=== PATIENT | female | born 1950 | race Caucasian/White ===

== ENCOUNTER 2019-08-09 10:07 | Outpatient (REF) | payer MEDICARE, BC, SELFPAY ==
[2019-08-09 21:54] LABS: Calculated LDL 183 mg/dL; Cholesterol 255 mg/dL (50-200); HDL Cholesterol 56 mg/dL (40-60); Triglyceride 81 mg/dL (30-150)
== END 2019-08-09 10:27 ==
LOC: NCHCN 10:07
PROVIDERS: PCP Registered Nurse; Visit Provider Registered Nurse
DX: E78.89 Other lipoprotein metabolism disorders (principal); Z13.6 Encounter for screening for cardiovascular disorders
CPT/HCPCS: 80061

== ENCOUNTER 2020-03-15 14:33 | Outpatient (REF) | payer MEDICARE, BC, SELFPAY ==
[2020-03-17 07:30] LABS: COVID-19 RT-PCR Result NEGATIVE (Negative)
== END 2020-03-15 14:53 ==
LOC: NCHCN 14:33
PROVIDERS: PCP Registered Nurse; Visit Provider Nurse Practitioner Family
DX: Z03.818 Encounter for observation for suspected exposure to other biological agents ruled out (principal)
CPT/HCPCS: U0003

== ENCOUNTER 2021-09-06 19:08 | Outpatient (REF) | payer MEDICARE, BC, SELFPAY ==
[2021-09-06 21:06] LABS: HCT 36.8 % (36.0-46.0); HGB 11.5 g/dL (11.2-15.7); MCH 25.7 pg (27.0-33.0); MCHC 31.3 % (32.0-36.0); MCV 82.3 fL (80-95); MPV 10.1 fL (8.0-11.0); Platelet Count 245 10^3/uL (130-400); RBC 4.47 10^6/uL (3.93-5.22); RDW 12.6 % (11.7-14.6); RDW-SD 38.4 fL; WBC 7.47 10^3/uL (4.4-10.8)
[2021-09-06 21:23] LABS: Calculated LDL 191 mg/dL (<100); Cholesterol 287 mg/dL (<200); HDL Cholesterol 50 mg/dL (40-60); Triglyceride 233 mg/dL (<150)
[2021-09-06 21:35] LABS: Hemoglobin A1C 5.7 % (<5.7)
[2021-09-06 21:46] LABS: Vitamin D 25 Total 21.4 ng/mL (30-100)
== END 2021-09-06 19:09 | disposition home or self-care (01) ==
LOC: NCHCN 19:08
PROVIDERS: PCP Registered Nurse; Visit Provider Registered Nurse
DX: R53.83 Other fatigue (principal); R39.9 Unspecified symptoms and signs involving the genitourinary system; Z00.00 Encounter for general adult medical examination without abnormal findings; Z83.3 Family history of diabetes mellitus
CPT/HCPCS: 80061; 82306; 85027; 87077; 83036; 87086; 87186

== ENCOUNTER 2021-11-02 12:05 | Outpatient (REF) | payer MEDICARE, BC, SELFPAY ==
[2021-11-05 01:20] LABS: Vitamin D 25 Total 54.7 ng/mL (30-100)
== END 2021-11-02 12:06 | disposition home or self-care (01) ==
LOC: NCHCN 12:05
PROVIDERS: PCP Registered Nurse; Visit Provider Registered Nurse
DX: E55.9 Vitamin D deficiency, unspecified (principal)
CPT/HCPCS: 82306

== ENCOUNTER 2021-11-27 02:25 | Outpatient (CLI) | payer MEDICARE, BC, SELFPAY ==
--- NOTE | 2021-11-27 09:30 | NS.NUTBLAN_ITS ---
Aparna was referred for Medical Nutrition Therapy for pre diabetes and weight management. PMH: overweight, hyperlipidemia, prediabetes, hx of hypovitaminosis D. 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 Overall, Aparna follows a balanced meal and avoids processed foods and is active daily. Aparna reports wanting to lose another 5 lbs. No side effect from statin. Diet does not provide high sources of cholesterol, suspect elevated lipids due to liver output/genetic predisposition. Mildly elevated blood sugars may be due to recent gain of 10 lbs in last 2 years. Has lost 5 of 10 pounds in last month by limiting sweets. Session today focused on how to follow a lower carb diet with emphasis on complex carbs, lean protein and non starchy vegetables. Encouraged walking 7-10 miles weekly. Expect she will attain her weight goal and A1C with return to normal. No follow up scheduled at this time. Will follow up as needed.
== END 2021-11-27 02:26 | disposition home or self-care (01) ==
LOC: DS 02:25
PROVIDERS: PCP Registered Nurse; Visit Provider Dietitian, Registered
DX: R73.03 Prediabetes (principal); E66.3 Overweight; Z71.3 Dietary counseling and surveillance
CPT/HCPCS: 97802

== ENCOUNTER 2021-12-19 17:46 | Outpatient (REF) | payer MEDICARE, BC, SELFPAY ==
[2021-12-21 12:24] LABS: COVID-19 RT-PCR UVMMC Result Negative (Negative)
== END 2021-12-19 17:47 | disposition home or self-care (01) ==
LOC: NCHCN 17:46
PROVIDERS: PCP Registered Nurse; Visit Provider Registered Nurse
DX: Z20.822 Contact with and (suspected) exposure to COVID-19 (principal); J06.9 Acute upper respiratory infection, unspecified
CPT/HCPCS: U0003; U0005

== ENCOUNTER 2022-03-06 10:39 | Outpatient (REF) | payer MEDICARE, BC, SELFPAY ==
[2022-03-06 15:26] LABS: Calculated LDL 124 mg/dL (<100); Cholesterol 213 mg/dL (<200); HDL Cholesterol 68 mg/dL (40-60); TSH (W/Ref FT4) 1.01 uIU/mL (0.36-3.74); Triglyceride 109 mg/dL (<150)
[2022-03-07 09:43] LABS: Hepatitis C Ab w Rflx HCV PCR Negative (Negative)
== END 2022-03-06 10:40 | disposition home or self-care (01) ==
LOC: NCHCN 10:39
PROVIDERS: PCP Registered Nurse; Visit Provider Registered Nurse
DX: E78.5 Hyperlipidemia, unspecified (principal); E04.9 Nontoxic goiter, unspecified; R73.03 Prediabetes; Z11.59 Encounter for screening for other viral diseases
CPT/HCPCS: 80061; 86803; 83036; 84443

== ENCOUNTER 2023-01-10 21:10 | Outpatient (REF) | payer MEDICARE, BC, SELFPAY ==
[2023-01-10 21:34] LABS: HCT 38.7 % (36.0-46.0); HGB 12.4 g/dL (11.2-15.7); MCH 26.5 pg (27.0-33.0); MCV 83 fL (80-95); MPV 9.5 fL (8.0-11.0); Platelet Count 272 10^3/uL (130-400); RBC 4.68 10^6/uL (3.93-5.22); RDW 12.7 % (11.7-14.6); RDW-SD 38.5 fL; WBC 7.97 10^3/uL (4.4-10.8)
[2023-01-10 21:37] LABS: ESR 8 mm/hr (0-30)
[2023-01-10 21:45] LABS: Hemoglobin A1C 6.1 % (<5.7)
[2023-01-10 22:04] LABS: Vitamin D 25 Total 64.2 ng/mL (30-100)
[2023-01-10 22:35] LABS: ALT 27 U/L (14-59); AST 17 U/L (15-37); Albumin 4.1 g/dL (3.4-5.0); Alkaline Phosphatase 89 U/L (46-116); Anion Gap 8.4 mmol/L (3-11); BUN 24 mg/dL (7-18); Bilirubin, Total 0.4 mg/dL (0.2-1.0); C-Reactive Protein 0.09 mg/dL (0.0-0.3); CO2 29.6 mmol/L (21.0-32.0); CREATININE 0.8 mg/dL (0.55-1.02); Calcium 9.6 mg/dL (8.5-10.1); Chloride 105 mmol/L (98-107); Estimated GFR 79.22 (mL/min/1.73m2); Glucose 99 mg/dL (74-106); Potassium 4.4 mmol/L (3.5-5.1); Sodium 143 mmol/L (136-145); Total Protein 7.2 g/dL (6.4-8.2)
== END 2023-01-10 21:11 | disposition home or self-care (01) ==
LOC: NCHCN 21:10
PROVIDERS: PCP Registered Nurse; Visit Provider Registered Nurse
DX: R51.9 Headache, unspecified (principal); R53.83 Other fatigue; R73.03 Prediabetes; E55.9 Vitamin D deficiency, unspecified; E04.9 Nontoxic goiter, unspecified
CPT/HCPCS: 80053; 82306; 85027; 85652; 83036; 84443; 86140

== ENCOUNTER 2024-01-22 14:14 | Outpatient (REF) | payer MEDICARE, BC, SELFPAY ==
[2024-01-22 20:43] LABS: HCT 37.4 % (36.0-46.0); HGB 12.1 g/dL (11.2-15.7); MCH 26.8 pg (27.0-33.0); MCHC 32.4 % (32.0-36.0); MCV 83 fL (80-95); MPV 10.2 fL (8.0-11.0); Platelet Count 244 10^3/uL (130-400); RBC 4.52 10^6/uL (3.93-5.22); RDW 12.5 % (11.7-14.6); RDW-SD 37.8 fL; WBC 6.61 10^3/uL (4.4-10.8)
[2024-01-22 21:03] LABS: ALT 21 U/L (14-59); AST 19 U/L (15-37); Alkaline Phosphatase 89 U/L (46-116); BUN 15 mg/dL (7-18); Bilirubin, Total 0.7 mg/dL (0.2-1.0); CREATININE 0.8 mg/dL (0.55-1.02); Calcium 9.5 mg/dL (8.5-10.1); Chloride 107 mmol/L (98-107); Estimated GFR 78.72 (mL/min/1.73m2); Glucose 87 mg/dL (74-106); Potassium 4.4 mmol/L (3.5-5.1); Sodium 144 mmol/L (136-145); TSH 1.06 uIU/Ml (0.36-3.74); Total Protein 7.3 g/dL (6.4-8.2)
[2024-01-22 21:15] LABS: Hemoglobin A1C 6.1 % (<5.7)
== END 2024-01-22 14:15 | disposition home or self-care (01) ==
LOC: NCHCN 14:14
PROVIDERS: PCP Registered Nurse; Visit Provider Family Medicine
DX: D64.9 Anemia, unspecified (principal); R73.03 Prediabetes; E04.9 Nontoxic goiter, unspecified; E66.9 Obesity, unspecified
CPT/HCPCS: 80053; 85027; 83036; 84443

== ENCOUNTER 2024-08-18 07:38 | Outpatient (REF) | payer MEDICARE, BC, SELFPAY ==
[2024-08-17 15:05] LABS: HCT 34.9 % (36.0-46.0); HGB 10.9 g/dL (11.2-15.7); MCH 26.1 pg (27.0-33.0); MCHC 31.2 % (32.0-36.0); MCV 84 fL (80-95); MPV 10.1 fL (8.0-11.0); Platelet Count 210 10^3/uL (130-400); RBC 4.18 10^6/uL (3.93-5.22); RDW 12.9 % (11.7-14.6); WBC 5.47 10^3/uL (4.4-10.8)
[2024-08-17 15:41] LABS: ALT 21 U/L (14-59); AST 25 U/L (15-37); Albumin 3.4 g/dL (3.4-5.0); Alkaline Phosphatase 90 U/L (46-116); Anion Gap 6.2 mmol/L (3-11); BUN 22 mg/dL (7-18); Bilirubin, Total 0.48 mg/dL (0.2-1.0); CO2 27.8 mmol/L (21.0-32.0); CREATININE 0.9 mg/dL (0.55-1.02); Chloride 107 mmol/L (98-107); Estimated GFR 68.35 (mL/min/1.73m2); Glucose 104 mg/dL (74-106); Potassium 4.4 mmol/L (3.5-5.1); Sodium 141 mmol/L (136-145); TSH (W/Ref FT4) 0.76 uIU/mL (0.36-3.74); Total Protein 6.8 g/dL (6.4-8.2)
--- OUTSIDE RECORDS SUMMARY | 2024-08-18 07:54 | XMS_ITS ---
Author Organization Unknown Address [address] [place] [address] [phone] Phone Care Team Providers Care Urban Redevelopment Specialist Name Role Phone SHANELLE Silva Attending Unavailable Results MM SCR MAMMO BI INCL CAD - C ompleted: 09/19/2021 15:13 LOINC: Digital mammograms were inte rpreted according to the usual protocol including computer analysis with CADx system including tomosynthesis. Both CC and MLO views of both breasts were performed and compared to prior mammograms dating back to 2016, the most recent being August 2020. There has been no significant change in the appearance of the distribution of the fibroglandular tissue. There is an asymmetric density anteriorly in the right breast which has slightly increased in size from previous studies. Spot compression view and ultrasound recommended. There are no malignant appearing microcalcification groups in this region nor elsewhere in either breast.?? No new architectural distortion nor skin thickening/retraction. IMPRESSION: 1. No radiographic evidence of malignancy in the left breast. 2. Asymmetric density anteriorly in the right breast which is more prominent than on prior studies. Spot compression view and ultrasound recommended. BI-RADS Assessment: Category 0 - Incomplete: Need additional imaging evaluation BREAST DENSITY: c. The breasts are heterogeneously dense which may obscure small masses. Dictated by: KEI BONILLA MD Transcribed by: KATIE 09/19/21/14:35 D Sunday, September 19, 2021 8:17:42 AM [id number] Electronically Reviewed and Signed By: CARRIE BONILLA MD 09/19/21 17:42 TECHNOLOGIST: RT Walter (R) (CT) Copy for: [facility] INFORMATION MGMT Social History Type Status Start Date End Date Code Code Syst em Smoking History Never smoker (Never Smoked) 809139999 SNOMED CT Sex Female Hospital Discharge Instructions Should you have any questions prior to discharge, please contact a member of your healthcare team. If you have left the hospital and have any questions, please contact your primary care physician. Reason For Referral No Data Found Allergies and Adverse Reactions Allergy Substance Reaction Severity Start Date Concern Status Co de Code System No Known Drug Allergies Active 558700910 SNOMED-CT Plan of Treatment MM SCREEN BILAT 10/14/2023 CT HEAD W/O CONTRAST 01/30/2023 MM SCREEN BILAT 09/30/2022 MM DIAG RT UNILAT 03/27/2022 US BREAST UNI RT 03/27/2022 MM DIAG RT UNILAT 03/27/2022 US BREAST UNI RT 03/27/2022 US BREAST UNI RT 09/26/2021 MM DIAG RT UNILAT 09/26/2021 MM SCREEN BILAT 09/24/2021 Encounters Encounter Diagnosis Start Date Code Code Sys tem Screening mammography 09/19/2021 [id number] SNOMED -CT Personal Care Team Section Performer Name Performer Role Active Date Inactive Da te
--- OUTSIDE RECORDS SUMMARY | 2024-08-18 07:54 | XMS_ITS ---
Author Organization Unknown Address [address] [place] [address] [phone] Phone Care Team Providers Care Scale Clerk Name Role Phone TIMMONS SHIRLEY Silva Attending Unavailable Results US BREAST COMPLETE RT* - Com pleted: 09/26/2021 15:52 LOINC: Digital mammograms were inte rpreted according to the usual protocol including computer analysis with [employer] system including tomosynthesis. DIAGNOSTIC RIGHT BREAST MAMMOGRAM AND COMPLETE RIGHT BREAST ULTRASOUND: This patient has now returned for additional imaging of the right breast, pursuant to findings on the recent screening mammogram of 09/19/2021. DIAGNOSTIC RIGHT BREAST MAMMOGRAM: Additional spot compression view does not dissipate the somewhat oval nodule anteriorly in the right breast. The other density slightly more medial is less evident on this additional 3D spot compression view. COMPLETE RIGHT BREAST ULTRASOUND: All four quadrants were scanned, as well as the retro-areolar region and right axilla. There is a solitary finding at the 10 o'clock position, which corresponds to the finding on the mammogram. This has the appearance of a 7 x 3 mm septated microcyst. There are no solid lesions in all four quadrants. Right axilla is negative for significant adenopathy. IMPRESSION: There is a 7 x 3 mm septated microcyst at the 10 o'clock position corresponding to the finding on the mammogram. Appropriate follow up, as discussed by myself with the patient today, is repeat right breast mammogram in six months. BI-RADS Assessment:?Category 3. Probably Benign Findings - Short interval follow-up suggested. BREAST DENSITY: c. The breasts are heterogeneously dense which may obscure small masses. TECHNOLOGIST: Marta Kramer, RT (R) (M) Dictated by: KEI BONILLA MD Transcribed by: MICHAEL 09/26/21/16:31 [id number] Electronically Reviewed and Signed By: CARRIE BONILLA MD 09/26/21 16:50 Copy for: 185 HEALTH INFORMATION MGMT Social History Type Status Start Date End Date Code Code Syst em Smoking History Never smoker (Never Smoked) 223571464 SNOMED CT Sex Female Hospital Discharge Instructions [...] Code System No Known Drug Allergies Active [id number] SNOMED-CT Plan of Treatment MM SCREEN BILAT 10/14/2023 CT HEAD W/O CONTRAST 01/30/2023 MM SCREEN BILAT 09/30/2022 MM DIAG RT UNILAT 03/27/2022 US BREAST UNI RT 03/27/2022 MM DIAG RT UNILAT 03/27/2022 US BREAST UNI RT 03/27/2022 US BREAST UNI RT 09/26/2021 MM DIAG RT UNILAT 09/26/2021 MM SCREEN BILAT 09/24/2021 Encounters Encounter Diagnosis Start Date Code Code Sys tem Inconclusive mammography finding 09/26/2021 [id number] SNOMED-CT Personal Care Team Section Performer Name Performer Role Active Date Inactive Da shyanne
--- OUTSIDE RECORDS SUMMARY | 2024-08-18 07:55 | XMS_ITS ---
Author Organization Unknown Address [address] [place] [address] [phone] Phone Care Team Providers Care Learning Analyst Name Role Phone SHANELLE Silva Attending Unavailable Results MM DIAG UNILAT RT W CAD - Co mpleted: 03/27/2022 10:33 LOINC: Digital mammograms were inte rpreted according to the usual protocol including computer analysis with CADx system including tomosynthesis. RIGHT BREAST MAMMOGRAM AND RIGHT BREAST ULTRASOUND:Right breast mammogram and right breast ultrasound are interpreted in conjunction. These examinations are compared to prior studies of September 2021. Note is again made of a septated cyst of the 10 o'clock position of the right breast, unchanged from prior examination and measuring about 5 mm to 6 mm in greatest diameter. A small nodularity is also noted mammographically at this site. No new mass or clumped microcalcification seen. No change mammographically from prior examination. CONCLUSION:No specific evidence of malignancy at this time. I would suggest that routine screening examinations resume with a bilateral mammogram in 6 months. BI-RADS Assessment: Category 3 - Probably benign findings - Short interval follow-up suggested BREAST DENSITY: c. The breasts are heterogeneously dense which may obscure small masses. Dictated by: LISA LOWERY RADIOLOGIST Transcribed by: KATIE 03/28/22/11:23 D Sunday, March 27, 2022 10:23:45 AM [id number] Electronically Reviewed and Signed By: KIMBERLY LOWERY MD 04/02/22 08:14 TECHNOLOGIST: RT Denisa (R)(M)(CT) Copy for: SHANELLE Silva via fax Copy for: [facility] INFORMATION [facility] BREAST LIMITED RT* - Comp leted: 03/27/2022 10:20 LOINC: Digital mammograms were inte rpreted according to the usual protocol including computer analysis with CADx system including tomosynthesis. RIGHT BREAST MAMMOGRAM AND RIGHT BREAST ULTRASOUND:Right breast mammogram and right breast ultrasound are interpreted in conjunction. These examinations are compared to prior studies of September 2021. Note is again made of a septated cyst of the 10 o'clock position of the right breast, unchanged from prior examination and measuring about 5 mm to 6 mm in greatest diameter. A small nodularity is also noted mammographically at this site. No new mass or clumped microcalcification seen. No change mammographically from prior examination. CONCLUSION:No specific evidence of malignancy at this time. I would suggest that routine screening examinations resume with a bilateral mammogram in 6 months. BI-RADS Assessment: Category 3 - Probably benign findings - Short interval follow-up suggested BREAST DENSITY: c. The breasts are heterogeneously dense which may obscure small masses. Dictated by: KIMBERLY LOWEYR RADIOLOGIST Transcribed by: KATIE 03/28/22/11:23 D Sunday, March 27, 2022 10:23:45 AM [id number] Electronically Reviewed and Signed By: KIMBERLY LOWERY MD 04/02/22 08:15 TECHNOLOGIST: RT Denisa (Basilia)(Ricardo)(CT) Copy for: SHANELLE Silva via fax Copy for: [facility] HEALTH INFORMATION MGMT Social History Type Status Start Date End Date Code Code Syst em Smoking History Never smoker (Never Smoked) 419565725 SNOMED CT Sex Female Hospital Discharge Instructions [...] Code System No Known Drug Allergies Active 563542844 SNOMED-CT Plan of Treatment MM SCREEN BILAT 10/14/2023 CT HEAD W/O CONTRAST 01/30/2023 MM SCREEN BILAT 09/30/2022 MM DIAG RT UNILAT 03/27/2022 US BREAST UNI RT 03/27/2022 MM DIAG RT UNILAT 03/27/2022 US BREAST UNI RT 03/27/2022 US BREAST UNI RT 09/26/2021 MM DIAG RT UNILAT 09/26/2021 MM SCREEN BILAT 09/24/2021 Encounters Encounter Diagnosis Start Date Code Code Sys tem Inconclusive mammogram 03/27/2022 ELIZABETH D-CT Personal Care Team Section Performer Name Performer Role Active Date Inactive Da te
--- OUTSIDE RECORDS SUMMARY | 2024-08-18 07:55 | XMS_ITS ---
Author Organization Unknown Address [address] [place] [address] [phone] Phone Care Team Providers Care Putty Remover Name Role Phone DAWNA Santacruz Attending Unavailable SHANELLE Silva Primary Unavailable Social History Type Status Start Date End Date Code Code Syst em Smoking History Never smoker (Never Smoked) 046958876 SNOMED CT Sex Female Hospital Discharge Instructions [...] Code System No Known Drug Allergies Active 804314206 SNOMED-CT Plan of Treatment MM SCREEN BILAT 10/14/2023 CT HEAD W/O CONTRAST 01/30/2023 MM SCREEN BILAT 09/30/2022 MM DIAG RT UNILAT 03/27/2022 US BREAST UNI RT 03/27/2022 MM DIAG RT UNILAT 03/27/2022 US BREAST UNI RT 03/27/2022 US BREAST UNI RT 09/26/2021 MM DIAG RT UNILAT 09/26/2021 MM SCREEN BILAT 09/24/2021 Encounters Encounter Diagnosis Start Date Code Code Sys tem 01/30/2022 [id number] SNOMED-CT Personal Care Team Section Performer Name Performer Role Active Date Inactive Da shyanne
--- OUTSIDE RECORDS SUMMARY | 2024-08-18 07:55 | XMS_ITS ---
Author Organization Unknown Address [address] [place] [address] [phone] Phone Care Team Providers Care Media Marketing Director Name Role Phone SHANELLE Silva Attending Unavailable Results MM SCREENING BILAT MAMMO W T TAQUERIA W CAD - Completed: 09/30/2022 09:39 LOINC: [facility] [place], [place] [address] PACS LABOR REPRESENTATIVE REPORT Patient Name: ODILIA MAIER MRN: Sex: : Age: [id number] F [id number] Account: Accession: Admit: StayType: [id number] 09/30/2022 O/P Ordered: Order ID: Submitted: Ordering Provider: 09/30/2022 09:22 [id number] [facility] SHIRLEY TIMMONS Completed: Technologist: Resulted: 09/30/2022 09:39 DA 09/30/2022 10:13 Study Description: MM SCREENING BILAT MAMMO W MEGAN W CAD Study Reason: SCREENING Comparisons: Comparison is made with prior examinations. FINDINGS: Mammography/Tomosynthesis: Masses/Architectural Distortion: None seen. Microcalcifictions: No suspicious pleomorphic-type are seen. Skin Thickening/Nipple Retraction: None. IMPRESSION: 1. No evidence of malignancy is noted. 2. Unless there is more urgent need, follow-up screening mammography is recommended, as per [place] [employer] guidelines. BI-RADS Category 1: Negative BI_RADS Density Category C: Heterogeneously dense Breast density Category C or D implies that the patient has dense breast tissue. Dense breast tissue can make it harder to find cancer on a mammogram. Dense breast tissue is also associated with an increased risk of breast cancer. This information about the result of the mammogram report was provided to the patient to raise their awareness. Use this report when you speak with the patient about their risks for breast cancer, which includes their family history. At that time, you may recommend additional screening tests (Ultrasound or MRI) as these tests may add significant information. A negative radiographic report should not delay biopsy if a dominant or clinically suspicious mass is present. Up to ten percent of cancers are not identified on mammography. A negative report may reinforce clinical impression. Adenosis and dense breasts may obscure an underlying neoplasm. False positive reports average 6 to 10%. Patient will receive a letter notifying them of these results. Report Digitally Signed by Ken Brink on 09/30/2022 10:13 AM EST Social History Type Status Start Date End Date Code Code Syst em Smoking History Never smoker (Never Smoked) 837175666 SNOMED CT Sex Female Hospital Discharge Instructions [...] Code System No Known Drug Allergies Active 030242167 SNOMED-CT Plan of Treatment MM SCREEN BILAT 10/14/2023 CT HEAD W/O CONTRAST 01/30/2023 MM SCREEN BILAT 09/30/2022 MM DIAG RT UNILAT 03/27/2022 US BREAST UNI RT 03/27/2022 MM DIAG RT UNILAT 03/27/2022 US BREAST UNI RT 03/27/2022 US BREAST UNI RT 09/26/2021 MM DIAG RT UNILAT 09/26/2021 MM SCREEN BILAT 09/24/2021 Encounters Encounter Diagnosis Start Date Code Code Sys tem Encounter for screening mamm ogram for malignant neoplasm of breast 09/30/2022 SNOMED-CT Personal Care Team Section Performer Name Performer Role Active Date Inactive Da te
--- OUTSIDE RECORDS SUMMARY | 2024-08-18 07:55 | XMS_ITS ---
Author Organization Unknown Address [address] [place] [address] [phone] Phone Care Team Providers Care House Coordinator Name Role Phone DAWNA Santacruz Attending Unavailable SHANELLE Silva Primary Unavailable Social History Type Status Start Date End Date Code Code Syst em Smoking History Never smoker (Never Smoked) 555643318 SNOMED CT Sex Female Hospital Discharge Instructions [...] Code System No Known Drug Allergies Active 914591746 SNOMED-CT Plan of Treatment MM SCREEN BILAT 10/14/2023 CT HEAD W/O CONTRAST 01/30/2023 MM SCREEN BILAT 09/30/2022 MM DIAG RT UNILAT 03/27/2022 US BREAST UNI RT 03/27/2022 MM DIAG RT UNILAT 03/27/2022 US BREAST UNI RT 03/27/2022 US BREAST UNI RT 09/26/2021 MM DIAG RT UNILAT 09/26/2021 MM SCREEN BILAT 09/24/2021 Encounters Encounter Diagnosis Start Date Code Code Sys tem 11/22/2022 [id number] SNOMED-CT Personal Care Team Section Performer Name Performer Role Active Date Inactive Da shyanne
--- OUTSIDE RECORDS SUMMARY | 2024-08-18 07:56 | XMS_ITS | Referral Summary ---
Author Organization [facility] Address [address] [place] [address] Care Team Providers Care Video Manager Name Role Phone Kerrie Morgan APRN Primary Care Provider + Maxine Masterson MD Unavailable [phone] Encounters Date Type Department Care Team Description 08/17/[address] [phone] Amos Andujar MD Pre-op Exam 08/16/2024 13:45 EDT Office Visit [address] [phone] Amos Andujar MD Meningioma ([facility]) (Primary Dx) 08/03/2024 13:09 EDT - 08/03/2024 23:59 EDT Hospital Encounter Stephanie Ramires [facility] [address] [place], [place] [phone] Meningioma ([facility]) Discharge Disposition: Home or Self Care 08/03/2024 13:09 EDT - 08/03/2024 23:59 EDT Hospital Encounter Stephanie Ramires [place] [address] [place], [place] [id number] Meningioma ([facility]) Discharge Disposition: Home or Self Care from Last 3 Months Allergies No known active allergies Medications Medication Sig Dispensed Refills Start Date End Date Status atorvastatin (LIPITOR) 20 mg tablet Take 1 Tablet by mouth every evening. 01/17/2023 Active cholecalciferol, vitamin D3, (VITAMIN D3 ORAL) Take by mouth daily. Active MULTIVITAMIN ORAL Take by mouth daily. Active ascorbic acid (VITAMIN C ORAL) Take by mouth daily. Active Active Problems Problem Noted Date Diagnosed Date Meningioma ([facility]) 02/14/2023 Thyroid nodule 04/09/2012 Overview: Right-sided 1.4 x 1.9 x 3.0 solid nodule. Immunizations Name Administration Dates Next Due Hepatitis A Vaccine Adult (HAVRIX/VAQTA) IM 03/20 Typhoid ViCPs (TYPHIM Vi) Vaccine IM 04/02/2012 Yellow Fever Vaccine SQ 04/02/2012 Social History Tobacco Use Types Packs/Day Years Used Date Smoking Tobacco: Never Smokeless Tobacco: Never Tobacco Cessation:Counseling Given: Not Answered Alcohol Use Standard Drinks/Week Comments Not Asked 0 (1 standard drink = 0.6 oz pur e alcohol) Sex and Gender Information Value Date Recorded Sex Assigned at Not on file Gender Identity Female 01/17/2023 13:27 EDT Sexual Orientation Not on file Last Filed Vital Signs Vital Sign Reading Time Taken Comments Blood Pressure 120/64 08/16/2024 1338 EDT Pulse 72 08/16/2024 1338 EDT Temperature 36.1 ??C (97 ??F) 04/02/2012 1212 EDT Respiratory Rate 16 08/16/2024 1338 EDT Oxygen Saturation 98% 08/16/2024 1338 EDT Inhaled Oxygen Concentration - - Weight 74.8 kg (165 lb) 08/16/2024 1338 EDT Height 162.6 cm (5' 4) 08/16/2024 1338 EDT Body Mass Index 28.32 08/16/2024 1338 EDT Functional Status Functional Status Response Date of Assess ment Because of a physical, menta l, or emotional condition, does this person have difficulty doing errands alone such as visiting a doctor's office or shopping? No 01/25/2016 Cognitive Status Response Date of Assessm ent Because of a physical, menta l, or emotional condition, does this person have serious difficulty concentrating, remembering, or making decisions? No 01/25/2016 Plan of Treatment Scheduled Procedures Name Priority Associated Diagnoses Date/Ti me CRANIECTOMY, SUPRATENTORIAL, FOR EXCISION OF MENINGIOMA Meningioma (HCC-CMS) Procedures Procedure Name Priority Date/Time Associated Diagnosis Comments MR HEAD W WO CONTRAST Routine 08/03/2024 14:41 EDT Meningioma (HCC-CMS) CT HEAD WO CONTRAST Routine 08/03/2024 1 3:30 EDT Meningioma (HCC-CMS) HEPATITIS C AB W REFLEX TO HCV RNA BY PCR Routine 03/06/2022 10:25 EDT from Last 3 Months or Most Recently Relevant to Health Maintenance Results * MR HEAD W WO CONTRAST (08/03/2024 14:41 EDT) Anatomical Region Laterality Modality Head Magnetic Resonan ce 08/03/2024 15:5 4 EDT Impressions 08/03/2024 15:54 EDT No significant change to minimal increased size of presumed left anterior frontal parafalcine meningioma. I have personally reviewed the images and the above interpretation and agree with the findings. [id number] Narrative 08/03/2024 15:54 EDT EXAM: MRI HEAD WO/W CONTRAST HISTORY: meningioma TECHNIQUE: MRI head without and with intravenous gadolinium contrast. Structured report code: [id number].MR04 COMPARISON: Multiple MRIs most recent 02/16/2024; CT 08/03/2024. FINDINGS: PARENCHYMA: No evidence of infarction. No parenchymal hemorrhage. No mass or shift of structures across the midline. ??No abnormal enhancement. EXTRA-AXIAL SPACES: No extra-axial collection. No significant change to minimal increase in size of presumed left anterior frontal parafalcine partially calcified meningioma measuring approximately 2.1 x 1.7 x 2.0 cm (AP by TR by CC) when measured in similar fashion from prior, previously 2.1 x 1.7 x 1.9 cm on comparison MR 02/16/2024. No significant surrounding edema. Minimal adjacent mass effect. VENTRICLES: No hydrocephalus. VESSELS: The flow voids and intravascular enhancement are preserved. BONES: Unremarkable. ORBITS: No significant abnormality. PARANASAL SINUSES/MASTOID AIR CELLS: Minor mural thickening of the frontal sinuses and ethmoid air cells. The mastoids are clear. EXTRACRANIAL SOFT TISSUES: Unremarkable. Resulting Agency Comment [id number] Procedure Note Bautista Johnson MD - 08/03/2024 EXAM: MRI HEAD WO/W CONTRAST HISTORY: meningioma TECHNIQUE: MRI head without and with intravenous gadolinium contrast.Structured report code: [id number].MR04 COMPARISON: Multiple MRIs most recent 02/16/2024; CT 08/03/2024. FINDINGS: PARENCHYMA: No evidence of infarction. No parenchymal hemorrhage. No mass or shift ofstructures across the midline. No abnormal enhancement. EXTRA-AXIAL SPACES: No extra-axial collection. No significant change to minimal increase in size of presumed leftanterior frontal parafalcine partially calcified meningioma measuringapproximately 2.1 x 1.7 x 2.0 cm (AP by TR by CC) when measured in similarfashion from prior, previously 2.1 x 1.7 x 1.9 cm on comparison MR02/16/2024. No significant surrounding edema. Minimal adjacent masseffect. VENTRICLES: No hydrocephalus. VESSELS: The flow voids and intravascular enhancement are preserved. BONES: Unremarkable. ORBITS: No significant abnormality. PARANASAL SINUSES/MASTOID AIR CELLS: Minor mural thickening of the frontal sinuses and ethmoid air cells. Themastoids are clear. EXTRACRANIAL SOFT TISSUES: Unremarkable. IMPRESSION No significant change to minimal increased size of presumed left anteriorfrontal parafalcine meningioma. I have personally reviewed the images and the above interpretation andagree with the findings. [id number] Mohini Bedoya PA-C IMG MRI ORD ERABLES * CT HEAD WO CONTRAST (08/03/2024 13:30 EDT) Anatomical Region Laterality Modality Head Computed Tomogra phy 08/03/2024 14:4 7 EDT Impressions 08/03/2024 14:47 EDT No significant change in size of a 1.9 cm partially calcified presumed meningioma over the medial aspect of the left frontal lobe when compared to prior MRI 02/16/2024. Mild mass effect on the underlying bifrontal lobe. [id number] Narrative 08/03/2024 14:47 EDT EXAM: CT HEAD WO CONTRAST HISTORY: meningioma ?? TECHNIQUE: CT head without contrast. Structured report code: [email or web address].[id number] This CT used either dose modulation and/or iterative reconstruction techniques to lower radiation dose. COMPARISON: MRI head 02/16/2024, CT head 01/17/2023 FINDINGS: PARENCHYMA: No evidence of infarction. No parenchymal hemorrhage. No mass or shift of structures across the midline. EXTRA-AXIAL SPACES: No significant change in size of a partially calcified extra-axial lesion over the medial aspect of the left frontal lobe when compared to prior MRI of 02/16/2024. For example, measuring 1.9 x 1.8 x 1.9 cm (axial #56 and coronal #30). Mild mass effect on the underlying parenchyma. VENTRICULAR SYSTEM: Normal size and configuration. No obstructive hydrocephalus. VESSELS: Limited evaluation without IV contrast. Normal density in the dural venous sinuses. BONES: No concerning lesions. No evidence of fracture. ORBITS: No significant abnormality. PARANASAL SINUSES/MASTOID AIR CELLS: Predominantly clear. EXTRACRANIAL SOFT TISSUES: Unremarkable. Resulting Agency Comment [id number] Procedure Note Brian Bautista MD - 08/03/2024 EXAM: CT HEAD WO CONTRAST HISTORY: meningioma TECHNIQUE: CT head without contrast. Structured report code: NR.CT01 This CT used either dose modulation and/or iterative reconstructiontechniques to lower radiation dose. COMPARISON: MRI head 02/16/2024, CT head 01/17/2023 FINDINGS: PARENCHYMA: No evidence of infarction. No parenchymal hemorrhage. No mass or shift ofstructures across the midline. EXTRA-AXIAL SPACES: No significant change in size of a partially calcified extra-axial lesionover the medial aspect of the left frontal lobe when compared to prior MRIof 02/16/2024. For example, measuring 1.9 x 1.8 x 1.9 cm (axial #56 andcoronal #30). Mild mass effect on the underlying parenchyma. VENTRICULAR SYSTEM: Normal size and configuration. No obstructive hydrocephalus. VESSELS: Limited evaluation without IV contrast. Normal density in the dural venoussinuses. BONES: No concerning lesions. No evidence of fracture. ORBITS: No significant abnormality. PARANASAL SINUSES/MASTOID AIR CELLS: Predominantly clear. EXTRACRANIAL SOFT TISSUES: Unremarkable. IMPRESSION No significant change in size of a 1.9 cm partially calcified presumedmeningioma over the medial aspect of the left frontal lobe when comparedto prior MRI 02/16/2024. Mild mass effect on the underlying bifrontallobe. [id number] Mohini Bedoya PA-C IMG CT [facility] * HEPATITIS C AB W REFLEX TO HCV RNA BY PCR (03/06/2022 10:25 EDT) Hep C Antibody Negative Negative 03/07/2022 9:38 EDT [facility] Blood VENOUS BLOOD / Unknown 03/06/2022 10:25 EDT 03/06/2022 21:32 EDT Provider Outr Resulting Lab CHEMISTRY & BLOOD GAS ORDERABLES [facility] [address] [place] [address] from Last 3 Months or Most Recently Relevant to Health Maintenance Care Teams Video Manager Relationship Specialty Start Date End Date Kerrie Morgan APRN [address] [place] [address] PCP - General 01/17/23 Maxine Masterson MD [address] [place] [address] 01/17/23
--- OUTSIDE RECORDS SUMMARY | 2024-08-18 07:56 | XMS_ITS | Encounter Summary ---
Author Organization [facility] Address [address] [place] [address] Care Team Providers Care Buyer Assistant Name Role Phone Kerrie Morgan APRN Primary Care Provider + Maxine Masterson MD Unavailable [phone] Reason for Visit * Reason Comments Follow-up Discuss surgery Encounter Details Date Type Department Care Team (Late st Contact Info) Description 08/16/2024 13:45 EDT Office Visit [facility] [address] [place], [place] [phone] Amos Andujar MD [address] [facility], [address] [place] [address] Meningioma (HCC-CMS) (Primary Dx) Social History Tobacco Use Types Packs/Day Years Used Date Smoking Tobacco: Never Smokeless Tobacco: Never Tobacco Cessation:Counseling Given: Not Answered Alcohol Use Standard Drinks/Week Comments Not Asked 0 (1 standard drink = 0.6 oz pur e alcohol) Sex and Gender Information Value Date Recorded Sex Assigned at Not on file Gender Identity Female 01/17/2023 13:27 EDT Sexual Orientation Not on file documented as of this encounter Last Filed Vital Signs Vital Sign Reading Time Taken Comments Blood Pressure 120/64 08/16/2024 1338 EDT Pulse 72 08/16/2024 1338 EDT Temperature - - Respiratory Rate 16 08/16/2024 1338 EDT Oxygen Saturation 98% 08/16/2024 1338 EDT Inhaled Oxygen Concentration - - Weight 74.8 kg (165 lb) 08/16/2024 1338 EDT Height 162.6 cm (5' 4) 08/16/2024 1338 EDT Body Mass Index 28.32 08/16/2024 1338 EDT documented in this encounter Functional Status Functional Status Response Date of [...] concentrating, remembering, or making decisions? No 01/25/2016 documented as of this encounter Plan of Treatment Scheduled Procedures Name Priority Associated Diagnoses Date/Ti me CRANIECTOMY, SUPRATENTORIAL, FOR EXCISION OF MENINGIOMA Meningioma (HCC-CMS) documented as of this encounter Visit Diagnoses Diagnosis Meningioma (HCC-CMS)- Primary Benign neoplasm of cerebral meninges documented in this encounter Orders Case Request Count Last Ordered Date First Orde red Date CASE REQUEST OPERATING ROOM 1 08/16/2024 documented in this encounter Care Teams Buyer Assistant Relationship Specialty Start Date End Date Kerrie Morgan APRN [address] [place] [phone] PCP - General 01/17/23 Maxine Masterson MD [address] [place] [phone] 01/17/23 documented as of this encounter
--- OUTSIDE RECORDS SUMMARY | 2024-08-18 07:56 | XMS_ITS ---
Author Organization Unknown Address [address] [place] [phone] Phone Care Team Providers Care Cylinder Batcher Name Role Phone SON Silva Primary Unavailable Social History Type Status Start Date End Date Code Code Syst em Smoking History Never smoker (Never Smoked) 359188183 SNOMED CT Sex Female Vital Signs Vital Sign Value Unit [place] Value [place] Unit Date/Time Recent/Initial? Code Code System Systolic Blood Pressure 131 mm[Hg] 06/17/2024 09:07 Most Recent 8480-6 LOINC Diastolic Blood Pressure 74 mm[Hg] 06/17/2024 09:07 Most Recent 8462-4 LOINC Systolic Blood Pressure 125 mm[Hg] 06/17/2024 09:06 Initial 8480-6 LOINC Diastolic Blood Pressure 69 mm[Hg] 06/17/2024 09:06 Initial 8462-4 LOINC O2 Saturation 100 % 2023 09:07 Most Recent 96853- 5 LOINC O2 Saturation 100 % 2023 09:06 Initial 58496- 5 LOINC Pulse 58.0 /min 06/17/2024 09:07 Most Recent 8867-4 LOINC Pulse 58.0 /min 06/17/2024 09:06 Initial 8867-4 LOINC Respiration 16 /min 06/17/20 09:07 Most Recent 9279-1 LOINC Respiration 14 /min 06/17/20 09:06 Initial 9279-1 LOINC Temperature 36.7 Dara 98.1 F 06/17/20 09:06 Initial 8310-5 LOINC Hospital Discharge Instructions Should you have any questions prior to discharge, please contact a member of your healthcare team. If you have left the hospital and have any questions, please contact your primary care physician. Reason For Referral No Data Found Procedures Procedure Name Date Status Code Code Syste m Colonoscopy Flx Dx w/Collj Spec When Pfrmd 06/17/2024 comp leted 66026 CPT Allergies and Adverse Reactions Allergy Substance Reaction Severity Start Date Concern Status Co de Code System No Known Drug Allergies Active 697909010 SNOMED-CT Plan of Treatment MM SCREEN BILAT 10/14/2023 CT HEAD W/O CONTRAST 01/30/2023 MM SCREEN BILAT 09/30/2022 MM DIAG RT UNILAT 03/27/2022 US BREAST UNI RT 03/27/2022 MM DIAG RT UNILAT 03/27/2022 US BREAST UNI RT 03/27/2022 US BREAST UNI RT 09/26/2021 MM DIAG RT UNILAT 09/26/2021 MM SCREEN BILAT 09/24/2021 Encounters Encounter Diagnosis Start Date Code Code Sys tem Encounter for screening for malignant neoplasm of colo n 06/17/2024 SNOMED-CT Personal Care Team Section Performer Name Performer Role Active Date Inactive Da shyanne
--- OUTSIDE RECORDS SUMMARY | 2024-08-18 07:56 | XMS_ITS | Encounter Summary ---
Author Organization [facility] Address [address] [place] [address] Care Team Providers Care Investment Executive Name Role Phone Kerrie Morgan APRN Primary Care Provider + Maxine Masterson MD Unavailable [phone] Reason for Referral * Radiology Services (Routine/Next Available) - Specialty Report Received Specialty Diagnoses / Procedures Referred By Caleb luna Referred To Contact Radiology Diagnoses Meningioma ([facility]) Procedures MR HEAD W WO CONTRAST MR HEAD W WO CONTRAST CHG MRI BRAIN Amos Pride MD [address] [place] [phone] [facility] [address] [place] [address] Referral ID Status Reason Start Date Expiration Date V isits Requested Visits Authorized [id number] Specialty Report Received 02/14/2023 1 1 Reason for Visit * Radiology Services (Routine/Next Available) - Specialty Report Received Specialty Diagnoses / Procedures Referred By Caleb luna Referred To Contact Radiology Diagnoses Meningioma ([facility]) Procedures MR HEAD W WO CONTRAST MR HEAD W WO CONTRAST CHG MRI BRAIN Amos Pride MD [address] [place] [phone] [facility] [address] [place] [address] Referral ID Status Reason Start Date Expiration Date V isits Requested Visits Authorized [id number] Specialty Report Received 02/14/2023 1 1 Encounter Details Date Type Department Care Team (Latest Contact Info) Description 05/14/2023 12:41 EDT - 05/14/2023 23:59 EDT Hospital Encounter [facility] [address] [place] [address] Meningioma (HCC-CMS) Discharge Disposition: Home or Self Care Social History Tobacco Use Types Packs/Day Years Used Date Smoking Tobacco: Never Alcohol Use Standard Drinks/Week Comments Not Asked 0 (1 standard drink = 0.6 oz pur e alcohol) Sex and Gender Information Value Date Recorded Sex Assigned at Not on file Gender Identity Female 01/17/2023 13:27 EDT Sexual Orientation Not on file documented as of this encounter Functional Status Functional Status Response [...] No 01/25/2016 documented as of this encounter Medications at Time of Discharge Medication Sig Dispensed Refills Start Date End Date ascorbic acid (VITAMIN C ORAL) Take by mouth daily. atorvastatin (LIPITOR) 20 mg tablet Take 1 Tablet by mouth every evening. 01/17/2023 cholecalciferol, vitamin D3, (VITAMIN D3 ORAL) Take by mouth daily. MULTIVITAMIN ORAL Take by mouth daily. documented as of this encounter Discharge Disposition Disposition Code Departure Means Destination Home or Self Care documented in this encounter Plan of Treatment Scheduled Procedures Name Priority Associated Diagnoses Date/Ti me CRANIECTOMY, SUPRATENTORIAL, FOR EXCISION OF MENINGIOMA Meningioma ([facility]) documented as of this encounter Procedures Procedure Name Priority Date/Time Associated Diagnosis Comments MR HEAD W WO CONTRAST Routine 05/14/2023 14:03 EDT Meningioma ([facility]) CREATININE STAT 05/14/2023 13:02 EDT documented in this encounter Results * MR HEAD W WO CONTRAST (05/14/2023 14:03 EDT) Anatomical Region Laterality Modality Head Magnetic Resonan ce 05/14/2023 14:5 0 EDT Impressions 05/14/2023 14:50 EDT 1. Stable exam. The left parafalcine anterior frontal region meningioma is unchanged. [id number] Narrative 05/14/2023 14:50 EDT EXAM: MRI HEAD WO/W CONTRAST HISTORY: Meningioma; tumor;D32.9:Meningioma (HCC-CMS) TECHNIQUE: MRI head without and with intravenous gadolinium contrast. Structured report code: [id number] COMPARISON: MRI 01/21/[address] 01/17/2023. FINDINGS: PARENCHYMA: No evidence of infarction. No parenchymal hemorrhage. No abnormal enhancement. EXTRA-AXIAL SPACES: No extra-axial collection. The anterior left frontal area parafalcine homogeneously enhancing mass is again seen, unchanged in size measuring approximately 1.6 x 2.0 x 1.8 cm (series 1000 image 162). This mass slightly displaces the adjacent brain parenchyma. No abnormal signal within the adjacent brain parenchyma is seen. VENTRICLES: No hydrocephalus. VESSELS: The flow voids and intravascular enhancement are normal. BONES: Unremarkable. ORBITS: No significant abnormality. PARANASAL SINUSES/MASTOID AIR CELLS: There is a polyp in the posterior nasopharynx unchanged. EXTRACRANIAL SOFT TISSUES: Unremarkable. Procedure Note Ronnie Rodrigues MD - 05/14/2023 EXAM: MRI HEAD WO/W CONTRAST HISTORY: Meningioma; tumor;D32.9:Meningioma (HCC-CMS) TECHNIQUE: MRI head without and with intravenous gadolinium contrast.Structured report code: [id number] COMPARISON: MRI 01/21/[address] 01/17/2023. FINDINGS: PARENCHYMA: No evidence of infarction. No parenchymal hemorrhage. No abnormalenhancement. EXTRA-AXIAL SPACES: No extra-axial collection. The anterior left frontal area parafalcinehomogeneously enhancing mass is again seen, unchanged in size measuringapproximately 1.6 x 2.0 x 1.8 cm (series 1000 image 162). This massslightly displaces the adjacent brain parenchyma. No abnormal signalwithin the adjacent brain parenchyma is seen. VENTRICLES: No hydrocephalus. VESSELS: The flow voids and intravascular enhancement are normal. BONES: Unremarkable. ORBITS: No significant abnormality. PARANASAL SINUSES/MASTOID AIR CELLS: There is a polyp in the posterior nasopharynx unchanged. EXTRACRANIAL SOFT TISSUES: Unremarkable. IMPRESSION 1. Stable exam. The left parafalcine anterior frontal region meningioma isunchanged. [id number] Amos Andujar MD IMG MRI ORDERABLES * CREATININE (05/14/2023 13:02 EDT) Creatinine 0.82 0.52 - 1.04 mg/dL 05/14/2023 13:20 EDT [facility] eGFR 77 >60 mL/min/1.73 m2 05/14/2023 13:20 EDT [facility] Blood VENOUS BLOOD / Unknown Venipuncture / Unknown 05/14/2023 13:02 EDT 05/14/2023 13:05 EDT Amos Andujar MD CHEMISTRY & BLOOD G ORDERABLES [facility] [address] [place] [address] documented in this encounter Visit Diagnoses Diagnosis Meningioma (HCC-CMS) Benign neoplasm of cerebral meninges documented in this encounter Administered Medications Inactive Administered Medications - up to 3 most recent administrations Medication Order MAR Action Action Date Dose Rate Site gadoterate meglumine solution 1-30 mL 1-30 mL, intravenous, Once in imaging, 1 dose, Starting on Fri05/14/23 at 1403, Until Fri05/14/23 at 1403, Routine, Imaging Protocol Orders Given 05/14/2023 14:03 EDT 15 mL documented in this encounter Orders Medications Ordered That Hardeep ht Not Have Been Administered Count Last Ordered Date First Ordered Date gadoterate meglumine solution 1-30 mL 1 documented in this encounter Care Teams Investment Executive Relationship Specialty Start Date End Date Kerrie Mogran APRN [address] [place] [phone] PCP - General 01/17/23 Maxine Masterson MD [address] [place] [phone] 01/17/23 documented as of this encounter
--- OUTSIDE RECORDS SUMMARY | 2024-08-18 07:56 | XMS_ITS | Clinical Summary ---
Author Organization [facility] Address [address] [place] [address] Care Team Providers Care Administrative Hearing Officer Name Role Phone Kerrie Morgan APRN Primary Care Provider + Maxine Masterson MD Unavailable [phone] Allergies No known active allergies Medications Medication [...] Problems Problem Noted Date Diagnosed Date Meningioma ([facility]) 02/14/2023 Thyroid nodule 04/09/2012 Overview: Right-sided 1.4 x 1.9 x 3.0 solid nodule. Encounters Date Type Department Care Team Description 08/17/2024 Telephone [facility] Neurosurgery [address] [address] Amos Andujar MD Pre-op Exam 08/16/2024 13:45 EDT Office Visit [address] [address] Amos Andujar MD Meningioma ([facility]) (Primary Dx) 08/03/2024 13:09 EDT - 08/03/2024 23:59 EDT Hospital Encounter Stephanie Ramires [facility] [address] [place] [address] Meningioma ([facility]) Discharge Disposition: Home or Self Care 08/03/2024 13:09 EDT - 08/03/2024 23:59 EDT Hospital Encounter Stephanie BROWN [address] [place] [address] Meningioma ([facility]) Discharge Disposition: Home or Self Care from Last 3 Months Immunizations Name Administration Dates Next Due Hepatitis [...] 13:27 EDT Sexual Orientation Not on file Obstetrics History Last Filed Vital Signs Vital Sign Reading [...] Body Mass Index 28.32 08/16/2024 1338 EDT Plan of Treatment Scheduled Procedures Name Priority Associated Diagnoses Date/Ti me CRANIECTOMY, SUPRATENTORIAL, FOR EXCISION OF MENINGIOMA Meningioma ([facility]) Health Maintenance Due Date Last Done Comments RSV Immunization ( o r 60+ Years) (1 - 1-dose 60+ series) 2012 Fall Risk Screening 2017 COVID-19 Vaccine ( season) 2024 Hepatitis C Screen Completed 03/06/2022 Procedures Procedure Name Priority Date/Time Associated Diagnosis [...] above interpretation and agree with the findings. [id number] Narrative 08/03/2024 15:54 EDT EXAM: MRI HEAD [...] EXTRACRANIAL SOFT TISSUES: Unremarkable. Resulting Agency Comment [id number] Procedure Note Bautista Johnson MD - 08/03/2024 [...] the above interpretation andagree with the findings. [id number] Mohini Bedoya PA-C [facility] ORD ERABLES * CT HEAD WO CONTRAST (08/03/2024 13:30 EDT) Anatomical Region Laterality Modality Head Computed Tomogra phy 08/03/2024 14:4 7 EDT Impressions 08/03/2024 14:47 EDT No significant change in size of a 1.9 cm partially calcified presumed meningioma over the medial aspect of the left frontal lobe when compared to prior MRI 02/16/2024. Mild mass effect on the underlying bifrontal lobe. [id number] Narrative 08/03/2024 14:47 EDT EXAM: CT HEAD [...] EXTRACRANIAL SOFT TISSUES: Unremarkable. Resulting Agency Comment [id number] Procedure Note Brian Bautista MD - 08/03/2024 [...] Mild mass effect on the underlying bifrontallobe. [id number] Mohini Bedoya PA-C IMG CT [facility] * HEPATITIS C AB W REFLEX TO HCV RNA BY PCR (03/06/2022 10:25 EDT) Hep C Antibody Negative Negative 03/07/2022 9:38 EDT [facility] Blood VENOUS BLOOD / Unknown 03/06/2022 10:25 EDT 03/06/2022 21:32 EDT Provider Outr Resulting Lab CHEMISTRY & BLOOD GAS ORDERABLES [facility] [address] [place] [address] from Last 3 Months or Most Recently Relevant to Health Maintenance Care Teams Administrative Hearing Officer Relationship Specialty Start Date End Date Kerrie Morgan APRN [address] [place] [address] PCP - General 01/17/23 Maxine Masterson MD [address] [place] [address] 01/17/23
--- OUTSIDE RECORDS SUMMARY | 2024-08-18 07:56 | XMS_ITS | Encounter Summary ---
Author Organization [facility] Address [address] [place] [address] Care Team Providers Care Multi Township Assessor Name Role Phone Kerrie Morgan APRN Primary Care Provider + Maxine Masterson MD Unavailable [phone] Encounter Details Date Type Department Care Team (Late st Contact Info) Description 03/16/2024 Orders Only [facility] Radiology - Main Maria Stein [address] [place], [place] [address] Tru Zhang MD [address] [place] [phone] Social History Tobacco Use Types Packs/Day Years Used Date Smoking Tobacco: Never Smokeless Tobacco: Never Alcohol Use Standard Drinks/Week Comments [...] CRANIECTOMY, SUPRATENTORIAL, FOR EXCISION OF MENINGIOMA Meningioma ([facility]) documented as of this encounter Visit Diagnoses Not on filedocumented in this encounter Care Teams Multi Township Assessor Relationship Specialty Start Date End Date Kerrie Morgan APRN [address] [place] [address] PCP - General 01/17/23 Maxine Masterson MD [address] [place] [address] 01/17/23 documented as of this encounter
--- OUTSIDE RECORDS SUMMARY | 2024-08-18 07:56 | XMS_ITS | Encounter Summary ---
Author Organization [facility] Address [address] [place] [address] Care Team Providers Care Rabble Furnace Tender Name Role Phone Kerrie Morgan APRN Primary Care Provider + Maxine Masterson MD Unavailable [phone] Reason for Referral * Radiology Services (Routine/Next Available) - Authorization Not Required Specialty Diagnoses / Procedures Referred By Contac t Referred To Contact Diagnoses Meningioma (HCC-CMS) Procedures CT HEAD WO CONTRAST Mohini Bedoya PA-C [address] [place] [phone] [facility] Referral ID Status Reason Start Date Expiration Date Visits Requested Visits Authorized [id number] Authorization Not Required 03/16/2024 1 1 Reason for Visit * Radiology Services (Routine/Next Available) - Authorization Not Required Specialty Diagnoses / Procedures Referred By Contac t Referred To Contact Diagnoses Meningioma ([facility]) Procedures CT HEAD WO CONTRAST Mohini Bedoya PA-C [address] [place] [phone] [facility] Referral ID Status Reason Start Date Expiration Date Visits Requested Visits Authorized [id number] Authorization Not Required 03/16/2024 1 1 Encounter Details Date Type Department Care Team (Latest Contact Info) Description 08/03/2024 13:09 EDT - 08/03/2024 23:59 EDT Hospital Encounter Stephanie Ramires CT [address] [place] [address] Meningioma ([facility]) Discharge Disposition: Home or Self Care Social [...] Scheduled Procedures Name Priority Associated Diagnoses Date/Ti nc CRANIECTOMY, SUPRATENTORIAL, FOR EXCISION OF MENINGIOMA Meningioma ([facility]) documented as of this encounter Procedures Procedure Name Priority Date/Time Associated Diagnosis Comments CT HEAD WO CONTRAST Routine 08/03/2024 1 3:30 EDT Meningioma ([facility]) documented in this encounter Results * CT HEAD WO CONTRAST (08/03/2024 13:30 EDT) Anatomical Region Laterality Modality Head Computed Tomogra phy 08/03/2024 14:4 7 EDT Impressions 08/03/2024 14:47 EDT No significant change in size of a 1.9 cm partially calcified presumed meningioma over the medial aspect of the left frontal lobe when compared to prior MRI 02/16/2024. Mild mass effect on the underlying bifrontal lobe. [id number] Narrative 08/03/2024 14:47 EDT EXAM: CT HEAD [...] EXTRACRANIAL SOFT TISSUES: Unremarkable. Resulting Agency Comment [id number] Procedure Note Brian Bautista MD - 08/03/2024 [...] Mild mass effect on the underlying bifrontallobe. [id number] Mohini Bedoya PA-C IMG CT RYLANDE LEO documented in this encounter Visit Diagnoses Diagnosis Meningioma (HCC-CMS) Benign neoplasm of cerebral meninges documented in this encounter Care Teams Rabble Furnace Tender Relationship Specialty Start Date End Date Kerrie Morgan APRN [address] [place] [phone] PCP - General 01/17/23 Maxine Masterson MD [address] [place] [phone] 01/17/23 documented as of this encounter
--- OUTSIDE RECORDS SUMMARY | 2024-08-18 07:56 | XMS_ITS | Encounter Summary ---
Author Organization [facility] Address [address] [place] [address] Care Team Providers Care Digital Media Designer Name Role Phone Kerrie Morgan APRN Primary Care Provider + Maxine Masterson MD Unavailable [phone] Reason for Referral * Radiology Services (Routine/Next Available) - Specialty Report Received Specialty Diagnoses / Procedures Referred By Caleb luna Referred To Contact Radiology Diagnoses Meningioma ([facility]) Procedures MR HEAD W WO CONTRAST MR HEAD W WO CONTRAST CHG MRI BRAIN COMBO Amos Andujar MD [address] [facility], [address] [place] [address] [facility] [address] [place] [address] Referral ID Status Reason Start Date Expiration Date V isits Requested Visits Authorized [id number] Specialty Report Received 02/14/2023 1 1 Reason for Visit * Reason Comments New Patient Visit Meningioma * Referral (Urgent) - Receiving Office to Obtain Authorization Specialty Diagnoses / Procedures Referred By Caleb luna Referred To Contact Neurosurgery Diagnoses Brain tumor ([facility]) Headache Kerrie Morgan APRN [address] [place] [address] Amos Andujar MD [address] [place] [phone] Referral ID Status Reason Start Date Expiration Date Visits Requested Visits Authorized [id number] Receiving Office to Obtain Authorization 1 1 Encounter Details Date Type Department Care Team (Late st Contact Info) Description 02/14/2023 10:[address] [facility] Neurosurgery - [address] [phone] Amos Andujar MD [address] [place] [phone] Meningioma ([facility]) (Primary Dx) Social History Tobacco Use Types Packs/Day Years Used Date Smoking Tobacco: Never Tobacco Cessation:Counseling Given: Not Answered Alcohol Use Standard Drinks/Week Comments Not Asked 0 (1 standard drink = 0.6 oz pur e alcohol) Sex and Gender Information Value Date Recorded Sex Assigned at Not on file Gender Identity Female 01/17/2023 13:27 EDT Sexual Orientation Not on file COVID-19 Exposure Response Date Recorded In the last 10 days, have yo u been in contact with someone who was confirmed or suspected to have Coronavirus/COVID-19? No / Unsure 02/14/2023 9:46 EDT documented as of this encounter Last Filed Vital Signs Vital Sign Reading Time Taken Comments Blood Pressure 114/60 02/14/2023 0947 EDT Pulse 76 02/14/2023 0947 EDT Temperature - - Respiratory Rate 16 02/14/2023 0947 EDT Oxygen Saturation 97% 02/14/2023 0947 EDT Inhaled Oxygen Concentration - - Weight 72.6 kg (160 lb) 02/14/2023 0947 EDT Height 162.6 cm (5' 4) 02/14/2023 0947 EDT Body Mass Index 27.46 02/14/2023 0947 EDT documented in this encounter Functional Status [...] No 01/25/2016 documented as of this encounter Progress Notes * Amos Andujar MD - 02/14/2023 1000 EDT This office note has been dictated. I spent total of 30 minutes on the date of this encounter meeting with this patient and reviewing documentation/coordinating care as described in the dictated note. documented in this encounter Consult Notes * Amos Andujar MD - 02/14/2023 0934 EDT [facility] NEUROLOGICAL SURGERY CONSULTATION - 02/14/2023 Dear Kerrie: I had the pleasure of seeing your patient, Aparna Fairchild, in consultation in my [facility] on 02/14/2023. She was referred for assessment of a 2 cm left frontal lobe suspected meningioma. This woman is 72 years old. She lives in [place], [place]. She reports to me that recently she suffered unusual headaches. The headaches lasted weeks. Initially, it was thought that she may have temporal arteritis, but the testing was all normal. She finallydid undergo the MRI scan, which showed a 2 cm left frontal meningioma. She then went for a massage and this cured her headache. She has been fine since. She has no neurological symptoms to speak of currently. In the past, she has been very healthy. Medications include vitamins and Lipitor. She has no known allergies. On examination today, she is a very pleasant, healthy 72-year-old woman whose speech and mentation and gait are normal. Cranial nerve examination II-XII is entirely normal. She has normal strength and sensation in arms and legs and cerebellar testing is normal. The MRI scan does show a 2 cm meningioma at the frontal pole of the left frontal lobe. I suspect itis arising from the falx just behind the frontal sinus. There is minimal brain edema associated with the tumor. I reviewed the MRI scan with her. I have told her that I suspect it is a meningioma, but only time will tell as we will need to monitor its behavior. At the present time, I do not think that is causing any symptoms and it certainly is not irritating the brain. I told her that it is surgically resectable, but at the present time, it is causing any problems for her and so we decided to monitor it closely. I would suggest that she have a repeat MRI scan at [facility] and without contrast in 3 months Sonya will see her once that scan is done. Should it remain stable or minimally growing, then we will continue to monitor it annually. Should it show signs of more aggressive behavior, then I made her percy re that it is something that can be surgically resected. Thank you for asking me to help with her care. I will keep you informed. Yours sincerely, Amos Andujar MD / ANTHONY Dictation ID: [id number] cc: Kerrie Morgan APRN, [address] [place] [address] documented in this encounter Plan of Treatment Scheduled Procedures Name Priority Associated Diagnoses Date/Ti me CRANIECTOMY, SUPRATENTORIAL, FOR EXCISION OF MENINGIOMA Meningioma (HCC-CMS) documented as of this encounter Results * MR HEAD W WO CONTRAST (05/14/2023 14:03 EDT) Anatomical Region Laterality Modality Head Magnetic Resonan ce 05/14/2023 14:5 0 EDT Impressions 05/14/2023 14:50 EDT 1. Stable exam. The left parafalcine anterior frontal region meningioma is unchanged. [id number] Narrative 05/14/2023 14:50 EDT EXAM: MRI HEAD [...] left parafalcine anterior frontal region meningioma isunchanged. [id number] Amos Andujar MD IMG MRI ORDERABLES documented in this encounter Visit Diagnoses Diagnosis Meningioma (HCC-CMS)- Primary Benign neoplasm of cerebral meninges Meningioma (HCC-CMS) Benign neoplasm of cerebral meninges documented in this encounter Historical Medications * This list may reflect changes made after this encounter. Medication Sig Dispensed Refills Start Date End Date ascorbic acid (VITAMIN C ORAL) Take by mouth daily. MULTIVITAMIN ORAL Take by mouth daily. cholecalciferol, vitamin D3, (VITAMIN D3 ORAL) Take by mouth daily. atorvastatin (LIPITOR) 20 mg tablet Take 1 Tablet by mouth every evening. 01/17/2023 added in this encounter Care Teams Digital Media Designer Relationship Specialty Start Date End Date Kerrie Morgan APRN [address] [place] [address] PCP - General 01/17/23 Maxine Masterson MD [address] [place] [address] 01/17/23 documented as of this encounter
--- OUTSIDE RECORDS SUMMARY | 2024-08-18 07:56 | XMS_ITS | Encounter Summary ---
Author Organization [facility] Address [address] [place] [address] Care Team Providers Care Cot Assembler Name Role Phone Kerrie Morgan APRN Primary Care Provider + Maxine Masterson MD Unavailable [phone] Encounter Details Date Type Department Care Team (Late st Contact Info) Description 02/13/2024 Orders Only [facility] [address] [place] [address] Amos Andujar MD [address] [facility], [address] [place] [address] Benign neoplasm of meninges, unspecified (HCC-CMS) (Primary Dx) Social History Tobacco Use [...] documented as of this encounter Results * CREATININE (02/16/2024 10:37 EDT) Creatinine 0.75 0.52 - 1.04 mg/dL 02/16/2024 11:00 EDT [facility] eGFR 85 >60 mL/min/1.73 m2 02/16/2024 11:00 EDT [facility] Blood VENOUS BLOOD / Unknown Venipuncture / Unknown 02/16/2024 10:37 EDT 02/16/2024 10:38 EDT Amos Andujar MD CHEMISTRY & BLOOD G ORDERABLES [facility] [address] [place] [address] documented in this encounter Visit Diagnoses Diagnosis Benign neoplasm of meninges, unspecified (HCC-CMS)- Primary documented in this encounter Care Teams Cot Assembler Relationship Specialty Start Date End Date Kerrie Morgan APRN [address] [place] [address] PCP - General 01/17/23 Maxine Masterson MD [address] [place] [address] 01/17/23 documented as of this encounter
--- OUTSIDE RECORDS SUMMARY | 2024-08-18 07:56 | XMS_ITS ---
Author Organization Unknown Address [address] [place] [phone] Phone Care Team Providers Care Top Polisher Name Role Phone KEYUR MYA Attending Unavailable Results MM SCREENING BILAT MAMMO W T TAQUERIA W CAD - Completed: 10/14/2023 10:53 LOINC: [facility]IOLOGY [place], [place] [address] PACS MILL TENDER SECOND OPERATOR REPORT Patient Name: ODILIA MAIER MRN: Sex: : Age: [id number] F 1950 [id number] Account: Accession: Admit: StayType: [id number] 10/14/2023 O/P Ordered: Order ID: Submitted: Ordering Provider: 10/14/2023 10:41 [id number] SHIRLEY MONTANO Completed: Technologist: Resulted: 10/14/2023 10:53 KVK 10/14/2023 11:21 Study Description: MM SCREENING BILAT MAMMO W MEGAN W CAD Study Reason: Screening TECHNIQUE: Bilateral full field digital CC and MLO mammographic images were obtained with 3D tomosynthesis and utilizing computer aided detection (CAD). COMPARISON: Prior mammograms were reviewed. Prior ultrasound examinations also reviewed. FINDINGS: There has been no significant change in the appearance and distribution of the fibroglandular tissue. The previously described asymmetric density anteriorly in the right breast is actually less evident on the present study. This was shown to be a benign cyst on prior ultrasound examinations There are no spiculated masses nor malignant appearing microcalcification groups. There is no significant architectural distortion nor skin thickening-retraction. IMPRESSION: 1. No radiographic evidence of malignancy. BiRads Category: 1-negative BI_RADS Density Category C: Heterogeneously dense Breast [...] of these results. Report Digitally Signed by Tom Dillard on 10/14/2023 11:21 AM EST Social History Type Status Start Date End Date Code Code Syst em Smoking History Never smoker (Never Smoked) [id number] WhoWantsMe CT Sex Female Hospital Discharge Instructions Should [...] Code System No Known Drug Allergies Active [id number] SNOMED-CT Plan of Treatment MM SCREEN BILAT 10/14/2023 CT HEAD W/O CONTRAST 01/30/2023 MM SCREEN BILAT 09/30/2022 MM DIAG RT UNILAT 03/27/2022 US BREAST UNI RT 03/27/2022 MM DIAG RT UNILAT 03/27/2022 US BREAST UNI RT 03/27/2022 US BREAST UNI RT 09/26/2021 MM DIAG RT UNILAT 09/26/2021 MM SCREEN BILAT 09/24/2021 Encounters Encounter Diagnosis Start Date Code Code Sys tem Screening mammography 10/14/2023 [id number] SNOMED -CT Personal Care Team Section Performer Name Performer Role Active Date Inactive Da te
--- OUTSIDE RECORDS SUMMARY | 2024-08-18 07:56 | XMS_ITS | Encounter Summary ---
Author Organization [facility] Address [address] [place] [address] Care Team Providers Care Carpenter Mate Name Role Phone Kerrie Morgan APRN Primary Care Provider + Maxine Masterson MD Unavailable [phone] Encounter Details Date Type Department Care Team (Latest Contact Info) Description 02/14/2023 Travel Social History Tobacco Use Types Packs/Day Years [...] 9:46 EDT documented as of this encounter Functional Status [...] on filedocumented in this encounter Care Teams Carpenter Mate Relationship Specialty Start Date End Date Kerrie Morgan APRN [address] [place] [address] PCP - General 01/17/23 Maxine Masterson MD [address] [place] [address] 01/17/23 documented as of this encounter
--- OUTSIDE RECORDS SUMMARY | 2024-08-18 07:56 | XMS_ITS | Encounter Summary ---
Author Organization [facility] Address [address] [place] [address] Care Team Providers Care Process Development Manager Name Role Phone Kerrie Morgan APRN Primary Care Provider + Maxine Masterson MD Unavailable [phone] Reason for Referral * Radiology Services (Routine/Next Available) - Authorization Not Required Specialty Diagnoses / Procedures Referred By Caleb luna Referred To Contact Radiology Diagnoses Meningioma ([facility]) Procedures MR HEAD WO CONTRAST Amos Andujar MD [address] [place] [phone] [facility] Referral ID Status Reason Start Date Expiration Date Visits Requested Visits Authorized [id number] Authorization Not Required 02/17/2024 1 1 Reason for Visit * Reason Comments Follow-up Meningioma Encounter Details Date Type Department Care Team (Late st Contact Info) Description 02/17/2024 9:15 EDT Office Visit [facility] Neurosurgery - [address] [address] Amos Andujar MD [address] [place] [phone] Meningioma (HCC-CMS) (Primary Dx) Social History Tobacco [...] Sign Reading Time Taken Comments Blood Pressure 122/78 02/17/2024 0906 EDT Pulse 66 02/17/2024 0906 EDT Temperature - - Respiratory Rate 16 02/17/2024 0906 EDT Oxygen Saturation 99% 02/17/2024 09 EDT Inhaled Oxygen Concentration - - Weight 77.1 kg (170 lb) 02/17/2024 0906 EDT Height 162.6 cm (5' 4) 02/17/2024 0906 EDT Body Mass Index 29.18 02/17/2024 0906 EDT documented in this encounter Functional Status [...] Progress Notes * Amos Andujar MD - 02/17/2024 0915 EDT This office note has been dictated. I spent total of 28 minutes on the date of this encounter meeting with this patient and reviewing documentation/coordinating care as described in the dictated note. * Amos Andujar MD - 02/17/2024 0904 EDT [facility] NEUROLOGICAL SURGERY PROGRESS / FOLLOWUP NOTE - 02/17/2024 Dear Kerrie: I had the opportunity of seeing your patient, Aparna Fairchild, back in my neurosurgery office at [facility] on 02/17/2024. She is known to have a left frontal meningioma approximately 2 cm in size. This 73-year-old female underwent an MRI scan and a CTA last spring because of the complaint of headaches. These studies did reveal a 2 cm meningioma in the left frontal lobe. Currently, she states that she is asymptomatic. She does not complain significantly of headaches and she has no other symptoms that could be referable to this meningioma. We decided previously to continue to monitor this tumor and should it increase in size or shape, then consider possible surgery at that time. She is otherwise very healthy. Her only medication is that of Lipitor and vitamins. She did undergo a repeat MRI scan 02/16/2024. This shows that the tumor over the last year has increased slightly in size. The other factor that may be significant is that the tumor is bright on DWI which may mean that it is a grade 2 rather than a grade 1 meningioma. I have reviewed the MRI scan with Devorah. I have demonstrated that the tumor has increased slightly in size. This suggests that it will continue to grow slowly over the years. She is very healthy at the present time and we did talk about possible surgical resection. I did mention to her that I am a little concerned that this may be a grade 2 rather than a grade 1 meningioma which means thatthe risk of recurrence might be slightly higher. She is going to consider her options and may consider surgical resection next spring. I think that this is reasonable. We will repeat her MRI scan in November 2024 with a tentative plan of surgical resection in the spring. She is comfortable with this plan. Should she develop any new symptoms, she will give us a call. Yours sincerely, Amos Andujar MD / CD Dictation ID: [id number] cc: Kerrie Morgan APRN, [address] [place] [address] documented in this encounter Plan of Treatment Scheduled Orders Name Type Priority Associated Diagnoses Orde r Schedule MR HEAD WO CONTRAST Imaging Routine Meningioma (HCC-CMS) Expected: 02/16/2025 (Approximate), Expires: 08/18/2025 Scheduled Procedures Name Priority Associated Diagnoses Date/Ti me CRANIECTOMY, SUPRATENTORIAL, FOR EXCISION OF MENINGIOMA Meningioma (HCC-CMS) documented as of this encounter Visit Diagnoses Diagnosis Meningioma (HCC-CMS)- Primary Benign neoplasm of cerebral meninges documented in this encounter Care Teams Process Development Manager Relationship Specialty Start Date End Date Kerrie Morgan APRN [address] [place] [address] PCP - General 01/17/23 Maxine Masterson MD [address] [place] [address] 01/17/23 documented as of this encounter
--- OUTSIDE RECORDS SUMMARY | 2024-08-18 07:56 | XMS_ITS | Encounter Summary ---
Author Organization [facility] Address [address] [place] [address] Care Team Providers Care Retail Field Supervisor Name Role Phone Kerrie Morgan APRN Primary Care Provider + Maxine Masterson MD Unavailable [phone] Reason for Referral * Radiology Services (Routine/Next Available) - Specialty Report Received Specialty Diagnoses / Procedures Referred By Caleb luna Referred To Contact Radiology Diagnoses Meningioma ([facility]) Procedures MR HEAD W WO CONTRAST MR HEAD W WO CONTRAST CHG MRI BRAIN COMBO Amos Andujar MD [address] [place] [phone] [facility] Referral ID Status Reason Start Date Expiration Date V isits Requested Visits Authorized [id number] Specialty Report Received 05/16/2023 1 1 Reason for Visit * Reason Comments Follow-up Meningioma Encounter Details Date Type Department Care Team (Late st Contact Info) Description 05/16/2023 10:00 EDT Office Visit [facility] Neurosurgery - [address] [address] Amos Andujar MD [address] [place] [phone] Meningioma (HCC-CMS) (Primary Dx) Social History [...] Sign Reading Time Taken Comments Blood Pressure 132/80 05/16/2023 0948 EDT Pulse 62 05/16/2023 0948 EDT Temperature - - Respiratory Rate 14 05/16/2023 0948 EDT Oxygen Saturation 99% 05/16/2023947 EDT Inhaled Oxygen Concentration - - Weight 72.6 kg (160 lb) 05/16/2023 0948 EDT Height 162.6 cm (5' 4) 05/16/2023 09 EDT Body Mass Index 27.46 05/16/2023 0948 EDT documented in this encounter Functional Status [...] Progress Notes * Amos Andujar MD - 05/16/2023 1000 EDT This office note has been dictated. I spent total of 20 minutes on the date of this encounter meeting with this patient and reviewing documentation/coordinating care as described in the dictated note. * Loly Stephenson MD - 05/16/2023 1000 EDT Outpatient Neurosurgery Consultation Problems: Parafalcine menigioma Chronic medical problems: Benign thyroid nodule Hypertension Fatigue prediabetes Anticoagulation or Antiplatelet use/none HPI: Aparna Fairchild is a 72 y.o. 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 She initially had an MRI done for headache work-up which revealed the meningioma in January 2023 she had a follow-up MRI in April 2023 which appears stable in size versus slightly bigger. She reports no headaches, no weakness, no numbness or any new neurologic symptoms. ROS: A 10 point ROS was completed and pertinent positives were mentioned in the HPI and ALL OTHERS ARE NEGATIVE PMH: No past medical history on file. PSH: No past surgical history on file. FH: Giant cell temporal arteritis ALL: No Known Allergies EXAM: NEUROLOGIC EXAM: Awake and alert. Oriented to self, place, time, and situation. Follows all commands. Naming is intact. Language is fluent. Cranial Nerves: CN I: Deferred CN II: Tracks examiner CN III-IV & : EOMI. PERRLA. No LOLA. No ptosis. No nystagmus noted. CN V: - CN VII: Face is symmetric at rest and with activation CN VIII: Hearing is intact to voice CN IX-X: No hoarseness or dysarthria CN XI: Symmetric shoulder shrug. CN XII: - Motor: No abnormal movements noted Strength: Upper Extremities: (scored out of 5) Right Left Shoulder Abduction C5 5 5 Shoulder Adduction C6,7,8 5 5 Elbow Flexion C5,6 5 5 Elbow Extension C7 5 5 Wrist Extension C5,6 5 5 Digit Abduction C T1 5 5 Lower Extremities: (scored out of 5) Right Left Hip Flexion L1,2 5 5 Hip Extension L2,3 5 5 Sensory:light touch: intact in all extremities Gait: Walks without any instability LABS: Laboratory studies independently reviewed. IMAGING: Imaging studies independently reviewed. MRI head with and without contrast from April 2023 with left-sided parafalcine meningioma measuring about 20 mm across about stable from 19 mm on prior. No associated FLAIR changes adjacent to the meningioma. Assessment: Aparna Fairchild is a 72 y.o. 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 We discussed that the MRI showed a stable meningioma and she is nonfocal on exam and does not report any new neurologic symptoms. Will obtain interval follow-up MRI head in 9 months. We discussed that if she were to develop any new attributable symptoms surgery could be an option. Plan: Interval MRI head with and without contrast in 9 months ordered to be completed at [facility] Patient was seen and evaluated by attending Dr. Pratima STEPHENSON MD Neurosurgery resident 05/16/2023 10:42 Page 2480 with questions * Amos Andujar MD - 05/16/2023 0935 EDT [facility] NEUROLOGICAL SURGERY PROGRESS / FOLLOWUP NOTE - 05/16/2023 Dear Kerrie: We had the pleasure of seeing your patient, Aparna Fairchild, back in my neurosurgery office at [facility] on 05/16/2023. She returns for a followup visit for monitoring of a 2 cm left frontal lobe meningioma. Today, I had the opportunity of seeing this 72-year-old woman with my neurosurgery resident, Dr Powers. I agree with her assessment and treatment plan. In brief, this woman underwent CT angio of the head and an MRI scan of the head in December and January earlier this year and an incidental 2 cm left frontal meningioma was found. This meningioma we considered to be asymptomatic. Today, she denies any symptoms such as headache that could be related to the meningioma. Her repeat MRI scan which was done on 05/14/2023, shows that the meningioma remains stable. There is no surrounding edema. The size remains at 2 cm. We reviewed the MRI scan with her. The meningioma remains asymptomatic and stable in size. We have suggested to repeat her MRI scan for monitoring purposes in 9 months and I will see her once that has been completed. She is in agreement with this plan. Should she get any new symptoms, she will giveus a call. Yours sincerely, Amos Andujar MD / SA Dictation ID: [id number] cc: Kerrie Morgan APRN, [address] [place] [address] documented in this encounter Plan of Treatment Scheduled Procedures Name Priority Associated Diagnoses Date/Ti me CRANIECTOMY, SUPRATENTORIAL, FOR EXCISION OF MENINGIOMA Meningioma (HCC-CMS) documented as of this encounter Results * MR HEAD W WO CONTRAST (02/16/2024 13:51 EDT) Anatomical Region Laterality Modality Head Magnetic Resonan ce 02/16/2024 14:1 6 EDT Impressions 02/16/2024 14:16 EDT Slight increase in size of the left anterior parafalcine 2.1 x 1.7 x 1.9 cm meningioma compared to January 2023. [id number] Narrative 02/16/2024 14:16 EDT EXAM: MRI HEAD WO/W CONTRAST HISTORY: 9 month interval scan for meningioma; 9 month interval scan for meningioma;D32.9:Meningioma (HCC-CMS) TECHNIQUE: MRI head without and with intravenous gadolinium contrast. Structured report code: [id number] COMPARISON: 05/14/2023 and 01/21/2023. FINDINGS: PARENCHYMA: No evidence of infarction. No parenchymal hemorrhage. No mass or shift of structures across the midline. ??No abnormal enhancement. EXTRA-AXIAL SPACES: Lobular left anterior frontal parafalcine and adjacent enhancing extra-axial mass with dural tail measuring 2.1 x 1.7 x 1.9 cm (axial series 11 image 11 and coronal series 12 image 5). This represents a slight interval increase in size compared to January 2023 when it measured 2.1 x 1.5 x 1.8 cm (series 10 image 16 and series 11 image 4 of the study dated 01/31/2023). No significant perilesional edema. Slight adjacent mass effect. VENTRICLES: No hydrocephalus. VESSELS: The flow voids and intravascular enhancement are normal. BONES: Unremarkable. ORBITS: No significant abnormality. PARANASAL SINUSES/MASTOID AIR CELLS: Predominantly clear. Minimal mucosal thickening noted. EXTRACRANIAL SOFT TISSUES: Unremarkable. Resulting Agency Comment [id number] Procedure Note Avinash Dominguez MD - 02/16/2024 EXAM: MRI HEAD WO/W CONTRAST HISTORY: 9 month interval scan for meningioma; 9 month interval scan formeningioma;D32.9:Meningioma (HCC-CMS) TECHNIQUE: MRI head without and with intravenous gadolinium contrast.Structured report code: [id number] COMPARISON: 05/14/2023 and 01/21/2023. FINDINGS: PARENCHYMA: No evidence of infarction. No parenchymal hemorrhage. No mass or shift ofstructures across the midline. No abnormal enhancement. EXTRA-AXIAL SPACES: Lobular left anterior frontal parafalcine and adjacent enhancingextra-axial mass with dural tail measuring 2.1 x 1.7 x 1.9 cm (axialseries 11 image 11 and coronal series 12 image 5). This represents aslight interval increase in size compared to January 2023 when it measured2.1 x 1.5 x 1.8 cm (series 10 image 16 and series 11 image 4 of the studydated 01/31/2023). No significant perilesional edema. Slight adjacent masseffect. VENTRICLES: No hydrocephalus. VESSELS: The flow voids and intravascular enhancement are normal. BONES: Unremarkable. ORBITS: No significant abnormality. PARANASAL SINUSES/MASTOID AIR CELLS: Predominantly clear. Minimal mucosal thickening noted. EXTRACRANIAL SOFT TISSUES: Unremarkable. IMPRESSION Slight increase in size of the left anterior parafalcine 2.1 x 1.7 x 1.9cm meningioma compared to January 2023. [id number] Amos Andujar MD IMG MRI ORDERABLES documented in this encounter Visit Diagnoses Diagnosis Meningioma (HCC-CMS)- Primary Benign neoplasm of cerebral meninges Meningioma (HCC-CMS) Benign neoplasm of cerebral meninges documented in this encounter Care Teams Retail Field Supervisor Relationship Specialty Start Date End Date eKrrie Morgan, [employer]EV[employer] WORKER [address] [place] [address] PCP - General 01/17/23 Maxine Masterson MD [address] [place] [address] 01/17/23 documented as of this encounter
--- OUTSIDE RECORDS SUMMARY | 2024-08-18 07:56 | XMS_ITS | Encounter Summary ---
Author Organization [facility] Address [address] [place] [address] Care Team Providers Care Licensing Officer Name Role Phone Kerrie Morgan APRN Primary Care Provider + Maxine Masterson MD Unavailable [phone] Reason for Visit * Reason Onset Date Comments Pre-op Exam 08/17/2024 Encounter Details Date Type Department Care Team (Late st Contact Info) Description 08/17/2024 Telephone [facility] Neurosurgery - [facility] [address], [place] [id number] Amos Andujar MD [address] [facility], [address] [place] [address] Pre-op Exam Social History Tobacco Use Types Packs/Day Years [...] No 01/25/2016 documented as of this encounter Miscellaneous Notes * Telephone Encounter - Gina Barba - 08/17/2024 1232 EDT Called and spoke to Garima and advised her that there is no paperwork to complete, however, the patient needs labs(CBC w/differential, PT/INR and BMP) as well as an EKG. Garima will advise the provider. * Telephone Encounter - Megan Tabor - 08/17/2024 1115 EDT Patient currently at PCP for pre-op physical. Nurse calling ot se if there is pre-op paperwork to be completed Fax number [phone] documented in this encounter Plan of Treatment Scheduled Procedures Name Priority Associated Diagnoses Date/Ti me CRANIECTOMY, SUPRATENTORIAL, FOR EXCISION OF MENINGIOMA Meningioma ([facility]) documented as of this encounter Visit Diagnoses Not on filedocumented in this encounter Care Teams Licensing Officer Relationship Specialty Start Date End Date Kerrie Morgan APRN [address] [place] [address] PCP - General 01/17/23 Maxine Masterson MD [address] [place] [address] 01/17/23 documented as of this encounter
--- OUTSIDE RECORDS SUMMARY | 2024-08-18 07:56 | XMS_ITS | Encounter Summary ---
Author Organization [facility] Address [address] [place] [address] Care Team Providers Care Rn Shift Mgr Name Role Phone Kerrie Morgan APRN Primary Care Provider + Maxine Masterson MD Unavailable [phone] Reason for Visit * Reason Onset Date Comments Appointment Related 04/28/2023 Encounter Details Date Type Department Care Team (Late st Contact Info) Description 04/28/2023 Telephone [facility] Neurosurgery - [facility] [address] [place], [place] [id number] Amos Andujar MD [address] [facility], [address] [place] [address] Appointment Related Social History Tobacco Use Types Packs/Day Years [...] encounter Miscellaneous Notes * Telephone Encounter - Eve Esparza - 04/28/2023 1045 EDT Images from the original note were not included. Confirmed the following appointment details with Aparna. She verbalized understanding and denied having any questions. documented in this encounter Plan of Treatment Scheduled Procedures Name Priority Associated Diagnoses Date/Ti me CRANIECTOMY, SUPRATENTORIAL, FOR EXCISION OF MENINGIOMA Meningioma ([facility]) documented as of this encounter Visit Diagnoses Not on filedocumented in this encounter Care Teams Rn Shift Mgr Relationship Specialty Start Date End Date Kerrie Morgan [place] [address] [place] [phone] PCP - General 01/17/23 Maxine Masterson MD [address] [place] [phone] 01/17/23 documented as of this encounter
--- OUTSIDE RECORDS SUMMARY | 2024-08-18 07:56 | XMS_ITS | Encounter Summary ---
Author Organization [facility] Address [address] [place] [address] Care Team Providers Care Yarn Spooler Name Role Phone Kerrie Morgan APRN Primary Care Provider + Maxine Masterson MD Unavailable [phone] Encounter Details Date Type Department Care Team (Late st Contact Info) Description 02/16/2024 10:35 EDT Phlebotomy Only [facility] - Outpatient Phlebotomy Drawing [address] [place] [address] Lab, [facility] Op Phlebotomy Benign neoplasm of meninges, unspecified (HCC-CMS) Social History Tobacco Use Types Packs/Day Years [...] Meningioma (HCC-CMS) documented as of this encounter Procedures Procedure Name Priority Date/Time Associated Diagnosis Comments CREATININE STAT 02/16/2024 10:37 EDT Benign neoplasm of meninges, unspecified (HCC-CMS) documented in this encounter Results * CREATININE (02/16/2024 10:37 EDT) Creatinine 0.75 0.52 - 1.04 mg/dL 02/16/2024 11:00 EDT [facility] eGFR 85 >60 mL/min/1.73 m2 02/16/2024 11:00 EDT [facility] Blood VENOUS BLOOD / Unknown Venipuncture / Unknown 02/16/2024 10:37 EDT 02/16/2024 10:38 EDT Amos Andujar MD CHEMISTRY & BLOOD G ORDERABLES Performing Organization Address City/State/[facility] Co de Phone Number [facility] [address] [place] [phone] documented in this encounter Visit Diagnoses Diagnosis Benign neoplasm of meninges, unspecified (HCC-CMS) documented in this encounter Care Teams Yarn Spooler Relationship Specialty Start Date End Date Kerrie Morgan APRN [address] [place] [address] PCP - General 01/17/23 Maxine Masterson MD [address] [place] [address] 01/17/23 documented as of this encounter
--- OUTSIDE RECORDS SUMMARY | 2024-08-18 07:56 | XMS_ITS | Encounter Summary ---
Author Organization [facility] Address [address] [place] [address] Care Team Providers Care Custom Seamstress Name Role Phone Kerrie Morgan APRN Primary Care Provider + Maxine Masterson MD Unavailable [phone] Encounter Details Date Type Department Care Team (Late st Contact Info) Description 05/16/2023 Orders Only [facility] [address] [place] [address] Valeria Florez Social History Tobacco Use Types Packs/Day Years [...] on filedocumented in this encounter Care Teams Custom Seamstress Relationship Specialty Start Date End Date Kerrie Morgan APRN [address] [place] [phone] [facility] - General 01/17/23 Maxine Masterson MD [address] [place] [address] 01/17/23 documented as of this encounter
--- OUTSIDE RECORDS SUMMARY | 2024-08-18 07:56 | XMS_ITS | Encounter Summary ---
Author Organization [facility] Address [address] [place] [address] Care Team Providers Care Shuttle Veneering Supervisor Name Role Phone Kerrie Morgan APRN Primary Care Provider + Maxine Masterson MD Unavailable [phone] Encounter Details Date Type Department Care Team (Late st Contact Info) Description 02/14/2023 Orders Only [facility] [address] [place] [address] [employer] Social History Tobacco Use Types Packs/Day Years [...] CRANIECTOMY, SUPRATENTORIAL, FOR EXCISION OF MENINGIOMA Meningioma ([facility]) documented as of this encounter Visit Diagnoses Not on filedocumented in this encounter Care Teams Shuttle Veneering Supervisor Relationship Specialty Start Date End Date Kerrie Morgan APRN [address] [place] [address] PCP - General 01/17/23 Maxine Masterson MD [address] [place] [address] 01/17/23 documented as of this encounter
--- OUTSIDE RECORDS SUMMARY | 2024-08-18 07:56 | XMS_ITS | Encounter Summary ---
Author Organization [facility] Address [address] [place] [address] Care Team Providers Care Engine Repair Supervisor Name Role Phone Kerrie Morgan APRN Primary Care Provider + Maxine Masterson MD Unavailable [phone] Reason for Referral * Radiology Services (Routine/Next Available) - Specialty Report Received Specialty Diagnoses / Procedures Referred By Caleb luna Referred To Contact Radiology Diagnoses Meningioma ([facility]) Procedures MR HEAD W WO CONTRAST MR HEAD W WO CONTRAST CHG MRI BRAIN Amos Pride MD [address] [place] [phone] [facility] Referral ID Status Reason Start Date Expiration Date V isits Requested Visits Authorized [id number] Specialty Report Received 05/16/2023 1 1 Reason for Visit * Radiology Services (Routine/Next Available) - Specialty Report Received Specialty Diagnoses / Procedures Referred By Caleb luna Referred To Contact Radiology Diagnoses Meningioma ([facility]) Procedures MR HEAD W WO CONTRAST MR HEAD W WO CONTRAST CHG MRI BRAIN Amos Pride MD [address] [place] [phone] [facility] Referral ID Status Reason Start Date Expiration Date V isits Requested Visits Authorized [id number] Specialty Report Received 05/16/2023 1 1 Encounter Details Date Type Department Care Team (Latest Contact Info) Description 02/16/2024 10:32 EDT - 02/16/2024 23:[address] [facility] MRI [address] [place] [address] Meningioma (HCC-CMS) Discharge Disposition: Home or Self [...] Scheduled Procedures Name Priority Associated Diagnoses Date/Ti mt CRANIECTOMY, SUPRATENTORIAL, FOR EXCISION OF MENINGIOMA Meningioma ([facility]) documented as of this encounter Procedures Procedure Name Priority Date/Time Associated Diagnosis Comments MR HEAD W WO CONTRAST Routine 02/16/2024 13:51 EDT Meningioma (HCC-CMS) documented in this encounter Results * MR HEAD W WO CONTRAST (02/16/2024 13:51 EDT) Anatomical Region Laterality Modality Head Magnetic Resonan ce 02/16/2024 14:1 6 EDT Impressions 02/16/2024 14:16 EDT Slight increase in size of the left anterior parafalcine 2.1 x 1.7 x 1.9 cm meningioma compared to January 2023. [id number] Narrative 02/16/2024 14:16 EDT EXAM: MRI HEAD [...] EXTRACRANIAL SOFT TISSUES: Unremarkable. Resulting Agency Comment [id number] Procedure Note Avinash Dominguez MD - 02/16/2024 [...] x 1.9cm meningioma compared to January 2023. [id number] Amos Andujar MD IMG MRI ORDERABLES documented in this encounter Visit Diagnoses Diagnosis Meningioma (HCC-CMS) Benign neoplasm of cerebral meninges documented in this encounter Administered Medications Inactive Administered Medications - up to 3 most recent administrations Medication Order MAR Action Action Date Dose Rate Site gadoterate meglumine solution 1-30 mL 1-30 mL, intravenous, Once in imaging, 1 dose, Starting on 02/16/24 at 1217, Until Fri02/16/24 at 1352, Routine, Imaging Protocol Orders Given 02/16/2024 13:52 EDT 15 mL IV documented in this encounter Orders Medications Ordered That Hardeep ht Not Have Been Administered Count Last Ordered Date First Ordered Date gadoterate meglumine solution 1-30 mL 1 documented in this encounter Care Teams Engine Repair Supervisor Relationship Specialty Start Date End Date Kerrie Morgan APR[place] [address] [place] [phone] PCP - General 01/17/23 Maxine Masterson MD [address] [place] [phone] 01/17/23 documented as of this encounter
--- OUTSIDE RECORDS SUMMARY | 2024-08-18 07:56 | XMS_ITS | Encounter Summary ---
Author Organization [facility] Address [address] [place] [address] Care Team Providers Care Social Worker Aide Name Role Phone Kerrie Morgan APRN Primary Care Provider + Maxine Masterson MD Unavailable [phone] Reason for Referral * Radiology Services (Routine/Next Available) - Authorization Not Required Specialty Diagnoses / Procedures Referred By Contac t Referred To Contact Radiology Diagnoses Meningioma ([facility]) Procedures MR HEAD W WO Mohini Melendez PA-C [address] [place] [phone] [facility] Referral ID Status Reason Start Date Expiration Date Visits Requested Visits Authorized [id number] Authorization Not Required 03/16/2024 1 1 Reason for Visit * Radiology Services (Routine/Next Available) - Authorization Not Required Specialty Diagnoses / Procedures Referred By Contac t Referred To Contact Radiology Diagnoses Meningioma ([facility]) Procedures MR HEAD W ALEXANDRA Mohini Melendez PA-C [address] [phone] [facility] Referral ID Status Reason Start Date Expiration Date Visits Requested Visits Authorized [id number] Authorization Not Required 03/16/2024 1 1 Encounter Details Date Type Department Care Team (Latest Contact Info) Description 08/03/2024 13:09 EDT - 08/03/2024 23:59 EDT Hospital Encounter Stephanie Ramires [facility] [address] [place] [address] Meningioma (HCC-CMS) Discharge Disposition: Home or Self [...] Scheduled Procedures Name Priority Associated Diagnoses Date/Ti or CRANIECTOMY, SUPRATENTORIAL, FOR EXCISION OF MENINGIOMA Meningioma ([facility]) documented as of this encounter Procedures Procedure Name Priority Date/Time Associated Diagnosis Comments MR HEAD W WO CONTRAST Routine 08/03/2024 14:41 EDT Meningioma ([facility]) documented in this encounter Results * MR HEAD W WO CONTRAST (08/03/2024 14:41 EDT) Anatomical Region Laterality Modality Head Magnetic Resonan ce 08/03/2024 15:5 4 EDT Impressions 08/03/2024 15:54 EDT No significant change to minimal increased size of presumed left anterior frontal parafalcine meningioma. I have personally reviewed the images and the above interpretation and agree with the findings. [id number] Narrative 08/03/2024 15:54 EDT EXAM: MRI HEAD [...] EXTRACRANIAL SOFT TISSUES: Unremarkable. Resulting Agency Comment [id number] Procedure Note Bautista Johnson MD - 08/03/2024 [...] the above interpretation andagree with the findings. [id number] Mohini Bedoya PA-C IMG MRI ORD ERABLES documented in this encounter Visit Diagnoses Diagnosis Meningioma (HCC-CMS) Benign neoplasm of cerebral meninges documented in this encounter Administered Medications Inactive Administered Medications - up to 3 most recent administrations Medication Order MAR Action Action Date Dose Rate Site gadoterate meglumine solution 1-30 mL 1-30 mL, intravenous, Once in imaging, 1 dose, Starting on 08/03/24 at 1443, Until 08/03/24 at 1443, Routine, Imaging Protocol Orders Given 08/03/2024 14:43 EDT 14 mL documented in this encounter Orders Medications Ordered That Hardeep ht Not Have Been Administered Count Last Ordered Date First Ordered Date gadoterate meglumine solution 1-30 mL 1 documented in this encounter Care Teams Social Worker Aide Relationship Specialty Start Date End Date Kerrie Morgan, FINANCE ASSISTANT [address] [place] [phone] PCP - General 01/17/23 Maxine Masterson MD [address] [place] [phone] 01/17/23 documented as of this encounter
--- OUTSIDE RECORDS SUMMARY | 2024-08-18 07:57 | XMS_ITS | Encounter Summary ---
[place] [address] Care Team Providers Care Party Plan Sales Director Name Role Phone Kerrie Morgan APRN Primary Care Provider + Encounter Details Date Type Department Care Team (Latest Contact Info) Description 05/19/2023 Travel Social History Tobacco Use Types Packs/Day Years Used Date Smoking Tobacco: Never Smokeless Tobacco: Never Sex and Gender Information Value Date Recorded Sex Assigned at Not on file Gender Identity Female 03/13/2020 8:30 PM EDT Sexual Orientation Not on file documented as of this encounter Plan of Treatment Not on file documented as of this encounter Visit Diagnoses Not on filedocumented in this encounter Care Teams Party Plan Sales Director Relationship Specialty Start Date End Date Kerrie Morgan APRN [address] [place] [id number] PCP - General Family Medicine 03/31/18 documented as of this encounter
--- OUTSIDE RECORDS SUMMARY | 2024-08-18 07:57 | XMS_ITS | Encounter Summary ---
Author Organization [facility] Address [address] [place] [address] Care Team Providers Care Core Measures Abstractor Name Role Phone Maxine Masterson MD Primary Care Provider [phone] Kerrie Morgan APRN Primary Care Provider + Maxine Masterson MD Unavailable [phone] Encounter Details Date Type Department Care Team (Late st Contact Info) Description 03/06/2022 Lab Requisition [facility] Pathology & Laboratory Medicine - [facility] [address] [place] [address] Outr Resulting Lab, Provider Social History Tobacco Use Types Packs/Day Years Used Date Smoking Tobacco: Never Assessed Sex and Gender Information Value Date Recorded [...] Procedure Name Priority Date/Time Associated Diagnosis Comments HEPATITIS C AB W REFLEX TO HCV RNA BY PCR Routine 03/06/2022 10:25 EDT documented in this encounter Results * HEPATITIS C AB W REFLEX TO HCV RNA BY PCR (03/06/2022 10:25 EDT) Hep C Antibody Negative Negative 03/07/2022 9:38 EDT [facility] Blood VENOUS BLOOD / Unknown 03/06/2022 10:25 EDT 03/06/2022 21:32 EDT Provider Outr Resulting Lab CHEMISTRY & BLOOD GAS ORDERABLES [facility] [address] [place] [address] documented in this encounter Visit Diagnoses Not on filedocumented in this encounter Care Teams Core Measures Abstractor Relationship Specialty Start Date End Date Maxine Masterson MD [address] [place] [address] PCP - General 11/27/16 01/16/23 Kerrie Morgan APR[place] [address] [place] [phone] PCP - General 01/17/23 Maxine Masterson MD [address] [place] [phone] 01/17/23 documented as of this encounter
--- OUTSIDE RECORDS SUMMARY | 2024-08-18 07:57 | XMS_ITS | Encounter Summary ---
Author Organization 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) Headache, unspecified Procedures MR HEAD W WO CONTRAST Kerrie Morgan APRN [address] [place] [address] [facility] [place] Referral ID Status Reason Start Date Expiration Date Visits Requested Visits Authorized [id number] Authorization Not Required 01/21/2023 1 1 Reason for Visit * Radiology Services (STAT) - Authorization Not Required Specialty Diagnoses / Procedures Referred By Contac t Referred To Contact Radiology Diagnoses 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) Headache, unspecified Procedures MR HEAD W WO CONTRAST Kerrie Morgan APRN [address] [place] [address] [facility] [place] Referral ID Status Reason Start Date Expiration Date Visits Requested Visits Authorized [id number] Authorization Not Required 01/21/2023 1 1 Encounter Details Date Type Department Care Team (Latest Contact Info) Description 01/21/2023 14:22 EDT - 01/21/2023 23:59 EDT Hospital Encounter [facility] MRI [address] [place] [address] 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 ?? Left parafalcine meningioma. 2. ?? No acute infarct or acute hemorrhage. 3. ?? 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 THIS DOCUMENT HAS BEEN ELECTRONICALLY SIGNED BY DOMITILA GAVIRIA MD FOR ANY QUESTIONS OR CONCERNS REGARDING THIS REPORT PLEASE CALL [facility] AT [phone] Narrative 01/21/2023 16:01 EDT PROCEDURE INFORMATION: Exam: MR Head Without and With Contrast Exam date and time: 01/21/2023 2:59 PM Age: 72 years old Clinical indication: Neoplasm of unspecified behavior of brain; Headache, unspecified; Other: Possible meningioma seen on cta; Wet read TECHNIQUE: Imaging protocol: Magnetic resonance imaging of the head without and with contrast. Contrast material: DOTAREM; Contrast volume: 14 ml; Contrast route: INTRAVENOUS (IV); ?? COMPARISON: CT ANGIO HEAD 01/17/2023 1:41 PM FINDINGS: Brain: No significant white matter disease for age with single white matter FLAIR hyperintense focus in left frontal lobe. Diffusion images are normal. No evidence of acute infarction. No evidence of acute intracranial hemorrhage. No extra-axial fluid collections. There is no midline shift. There is left anterior parafalcine extra-axial mass consistent with meningioma measuring 1.6 cm x 2 cm x 1.8 cm. No edema in the adjacent brain. ??Focal mass effect on the adjacent medial frontal brain surface. ??No abnormal parenchymal contrast enhancement. Flow voids of the [place] of [place] and major cerebral vascular structures appear intact. Cerebral ventricles: Ventricles and cerebrospinal fluid spaces are normal in size and configuration for the patient's age. Bones/joints: Craniocervical junction appears unremarkable, with normal position of cerebellar tonsils and no evidence of Chiari I malformation. Paranasal sinuses: Normal as visualized. No acute sinusitis. Mastoid air cells: No significant mastoid effusion. Orbital cavities: Unremarkable. Oral cavity: There is 6 mm T2 hyperintense lesion consistent with cyst measuring 6 mm in the left processor helper space anterior to the mandible. Pharynx: There is a rounded T2 hyperintense lesion in the midline nasopharynx which is likely a Tornwaldt cyst and recommend direct visualization. Soft tissues: Unremarkable as visualized. Procedure Note Domitila Gaviria MD - 01/21/2023 PROCEDURE INFORMATION: Exam: MR Head Without and With Contrast Exam date and time: 01/21/2023 2:59 PM Age: 72 years old Clinical indication: Neoplasm of unspecified behavior of brain; Headache, unspecified; Other: Possible meningioma seen on cta; Wet read TECHNIQUE: Imaging protocol: Magnetic resonance imaging of the head without and with contrast. Contrast material: DOTAREM; Contrast volume: 14 ml; Contrast route: INTRAVENOUS (IV); COMPARISON: CT ANGIO HEAD 01/17/2023 1:41 PM FINDINGS: Brain: No significant white matter disease for age with single white matter FLAIR hyperintense focus in left frontal lobe. Diffusion images are normal. No evidence of acute infarction. No evidence of acute intracranial hemorrhage. No extra-axial fluid collections. There is no midline shift. There is left anterior parafalcine extra-axial mass consistent with meningioma measuring 1.6 cm x 2 cm x 1.8 cm. No edema in the adjacent brain. Focal mass effect on the adjacent medial frontal brain surface. No abnormal parenchymal contrast enhancement. Flow voids of the [place] of [place] and major cerebral vascular structures appear intact. Cerebral ventricles: Ventricles and cerebrospinal fluid spaces are normal in size and configuration for the patient's age. Bones/joints: Craniocervical junction appears unremarkable, with normal position of cerebellar tonsils and no evidence of Chiari I malformation. Paranasal sinuses: Normal as visualized. No acute sinusitis. Mastoid air cells: No significant mastoid effusion. Orbital cavities: Unremarkable. Oral cavity: There is 6 mm T2 hyperintense lesion consistent with cyst measuring 6 mm in the left processor helper space anterior to the mandible. Pharynx: There is a rounded T2 hyperintense lesion in the midline nasopharynx which is likely a Tornwaldt cyst and recommend direct visualization. Soft tissues: Unremarkable as visualized. IMPRESSION 1. Left parafalcine meningioma. 2. No acute infarct or acute hemorrhage. 3. 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) Headache, unspecified documented in this encounter Administered Medications Inactive Administered Medications - up to 3 most recent administrations Medication Order MAR Action Action Date Dose Rate Site gadoterate meglumine solution 1-30 mL 1-30 mL, intravenous, Once in imaging, 1 dose, Starting on Fri01/21/23 at 1512, Until Fri01/21/23 at 1518, Routine, Imaging Protocol Orders Given 01/21/2023 15:18 EDT 14 mL documented in this encounter Orders Medications Ordered That Hardeep ht Not Have Been Administered Count Last Ordered Date First Ordered Date gadoterate meglumine solution 1-30 mL 1 01/2023 documented in this encounter Care Teams Wad Lubricator Relationship Specialty Start Date End Date Kerrie Morgan, COLLECTIONS CURATOR [address] [place] [phone] PCP - General 01/17/23 Maxine Masterson MD [address] [place] [phone] 01/17/23 documented as of this encounter
--- OUTSIDE RECORDS SUMMARY | 2024-08-18 07:57 | XMS_ITS | Encounter Summary ---
[place] [address] Care Team Providers Care Senior It Recruiter Name Role Phone Kerrie Morgan APRN Primary Care Provider + Reason for Visit * Reason Comments Thyroid Nodule Encounter Details Date Type Department Care Team (Late st Contact Info) Description 03/31/2018 11:30 AM EDT [place] [address] Jen Perez MD [facility] [place] [address] Multiple thyroid nodules Social History Tobacco Use Types Packs/Day Years Used Date Smoking Tobacco: Never Smokeless Tobacco: Never Sex and Gender Information Value Date Recorded Sex Assigned at Not on file Gender Identity Female 03/13/2020 8:30 PM EDT Sexual Orientation Not on file documented as of this encounter Last Filed Vital Signs Vital Sign Reading Time Taken Comments Blood Pressure 129/56 03/31/2018 11:15 AM EDT Pulse 68 03/31/2018 11:15 AM EDT Temperature - - Respiratory Rate - - Oxygen Saturation - - Inhaled Oxygen Concentration - - Weight 73.4 kg (161 lb 12.8 oz) 018 11:15 AM EDT Height 166.4 cm (5' 5.5) 03/31/2018 11 :15 AM EDT Body Mass Index 26.52 03/31/2018 11:15 AM EDT documented in this encounter Progress Notes * Jen Perez MD - 03/31/2018 11:30 AM EDT Endocrinology Clinic Follow-up Visit Reason for Visit: thyroid nodule reassessment HISTORY OF PRESENT ILLNESS: Ms. Aparna Etienne is a 67 y.o. year old lady with history significant for R- sided thyroid nodule that has been followed from [id number] at [facility], discovered on routine physical exam. FNA was done therein 2011 and had benign cytology. The nodule was followed yearly thereafter. She transitioned her thyroid nodule care to [facility] 1 year ago. Because the nodule had enlarged in 2016 and 2017, I performed another FNA last year, which again had benign cytology. ?? 2011 - 1.8 x 1.9 x 3.0cm 2012 - 1.7 x 2.1 x 2.9cm 2016 - 1.9 x 2.5 x 3.7cm 2017 - 2.2 x 2.8 x 4.3cm Because her nodule had grown to >4cm in size, I still advised proceeding with a R hemithyroidectomy. She had met with the thyroid surgeon Dr. Land for a consultation but ultimately decided that Still continues to feel well, no dysphagia, no ant neck compressive symptoms. Tingling that she had last year is gone. She is still reluctant about the idea of surgery. PAST MEDICAL HISTORY: Patient Active Problem List Diagnosis Date Noted ??? Multiple thyroid nodules 04/16/2017 MEDICATIONS: Medications 03/31/18 1117 Medication Sig Taking? PROAIR HFA 90 mcg/actuation HFA Aerosol Inhaler Reported on 05/05/2017 ALLERGIES: No Known Allergies SOCIAL HISTORY: History Smoking Status ??? Never Smoker Smokeless Tobacco ??? Never Used FAMILY HISTORY: No family history on file. REVIEW OF SYSTEMS: All 12 systems reviewed and negative except as noted per HPI. PHYSICAL EXAM: Vitals Office Visit from 03/31/2018 in Endocrinology at [place] Weight 73.4 kg (161 lb 12.8 oz) Height 166.4 cm (5' 5.5) BSA (Calculated - sq m) 1.84 sq meters BMI (Calculated) 26.51 Heart Rate 68 BP 129/56 Gen: NAD, AAOx3, speaking full sentences, calm very pleasant demeanor, lean habitus Skin: warm and dry Eyes: PERRL, EOMI, anicteric sclerae without injection, no proptosis or lid lag ENT: moist oral mucosa Neck: R sided thyromegaly with visible and palpable R thyroid nodule, no lymphadenopathy, negative for Nicol sign Pulm: CTAB, no stridor Cardiac: reg s1s2, no m/r/g MSK: 5/5 strength in all muscle groups of the upper and lower extremities Neuro: 2+ biceps and patellar DTRs, no clonus, no delay of the relaxation phase, no tremor. ASSESSMENT: 67 yo F with an asymptomatic 4.3cm R spongiform thyroid nodule with benign cytology in 2011 and 2016, that has remained stable in size over the past 1 year, which is reassuring. She continues to be reluctant about pursuing thyroid surgery, so we will continue to monitor this nodule for growth on a yearly basis. PLAN: --follow-up in 1 year for thyroid nodule reassessment. JEN PEREZ MD [facility] Section of Endocrinology [facility] * Jen Perez MD - 03/31/2018 11:30 AM EDT THYROID ULTRASOUND Date: 03/31/18 Indication: thyroid nodule reassessment Comparison: 2011, 2012, 2015, March 2017 Real time images of the thyroid gland were obtained using a Weaved US machine. All measurements are given as AP x Transverse x Longitudinal. Right Lobe: Spongiform nodule almost completely replacing the R thyroid lobe measures 2.2 x 2.8 x 4.3cm not significantly changed from 1 year ago. Benign cytology in 2016 and 2011. 2017 - 2.2 x 2.8 x 4.3 cm 2015 - 1.9 x 2.5 x 3.7cm 2012 - 1.7 x 2.1 x 2.9cm 2011 - 1.8 x 1.9 x 3.0cm Two smaller spongiform nodules at the anterior aspect of the R lower pole - 0.5 x 0.5 x 0.6 cm & 0.7 x 0.8 x 1.0cm Left Lobe: The left lobe measures 1.8 x 1.9 x , with mildly heterogeneous echotexture. Posteromedial spongiform nodule 1.0 x 1.2 x 1.4cm (2016 - 0.86 x 1.2 x 1.6 cm) Anterolateral spongiform nodule 0.6 x 1.1 x 1.1cm (2017 - 0.62 x 1.1 x 1.2 cm) Lateral neck: No abnormal lymph nodes were seen. Impression: 4.3cm R spongiform nodule biopsied benign in 2011 and 2017 Two smaller spongiform nodules in the R lower pole - not previously commented on, not meeting FNA criteria at this time. Two smaller spongiform nodules in the L hemithyroid, not significantly changed in size from 1 year ago, neither meeting FNA criteria at this time. Jen Perez MD [facility] head Section of Endocrinology [facility] documented in this encounter Plan of Treatment Not on file documented as of this encounter Visit Diagnoses Diagnosis Multiple thyroid nodules Nontoxic multinodular goiter documented in this encounter Care Teams Senior It Recruiter Relationship Specialty Start Date End Date Kerrie Morgan, KENNEL ASSISTANT [address] [place] [address] PCP - General Family Medicine 03/31/18 documented as of this encounter
--- OUTSIDE RECORDS SUMMARY | 2024-08-18 07:57 | XMS_ITS | Encounter Summary ---
Author Organization [facility] Address [address] [place] [address] Care Team Providers Care Repairer General Name Role Phone Unavailable Primary Care Provider Unavailabl e Encounter Details Date Type Department Care Team (Late st Contact Info) Description 11/18/2011 Results Only [facility] Laboratory Services - [facility] ([facility]) [address], [place] [id number] Hanna Kaufman, FELISA Social History Tobacco Use Types Packs/Day Years [...] Procedure Name Priority Date/Time Associated Diagnosis Comments PAP TEST- RESULT ONLY Routine 11/18/2011 0:00 EST documented in this encounter Results * PAP TEST- RESULT ONLY (11/18/2011 0:00 EST) Pathology Report: CYTOPATHOLOGY REPORT Reports generated via electronic interface contain original data; however they are lacking the format of the original report. Caution should be taken when reading/interpreti ng unformatted reports. Name: ? FARZAD, APARNA ? Accession #: ? [id number] ? : ? 1950 (Age: 61) ??F ?Collect Date: ? 11/18/2011 ? Location: ? [facility] ? Receive Date: ? 11/20/2011 ? Provider: HANNA KAUFMAN ELECTION CLERK Copy to: TOSHIA JHA MD ? Final Report SPECIMEN ADEQUACY ? Satisfactory for Evaluation - transformation zone component present GENERAL CATEGORIZATION ? Negative for Intraepithelial Lesion or Malignancy INTERPRETATION ? Reactive cellular changes associated with inflammation present (includes repair). Last Menstural Period: Specimen/Source: ??Pap Test, Cervix/Endocervix, ThinPrep Imaging System with manual evaluation Document reviewed and electronically signed by: ? GALDINO SCHWAB MD ? Report ??Date: 11/25/2011 10:52 HPV with Pap Test ? Date Ordered: ? 11/25/2011 ? Status: ?? Signed Out ?Date Complete: ? 11/27/2011 ? By: ??System Interface ? Date Reported: ? 11/27/2011 ? Interpretation RESULT: Negative for HPV types 16, 18, 31, 33, 35, 39, 45, 51, 52, 56, 58, 59, and 68. Comments Document reviewed and electronically signed by: ? System Interface ? Report date: 11/27/2011 By the signature above, the attending physician certifies that he/she has personally conducted a gross and/or microscopic examination of the described specimens and rendered or confirmed the above diagnosis. End of Report [facility] 11/18/2011 11/20/2011 Hanna Kaufman NP PATHOLOGY ORDERABLES Performing Organization Address City/State/[facility] Co de Phone Number [facility] [address] [place] [address] documented in this encounter Visit Diagnoses Not on filedocumented in this encounter
--- OUTSIDE RECORDS SUMMARY | 2024-08-18 07:57 | XMS_ITS | Encounter Summary ---
[place] [address] Care Team Providers Care Network Systems Consultant Name Role Phone Kerrie Morgan APRN Primary Care Provider + Encounter Details Date Type Department Care Team (Latest Contact Info) Description 01/13/2023 Travel Social History Tobacco Use Types Packs/Day [...] on filedocumented in this encounter Care Teams Network Systems Consultant Relationship Specialty Start Date End Date Kerrie Morgan APRN [address] [place] [id number] PCP - General Family Medicine 03/31/18 documented as of this encounter
--- OUTSIDE RECORDS SUMMARY | 2024-08-18 07:57 | XMS_ITS | Encounter Summary ---
Author Organization [facility] Address [address] [place] [address] Care Team Providers Care Nut Roaster Helper Name Role Phone Kerrie Morgan APRN Primary Care Provider + Maxine Masterson MD Unavailable [phone] Reason for Referral * Radiology Services (STAT) - Authorization Not Required Specialty Diagnoses / Procedures Referred By Contac t Referred To Contact Diagnoses Headache, unspecified Procedures CT ANGIO HEAD Kerrie Morgan APRN [address] [place] [address] [facility] Referral ID Status Reason Start Date Expiration Date Visits Requested Visits Authorized [id number] Authorization Not Required 01/17/2023 1 1 Reason for Visit * Radiology Services (STAT) - Authorization Not Required Specialty Diagnoses / Procedures Referred By Contac t Referred To Contact Diagnoses Headache, unspecified Procedures CT ANGIO HEAD Kerrie Morgan APRN [address] [place] [address] [facility] Referral ID Status Reason Start Date Expiration Date Visits Requested Visits Authorized [id number] Authorization Not Required 01/17/2023 1 1 Encounter Details Date Type Department Care Team (Latest Contact Info) Description 01/17/2023 13:02 EDT - 01/17/2023 23:[address] [facility] CT Scan [address] [place] [address] Headache, unspecified Discharge Disposition: Home or Self [...] CRANIECTOMY, SUPRATENTORIAL, FOR EXCISION OF MENINGIOMA Meningioma ([facility]) documented as of this encounter Procedures Procedure Name Priority Date/Time Associated Diagnosis Comments CT ANGIO HEAD STAT 01/17/2023 13:54 EDT Headache, unspecified CREATININE STAT 01/17/2023 13:09 EDT documented in this encounter Results * CT ANGIO HEAD (01/17/2023 13:54 EDT) Anatomical Region Laterality Modality Computed Tomogra phy 01/17/2023 14:4 1 EDT Impressions 01/17/2023 14:41 EDT 1. ??No major arterial occlusion, dissection, or significant stenosis identified. 2. ??No CT evidence of vasculitis. Please note, CT is neither sensitive nor specific for temporal arteritis or other extracranial vasculitides. 3. ??Lobulated 2 cm left frontal extra-axial mass, with features favoring a meningioma. Mild local mass effect. To be cautious, follow-up CT or MR is recommended in 3 months to ensure stability. 4. ??Additional findings detailed above. Per [facility] policy, this study has been entered into EMR follow-up system to ensure follow-up of a noncritical finding. Narrative 01/17/2023 14:[address] ANGIO HEAD ?? Signs and Symptoms/Comments: ??New onset/change in headache pattern. Had (-) ??U/S of temporal arteries. However have suspicion for GCA; New onset/change in headache pattern. Technique: CT angiography of the head was performed with the administration of 100 cc Omnipaque 350 intravenous contrast. Multiplanar and 3-D reconstructions were performed. I have personally reviewed and adjusted the images for the 3D rendering on an independent workstation, as necessary, prior to interpretation. Comparison: None. FINDINGS: ?? Vascular Findings: Anterior circulation: Distal ICA, anterior and middle cerebral arteries widely patent. No intracranial aneurysm visible. No convincing CT evidence of vasculitis. Posterior circulation: Distal vertebral, basilar, visible cerebellar and posterior cerebral arteries widely patent. Persistent circulation is incidentally noted in the right. No intracranial aneurysm visible. No convincing CT evidence of vasculitis. Other Findings: Brain: Lobulated 2 cm extra-axial mass along the anterior aspect of the left frontal lobe, likely dural based (coronal series 203 image 11; axial series 201 image 21). Multiple small internal coarse calcifications noted. Mild local mass effect on the adjacent left frontal lobe. Mass demonstrates minimal if any enhancement. Overall, findings favor a meningioma. No intracranial hemorrhage or abnormal fluid collection identified. There is no mass effect or midline shift. The basal cisterns are patent. The ventricles are unremarkable. Dale-white differentiation is preserved. There is no CT evidence of acute ischemia, however MR would be more sensitive. Orbits: Unremarkable. Paranasal sinuses: Unremarkable. Middle ear cavities & Mastoid air cells: No effusion visible. Bones: Unremarkable. Extracranial soft tissues: Unremarkable. Kerrie Morgan MOLDED GOODS OPERATOR IMG CT ORDERABLE S * CREATININE (01/17/2023 13:09 EDT) Creatinine 0.83 0.52 - 1.04 mg/dL 01/17/2023 13:33 EDT [facility] eGFR 76 >60 mL/min/1.73 m2 01/17/2023 13:33 EDT [facility] Blood VENOUS BLOOD / Unknown Venipuncture / Unknown 01/17/2023 13:09 EDT 01/17/2023 13:13 EDT Kerrie Ricardo Eddie MOLDED GOODS OPERATOR CHEMISTRY & BLOO D GAS ORDERABLES [facility] [address] [place] [address] documented in this encounter Visit Diagnoses Diagnosis Headache, unspecified documented in this encounter Administered Medications Inactive Administered Medications - up to 3 most recent administrations Medication Order MAR Action Action Date Dose Rate Site iohexoL (OMNIPAQUE 350) solution 100 mL 100 mL, intravenous, Once in imaging, 1 dose, Starting on Fri01/17/23 at 1334, Until Fri01/17/23 at 1354, Routine Given 01/17/2023 13:54 EDT 100 mL documented in this encounter Orders Medications Ordered That Hardeep ht Not Have Been Administered Count Last Ordered Date First Ordered Date iohexoL (OMNIPAQUE 350) solution 100 mL 1 0 01/17/2023 documented in this encounter Care Teams Nut Roaster Helper Relationship Specialty Start Date End Date Kerrie Morgan APRN [address] [place] [address] PCP - General 01/17/23 Maxine Masterson MD [address] [place] [address] 01/17/23 documented as of this encounter
--- OUTSIDE RECORDS SUMMARY | 2024-08-18 07:57 | XMS_ITS | Encounter Summary ---
Author Organization [facility] Address [address] [place] [address] Care Team Providers Care Restaurant Line Cook Name Role Phone Maxine Masterson MD Primary Care Provider [phone] Kerrie Morgan APRN Primary Care Provider + Maxine Masterson MD Unavailable [phone] Encounter Details Date Type Department Care Team (Late st Contact Info) Description 03/15/2020 Lab Requisition [facility] Pathology & Laboratory Medicine - [facility] [address] [place] [address] Outr Resulting Lab, Provider Social History Tobacco [...] Procedure Name Priority Date/Time Associated Diagnosis Comments DO NOT ORDER STANDALONE - BROAD COVID TEST Today 03/15/2020 14:05 EDT COVID-19 TESTING Routine 03/15/2020 14:0 5 EDT documented in this encounter Results * DO NOT ORDER STANDALONE - BROAD COVID TEST (03/15/2020 14:05 EDT) COVID-19 rt-PCR Result NEGATIVE Negative 03/17/2020 1:00 EDT [facility] Comment: 2019-novel Coronavirus (2019-nCoV) not detected by the qRT-PCR assay. Consider testing for other respiratory viruses or re-collecting for 2019-nCoV testing. Note: Optimum timing for peak viral levels during infections caused by 2019-nCoV have not been determined. Collection of multiple specimens from the same patient may be necessary to detect the virus. Limitations Positive results are indicative of active infection with SARS-CoV-2 but do not rule out bacterial infection or co-infection with other viruses. The agent detected may not be the definite cause of disease. In addition, detection of viral RNA may not indicate the presence of infectious virus or that SARS-CoV-2 is the causative agent for clinical symptoms. Negative results do not preclude SARS-CoV-2 infection and should not be used as the sole basis for patient management decisions. Negative results must be combined with clinical observations, patient history, and epidemiological information. False negative results may also occur if amplification inhibitors are present in the specimen or if inadequate numbers of organisms are present in the specimen. Optimum specimen types and timing for peak viral levels during infections caused by SARS-CoV-2 have not been fully determined. Collection of multiple specimens (types and time points) from the same patient may be necessary to detect the virus. The test was validated for use with upper respiratory specimens obtained via nasopharyngeal or oropharyngeal swabs in VTM, UTM, M4, M5, M6, saline, and MTM media. The performance of this test has not been established for other specimens. Specimens collected using other FDA recommended Specimen Collection Materials listed in the FDA COVID-19 Diagnostic Technologies communication (January 13, 2020) are processed with the caveat that they were not all validated for use with this test and the result must be interpreted in this context. Furthermore, a false negative results may occur if a specimen is improperly collected, transported or handled. If the virus mutates in the RT-PCR target region, SARS-CoV-2 may not be detected or may be detected less predictably. Inhibitors or other types of interference may produce a false negative result. An interference study evaluating the effect of common cold medications was not performed. This test is not FDA-cleared but its performance characteristics were established by our CLIA-certified, CAP-accredited, high complexity laboratory in accordance with CLIA regulations, [employer] (CAP) guidelines (Jan 06, 2020), and FDA guidance (Dec 18, 2019). This test is only for use under the Food and Drug Administration's Emergency Use Authorization. Swab ENTIRE NASOPHARYNX / Unknown 03/15/2020 14:05 EDT 03/15/2020 21:15 EDT Provider Outr Resulting Lab MICROBIOLOGY - GENERAL ORDERABLES [facility] [place], [place] * COVID-19 TESTING (03/15/2020 14:05 EDT) COVID-19 rt-PCR Result NEGATIVE Negative 03/17/2020 7:24 EDT [facility] Comment: 2019-novel Coronavirus (2019-nCoV) not detected by the qRT-PCR assay. Consider testing for other respiratory viruses or re-collecting for 2019-nCoV testing. Note: Optimum timing for peak viral levels during infections caused by 2019-nCoV have not been determined. Collection of multiple specimens from the same patient may be necessary to detect the virus. Limitations Positive results are indicative of active infection with SARS-CoV-2 but do not rule out bacterial infection or co-infection with other viruses. The agent detected may not be the definite cause of disease. In addition, detection of viral RNA may not indicate the presence of infectious virus or that SARS-CoV-2 is the causative agent for clinical symptoms. Negative results do not preclude SARS-CoV-2 infection and should not be used as the sole basis for patient management decisions. Negative results must be combined with clinical observations, patient history, and epidemiological information. False negative results may also occur if amplification inhibitors are present in the specimen or if inadequate numbers of organisms are present in the specimen. Optimum specimen types and timing for peak viral levels during infections caused by SARS-CoV-2 have not been fully determined. Collection of multiple specimens (types and time points) from the same patient may be necessary to detect the virus. The test was validated for use with upper respiratory specimens obtained via nasopharyngeal or oropharyngeal swabs in VTM, UTM, M4, M5, M6, saline, and MTM media. The performance of this test has not been established for other specimens. Specimens collected using other FDA recommended Specimen Collection Materials listed in the FDA COVID-19 [employer] communication (January 13, 2020) are processed with the caveat that they were not all validated for use with this test and the result must be interpreted in this context. Furthermore, a false negative results may occur if a specimen is improperly collected, transported or handled. If the virus mutates in the RT-PCR target region, SARS-CoV-2 may not be detected or may be detected less predictably. Inhibitors or other types of interference may produce a false negative result. An interference study evaluating the effect of common cold medications was not performed. This test is not FDA-cleared but its performance characteristics were established by our CLIA-certified, CAP-accredited, high complexity laboratory in accordance with CLIA regulations, [employer] (CAP) guidelines (Jan 06, 2020), and FDA guidance (Dec 18, 2019). This test is only for use under the Food and Drug Administration's Emergency Use Authorization. Performing Lab [facility] 03/17/2020 7:[address] [facility] Swab ENTIRE NASOPHARYNX / Unknown 03/15/2020 14:05 EDT 03/15/2020 21:15 EDT Provider Outr Resulting Lab MICROBIOLOGY - GENERAL ORDERABLES [facility] [address] [place] [address] [facility] [place] documented in this encounter Visit Diagnoses Not on filedocumented in this encounter Care Teams Restaurant Line Cook Relationship Specialty Start Date End Date Maxine Masterson MD [address] [place] [phone] PCP - General 11/27/16 01/16/23 Kerrie Morgan APRN [address] [place] [address] [facility] - General 01/17/23 Maxine Masterson MD [address] [place] [address] 01/17/23 documented as of this encounter
--- OUTSIDE RECORDS SUMMARY | 2024-08-18 07:57 | XMS_ITS | Encounter Summary ---
[place] [address] Care Team Providers Care Shale Planer Operator Helper Name Role Phone Kerrie Morgan APRN Primary Care Provider + Encounter Details Date Type Department Care Team (Late st Contact Info) Description 02/19/2019 2:30 PM EDT Office [place] [address] Jen Perez MD [facility] [place] [address] Multiple thyroid nodules Social History Tobacco Use Types Packs/Day Years Used Date Smoking Tobacco: Never Smokeless Tobacco: Never Sex and Gender Information Value Date Recorded Sex Assigned at Not on file Gender Identity Female 03/13/2020 8:30 PM EDT Sexual Orientation Not on file documented as of this encounter Last Filed Vital Signs Vital Sign Reading Time Taken Comments Blood Pressure 132/73 02/19/2019 2:33 PM EDT Pulse 77 02/19/2019 2:33 PM EDT Temperature - - Respiratory Rate - - Oxygen Saturation - - Inhaled Oxygen Concentration - - Weight 75.4 kg (166 lb 3.2 oz) 02/19/2019 2:33 P M EDT Height 166.4 cm (5' 5.5) 02/19/2019 2:33 PM EDT Body Mass Index 27.24 02/19/2019 2:33 PM EDT documented in this encounter Progress Notes * Jen Perez MD - 02/19/2019 2:30 PM EDT Endocrinology Clinic Follow-up Visit Reason for Visit: thyroid nodule reassessment HISTORY OF PRESENT ILLNESS: Ms. Aparna MAIER is a 68 y.o. year old lady with history significant for R- sided thyroid nodule that has been followed from [id number] at [facility], discovered on routine physical exam. FNA was done in 2011 at [facility] and in 2017 by me at [facility] due to size enlargement, and had benign cytology both times. The nodule was followed yearly thereafter. She transitioned her thyroid nodule care to [facility] 1 year ago. Because the nodule had enlarged in 2016 and 2017, I performed another FNA last year, which again had benign cytology. ?? 2011 - 1.8 x 1.9 x 3.0cm -- FNA benign 2012 - 1.7 x 2.1 x 2.9cm 2016 - 1.9 x 2.5 x 3.7cm 2017 - 2.2 x 2.8 x 4.3cm - FNA benign 2018 - 2.2 x 2.8 x 4.3cm Because her nodule had grown to >4cm in size, I still advised proceeding with a R hemithyroidectomy. She had met with the thyroid surgeon Dr. Land for a consultation but ultimately decided that she didn't want to go forward with this. At last visit, she also had wo smaller spongiform nodules in the R & and L hemithyroids, but not yet meeting FNA criteria. Still continues to feel well, no dysphagia, no ant neck compressive symptoms. She reports she had agreat year. She is doing a kickboxing class at the [employer]. She is still reluctant about the idea of surgery. PAST MEDICAL HISTORY: Patient Active Problem List Diagnosis Date Noted ??? Multiple thyroid nodules 04/16/2017 MEDICATIONS: Medications 02/19/19 1443 Medication Sig Taking? PROAIR HFA 90 mcg/actuation HFA Aerosol Inhaler Reported on 05/05/2017 ALLERGIES: No Known Allergies SOCIAL HISTORY: Social History Tobacco Use Smoking Status Never Smoker Smokeless Tobacco Never Used FAMILY HISTORY: No family history on file. REVIEW OF SYSTEMS: All 12 systems reviewed and negative except as noted per HPI. PHYSICAL EXAM: Vitals Office Visit from 02/19/2019 in Endocrinology at [place] Weight 75.4 kg (166 lb 3.2 oz) Height 166.4 cm (5' 5.5) BSA (Calculated - sq m) 1.87 sq meters BMI (Calculated) 27.23 Heart Rate 77 BP 132/73 Gen: NAD, AAOx3, speaking full sentences, calm [...] of the relaxation phase, no tremor. ASSESSMENT: 68 yo F with an asymptomatic 4.3cm R spongiform thyroid nodule with benign cytology in 2011 and 2016, that has remained stable in size over the past 2 years, which is reassuring. She continues to be reluctant about pursuing thyroid surgery, so we will continue to monitor this nodule with the ultrasound. If nodules remain stable next year, we could consider spacing out visits to every 2 years. PLAN: --follow-up in 1 year for thyroid nodule reassessment. JNE PEREZ MD Driver Salesmanaircraft maintenance technician Section of Endocrinology [facility] * Jen Perez MD - 02/19/2019 2:30 PM EDT THYROID ULTRASOUND Date: 02/19/19 Indication: thyroid nodule reassessment Comparison: 2011, 2012, 2015, March 2017, March 2018 Real time images of the thyroid gland were obtained using a [employer] US machine. All measurements are given as AP x Transverse x Longitudinal. Right Lobe: Spongiform nodule almost completely replacing the R thyroid lobe measures 2.2 x 2.8 x 4.3 cm not significantly changed over the past 2 years. 2018 - 2.2 x 2.8 x 4.3cm 2016 - 2.2 x 2.8 x 4.3 cm - FNA benign 2015 - 1.9 x 2.5 x 3.7cm 2012 - 1.7 x 2.1 x 2.9cm 2012 - 1.8 x 1.9 x 3.0cm - FNA benign Only one other, small, spongiform nodules seen, at the anterior aspect of the R lower pole - 0.62 x0.78 cm Left Lobe: The left lobe measures 1.8 x 1.9 cm , with mildly heterogeneous echotexture. Posteromedial spongiform nodule 1.0 x 1.2 x 1.2 cm (2018 - 1.0 x 1.2 x 1.4cm, 2017 - 0.86 x 1.2 x 1.6 cm) Anterolateral spongiform nodule 0.6 x 1.0 x 1.2 cm (2018 - 0.6 x 1.1 x 1.1cm , 2017 - 0.62 x 1.1 x 1.2 cm) Lateral neck: No abnormal lymph nodes were seen. Impression: 4.3cm R spongiform nodule biopsied benign in 2011 and 2016, stable in size over the past 2 years. One smaller spongiform nodules in the R lower pole, not meeting FNA criteria at this time. Two smaller spongiform nodules in the L hemithyroid, not significantly changed in size over the past 2 years, neither meeting FNA criteria at this time. Jen Perez MD Driver Salesmanaircraft maintenance technician Section of Endocrinology [facility] documented in this encounter Plan of Treatment Not on file documented as of this encounter Visit Diagnoses Diagnosis Multiple thyroid nodules Nontoxic multinodular goiter documented in this encounter Care Teams Shale Planer Operator Helper Relationship Specialty Start Date End Date Kerrie Morgan, SOLDERER ASSEMBLER [address] [place] [address] PCP - General Family Medicine 03/31/18 documented as of this encounter
--- OUTSIDE RECORDS SUMMARY | 2024-08-18 07:57 | XMS_ITS | Encounter Summary ---
Author Organization [facility] Address [address] [place] [address] Care Team Providers Care Instructor Watch Assembly Name Role Phone Maxine Masterson MD Primary Care Provider [phone] Reason for Referral * Radiology Services (Routine) - Closed Specialty Diagnoses / Procedures Referred By Contsalvatore luna Referred To Contact Diagnoses Thyroid nodule Procedures ENDOCRINE CLINIC THYROID Dilip Alonzo DO [address] [facility] [address] [place] [address] Referral ID Status Reason Start Date Expiration Date Visits Re quested Visits Authorized [id number] Closed 09/01/2014 1 1 Reason for Visit * Reason Comments Thyroid Problem Encounter Details Date Type Department Care Team (Latest Contact Info) Description 09/01/2014 15:40 EST Office Visit [facility] Endocrinology - [facility] [address] [id number] Dilip Alonzo DO [address] [facility] [address] [place] [address] Thyroid nodule (Primary Dx) Social History Tobacco Use Types [...] Sign Reading Time Taken Comments Blood Pressure - - Pulse - - Temperature - - Respiratory Rate - - Oxygen Saturation - - Inhaled Oxygen Concentration - - Weight 74.8 kg (165 lb) 09/01/2014 1543 EST Height 165.1 cm (5' 5) 09/01/2014 1543 EST Body Mass Index 27.46 09/01/2014 1543 EST documented in this encounter Patient Instructions * Patient Instructions* Dilip Alonzo DO - 09/01/2014 15:52 EST 1. Follow-up in 2 year for ultrasound 2. Call with questions or concerns 3. Dr. Alonzo will inform you of your lab results by phone or mail within 2 weeks. If you do not receive your test results after two weeks please contact the office. documented in this encounter Progress Notes * Dilip Alonzo DO - 09/01/2014 1619 EST SUBJECTIVE: Ms Aparna Etienne is a pleasant 63-year-old female who returns to the endocrine clinic today for further evaluation and management of her right-sided thyroid nodule. She was last seen by this provider on May 27, 2013. Please see that note for full details. She underwent an ultrasound-guided fine-needle aspiration of her right-sided thyroid nodule on 04/09/2012. Review of the cytopathology report from that date shows a benign thyroid nodule. Upon interview today, she reports feelingmore tired and having less energy, which was a similar complaint she had back in May of 2013. She feels it might be getting somewhat worse, no trouble swallowing, no change in her neck appearance. She is reporting some occasional palpitations. These are unchanged in severity or character. Her weight has been stable. Denies constipation or hyperdefecation, no resting tremor or trouble sleeping. PAST MEDICAL HISTORY: Reviewed as documented in electronic medical record. MEDICATIONS: Reviewed as documented in electronic medical record. ALLERGIES: Reviewed as documented in electronic medical record. OBJECTIVE: Physical exam: Blood pressure was not done in the office today. Weight is 165 pounds, BMI is 27. In general, patient is a pleasant 63-year-old female in no acute distress. HEENT: Eyes: There is no lid lag or periorbital edema noted. Neck is supple. She has a 3 to 3.5 cm palpable right-sided thyroid nodule in the mid pole that moves well with swallowing. No adenopathy noted. Respiratory: Lungs clear to auscultation bilaterally. Cardiovascular: Regular without murmurs, rubs, or gallops. Psych: The patient is A+O x3. Speech and thoughts are appropriate. Denies depression, anxiety. STUDIES: An ultrasound conducted in the office today for surveillance of her right-sided thyroid nodule status post benign biopsy on April 09, 2012 showed a 1.4 x 1.9 x 3.26 cm left-sided thyroid. It was isoechoic, mostly solid, but with small areas of cystic degeneration. There was no increased blood flow or calcifications present. It is unchanged in size from previous ultrasound. The remainder of the gland is homogeneous with regards to echotexture. ASSESSMENT: Ms Aparna Etienne is a pleasant 63-year-old female with a right-sided approximately 3 cm thyroid nodule that has been previously biopsied and found to be benign in March of 2012. The nodule appears stable on ultrasound today and has no worrisome characteristics. We will repeat ultrasound in 2 years. The patient was encouraged to call with any questions or concerns, changes in symptoms, or difficulty swallowing. We did briefly discuss the possibility that she could bleed into this nodule and that she should contact this provider if this happens. She voiced understanding. PLAN: 1. Repeat ultrasound in 2 years. 2. Call with questions or concerns or changes in symptoms. documented in this encounter Plan of Treatment Scheduled Procedures Name Priority Associated Diagnoses Date/Ti hi CRANIECTOMY, SUPRATENTORIAL, FOR EXCISION OF MENINGIOMA Meningioma (HCC-CMS) documented as of this encounter Procedures Procedure Name Priority Date/Time Associated Diagnosis Comments ENDOCRINE CLINIC US THYROID Routine 09/01/2014 16:05 EST Thyroid nodule documented in this encounter Results * T4 FREE (09/06/2014 12:21 EST) Free T4 1.4 0.8 - 1.8 ng/dl 09/06/2014 16:28 EST [facility] Blood specimen (specimen) BLOOD SPECIMEN / Unknown 09/06/2014 12:21 EST 09/06/2014 15:24 EST Dilip Alonzo DO CHEMISTRY & BL OOD GAS ORDERABLES Performing Organization Address City/[facility] [address]/ZIP Co de Phone Number [facility] [address] [place] [address] * TSH (09/06/2014 12:21 EST) TSH 1.21 0.35 - 5.00 uIU/ml 09/06/2014 16:46 EST [facility] Blood specimen (specimen) BLOOD SPECIMEN / Unknown 09/06/2014 12:21 EST 09/06/2014 15:24 EST Dilip Alonzo DO CHEMISTRY & BL OOD GAS ORDERABLES Performing Organization Address City/[facility] [address]/[place] Co de Phone Number [facility] [address] [place] [address] * ENDOCRINE CLINIC US THYROID (09/01/2014 16:05 EST) Anatomical Region Laterality Modality Other 09/01/2014 16:0 5 EST Narrative 09/01/2014 16:05 EST Non Reportable Exam Procedure Note WHITE METAL CASTER, IMAGING - 02/13/2015 Non Reportable Exam Dilip Alonzo DO IMG US ORDERAB LES documented in this encounter Visit Diagnoses Diagnosis Thyroid nodule- Primary Nontoxic uninodular goiter documented in this encounter Care Teams Instructor Watch Assembly Relationship Specialty Start Date End Date Maxine Masterson MD [address] [place] [address] PCP - General 01/29/13 01/23/16 documented as of this encounter
--- OUTSIDE RECORDS SUMMARY | 2024-08-18 07:57 | XMS_ITS | Encounter Summary ---
Author Organization [facility] Address [address] [place] [address] Care Team Providers Care Rug Measurer Name Role Phone Lemuel Mcdaniel MD Primary Care Provider [phone] Reason for Visit * Reason Comments Travel Consult Encounter Details Date Type Department Care Team (Late st Contact Info) Description 04/02/2012 13:00 EDT Office Visit [facility] Infectious Disease - [facility] [address] [place] [address] Kami Daniel FNP [facility] [address] [place] [phone] Other specified counseling (Primary Dx) Social History Tobacco Use Types Packs/Day Years Used Date Smoking Tobacco: Never Assessed Sex and Gender Information Value Date Recorded Sex Assigned at Not on file Gender Identity Female 01/17/2023 13:27 EDT Sexual Orientation Not on file documented as of this encounter Last Filed Vital Signs Vital Sign Reading Time Taken Comments Blood Pressure 102/60 04/02/2012 1212 EDT Pulse - - Temperature 36.1 ??C (97 ??F) 04/02/2012 1212 EDT Respiratory Rate - - Oxygen Saturation - - Inhaled Oxygen Concentration - - Weight - - Height - - Body Mass Index - - documented in this encounter Ordered Prescriptions Prescription Sig Dispensed Refills Start Date End Da te ciprofloxacin (CIPRO) 500 mg tabletIndications:Other specified counseling Take 1 Tab by mouth every 12 hours as needed (for severe diarrhea) for 3 days. 6 Tab 0 04/02/2012 04/05/2012 documented in this encounter Progress Notes * Alec Garcia RN - 04/02/2012 1357 EDT Immunizations given as ordered without incident. I was supervised by Ester Daniel NP who was present and immediately available in the office suite. ALEC GARCIA RN 04/02/2012 13:57 * Kami Daniel - 04/02/2012 1233 EDT Travel Health Service Department of Medicine Progress Notes Travel: Where: [facility] How Lon days When:05/20/12 Purpose: daughter's wedding Previous: No Known Allergies Current outpatient prescriptions:ciprofloxacin (CIPRO) 500 mg tablet, Take 1 Tab by mouth every 12 hours as needed (for severe diarrhea) for 3 days., Disp: 6 Tab, Rfl: 0 No past medical history on file. No LMP recorded. Immunodeficiency: none There is no immunization history for the selected administration types on file for this patient. Risk/Benefit Review: Yellow Fever and malaria risk reviewed, Ms. Etienne Is going to a Yellow Fever area. She will receive Yellow Fever vaccine today. She will only be in [place] and so is not atrisk for Malaria. She will use DEET to prevent Dengue. We also discussed Hepatitis A and typhoid vaccines and she will receive these today. She will receive postexposure vaccine for rabies if necessary. Patient Education Topic: freshwater swimming, future shots, insect-borne illnesses, malaria, MVA safety, rabies, safe food/water, traveler's diarrhea, website/handouts for more information, what to do if ill upon return, what to do if ill while there, Yellow Fever and Dengue Method: Handout and Verbal Taught to: Patient Barriers: None Outcomes: independent Physical Exam: BP 102/60 Temp 36.1 ??C (97 ??F) Immunizations ordered:Hepatitis A vaccine, Typhim and Yellow Fever Total visit time: 20 minutes. Time spent on counseling by provider: 15 minutes. I spent 15 minutes with the patient and /or family members including unit time. Over 50% of the total time was spent counseling and /or in coordination of care activities as described above. Cc: documented in this encounter Plan of Treatment Scheduled Procedures Name Priority Associated Diagnoses Date/Ti me CRANIECTOMY, SUPRATENTORIAL, FOR EXCISION OF MENINGIOMA Meningioma (HCC-CMS) documented as of this encounter Visit Diagnoses Diagnosis Other specified counseling- Primary documented in this encounter Orders Immunization/Injection Count Last Ordered Date First Ordered Date HEPATITIS A VACCINE ADULT IM 1 04/02/2012 TYPHOID VICPS (TYPHIM ) VACCINE IM 1 03/20 YELLOW FEVER VACCINE SQ 1 04/02/2012 documented in this encounter Care Teams Rug Measurer Relationship Specialty Start Date End Date Lemuel Mcdaniel MD [address] [place] [address] PCP - General 04/02/12 01/28/13 documented as of this encounter
--- OUTSIDE RECORDS SUMMARY | 2024-08-18 07:57 | XMS_ITS | Encounter Summary ---
[place] [address] Care Team Providers Care Technical Maintenance Specialist Name Role Phone Kerrie Morgan APRN Primary Care Provider + Encounter Details Date Type Department Care Team (Late st Contact Info) Description 03/20/2020 1:00 PM EDT Office [place] [address] Jen Perez MD [facility] [place] [address] Multiple thyroid nodules Social History Tobacco Use Types Packs/Day Years Used Date Smoking Tobacco: Never Smokeless Tobacco: Never Sex and Gender Information Value Date Recorded Sex Assigned at Not on file Gender Identity Female 03/13/2020 8:30 PM EDT Sexual Orientation Not on file documented as of this encounter Last Filed Vital Signs Vital Sign Reading Time Taken Comments Blood Pressure 151/73 03/20/2020 1:02 PM EDT Pulse 68 03/20/2020 1:02 PM EDT Temperature - - Respiratory Rate - - Oxygen Saturation - - Inhaled Oxygen Concentration - - Weight 79.6 kg (175 lb 6.4 oz) 03/20/2020 1:02 P M EDT Height 166.4 cm (5' 5.5) 03/20/2020 1:02 PM EDT Body Mass Index 28.74 03/20/2020 1:02 PM EDT documented in this encounter Progress Notes * Jen Perez MD - 03/20/2020 1:00 PM EDT Endocrinology Clinic Follow-up Visit Reason for Visit: thyroid nodule reassessment HISTORY OF PRESENT ILLNESS: Ms. Aparna MAIER is a 69 y.o. year old lady with history significant for R- sided thyroid nodule that has been followed from [id number] at [facility], discovered on routine physical exam. FNA was done in 2011 at [facility] and in 2017 by me at [facility] due to size enlargement, and had benign cytology both times. The nodule was followed yearly thereafter. She transitioned her thyroid nodule care to [facility] 1 year ago. Because the nodule had enlarged in 2016 and 2017, I performed another FNA in 2017, which again hadbenign cytology. ?? 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 She is still reluctant about the idea of surgery. She had shortness of breath last week and heart palpitations, she got tested for covid, was negative. In early December 2019, she had actually lost her sense of taste in the context of some vague symptoms-- body aches, tickle in her throat. 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 PAST MEDICAL HISTORY: Patient Active Problem List [...] HPI. PHYSICAL EXAM: Vitals Office Visit from 03/20/2020 in Endocrinology at [facility] Weight 79.6 kg (175 lb 6.4 oz) Height 166.4 cm (5' 5.5) BSA (Calculated - sq m) 1.92 sq meters BMI (Calculated) 28.74 Heart Rate 68 BP 151/73 Gen: NAD, AAOx3, speaking full sentences, calm very pleasant demeanor, lean habitus Skin: warm and dry Eyes: PERRL, EOMI, anicteric sclerae without injection, no proptosis or lid lag ENT: moist oral mucosa Neck: R sided thyromegaly with visible and palpable R thyroid nodule, no lymphadenopathy, negative for Nicol sign MSK: 5/5 strength in all muscle groups of the upper and lower extremities Neuro: normal gait, no tremor. ASSESSMENT: 69 yo F with an asymptomatic 3.8cm R spongiform thyroid nodule with benign cytology in 2011 and 2016. Dimensions have varied slightly, but overall it's remained stable in size over the past 2 years, which is reassuring. Her L- sided posteromedial nodule is very slightly larger in 2 dimensions, but still well under FNA criteria, so I will keep observing it. PLAN: --follow-up in 1 year for thyroid nodule reassessment. --TSH check today -- last one was in 2017 JEN PEREZ MD [employer] Section of Endocrinology [facility] * Jen Perez MD - 03/20/2020 1:00 PM EDT THYROID ULTRASOUND Date: 03/20/2020 Indication: thyroid nodule reassessment Comparison: 2011, 2012, 2015, March 2017, March 2018, March 2019 Real time images of the thyroid gland were obtained using a BK US machine. All measurements are given as AP x Transverse x Longitudinal. Right Lobe: Spongiform nodule almost completely replacing the R thyroid lobe measures 2.2 x 3.1 x 3.8 cm not significantly changed 2019 - 2.2 x 2.8 x 4.3 cm 2018 - 2.2 x 2.8 x 4.3cm 2017 - 2.2 x 2.8 x 4.3 cm - FNA benign 2015 - 1.9 x 2.5 x 3.7cm 2012 - 1.7 x 2.1 x 2.9cm 2011 - 1.8 x 1.9 x 3.0cm - FNA benign Only one other, small, spongiform nodules seen, at the anterior aspect of the R lower pole - 0.62 x0.78 cm Left Lobe: The left lobe measures 1.8 x 1.9 cm , with mildly heterogeneous echotexture. Posteromedial spongiform nodule 1.2 x 1. 4 x 1.1 cm (2019 - 1.0 x 1.2 x 1.2 cm, 2018 - 1.0 x 1.2 x 1.4cm, 2017 - 0.86 x 1.2 x 1.6 cm) Anterolateral spongiform nodule 0.53 x 0.92 x 1.1 cm (2019 - 0.6 x 1.0 x 1.2 cm, 2018 - 0.6 x 1.1 x1.1cm , 2017 - 0.62 x 1.1 x 1.2 cm) Lateral neck: No abnormal lymph nodes were seen. Impression: R-sided spongiform nodule stable in size, previously biopsied benign in 2017. Posteromedial L-sided spongiform nodule slightly enlarged in 2 dimensions, but not yet meeting FNA criteria Anterolateral spongiform nodule slightly smaller in size. Jen Perez MD [employer] Section of Endocrinology [facility] documented in this encounter Plan of Treatment Not on file documented as of this encounter Procedures Procedure Name Priority Date/Time Associated Diagnosis Comments HC THYROID STIMULATING HORMONE, SERUM Routine 03/20/2020 2:15 PM EDT Multiple thyroid nodules documented in this encounter Results * TSH (03/20/2020 2:15 PM EDT) Thyroid Stimulating Hormone 1.82 0.27 - 4.20 mcIU/mL [facility] Blood specimen (specimen) 03/20/2020 2:15 PM EDT 03/20/2020 2:26 PM EDT Narrative Resulting Agency Comment Spec In Lab Jen Perez MD CHEMISTRY ORDERABLES Performing Organization Address City/State/[facility] Co de Phone Number [facility] [place] [address] documented in this encounter Visit Diagnoses Diagnosis Multiple thyroid nodules Nontoxic multinodular goiter documented in this encounter Care Teams Technical Maintenance Specialist Relationship Specialty Start Date End Date Kerrie Morgan, [employer] [address] [place] [address] PCP - General Family Medicine 03/31/18 documented as of this encounter
--- OUTSIDE RECORDS SUMMARY | 2024-08-18 07:57 | XMS_ITS | Encounter Summary ---
Author Organization [facility] Address [address] [place] [address] Care Team Providers Care Management Analyst Name Role Phone Unavailable Primary Care Provider Unavailabl e Encounter Details Date Type Department Care Team (Late st Contact Info) Description 08/12/2006 Results Only [facility] [address] [place] [address] Lianet Subramanian MD [address] [place] [address] [place] [address] Social History Tobacco Use Types Packs/Day Years Used Date Smoking Tobacco: Never Assessed Sex and Gender Information Value Date Recorded Sex Assigned at Not on file Gender Identity Female 01/17/2023 13:27 EDT Sexual Orientation Not on file documented as of this encounter Plan of Treatment Scheduled Procedures Name Priority Associated Diagnoses Date/Ti me CRANIECTOMY, SUPRATENTORIAL, FOR EXCISION OF MENINGIOMA Meningioma ([facility]) documented as of this encounter Procedures Procedure Name Priority Date/Time Associated Diagnosis Comments CYTOPATHOLOGY Routine 08/12/2006 0:00 EDT documented in this encounter Results * CYTOPATHOLOGY (08/12/2006 0:00 EDT) Pathology Report: CYTOPATHOLOGY REPORT Reports generated via electronic interface contain original data; however they are lacking the format of the original report. Caution should be taken when reading/interpreti ng unformatted reports. Name: ? APARNA PANDA ? Accession #: ? [id number] : ? 1950 (Age: 55) ??F ?Collect Date: ? 08/12/2006 Location: ? [facility] ? Receive Date: ? 08/13/2006 Provider: ?LIANET SUBRAMANIAN MD Copy to: ? Specimen/Source: ?ThinPrep Pap Test, Cervix/Endocervix, processed on Public Mobile ThinPrep Imaging System, with manual evaluation Last Menstrual Period: ? 07/25/06 Other: ? HPVA - HPV testing requested if ASC-US on the current ThinPrep Pap test. ? SPECIMEN ADEQUACY ? Satisfactory for Evaluation - transformation zone component present GENERAL CATEGORIZATION ? Negative for Intraepithelial Lesion or Malignancy ? Document reviewed and electronically signed by: ? KEVIN Whiting(ASCP) ? Report Date: ??08/18/2006 10:21 End of Report [facility] 08/12/2006 08/13/2006 Lianet Subramanian MD PATHOLOGY ORDERABLES [facility] [address] [place] [address] documented in this encounter Visit Diagnoses Not on filedocumented in this encounter
--- OUTSIDE RECORDS SUMMARY | 2024-08-18 07:57 | XMS_ITS | Encounter Summary ---
Author Organization [facility] Address [address] [place] [address] Care Team Providers Care Manager Student Services Name Role Phone Maxine Masterson MD Primary Care Provider [phone] Reason for Visit * Reason Comments Labs Only Encounter Details Date Type Department Care Team (Latest Contact Info) Description 09/06/2014 13:00 EST Procedure visit [facility] Endocrinology - [address] [address] Unknown, Provider, Phlebotomy, [facility] Endo Thyroid nodule Discharge Disposition: Auto Discharge Social History Tobacco Use Types Packs/Day Years Used Date Smoking Tobacco: Never Alcohol Use Standard Drinks/Week Comments Not Asked 0 (1 standard drink = 0.6 oz pur e alcohol) Sex and Gender Information Value Date Recorded Sex Assigned at Not on file Gender Identity Female 01/17/2023 13:27 EDT Sexual Orientation Not on file documented as of this encounter Discharge Diagnoses Diagnosis 241.0 NONTOX UNINODULAR GOITER[ICD-9-CM] documented in this encounter Discharge Disposition Disposition Code Departure Means Destination Auto Discharge documented in this encounter Progress Notes * Batsheva Unger - 09/06/2014 1552 EST Blood sample drawn from vein for testing at the order of Dr. Alonzo ???I was supervised by Dr. Alonzo who was in the suite and readily available.?? documented in this encounter Plan of Treatment Scheduled Procedures Name Priority Associated Diagnoses Date/Ti me CRANIECTOMY, SUPRATENTORIAL, FOR EXCISION OF MENINGIOMA Meningioma ([facility]) documented as of this encounter Procedures Procedure Name Priority Date/Time Associated Diagnosis Comments TSH Routine 09/06/2014 12:21 EST Thyroid nodule T4 FREE Routine 09/06/2014 12:21 EST Thyroid nodule documented in this encounter Results * T4 FREE (09/06/2014 12:21 EST) Free T4 1.4 0.8 - 1.8 ng/dl 09/06/2014 16:28 EST [facility] Blood specimen (specimen) BLOOD SPECIMEN / Unknown 09/06/2014 12:21 EST 09/06/2014 15:24 EST Dilip Alonzo DO CHEMISTRY & BL OOD GAS ORDERABLES Performing Organization Address City/[facility]/ZIP Co de Phone Number [facility] [address] [place] [address] * TSH (09/06/2014 12:21 EST) TSH 1.21 0.35 - 5.00 uIU/ml 09/06/2014 16:46 EST [facility] Blood specimen (specimen) BLOOD SPECIMEN / Unknown 09/06/2014 12:21 EST 09/06/2014 15:24 EST Dilip Alonzo DO CHEMISTRY & BL OOD GAS ORDERABLES Performing Organization Address City/[facility]/ZIP Co de Phone Number [facility] [address] [place] [address] documented in this encounter Visit Diagnoses Diagnosis Thyroid nodule Nontoxic uninodular goiter documented in this encounter Care Teams Manager Student Services Relationship Specialty Start Date End Date Maxine Masterson MD [address] [place] [phone] PCP - General 01/29/13 01/23/16 documented as of this encounter
--- OUTSIDE RECORDS SUMMARY | 2024-08-18 07:57 | XMS_ITS | Encounter Summary ---
Author Organization [facility] Address [address] [place] [address] Care Team Providers Care Hvac/R Instructor Name Role Phone Maxine Masterson MD Primary Care Provider [phone] Kerrie Morgan APRN Primary Care Provider + Maxine Masterson MD Unavailable [phone] Encounter Details Date Type Department Care Team (Late st Contact Info) Description 12/20/2021 Lab Requisition [facility] Pathology & Laboratory Medicine - [facility] [address] [place] [address] Outr Resulting Lab, Provider Social History Tobacco [...] Procedure Name Priority Date/Time Associated Diagnosis Comments SUYAPACOVID-19 TEST [facility] PCR Today 12/19/2021 16:09 EST COVID-19 TESTING Routine 12/19/2021 16:0 9 EST documented in this encounter Results * COVID-19 TEST [facility] PCR (12/19/2021 16:09 EST) Swab 12/19/2021 16:0 9 EST 12/20/2021 19:26 EST Provider Outr Resulting Lab MICROBIOLOGY - GENERAL ORDERABLES [facility] [address] [place] [address] * COVID-19 TESTING (12/19/2021 16:09 EST) COVID-19 rt-PCR Result Negative Negative 12/21/2021 12:19 EST [facility] Comment: This test has not been FDA cleared or approved. This test has been authorized by FDA under an EUA for use by authorized laboratories. This test has been authorized only for detection of nucleic acid from 2019-nCoV, not for any other viruses or pathogens. This test is only authorized for the duration of the declaration that circumstances exist justifying the authorization of emergency use of in vitro diagnostic tests for detection and/or diagnosis of 2019-nCoV under section 564(b)(1) of Act, 21 U.S.C ?? 360bbb-3(b) (1), unless the authorization is terminated or revoked sooner. Negative results do not preclude 2019-nCoV infection and should not be used as the sole basis for treatment or other patient management decisions. Negative results must be combined with clinical observations, patient history, and epidemiological information. Testing was performed using the naz SARS-CoV-2 assay ([employer] on the Naz 6800 System Performing Lab Naz 6800 [facility] 12/21/2021 12:19 EST [facility] Swab 12/19/2021 16:0 9 EST 12/20/2021 19:26 EST Provider Outr Resulting Lab MICROBIOLOGY - GENERAL ORDERABLES [facility] [address] [place] [address] documented in this encounter Visit Diagnoses Not on filedocumented in this encounter Care Teams Hvac/R Instructor Relationship Specialty Start Date End Date Maxine Masterson MD [address] [place] [address] PCP - General 11/27/16 01/16/23 Kerrie Morgan APRN [address] [place] [address] PCP - General 01/17/23 Maxine Masterson MD [address] [place] [address] 01/17/23 documented as of this encounter
--- OUTSIDE RECORDS SUMMARY | 2024-08-18 07:57 | XMS_ITS | Encounter Summary ---
Author Organization [facility] Address [address] [place] [address] Care Team Providers Care Drawing Hand Name Role Phone Maxine Jha MD Primary Care Provider Encounter Details Date Type Department Care Team (Late st Contact Info) Description 01/12/2015 Results Only [facility] Laboratory Services - [facility] ([facility]) [address] [place] [address], [place] [id number] Anu Ford, [facility] [address] [place] [address] [phone] Social History Tobacco Use Types Packs/Day Years [...] CRANIECTOMY, SUPRATENTORIAL, FOR EXCISION OF MENINGIOMA Meningioma ([facility]) documented as of this encounter Procedures Procedure Name Priority Date/Time Associated Diagnosis Comments PAP TEST- RESULT ONLY Routine 01/12/2015 0:00 EDT documented in this encounter Results * PAP TEST- RESULT ONLY (01/12/2015 0:00 EDT) Pathology Report: CYTOPATHOLOGY REPORT Reports generated via electronic interface contain original data; however they are lacking the format of the original report. Caution should be taken when reading/interpreti ng unformatted reports. Name: ? APARNA PANDA ? Accession #: ? [id number] ? : ? 1950 (Age: 64) ??F ?Collect Date: ? 01/12/2015 ? Location: ? [facility] ? Receive Date: ? 01/13/2015 ? Provider: ANU FORD [facility] Copy to: MAXINE JHA MD ? Final Report SPECIMEN ADEQUACY ? Satisfactory for Evaluation - transformation zone component present GENERAL CATEGORIZATION ? Negative for Intraepithelial Lesion or Malignancy INTERPRETATION ? Reactive cellular changes associated with inflammation present (includes repair). Last Menstrual Period: 2006 Specimen/Source: ??Pap Test, Cervix/Endocervix, ThinPrep Imaging System with manual evaluation Document reviewed and electronically signed by: ? DIANA GARCIA MD PHD ? Report ??Date: 01/24/2015 14:36 HPV with Pap Test ? Date Ordered: ? 01/24/2015 ? Status: ?? Signed Out ?Date Complete: ? 01/27/2015 ? By: ??System Interface ? Date Reported: ? 01/27/2015 ? Interpretation RESULT: Negative for HPV. No E6 or E7 mRNA is detected from HPV types 16,18,31,33,35, 39,45,51,52,56,58, 59,66, and 68 by traffic analyst mediated amplification. Comments Document reviewed and electronically signed by: ? System Interface ? Report date: 01/27/2015 By the signature above, the attending physician certifies that he/she has personally conducted a gross and/or microscopic examination of the described specimens and rendered or confirmed the above diagnosis. End of Report [facility] 01/12/2015 01/13/2015 Anu Ford [employer] FIELD SUPERVISOR PATHOLOGY ORDERABLES [facility] [address] [place] [address] documented in this encounter Visit Diagnoses Not on filedocumented in this encounter Care Teams Drawing Hand Relationship Specialty Start Date End Date Maxine Jha MD [address] [place] [address] [phone] PCP - General 01/29/13 01/23/16 documented as of this encounter
--- OUTSIDE RECORDS SUMMARY | 2024-08-18 07:57 | XMS_ITS | Encounter Summary ---
Author Organization [facility] Address [address] [place] [address] Care Team Providers Care Dukey Rider Name Role Phone Lemuel Mcdaniel MD Primary Care Provider [phone] Reason for Visit * Reason Comments Thyroid Problem Encounter Details Date Type Department Care Team (Late st Contact Info) Description 04/09/2012 15:00 EDT Nurse Only [facility] Endocrinology - [address] [address] Unknown, Provider, Clinic, Thyroid Biopsy Thyroid nodule (Primary Dx) Social History Tobacco Use Types Packs/Day Years Used Date Smoking Tobacco: Never Assessed Sex and Gender Information Value Date Recorded Sex Assigned at Not on file Gender Identity Female 01/17/2023 13:27 EDT Sexual Orientation Not on file documented as of this encounter Patient Instructions * Patient Instructions* Sujey Piedra - 04/09/2012 15:31 EDT Thyroid Biopsy Care Instructions It is normal to experience mild discomfort at the biopsy site for 1-2 days after the procedure. Dressing and Wound Care: Leave the band-aid in place for 24 hours. Then remove. REASONS TO CALL YOUR DOCTOR: If you are experiencing bleeding from the biopsy site. If you have increased soreness, redness, and/or bruising at the biopsy site. If your discomfort becomes severe, persists, or lasts longer than 24 hours. If you develop a fever greater than 100 degrees. If you are unable to take a deep breath without increased discomfort and/or shortness of breath. If you are coughing up blood that is larger than a pea or more than 2 tablespoons in 24 hours. documented in this encounter Progress Notes * Sujey Piedra - 04/09/2012 1531 EDT Thyroid Biopsy Procedure Note Date Performed: 04/09/2012 Performed by: SUJEY CAMERON MD Indications: Thyroid Nodule Anesthesia: ethyl chloride spray Procedure Details The procedure, risks and complications have been discussed in detail (including, but not limited tobleeding and infection) with the patient, and the patient has signed consent to the procedure. The skin was prepped with alcohol and betadine over the affected area in the usual fashion. Biopsy site: right Fine Needle Aspiration was performed. 6 passes were made after ultrasound localization and visualization of the needle point. Sterile dressing placed. May place ice pack over affected area during the first 24 hours. Condition: Left clinic in stable condition Complications: none SUJEY CAMERON MD 04/09/2012 15:31 Attending attestation: I was present during the entire procedure. I saw and examined the patient 04/09/2012. I agree with the findings and plan of care documented in the resident's/fellow's note. BLANKA BALLARD MD 04/09/2012 18:16 documented in this encounter Plan of Treatment Scheduled Procedures Name Priority Associated Diagnoses Date/Ti ne CRANIECTOMY, SUPRATENTORIAL, FOR EXCISION OF MENINGIOMA Meningioma ([facility]) documented as of this encounter Visit Diagnoses Diagnosis Thyroid nodule- Primary Nontoxic uninodular goiter documented in this encounter Care Teams Dukey Rider Relationship Specialty Start Date End Date Lemuel Mcdaniel MD [address] [place] [address] PCP - General 04/02/12 01/28/13 documented as of this encounter
--- OUTSIDE RECORDS SUMMARY | 2024-08-18 07:57 | XMS_ITS | Encounter Summary ---
Author Organization [facility] Address [address] [place] [address] Care Team Providers Care Oil Well Cable Tool Driller Name Role Phone Shawna Ferrell DNP [facility] Primary Care Prov ider Encounter Details Date Type Department Care Team (Late st Contact Info) Description 11/20/2016 Results Only [facility] [phone] Shawna Ferrell DNP [facility] [address] [place], [place] [phone] Social History Tobacco Use Types Packs/Day Years [...] Procedure Name Priority Date/Time Associated Diagnosis Comments SURGICAL PATHOLOGY Routine 11/20/2016 18 :49 EST documented in this encounter Results * SURGICAL PATHOLOGY (11/20/2016 18:49 EST) Pathology Report: SURGICAL PATHOLOGY REPORT Reports generated via electronic interface contain original data; however they are lacking the format of the original report. Caution should be taken when reading/interpret ing unformatted reports. Name: ? APARNA PANDA ? Accession #: ? [id number] ? : ? 1950 (Age: 66) ??F ? Collect Date: ? 11/20/2016 ? Location: ? [facility] ? Receive Date: ? 11/21/2016 ? Provider: SHAWNA FERRELL NP Copy to: ? Final Pathologic Diagnosis: SKIN OF BACK, LOWER MID, SHAVE BIOPSY: - Seborrheic keratosis. Microscopic Description: The stratum corneum is thickened by compact and basketweave orthokeratosis with formation of horn pseudocysts. ??The epidermis is acanthotic with formation of broad and anastomosing trabeculae. ??The trabeculae are composed of basaloid keratinocytes with round uniform nuclei. ??The keratinocytes have a variable amount of melanin pigment. ??(Dr. Tinoco)/[facility] Document reviewed and electronically signed by: DESEAN TINOCO MD Report ??Date: 11/25/2016 16:52 By the signature above, the attending physician certifies that he/she has personally conducted a gross and/or microscopic examination of the described specimens and rendered or confirmed the above diagnosis. Specimen(s) Received: Shave lower mid back Clinical History: Changing skin lesion Gross Description: ? Received in formalin labelled with proper patient identification (initials H, A) and lower mid back is a shave biopsy of a leon macule (0.4 x 0.4 x 0.1 cm). ??The margin is inked blue. ??The specimen is bisected and entirely submitted in 1. CASSIE Murrell (ASCP) 11/22/2016 8:49 AM End of Report [facility] 11/20/2016 18:4 9 EST 11/21/2016 18:49 EST Shawna GRIMM PATHOLOGY ORDERABLES [facility] [address] [place] [address] documented in this encounter Visit Diagnoses Not on filedocumented in this encounter Care Teams Oil Well Cable Tool Driller Relationship Specialty Start Date End Date Shawna Ferrell DNP CNM FNP PCP - General 01/24/16 11/26/16 documented as of this encounter
--- OUTSIDE RECORDS SUMMARY | 2024-08-18 07:57 | XMS_ITS | Encounter Summary ---
Author Organization [facility] Address [address] [place] [address] Care Team Providers Care Claim Professional Name Role Phone Maxine Masterson MD Primary Care Provider [phone] Kerrie Morgan APRN Primary Care Provider + Maxine Masterson MD Unavailable [phone] Encounter Details Date Type Department Care Team (Late st Contact Info) Description 10/06/2019 Lab Requisition [facility] Pathology & Laboratory Medicine - [facility] [address] [place] [address] Unknown, Provider, Social History Tobacco Use Types Packs/Day Years [...] Procedure Name Priority Date/Time Associated Diagnosis Comments ANAEROBE CULTURE, REFERENCE Routine 10/06/2019 10:15 EST documented in this encounter Results * ANAEROBE CULTURE, REFERENCE (10/06/2019 10:15 EST) Organism ID No Anaerobes Isolated 10/11/2019 10:59 EST [facility] Fluid [place] / Unknown 10/06/2019 10:15 EST 10/06/2019 22:36 EST Provider Unknown MICROBIOLOGY - GENER AL ORDERABLES [facility] [address] [place] [address] documented in this encounter Visit Diagnoses Not on filedocumented in this encounter Care Teams Claim Professional Relationship Specialty Start Date End Date Maxine Masterson MD [address] [facility] [place] [address] PCP - General 11/27/16 01/16/23 Kerrie Morgan APRN [address] [place] [address] PCP - General 01/17/23 Maxine Masterson MD [address] [facility] [address] 01/17/23 documented as of this encounter
--- OUTSIDE RECORDS SUMMARY | 2024-08-18 07:57 | XMS_ITS | Encounter Summary ---
Author Organization [facility] Address [address] [place] [address] Care Team Providers Care Film Recordist Name Role Phone Lemuel Mcdaniel MD Primary Care Provider [phone] Reason for Visit * Reason Comments Goiter Encounter Details Date Type Department Care Team (Latest Contact Info) Description 04/09/2012 11:00 EDT Office Visit [facility] Endocrinology - [address] [id number] Dilip Alonzo DO [address] [facility] [address] [place] [address] Thyroid nodule (Primary Dx) Social History Tobacco Use Types Packs/Day Years Used Date Smoking Tobacco: Never Assessed Sex and Gender Information Value Date Recorded Sex Assigned at Not on file Gender Identity Female 01/17/2023 13:27 EDT Sexual Orientation Not on file documented as of this encounter Last Filed Vital Signs Vital Sign Reading Time Taken Comments Blood Pressure 102/70 04/09/2012 1105 EDT Pulse 56 04/09/2012 1105 EDT Temperature - - Respiratory Rate - - Oxygen Saturation - - Inhaled Oxygen Concentration - - Weight 74.1 kg (163 lb 4.8 oz) 04/09/2012 1105 E DT Height 166.4 cm (5' 5.5) 04/09/2012 1105 EDT Body Mass Index 26.76 04/09/2012 1105 EDT documented in this encounter Patient Instructions * Patient Instructions* Dilip Alonzo DO - 04/09/2012 11:[address] Alonzo to call with biopsy results once available 2. Follow-up in 9 months for 40 minute appointment for ultrasound documented in this encounter Progress Notes * Dilip Alonzo DO - 04/09/2012 1149 EDT HISTORY OF PRESENT ILLNESS: I had the pleasure of seeing your patient, Mrs Aparna Etienne in consultation at your request in the [facility] endocrinology clinic today on 04/09/2012 for further evaluation and management of her right-sided thyroid nodule. As you know, Mrs Etienne is a pleasant 61-year-old female who was discovered to have a large right-sided thyroid nodule on Friday at a recent eye exam in her primary care physician's office. She reports no pain or enlargement in her neck. She notes some trouble swallowing her vitamins recently, but reports no other significant obstructive symptoms or changes in her voice. She denies neck or mantle radiation. No previous biopsy. She denies symptoms of thyrotoxicosis including heat intolerance, excessive sweating, hives, pruritus, palpitations, unintentional weight loss, increased appetite, hyperdefecation, in fact she complains more of constipation recently. No change in her mood. Denies cognitive impairment. She has a longstanding problem with sleeping. No resting tremor. REVIEW OF SYSTEMS: All other review of systems not found in the HPI are asked and found to be negative. PAST MEDICAL HISTORY: None. MEDICATIONS: None. FAMILY HISTORY: No family history of autoimmune thyroid disease, multinodular goiter or thyroid carcinoma. SOCIAL HISTORY: No alcohol, tobacco or illicit drugs. 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 She is . She has 3 children. She just completed her second master's degree. ALLERGIES: No known drug allergies. OBJECTIVE: Blood pressure is 102/70, pulse is 56, weight is 163 pounds, BMI is 27. In general, patient is a pleasant 61-year-old female in no acute distress. She is accompanied by her . HEENT:Eyes: No lid lag or periorbital edema noted. Neck is supple without adenopathy. Within the right lobe of her thyroid gland there is a palpable 2.5 to 3 cm solid thyroid nodule that is somewhat tenderto touch. It moves well with swallowing and is not fixed. Her isthmus is not thickened. The left lobe appears normal in size without tenderness or nodules to palpation. Respiratory: Lungs are clear to auscultation bilaterally. Cardiovascular: Heart regular, no murmurs, rubs or gallops. Respiratory:Lungs clear to auscultation bilaterally. Cardiovascular: Heart is regular without murmurs, rubs, orgallops. GI: Abdomen is soft, nontender, nondistended, good bowel sounds in all 4 quadrants. Extremities: No clubbing, cyanosis or edema. Strength is 5/5 and equal bilaterally without proximal muscleweakness. Neuro: DTRs +2/4 and equal bilaterally in all 4 extremities, without a resting tremor. Psych: Patient is A and O x3. Speech and thoughts are appropriate. Denies depression, anxiety. DIAGNOSTIC DATA: A brief bedside ultrasound today to [facility] biopsy this afternoon for 1.81 x 1.96 x 2.99 cm right-sided thyroid nodule; it has some small areas of cystic degeneration within the nodule but is mostly isoechoicand solid. There is no increased blood flow or calcifications. Within the left lobe there is a small area in the lower pole that could represent a nodule, though it is only really seen in the transverse view, and not really clearly defined in the longitudinal view. Her isthmus is not thickened. ASSESSMENT: Mrs Judy Etienne is a pleasant 61-year-old female with a right-sided 1.81 x 1.96 x 3 cmsolid thyroid nodule without worrisome characteristics. She meets criteria for biopsy. We have arranged to have her have an ultrasound- guided fine-needle aspiration of the right-sided 3 cm nodule today, 04/09/2012 here at [facility] endocrinology clinic, biopsy clinic. I will contact patient with those results once they are available. Discussed with patient that the biopsy results could range from benign, to atypical or suspicious for cancer or to describe clear thyroid carcinoma. If she were to have suspicious findings or confirmed thyroid carcinoma, she will be referred to a head and neck surgeon for total thyroidectomy. If her biopsy results are benign, she will follow up with me in 9 months for ultrasound surveillance herein the office. PLAN: 1. Agree with the ultrasound-guided fine-needle aspiration later today at 3:00 p.m. of her right-sided thyroid nodule. 2. Will contact patient with results. 3. Will order a TSH today, although patient appears clinically euthyroid. 4. If found to be benign, will see patient back in 9 months for a 40-minute appointment for surveillance ultrasound. documented in this encounter Plan of Treatment Scheduled Procedures Name Priority Associated Diagnoses Date/Ti me CRANIECTOMY, SUPRATENTORIAL, FOR EXCISION OF MENINGIOMA Meningioma ([facility]) documented as of this encounter Results * THYROID CASCADE (04/09/2012 11:59 EDT) TSH 1.37 0.35 - 5.00 uIU/ml [facility] Comment: TSH cascade is not recommended for patients in which pituitary or hypothalamic disorders are suspected. Blood specimen (specimen) 04/09/2012 11:59 EDT 04/09/2012 15:02 EDT Dilip Alonzo DO CHEMISTRY & BL OOD GAS ORDERABLES [facility] [address] [place] [address] documented in this encounter Visit Diagnoses Diagnosis Thyroid nodule- Primary Nontoxic uninodular goiter documented in this encounter Care Teams Film Recordist Relationship Specialty Start Date End Date Lemuel Mcdaniel MD [address] [place] [id number] PCP - General 04/02/12 01/28/13 documented as of this encounter
--- OUTSIDE RECORDS SUMMARY | 2024-08-18 07:57 | XMS_ITS | Encounter Summary ---
Author Organization [facility] Address [address] [place] [address] Care Team Providers Care Housetrailer Servicer Name Role Phone Lemuel Mcdaniel MD Primary Care Provider [phone] Encounter Details Date Type Department Care Team (Late st Contact Info) Description 04/09/2012 Results Only [facility] Endocrinology - [facility] [address], [place] [id number] Blanka Ballard MD PhD [address] [facility] [address] [place] [address] Social History Tobacco Use Types Packs/Day Years Used Date Smoking Tobacco: Never Assessed Sex and Gender Information Value Date Recorded Sex Assigned at Not on file Gender Identity Female 01/17/2023 13:27 EDT Sexual Orientation Not on file documented as of this encounter Plan of Treatment Scheduled Procedures Name Priority Associated Diagnoses Date/Ti me CRANIECTOMY, SUPRATENTORIAL, FOR EXCISION OF MENINGIOMA Meningioma ([facility]) documented as of this encounter Procedures Procedure Name Priority Date/Time Associated Diagnosis Comments CYTOPATHOLOGY Routine 04/09/2012 0:00 EDT documented in this encounter Results * CYTOPATHOLOGY (04/09/2012 0:00 EDT) Pathology Report: CYTOPATHOLOGY REPORT Reports generated via electronic interface contain original data; however they are lacking the format of the original report. Caution should be taken when reading/interpreti ng unformatted reports. Name: ? PANDA, APARNA ? Accession #: ? [id number] : ? 1950 (Age: 61) ??F ?Collect Date: ? 04/09/2012 Location: ? END ? Receive Date: ? 04/10/2012 Provider: ? BLANKA BALLARD MD Copy to: ?PHILLIP TRIPLETT DO SUJEY CAMERON MD ? CYTOLOGIC DIAGNOSIS: ? Thyroid, right lobe, 3.0 cm nodule, ultrasound guided fine needle aspiration: 1. ?Negative for malignant cells. 2. ? Benign thyroid nodule. ??See comment. ? COMMENT: ? The smears are moderately cellular. ??There are abundant follicular cells of the usual and Hurthle cell type, arranged in sheets. ??The follicular cells are of normal size and shape and show no atypia. ??There is abundant watery colloid in the background in all of the smears, with a few entrapped macrophages. ??These features are consistent with a benign thyroid nodule. ??(Dr. Villegas)/ljdarnell Document reviewed and electronically signed by: ? CONCHA KONG MD Report Date: ??04/10/2012 17:06 By the signature above, the attending physician certifies that he/she has personally conducted a gross and/or microscopic examination of the described specimens and rendered or confirmed the above diagnosis. Specimen Type: ? Thyroid, Fine Needle Aspiration Clinical History: ? 3.0 cm right thyroid nodule; clinical diagnosis code: 241.0 ? Rapid Interpretation: ? Thyroid, right, 3.0 cm, ultrasound guided fine needle aspiration: Evaluation episode #1: ? Pass 1: ??Blood only. ? Pass 2: ??Dry. Evaluation episode #2: ? Passes 3-5: ??Colloid, follicular cells, macrophages, adequate. (Dr. Jalen Pacheco; 04/09/2012; 15:35) I have reviewed the slides and diagnosis with the resident and agree with the diagnosis. (Dr. Zainab Fitzgerald; 04/09/2012; 15:35) Gross Description: ? 4 fixed prepared slides, 3 air dried prepared slides, and 1 tube of CytoLyt were received and processed by selective cellular enhancement technique. ? End of Report [facility] 04/09/2012 04/10/2012 8:3 3 EDT Blanka Ballard MD PhD PATHOLOGY ORDERAB LES Performing Organization Address City/State/[facility] Co de Phone Number [facility] [address] [place] [address] documented in this encounter Visit Diagnoses Not on filedocumented in this encounter Care Teams Housetrailer Servicer Relationship Specialty Start Date End Date Lemuel Mcdaniel MD [address] [place] [address] PCP - General 04/02/12 01/28/13 documented as of this encounter
--- OUTSIDE RECORDS SUMMARY | 2024-08-18 07:57 | XMS_ITS | Encounter Summary ---
[place] [address] Care Team Providers Care Volleyball Assistant Coach Name Role Phone Shirley Morgan APRN Primary Care Provider + Encounter Details Date Type Department Care Team (Late st Contact Info) Description 01/14/2023 11:30 AM EDT Tech Visit [place] [address] Zackery Brink, RVT Intractable headache, unspecified chronicity pattern, unspecified headache type Social History Tobacco Use Types Packs/Day Years [...] Procedure Name Priority Date/Time Associated Diagnosis Comments TEMPORAL ARTERY DUPLEX Routine 01/14/2023 11:12 AM EDT Intractable headache, unspecified chronicity pattern, unspecified headache type documented in this encounter Results * Temporal artery duplex (01/14/2023 11:12 AM EDT) VB Text Report Department: Vascular Surgery Lab Patient: [id number] (APARNA MAIER) CPT: 45483 Referring Physician: SHIRLEY MORGAN ?? Phone: Indications: headaches Findings: Right ?PSV (cm/s) ??EDV (cm/s) ?? Common Superficial Temporal Mid ?69 ?14 ?? Frontal Mid ?51 ? 7 ?? Parietal Mid ? 57 ?13 ?? Left ? PSV (cm/s) ??EDV (cm/s) ?? Common Superficial Temporal Mid ?79 ?13 ?? Frontal Mid ?66 ?11 ?? Parietal Mid ? 78 ?17 ?? Interpretation: Frontal, parietal and temporal arteries were assessed bilaterally by duplex. These vessels are patent and have normal Doppler flow characteristics . There is no evidence of halo sign or temporal artery stenosis bilaterally. Comparison: ??No previous study in our vascular lab database for comparison. Electronically Signed by: MAGALYS OLIVAREZ on 2023-01-21 05:03:48 PM [facility] VB Text Report End of Report [facility] 01/14/2023 11:1 2 AM EDT Shirley Morgan [address] JUDGE VASCULAR ORDERAB LES [facility] documented in this encounter Visit Diagnoses Diagnosis Intractable headache, unspecified chronicity pattern, unspecified headache type documented in this encounter Care Teams Volleyball Assistant Coach Relationship Specialty Start Date End Date Shirley Morgan, TRIAL COURT JUDGE [address] [place] [address] PCP - General Family Medicine 03/31/18 documented as of this encounter
--- OUTSIDE RECORDS SUMMARY | 2024-08-18 07:57 | XMS_ITS | Encounter Summary ---
[place] [address] Care Team Providers Care Evp Strategy Name Role Phone Shirley Morgan APRN Primary Care Provider + Reason for Referral * Diagnostic Test (Routine) - Closed Specialty Diagnoses / Procedures Referred By Caleb luna Referred To Contact Diagnoses Intractable headache, unspecified chronicity pattern, unspecified headache type Procedures Temporal artery duplex Shirley Morgan APRN [address] [place] [address] [facility] [address] [place] [address] Referral ID Status Reason Start Date Expiration Date V isits Requested Visits Authorized [id number] Closed Specialty Service Requested 01/13/2023 01/13/2024 1 1 Encounter Details Date Type Department Care Team (Latest Contact Info) Description 01/13/2023 Transcribe Orders eDH Incoming Referrals [phone] Shirley Morgan APRN [address] [place] [address] Intractable headache, unspecified chronicity pattern, unspecified headache [...] on file documented as of this encounter Results * Temporal artery duplex (01/14/2023 11:12 AM EDT) VB Text Report Department: Vascular Surgery Lab Patient: [id number] (APARNA MAIER) CPT: 50170 Referring Physician: SHIRLEY MORGAN ?? Phone: Indications: [...] 01/14/2023 11:1 2 AM EDT Shirley Morgan ORNAMENT MAKER HAND VASCULAR ORDERAB LES [facility] documented in this encounter Visit Diagnoses Diagnosis Intractable headache, unspecified chronicity pattern, unspecified headache type documented in this encounter Care Teams Evp Strategy Relationship Specialty Start Date End Date Shirley Morgan, ORNAMENT MAKER HAND [address] [place] [address] PCP - General Family Medicine 03/31/18 documented as of this encounter
--- OUTSIDE RECORDS SUMMARY | 2024-08-18 07:57 | XMS_ITS | Encounter Summary ---
[place] [address] Care Team Providers Care Vp Marketing Services And Skin Name Role Phone Kerrie Morgan APRN Primary Care Provider + Encounter Details Date Type Department Care Team (Late st Contact Info) Description 05/19/2023 11:30 AM EDT Office [place] [address] Catina Rao MD [facility] [place] [address] Multiple thyroid nodules Social History Tobacco Use Types Packs/Day Years Used Date Smoking Tobacco: Never Smokeless Tobacco: Never Tobacco Cessation:Counseling Given: Not Answered Sex and Gender Information Value Date Recorded Sex Assigned at Not on file Gender Identity Female 03/13/2020 8:30 PM EDT Sexual Orientation Not on file documented as of this encounter Last Filed Vital Signs Vital Sign Reading Time Taken Comments Blood Pressure 108/53 05/19/2023 11:04 AM EDT Pulse 57 05/19/2023 11:04 AM EDT Temperature 36.6 ??C (97.9 ??F) 05/19/2023 11:04 AM E DT Respiratory Rate 20 05/19/2023 11:04 AM EDT Oxygen Saturation 97% 05/19/2023 11:04 AM EDT Inhaled Oxygen Concentration - - Weight 77 kg (169 lb 13.8 oz) 05/19/2023 11:04 A M EDT Height 163.8 cm (5' 4.5) 05/19/2023 11:04 AM ED T Body Mass Index 28.71 05/19/2023 11:04 AM EDT documented in this encounter Progress Notes * Catina Rao MD - 05/19/2023 11:30 AM EDT Images from the original note were not included. Endocrinology Clinic Follow-up Visit Reason for Visit: thyroid nodule reassessment HISTORY OF PRESENT ILLNESS: Ms. Aparna FAIRCHILD is a 72 y.o. year old lady with history significant for R- sided thyroid nodule that has been followed from [id number] at [facility], discovered on routine physical exam. FNA was done in 2011 at [facility] and in [address] Perez at [facility] due to size enlargement, and had benign cytology both times. She presents today for follow up, last time seen 05/2021. 2020- 2.2 x 3.4 x 4.3 cm 2019- 2.2 x 3.1 x 3.8 cm 2018 - 2.2 x 2.8 x 4.3 cm 2017 - 2.2 x 2.8 x 4.3cm 2016 - 2.2 x 2.8 x 4.3 cm - FNA benign 2015 - 1.9 x 2.5 x 3.7cm 2012 - 1.7 x 2.1 x 2.9 cm 2011 - 1.8 x 1.9 x 3.0cm - FNA benign In the past, after her right sided nodule had grown to >4cm in size, she was advised to proceed with R hemithyroidectomy. She had met with the thyroid surgeon Dr. Land for a consultation but ultimately decided that she didn't want to go forward with this. Still continues to feel well, no dysphagia, no neck compressive symptoms. Overall feeling well and denies any symptoms. She is still reluctant about the idea of surgery. PAST MEDICAL HISTORY: Patient Active Problem List Diagnosis Date Noted Multiple thyroid nodules 04/16/2017 Thyroid nodule 04/09/2012 MEDICATIONS: Medications 05/25/21 1113 Medication Sig Taking? PROAIR HFA 90 mcg/actuation HFA Aerosol Inhaler Reported on 05/05/2017 ALLERGIES: No Known Allergies SOCIAL HISTORY: Social History Tobacco Use Smoking Status Never Smokeless Tobacco Never FAMILY HISTORY: No family history on file. REVIEW OF SYSTEMS: All 12 systems reviewed and negative except as noted per HPI. PHYSICAL EXAM: Vitals: 05/19/23 1104 BP: 108/53 BP Location (NBP): Left arm Patient Position: Sitting BP Cuff Sizes: Large Adult (32-43 cm) Pulse: 57 Resp: 20 Temp: 36.6 ??C (97.9 ??F) TempSrc: Temporal SpO2: 97% Weight: 77 kg (169 lb 13.8 oz) Height: 163.8 cm (5' 4.5) Gen: NAD, AAOx3, speaking full sentences, calm [...] lower extremities Neuro: normal gait, no tremor. LABS: Latest Reference Range & Units 05/19/23 12:04 TSH 0.27 - 4.20 mcIU/mL 0.92 IMAGING: THYROID ULTRASOUND Date: 05/19/23 Indication: thyroid nodule Comparison: 05/2022 Real time images of the thyroid gland were obtained using a Astley Clarke US machine. All measurements are given as AP x Transverse x Longitudinal. Indication: thyroid nodules Real time images of the thyroid gland were obtained using a BK US machine. All measurements are given as AP x Transverse x Longitudinal. Right Lobe: Almost the whole lobe is occupied by large spongiform nodule w/o concerning features measuring 2.5 x 3.6 x 4.6 cm 2020- 2.2 x 3.4 x 4.3 cm 2019- 2.2 x 3.1 x 3.8 cm 2018 - 2.2 x 2.8 x 4.3 cm 2017 - 2.2 x 2.8 x 4.3cm 2016 - 2.2 x 2.8 x 4.3 cm - FNA benign 2015 - 1.9 x 2.5 x 3.7cm 2012 - 1.7 x 2.1 x 2.9cm 2011 - 1.8 x 1.9 x 3.0cm - FNA benign Left Lobe: Left lobe is very heterogenous, measuring 1.8 x 1.9 x 3.5 cm with multiple spongiform nodules, 3 biggest nodules described below. #1 upper lateral isoechoic spongiform nodule measuring 0.8 x 1.4 x 1.9 cm (2020- 0.7 x 1.2 x 1.2 cm, 2019-0.53 x 0.92 x 1.1 cm, 2019 - 0.6 x 1.0 x 1.2 cm, 2018 - 0.6 x 1.1 x 1.1cm , 2017 - 0.62 x 1.1x 1.2 cm) #2 upper medial isoechoic spongiform nodule measuring 0. X 0.7 x 1.1 cm (2020- 0.4 x 0.8 x 0.8) #3 lower pole isoechoic spongiform nodule measuring 1.0 x 1.7 x 1.6 cm (2020-1 x 1.5 x 1.7, 2020- 1.2 x 1. 4 x 1.1 cm, 2019 - 1.0 x 1.2 x 1.2 cm, 2018 - 1.0 x 1.2 x 1.4cm, 2017 - 0.86 x 1.2 x 1.6 cm) Lateral neck: No abnormal lymph nodes were seen. Isthmus: The isthmus measures 0.3 cm in the AP dimension. There is new nodule on the border between right lobe and isthmus #Spongiform isoechoic nodule measuring 1 x 1 x 2 cm Impression: There is large spongiform nodule >4 cm on the right biopsied twice (benign), and there are multiple spongiform nodules on the left, with minimal change in size not meeting criteria for biopsy. There is a new isthmus nodule, also not meting criteria for biopsy. ASSESSMENT: Ms. Fairchild is a 72 y.o. F with an asymptomatic right sided goiter and multiple thyroid nodules who presents for follow up visit. Her R spongiform thyroid nodule was biopsied twice (in 2011 and 2016) and both times showed benign cytology. Over the past 2 years, all of the nodules increased in size 1-3 mm and there is new nodule on the boarder of right lobe and isthmus also spongiform and isoechoic. She has multiple spongiform nodules on the left side not meeting any criteria for biopsy given the spongiform appearance. She is not interested in surgery at this moment. We discussedthe fact most of the nodules increase in size over time and would like to see her back in 1 year. Ialso emphasized the fact should she develop any compressive symptoms to let me know immediately. PLAN: --follow-up in 1 years for thyroid nodule reassessment RTC in 1 year. Time statement: I spent 25 total minutes on this visit today. The time was spent face to face with the patient, on chart review and documentation, ordering labs/studies and coordination of care, and excludes time spent performing thyroid US (15 min). Catina Rao MD * Catina Rao MD - 05/19/2023 11:30 AM EDT THYROID ULTRASOUND Date: 05/19/23 Indication: thyroid nodule Comparison: 05/2022 Real time images of the thyroid gland were obtained using a BK US machine. All measurements are given as AP x Transverse x Longitudinal. Indication: thyroid nodules Real time images of the thyroid gland were obtained using a BK US machine. All measurements are given as AP x Transverse x Longitudinal. Right Lobe: Almost the whole lobe is occupied by large spongiform nodule w/o concerning features measuring 2.5 x 3.6 x 4.6 cm 2020- 2.2 x 3.4 x 4.3 cm 2019- 2.2 x 3.1 x 3.8 cm 2018 - 2.2 x 2.8 x 4.3 cm 2017 - 2.2 x 2.8 x 4.3cm 2016 - 2.2 x 2.8 x 4.3 cm - FNA benign 2015 - 1.9 x 2.5 x 3.7cm 2012 - 1.7 x 2.1 x 2.9cm 2011 - 1.8 x 1.9 x 3.0cm - FNA benign Left Lobe: Left lobe is very heterogenous, measuring 1.8 x 1.9 x 3.5 cm with multiple spongiform nodules, 3 biggest nodules described below. #1 upper lateral isoechoic spongiform nodule measuring 0.8 x 1.4 x 1.9 cm (2020- 0.7 x 1.2 x 1.2 cm, 2019-0.53 x 0.92 x 1.1 cm, 2018 - 0.6 x 1.0 x 1.2 cm, 2018 - 0.6 x 1.1 x 1.1cm , 2017 - 0.62 x 1.1x 1.2 cm) #2 upper medial isoechoic spongiform nodule measuring 0. X 0.7 x 1.1 cm (2020- 0.4 x 0.8 x 0.8) #3 lower pole isoechoic spongiform nodule measuring 1.0 x 1.7 x 1.6 cm (2020-1 x 1.5 x 1.7, 2019- 1.2 x 1. 4 x 1.1 cm, 2019 - 1.0 x 1.2 x 1.2 cm, 2018 - 1.0 x 1.2 x 1.4cm, 2017 - 0.86 x 1.2 x 1.6 cm) Lateral neck: No abnormal lymph nodes were seen. Isthmus: The isthmus measures 0.3 cm in the AP dimension. There is new nodule on the border between right lobe and isthmus #Spongiform isoechoic nodule measuring 1 x 1 x 2 cm Impression: There is large spongiform nodule >4 cm on the right biopsied twice (benign), and there are multiple spongiform nodules on the left, with minimal change in size not meeting criteria for biopsy. There is a new isthmus nodule, also not meting criteria for biopsy. Catina Rao MD documented in this encounter Plan of Treatment Not on file documented as of this encounter Procedures Procedure Name Priority Date/Time Associated Diagnosis Comments TSH CASCADE Routine 05/19/2023 12:04 PM EDT Multiple thyroid nodules documented in this encounter Results * TSH [place] (05/19/2023 12:04 PM EDT) Thyroid Stimulating Hormone 0.92 0.27 - 4.20 mcIU/mL [facility] Comment: Reference Interval (mcIU/mL): Females: ??First Trimester: 0.23-3.88 ??Second Trimester: 0.22-3.90 ??Third Trimester: 0.44-4.66 Blood 05/19/2023 12:0 4 PM EDT 05/19/2023 12:15 PM EDT Narrative Resulting Agency Comment Spec In Lab Catina Rao MD CHEMISTRY ORDERABL ES [facility] [place] [address] documented in this encounter Visit Diagnoses Diagnosis Multiple thyroid nodules Nontoxic multinodular goiter documented in this encounter Care Teams Vp Marketing Services And Skin Relationship Specialty Start Date End Date Kerrie Morgan, CASTING TECHNICIAN [address] [place] [address] PCP - General Family Medicine 03/31/18 documented as of this encounter
--- OUTSIDE RECORDS SUMMARY | 2024-08-18 07:57 | XMS_ITS | Encounter Summary ---
Author Organization [facility] Address [address] [place] [address] Care Team Providers Care Locomotive Engineer Diesel Name Role Phone Unavailable Primary Care Provider Unavailabl e Encounter Details Date Type Department Care Team (Late st Contact Info) Description 11/02/2008 Before PRISM Converted Visit (Maple) [facility] - Maple conversion [address] [place] [address] Hanna Kaufman, FELISA Social History Tobacco Use [...] Procedure Name Priority Date/Time Associated Diagnosis Comments HPV DETECTION, HIGH RISK TYPES Routine 11/02/2008 12:05 EST CYTOPATHOLOGY Routine 11/02/2008 0:00 EST documented in this encounter Results * HUMAN PAPILLOMA VIRUS DNA TEST (11/02/2008 12:05 EST) Specimen Description Cervix, ThinPrep vial [facility] Result Negative for HPV types 16, 18, 31, 33, 35, 39, 45, 51, 52, 56, 58, 59, and 68. [facility] Report Status Final 11/10/2008 [facility] 11/02/2008 12:0 5 EST 11/07/2008 10:14 EST Hanna Kaufman NP MICROBIOLOGY - GENER AL ORDERABLES [facility] [address] [place] [address] * CYTOPATHOLOGY (11/02/2008 0:00 EST) Pathology Report: CYTOPATHOLOGY REPORT ? Reports generated via electronic interface contain original data; ? however they are lacking the format of the original report. ? Caution should be taken when reading/interpreti ng unformatted reports. ? Name: ? APARNA PANDA ? Accession #: ? [id number] ? : ? 1950 (Age: 58) ??F ?Collect Date: ? 11/02/2008 ? Location: ? [facility] ? Receive Date: ? 11/03/2008 ? Provider: ?HANNA M INES SURGICAL [employer]PPLIES STERILIZER ? Copy to: ? Specimen/Source: ?Pap Test, Cervix/Endocervix, ThinPrep Imaging System ? with manual evaluation ? Last Menstrual Period: ? 4-5 years ago ? Other: ? Additional clinical information: Vagifem gen atrophic vaginitis ? HPVDX - HPV testing requested regardless of diagnosis on current ThinPrep Pap ?? test. ? SPECIMEN ADEQUACY ? Satisfactory for Evaluation ? - transformation zone component present ? GENERAL CATEGORIZATION ? Negative for Intraepithelial Lesion or Malignancy ? Document reviewed and electronically signed by: ? Lynan Martin, CT(ASCP) ? Report Date: ??11/04/2008 14:42 ? End of Report ? [facility] 11/02/2008 11/03/2008 Hanna Kaufman SURGICAL SUPPLIES STERILIZER PATHOLOGY ORDERABLES [facility] [address] [place] [address] documented in this encounter Visit Diagnoses Not on filedocumented in this encounter
--- OUTSIDE RECORDS SUMMARY | 2024-08-18 07:57 | XMS_ITS | Encounter Summary ---
Author Organization [facility] Address [address] [place] [address] Care Team Providers Care Bi Data Architect Name Role Phone Maxine Masterson MD Primary Care Provider [phone] Joanie Ferrell DNP CN MANAGER TECHNICAL SUPPORT Primary Care Prov ider Reason for Visit * Reason Onset Date Comments Appointment Related 01/23/2016 Cyst 01/23/2016 thyroid Encounter Details Date Type Department Care Team (Late st Contact Info) Description 01/23/2016 Telephone [facility] Endocrinology - [facility] [address] [place] [address] Dilip Alonzo, [address] [facility] [address] [place] [address] Appointment Related; Cyst (thyroid) Social History Tobacco Use Types Packs/Day Years Used Date Smoking Tobacco: Never Alcohol Use Standard Drinks/Week Comments Not Asked 0 (1 standard drink = 0.6 oz pur e alcohol) Sex and Gender Information Value Date Recorded Sex Assigned at Not on file Gender Identity Female 01/17/2023 13:27 EDT Sexual Orientation Not on file documented as of this encounter Miscellaneous Notes * Telephone Encounter - Reina Lofton - 01/24/2016 1410 EDT Sp w/pt and was able to offer appt for 01/25/2016 @ 1:00, as apparently there had been cancellation. Pt was very excited and accepted this appt. * Telephone Encounter - Rosalba Stinson - 01/23/2016 1141 EDT Reason for Call: Appointment Related and Cyst Summary/Symptoms: Per pt, having symptoms and would like to see Dr. Alonzo for thyroid cyst. Next avail to me is not until August. Pt feels she needs to be seen sooner. Pt made aware to expect a call back within 48 hrs. Rosalba Stinson 01/23/2016 11:41 documented in this encounter Plan of Treatment Scheduled Procedures Name Priority Associated Diagnoses Date/Ti me CRANIECTOMY, SUPRATENTORIAL, FOR EXCISION OF MENINGIOMA Meningioma ([facility]) documented as of this encounter Visit Diagnoses Not on filedocumented in this encounter Care Teams Bi Data Architect Relationship Specialty Start Date End Date Maxine Masterson MD [address] [place] [address] PCP - General 01/29/13 01/23/16 Joanie Ferrell DNP CN MANAGER TECHNICAL SUPPORT [address] [place] [id number] PCP - General 01/24/16 11/26/16 documented as of this encounter
--- OUTSIDE RECORDS SUMMARY | 2024-08-18 07:57 | XMS_ITS | Encounter Summary ---
Author Organization [facility] Address [address] [place] [address] Care Team Providers Care Bit And Shank Department Supervisor Name Role Phone Joanie Ferrell DNP [facility] Primary Care Prov ider Reason for Referral * Radiology Services (STAT) - Closed Specialty Diagnoses / Procedures Referred By Caleb luna Referred To Contact Diagnoses Thyroid nodule Procedures ENDOCRINE CLINIC THYROID Dilip Alonoz DO [address] [facility] [address] [place] [address] Referral ID Status Reason Start Date Expiration Date Visits Re quested Visits Authorized [id number] Closed 01/25/2016 1 1 Reason for Visit * Reason Comments Thyroid Problem Encounter Details Date Type Department Care Team (Latest Contact Info) Description 01/25/2016 13:00 EDT Office Visit [facility] Endocrinology - [facility] [address] [place] [address] Dilip Alonzo DO [address] [place] [address] Thyroid nodule (Primary Dx) Discharge Disposition: Auto Discharge Social History Tobacco [...] Sign Reading Time Taken Comments Blood Pressure 110/54 01/25/2016 1259 EDT Pulse 77 01/25/2016 1259 EDT Temperature - - Respiratory Rate - - Oxygen Saturation - - Inhaled Oxygen Concentration - - Weight 70.2 kg (154 lb 11.2 oz) 01/25/2016 1259 EDT Height 166.4 cm (5' 5.5) 01/25/2016 1259 EDT Body Mass Index 25.35 01/25/2016 1259 EDT documented in this encounter Functional Status [...] No 01/25/2016 documented as of this encounter Discharge Diagnoses Diagnosis E04.1 Nontoxic single thyroid nodule-E04.1[ICD-10-CM] documented in this encounter Patient Instructions * Patient Instructions* Dilip Alonzo DO - 01/25/2016 12:57 EDT 1. Follow-up in 2 years for ultrasound (40 minute appointment) 2. Call with questions or concerns documented in this encounter Discharge Disposition Disposition Code Departure Means Destination Auto Discharge documented in this encounter Progress Notes * Dilip Alonzo DO - 01/25/2016 1346 EDT SUBJECTIVE:?? Ms Aparna Etienne is a pleasant 65-year-old female who returns to the endocrine clinic today for further evaluation and management of her right- sided thyroid nodule. She underwent an ultrasound-guided fine-needle aspiration of her right-sided thyroid nodule on 04/09/2012.?? Review of thecytopathology report from that date shows a benign thyroid nodule.?? Upon interview today, she reports increasing difficulty slowing. She states she feels the nodule has gotten larger.?? She is reporting some occasional palpitations.?? These are unchanged in severity or character.?? she has lost 20pounds intentionally as she prepares for to upcoming weddings.?? Denies constipation or hyperdefecation, no resting tremor or trouble sleeping. PAST MEDICAL HISTORY:?? Reviewed as documented in electronic medical record. MEDICATIONS:?? Reviewed as documented in electronic medical record. ALLERGIES:?? Reviewed as documented in electronic medical record. OBJECTIVE:?? Physical exam:?? BP 110/54 mmHg Pulse 77 Ht 166.4 cm (65.5) Wt 70.171 kg (154 lb 11.2 oz) BMI 25.34 kg/m2.?? In general, patient is a pleasant 65-year-old female in no acute distress.?? HEENT:?? Eyes:?? There is no lid lag or periorbital edema noted.?? Neck is supple.?? She has a 3.5 to 4.0 cm palpable right-sided thyroid nodule in the mid pole that moves well with swallowing.?? No adenopathy noted.?? Respiratory:?? Lungs clear to auscultation bilaterally.?? Cardiovascular:?? Regular without murmurs, rubs, or gallops.?? Psych:?? The patient is A+O x3.?? Speech and thoughts are appropriate.?? Denies depression, anxiety. STUDIES:?? An ultrasound conducted in the office today for surveillance of her right-sided thyroid nodule status post benign biopsy on April 09, 2012 showed a 1.9 x 2.5 x 3.7 cm left-sided thyroid.?? It was isoechoic, mostly solid, but with small areas of cystic degeneration.?? There was no increased blood flow or calcifications present.?? It has increased in size in all dimensions from previous ultrasound.?? The remainder of the gland is homogeneous with regards to echotexture. ASSESSMENT:?? Ms Aparna Etienne is a pleasant 65-year-old female with a right- sided approximately 3.7cm thyroid nodule that has been previously biopsied and found to be benign in March of 2012. The??nodule has increased significantly in size since her last ultrasound in 2013. This finding coupled with the increase in obstructive symptoms, it seems reasonable to refer her to ENT for possible right lobe lobectomy. She would like to hold off on her surgical referral until the fall. She has to weddings upcoming this fall. PLAN:?? 1. Refer patient to surgery for possible right lobe lobectomy.?? 2.??Call with questions or concerns or changes in symptoms. documented in this encounter Plan of Treatment Scheduled Procedures Name Priority Associated Diagnoses Date/Ti me CRANIECTOMY, SUPRATENTORIAL, FOR EXCISION OF MENINGIOMA Meningioma ([facility]) documented as of this encounter Procedures Procedure Name Priority Date/Time Associated Diagnosis Comments ENDOCRINE CLINIC US THYROID Routine 01/25/2016 16:37 EDT Thyroid nodule documented in this encounter Results * ENDOCRINE CLINIC US THYROID (01/25/2016 16:37 EDT) Anatomical Region Laterality Modality Other 01/25/2016 16:3 7 EDT Narrative 01/25/2016 16:37 EDT Non Reportable Exam Procedure Note PSYCHOLOGIST EDUCATIONAL, IMAGING - 01/25/2016 Non Reportable Exam Dilip Alonzo DO IMG US ORDERAB LES documented in this encounter Visit Diagnoses Diagnosis Thyroid nodule- Primary Nontoxic uninodular goiter documented in this encounter Care Teams Bit And Shank Department Supervisor Relationship Specialty Start Date End Date Joanie Ferrell DNP CNM FNP PCP - General 01/24/16 11/26/16 documented as of this encounter
--- OUTSIDE RECORDS SUMMARY | 2024-08-18 07:57 | XMS_ITS | Encounter Summary ---
Author Organization [facility] Address [address] [place] [address] Care Team Providers Care Learning And Development Administrator Name Role Phone Lemuel Mcdaniel MD Primary Care Provider [phone] Reason for Visit * Reason Onset Date Comments Results 04/11/2012 Encounter Details Date Type Department Care Team (Late st Contact Info) Description 04/11/2012 Telephone [facility] Endocrinology - [facility] [address] [place], [place] [id number] Dilip Alonzo DO [address] [facility] [facility] [address] [place] [address] Results Social History Tobacco Use Types Packs/Day Years Used Date Smoking Tobacco: Never Assessed Sex and Gender Information Value Date Recorded Sex Assigned at Not on file Gender Identity Female 01/17/2023 13:27 EDT Sexual Orientation Not on file documented as of this encounter Miscellaneous Notes * Telephone Encounter - Dilip Alonzo DO - 04/11/2012 1029 EDT Left message with patient on cell phone with benign biopsy results. Encouraged patietn to call withquestions documented in this encounter Plan of Treatment Scheduled Procedures Name Priority Associated Diagnoses Date/Ti me CRANIECTOMY, SUPRATENTORIAL, FOR EXCISION OF MENINGIOMA Meningioma ([facility]) documented as of this encounter Visit Diagnoses Not on filedocumented in this encounter Care Teams Learning And Development Administrator Relationship Specialty Start Date End Date Lemuel Mcdaniel MD [address] [place] [address] PCP - General 04/02/12 01/28/13 documented as of this encounter
--- OUTSIDE RECORDS SUMMARY | 2024-08-18 07:57 | XMS_ITS | Clinical Summary ---
[place] [address] Care Team Providers Care Location Man Name Role Phone Kerrie Morgan MALI Primary Care Provider + Allergies No known active allergies Medications Medication Sig Dispensed Refills Start Date End Date Status PROAIR HFA 90 mcg/actuation HFA Aerosol Inhaler every 4 hours as needed. 0 11/06/2016 Active atorvastatin (Lipitor) 20 mg tablet Take 1 tablet by mouth every evening. 01/17/2023 Active Active Problems Problem Noted Date Diagnosed Date Multiple thyroid nodules 04/16/2017 Thyroid nodule 04/09/2012 Overview (05/25/2021): Right-sided 1.4 x 1.9 x 3.0 solid nodule. Social History Tobacco Use Types Packs/Day Years Used Date Smoking Tobacco: Never Smokeless Tobacco: Never Tobacco Cessation:Counseling Given: Not Answered Sex and Gender Information Value Date Recorded Sex Assigned at Not on file Gender Identity Female 03/13/2020 8:30 PM EDT Sexual Orientation Not on file Last [...] Mass Index 28.71 05/19/2023 11:04 AM EDT Plan of Treatment Health Maintenance Due Date Last Done Comments CT Colonography 1950 Colonoscopy 1950 Colorectal Cancer Screening 1950 FIT DNA 1950 FIT 1950 Sigmoidoscopy (10 year) with FIT yearly 1950 Sigmoidoscopy 1950 Hepatitis C Screening 1970 Tetanus/Diphtheria/Pertussis Vaccines (1 - Tdap) 10/30 Breast Cancer Share Decision Needed 1992 Breast Cancer screening 1992 Zoster vaccine (1 of 2) 2002 Advance Directive 2007 Bone Density Scan 2017 Pneumoccocal Vaccine: 65+ (1 of 1 - PCV) 2017 Covid-19 Vaccine (1 - 2022- season) 2024 Influenza (Flu) vaccine (1 o f 1 - Influenza standard series) 06/20/2024 Care Teams Location Man Relationship Specialty Start Date End Date Kerrie Morgan APRN [address] [place] [id number] PCP - General Family Medicine 03/31/18
--- OUTSIDE RECORDS SUMMARY | 2024-08-18 07:57 | XMS_ITS | Encounter Summary ---
Author Organization [facility] Address [address] [place] [address] Care Team Providers Care Physician Credentialing Specialist Name Role Phone Unavailable Primary Care Provider Unavailabl e Encounter Details Date Type Department Care Team (Late st Contact Info) Description 10/07/2007 Results Only [facility] [address] [place] [address] Lianet Subramanian MD [address] [place] [address] [place] [address] Social History Tobacco Use Types Packs/Day Years [...] Priority Date/Time Associated Diagnosis Comments CYTOPATHOLOGY Routine 10/07/2007 0:00 EST documented in this encounter Results * CYTOPATHOLOGY (10/07/2007 0:00 EST) Pathology Report: CYTOPATHOLOGY REPORT Reports generated via electronic interface contain original data; however they are lacking the format of the original report. Caution should be taken when reading/interpreti ng unformatted reports. Name: ? APARNA PANDA ? Accession #: ? [id number] : ? 1950 (Age: 56) ??F ?Collect Date: ? 10/07/2007 Location: ? [facility] ? Receive Date: ? 10/08/2007 Provider: ?LIANET SUBRAMANIAN MD Copy to: ? Specimen/Source: ?ThinPrep Pap Test, Cervix/Endocervix, processed on [employer] ThinPrep Imaging System, with manual evaluation Last Menstrual Period: ? 04/19/07 Other: ? Additional clinical information: No hormones HPVA - HPV testing requested if ASC-US on the current ThinPrep Pap test. ? SPECIMEN ADEQUACY ? Satisfactory for Evaluation - transformation zone component present GENERAL CATEGORIZATION ? Negative for Intraepithelial Lesion or Malignancy ? Document reviewed and electronically signed by: ? EKVIN Chatman(ASCP) ? Report Date: ??10/09/2007 16:05 End of Report [facility] 10/07/2007 10/08/2007 Lianet Subramanian MD PATHOLOGY ORDERABLES [facility] [address] [place] [address] documented in this encounter Visit Diagnoses Not on filedocumented in this encounter
--- OUTSIDE RECORDS SUMMARY | 2024-08-18 07:57 | XMS_ITS | Encounter Summary ---
Author Organization [facility] Address [address] [place] [address] Care Team Providers Care Arabic Linguist Name Role Phone Kerrie Morgan APRN Primary Care Provider + Maxine Masterson MD Unavailable [phone] Reason for Visit * Reason Onset Date Comments Appointment Related 01/22/2023 Encounter Details Date Type Department Care Team (Late st Contact Info) Description 01/22/2023 Telephone [facility] Neurosurgery - [facility] [address] [place], [place] [id number] Amos Andujar MD [address] [place] [address] Appointment Related Social History Tobacco [...] * Telephone Encounter - Eve Esparza - 01/22/2023 1019 EDT Images from the original note were not included. Confirmed the following appointment details with Aparna. She verbalized understanding and denied having any questions. documented in this encounter Plan of Treatment Scheduled Procedures Name Priority Associated Diagnoses Date/Ti me CRANIECTOMY, SUPRATENTORIAL, FOR EXCISION OF MENINGIOMA Meningioma ([facility]) documented as of this encounter Visit Diagnoses Not on filedocumented in this encounter Care Teams Arabic Linguist Relationship Specialty Start Date End Date Kerrie Morgan APRN [address] [place] [phone] PCP - General 01/17/23 Maxine Masterson MD [address] [place] [address] 01/17/23 documented as of this encounter
--- OUTSIDE RECORDS SUMMARY | 2024-08-18 07:57 | XMS_ITS | Encounter Summary ---
Author Organization [facility] Address [address] [place] [address] Care Team Providers Care Rn Orthopaedics Name Role Phone Maxine Masterson MD Primary Care Provider [phone] Reason for Visit * Reason Onset Date Comments Results 08/23/2013 Encounter Details Date Type Department Care Team (Late st Contact Info) Description 08/23/2013 Telephone [facility] Endocrinology - [facility] [address] [place] [address] Dilip Alonzo, [address] [facility] [address] [place] [address] Results Social History Tobacco Use [...] encounter Miscellaneous Notes * Telephone Encounter - Heather Martinez RN - 08/24/2013 0951 EST Phone call to Aparna Patient informed that her [place] labs were WNL, Dr. Alonzo did send a letter, but she never received it. She will keep her follow up appt. Verbalizes understanding with no barriers. * Telephone Encounter - Joanie Mills - 08/23/2013 0923 EST Patient is calling to get her lab results she just had done here documented in this encounter Plan of Treatment Scheduled Procedures Name Priority Associated Diagnoses Date/Ti ca CRANIECTOMY, SUPRATENTORIAL, FOR EXCISION OF MENINGIOMA Meningioma ([facility]) documented as of this encounter Visit Diagnoses Not on filedocumented in this encounter Care Teams Rn Orthopaedics Relationship Specialty Start Date End Date Maxine Masterson MD [address] [place] [phone] PCP - General 01/29/13 01/23/16 documented as of this encounter
--- OUTSIDE RECORDS SUMMARY | 2024-08-18 07:57 | XMS_ITS | Encounter Summary ---
[place] [address] Care Team Providers Care Regulatory Auditor Name Role Phone Kerrie Morgan APRN Primary Care Provider + Encounter Details Date Type Department Care Team (Late st Contact Info) Description 05/25/2021 11:00 AM EDT Office [place] [address] Catina Rao MD [facility] [place] [address] Multiple thyroid nodules Social History Tobacco Use Types Packs/Day Years Used Date Smoking Tobacco: Never Smokeless Tobacco: Never Sex and Gender Information Value Date Recorded Sex Assigned at Not on file Gender Identity Female 03/13/2020 8:30 PM EDT Sexual Orientation Not on file documented as of this encounter Last Filed Vital Signs Vital Sign Reading Time Taken Comments Blood Pressure 137/69 05/25/2021 11:13 AM EDT Pulse 63 05/25/2021 11:13 AM EDT Temperature 36.8 ??C (98.3 ??F) 05/25/2021 11:13 AM E DT Respiratory Rate - - Oxygen Saturation 100% 05/25/2021 11:13 AM EDT Inhaled Oxygen Concentration - - Weight 77.2 kg (170 lb 3.2 oz) 05/25/2021 11:13 AM EDT Height 166.4 cm (5' 5.5) 05/25/2021 11:13 AM ED T Body Mass Index 27.89 05/25/2021 11:13 AM EDT documented in this encounter Progress Notes * Catina Rao - 05/25/2021 11:00 AM EDT Images from the original note were not included. Endocrinology Clinic Follow-up Visit Reason for Visit: thyroid nodule reassessment HISTORY OF PRESENT ILLNESS: Ms. Aparna FAIRCHILD is a 70 y.o. year old lady with history significant for R- sided thyroid nodule that has been followed from [id number] at [facility], discovered on routine physical exam. FNA was done in 2011 at [facility] and in [address] Perez at [facility] due to size enlargement, and had benign cytology both times. The nodule was followed yearly thereafter by Dr. Perez who last saw her in 03/2020. She presents today for follow up. ?? 2020- 2.2 x 3.4 x 4.3 cm [...] ??? Multiple thyroid nodules 04/16/2017 MEDICATIONS: Medications 03/20/20 1306 Medication Sig Taking? PROAIR HFA 90 mcg/actuation HFA Aerosol Inhaler Reported on 05/05/2017 ALLERGIES: No Known Allergies SOCIAL HISTORY: Social History Tobacco Use Smoking Status Never Smoker Smokeless Tobacco Never Used FAMILY HISTORY: No family history on file. REVIEW OF SYSTEMS: All 12 systems reviewed and negative except as noted per HPI. PHYSICAL EXAM: Vitals: 05/25/21 1113 BP: 137/69 Pulse: 63 Temp: 36.8 ??C (98.3 ??F) SpO2: 100% Weight: 77.2 kg (170 lb 3.2 oz) Height: 166.4 cm (5' 5.5) Gen: NAD, AAOx3, speaking full sentences, calm very pleasant demeanor, lean habitus Skin: warm and dry Eyes: PERRL, EOMI, anicteric sclerae without injection, no proptosis or lid lag ENT: moist oral mucosa Neck: R sided thyromegaly with visible and palpable R thyroid nodule, no lymphadenopathy, negative for Paris sign MSK: 5/5 strength in all muscle groups of the upper and lower extremities Neuro: normal gait, no tremor. LABS: IMAGING: THYROID ULTRASOUND Date: 05/25/21 Indication: thyroid nodules Real time images of the thyroid gland were obtained using a BK US machine. All measurements are given as AP x Transverse x Longitudinal. Right Lobe: Almost the whole lobe is occupied by large spongiform nodule w/o concerning features measuring 2.2 x 3.4 x 4.3 cm 2019- [...] #1 upper lateral isoechoic spongiform nodule measuring 0.7 x 1.2 x 1.2 cm (2019- 0.53 x 0.92 x 1.1 cm, 2018 - 0.6 x 1.0 x 1.2 cm, 2017 - 0.6 x 1.1 x 1.1cm , 2017 - 0.62 x 1.1 x 1.2 cm) #2 upper medial isoechoic spongiform nodule measuring 0.4 x 0.8 x 0.8 #3 lower pole isoechoic spongiform nodule measuring 1 x 1.5 x 1.7 (2019- 1.2 x 1. 4 x 1.1 cm, 2018 - 1.0 x 1.2 x 1.2 cm, 2018 - 1.0 x 1.2 x 1.4cm, 2017 - 0.86 x 1.2 x 1.6 cm) Lateral neck: No abnormal lymph nodes were seen. Isthmus: The isthmus measures 0.3 cm in the AP dimension. Impression: There is large spongiform nodule >4 cm on the right biopsied twice (benign), and there are multiple spongiform nodules on the left, not meeting criteria for biopsy. ASSESSMENT: Ms. Fairchild is a 70 y.o. F with an asymptomatic right sided goiter and multiple thyroid nodules who presents for follow up visit. Her R spongiform thyroid nodule was biopsied twice (in 2011 and 2016) and both times showed benign cytology. Dimensions have varied slightly, but overall it's remained stable in size over the past 2 years, which is reassuring. She has multiple spongiform nodules on the left side not meeting any criteria for biopsy given the spongiform appearance. We discussed the fact most of the nodules increase in size over time and but due to overall stability overyears we decided to increase follow up period to 2 years. I also emphasized the fact should she develop any compressive symptoms to let me know immediately. PLAN: --follow-up in 2 years for thyroid nodule reassessment. RTC in [address] discussed with Dr[address] Lacey. Catina Rao MD PGY 5, Endocrinology Fellow Pager: [phone] * Catina Rao - 05/25/2021 11:00 AM EDT THYROID ULTRASOUND Date: 05/25/21 Indication: thyroid nodules Real time images of the thyroid gland were obtained using a [employer] US machine. All measurements are given as AP x Transverse x Longitudinal. Right Lobe: Almost the whole lobe is occupied by large spongiform nodule w/o concerning features measuring 2.2 x 3.4 x 4.3 cm 2019- 2.2 x 3.1 x 3.8 cm 2019 - 2.2 x 2.8 x 4.3 [...] #1 upper lateral isoechoic spongiform nodule measuring 0.7 x 1.2 x 1.2 cm (2019- 0.53 x 0.92 x 1.1 cm, 2019 - 0.6 x 1.0 x 1.2 cm, 2017 - 0.6 x 1.1 x 1.1cm , 2017 - 0.62 x 1.1 x 1.2 cm) #2 upper medial isoechoic spongiform nodule measuring 0.4 x 0.8 x 0.8 #3 lower pole isoechoic spongiform nodule measuring 1 x 1.5 x 1.7 (2019- 1.2 x 1. 4 x 1.1 cm, 2019 - 1.0 x 1.2 x 1.2 cm, 2018 - 1.0 x 1.2 x 1.4cm, 2017 - 0.86 x 1.2 x 1.6 cm) Lateral neck: No abnormal lymph nodes were seen. Isthmus: The isthmus measures 0.3 cm in the AP dimension. Impression: There is large spongiform nodule >4 cm on the right biopsied twice (benign), and there are multiple spongiform nodules on the left, not meeting criteria for biopsy. Catina Rao MD PGY 5, Endocrinology Fellow Pager: [phone] * Brandon Lacey MD - 05/25/2021 11:00 AM EDT I saw this patient with Dr Rao . I reviewed the ojeda portions of the history and physical exam, and reviewed pertinent lab data. I was present for the ultrasound and agree with this interpretation. I answered all patient questions. I was involved in all medical decision making and agree withthis plan. documented in this encounter Plan of Treatment Not on file documented as of this encounter Procedures Procedure Name Priority Date/Time Associated Diagnosis Comments HC THYROID STIMULATING HORMONE, SERUM Routine 05/25/2021 12:45 PM EDT Multiple thyroid nodules documented in this encounter Results * TSH (05/25/2021 12:45 PM EDT) Thyroid Stimulating Hormone 1.30 0.27 - 4.20 mcIU/mL [facility] Comment: Reference Interval (mcIU/mL): Females: ??First Trimester: 0.23-3.88 ??Second Trimester: 0.22-3.90 ??Third Trimester: 0.44-4.66 Blood 05/25/2021 12:4 5 PM EDT 05/25/2021 12:57 PM EDT Narrative Resulting Agency Comment Spec In Lab Galina Arias MD CHEMISTRY ORDERABLES [facility] [place] [id number] documented in this encounter Visit Diagnoses Diagnosis Multiple thyroid nodules Nontoxic multinodular goiter documented in this encounter Care Teams Regulatory Auditor Relationship Specialty Start Date End Date Kerrie Morgan APRN [address] [place] [address] PCP - General Family Medicine 03/31/18 documented as of this encounter
--- OUTSIDE RECORDS SUMMARY | 2024-08-18 07:57 | XMS_ITS | Encounter Summary ---
Author Organization [facility] Address [address] [place] [address] Care Team Providers Care Electrician Technician Name Role Phone Maxine Masterson MD Primary Care Provider [phone] Reason for Visit * Reason Comments Labs Only Encounter Details Date Type Department Care Team (Latest Contact Info) Description 05/27/2013 13:15 EDT Procedure visit [facility] Endocrinology - [address] [address] Unknown, Provider, Phlebotomy, [facility] Endo Thyroid nodule (Primary Dx) Social History Tobacco Use Types Packs/Day Years Used Date Smoking Tobacco: Never Alcohol Use Standard Drinks/Week Comments Not Asked 0 (1 standard drink = 0.6 oz pur e alcohol) Sex and Gender Information Value Date Recorded Sex Assigned at Not on file Gender Identity Female 01/17/2023 13:27 EDT Sexual Orientation Not on file documented as of this encounter Progress Notes * Batsheva Unger - 05/27/2013 1417 EDT Blood sample drawn from vein for testing at the order of Dr. Alonzo ???I was supervised by Dr. Alonzo who was in the suite and readily available.?? documented in this encounter Plan of Treatment Scheduled Procedures Name Priority Associated Diagnoses Date/Ti me CRANIECTOMY, SUPRATENTORIAL, FOR EXCISION OF MENINGIOMA Meningioma (HCC-CMS) documented as of this encounter Procedures Procedure Name Priority Date/Time Associated Diagnosis Comments THYROID CASCADE Routine 05/27/2013 14:10 EDT Thyroid nodule documented in this encounter Results * THYROID CASCADE (05/27/2013 14:10 EDT) TSH 1.29 0.35 - 5.00 uIU/ml [facility] Comment: TSH cascade is not recommended for patients in which pituitary or hypothalamic disorders are suspected. Blood specimen (specimen) 05/27/2013 14:10 EDT 05/27/2013 19:09 EDT Dilip Alonzo DO CHEMISTRY & BL OOD GAS ORDERABLES Performing Organization Address City/State/[facility] Co de Phone Number [facility] [address] [place] [address] documented in this encounter Visit Diagnoses Diagnosis Thyroid nodule- Primary Nontoxic uninodular goiter documented in this encounter Care Teams Electrician Technician Relationship Specialty Start Date End Date Maxine Masterson MD [address] [place] [phone] PCP - General 01/29/13 01/23/16 documented as of this encounter
--- OUTSIDE RECORDS SUMMARY | 2024-08-18 07:57 | XMS_ITS | Encounter Summary ---
Author Organization [facility] Address [address] [place] [address] Care Team Providers Care Fiscal Analyst Name Role Phone Joanie Ferrell DNP [facility] Primary Care Prov ider Encounter Details Date Type Department Care Team (Latest Contact Info) Description 11/20/2016 7:45 EST - 11/20/2016 23:59 [facility] Hospital Encounter [address] [address] Unknown, Provider, Discharge Disposition: Home or Self Care Social [...] 01/25/2016 documented as of this encounter Discharge Disposition Disposition Code Departure Means Destination Home or Self Jail documented in this encounter Plan of Treatment Scheduled Procedures Name Priority Associated Diagnoses Date/Ti me CRANIECTOMY, SUPRATENTORIAL, FOR EXCISION OF MENINGIOMA Meningioma ([facility]) documented as of this encounter Visit Diagnoses Not on filedocumented in this encounter Care Teams Fiscal Analyst Relationship Specialty Start Date End Date Joanie Ferrell DNP CNM FNP PCP - General 01/24/16 11/26/16 documented as of this encounter
--- OUTSIDE RECORDS SUMMARY | 2024-08-18 07:57 | XMS_ITS | Encounter Summary ---
[place] [address] Care Team Providers Care Tenon Machine Operator Name Role Phone Kerrie Morgan APRN Primary Care Provider + Encounter Details Date Type Department Care Team (Latest Contact Info) Description 01/14/2023 Travel Social History Tobacco Use Types Packs/Day [...] on filedocumented in this encounter Care Teams Tenon Machine Operator Relationship Specialty Start Date End Date Kerrie Morgan APRN [address] [place] [id number] PCP - General Family Medicine 03/31/18 documented as of this encounter
--- OUTSIDE RECORDS SUMMARY | 2024-08-18 07:57 | XMS_ITS | Encounter Summary ---
Author Organization [facility] Address [address] [place] [address] Care Team Providers Care Imaging Scheduler Name Role Phone Kerrie Morgan APRN Primary Care Provider + Maxine Masterson MD Unavailable [phone] Encounter Details Date Type Department Care Team (Late st Contact Info) Description 01/21/2023 Orders Only [facility] - [facility] MRI [address] [place] [address] Marianela Martin Social History Tobacco Use Types Packs/Day Years [...] on filedocumented in this encounter Care Teams Imaging Scheduler Relationship Specialty Start Date End Date Kerrie Morgan APRN [address] [place] [phone] [facility] - General 01/17/23 Maxine Masterson MD [address] [place] [address] 01/17/23 documented as of this encounter
--- OUTSIDE RECORDS SUMMARY | 2024-08-18 07:57 | XMS_ITS | Encounter Summary ---
Author Organization [facility] Address [address] [place] [address] Care Team Providers Care Provider Relations Advocate Name Role Phone Unavailable Primary Care Provider Unavailabl e Encounter Details Date Type Department Care Team (Late st Contact Info) Description 08/16/2005 Results Only [facility] - [facility] [address] [place] [address] Lianet Subramanian MD [address] [place] [address] [place] [address] Social History Tobacco Use Types Packs/Day Years Used Date Smoking Tobacco: Never Assessed Sex and Gender Information Value Date Recorded Sex Assigned at Not on file Gender Identity Female 01/17/2023 13:27 EDT Sexual Orientation Not on file documented as of this encounter Plan of Treatment Scheduled Procedures Name Priority Associated Diagnoses Date/Ti me CRANIECTOMY, SUPRATENTORIAL, FOR EXCISION OF MENINGIOMA Meningioma ([facility]) documented as of this encounter Procedures Procedure Name Priority Date/Time Associated Diagnosis Comments CYTOPATHOLOGY Routine 08/16/2005 0:00 EDT documented in this encounter Results * CYTOPATHOLOGY (08/16/2005 0:00 EDT) Pathology Report: CYTOPATHOLOGY REPORT Reports generated via electronic interface contain original data; however they are lacking the format of the original report. Caution should be taken when reading/interpreti ng unformatted reports. Name: ? APARNA PANDA ? Accession #: ? [id number] : ? 1950 (Age: 54) ??F ?Collect Date: ? 08/16/2005 Location: ? [facility] ? Receive Date: ? 08/20/2005 Provider: ?LIANET SUBRAMANIAN MD Copy to: ? Specimen/Source: ?ThinPrep Pap Test, Cervix/Endocervix, processed on [employer] ThinPrep Imaging System, with manual evaluation Last Menstrual Period: ? /?/ Other: ? HPVA - HPV testing requested if ASC-US on the current ThinPrep Pap test. ? SPECIMEN ADEQUACY ? Satisfactory for Evaluation - transformation zone component present GENERAL CATEGORIZATION ? Negative for Intraepithelial Lesion or Malignancy INTERPRETATION ? Shift in cindy present suggestive of bacterial vaginosis. ? Document reviewed and electronically signed by: ? KEVIN Sandoval(ASCP) ? Report Date: ??08/26/2005 14:19 End of Report [facility] 08/16/2005 08/20/2005 Lianet Subramanian MD PATHOLOGY ORDERABLES [facility] [address] [place] [address] documented in this encounter Visit Diagnoses Not on filedocumented in this encounter
--- OUTSIDE RECORDS SUMMARY | 2024-08-18 07:57 | XMS_ITS | Encounter Summary ---
Author Organization [facility] Address [address] [place] [address] Care Team Providers Care Custodial Aide Name Role Phone Maxine Masterson MD Primary Care Provider [phone] Joanie Ferrell DNP [facility] Primary Care Prov ider Reason for Visit * Reason Onset Date Comments Results 09/08/2014 Encounter Details Date Type Department Care Team (Late st Contact Info) Description 09/08/2014 Telephone [facility] Endocrinology - [address] [address] Dilip Alonzo DO [address] [facility] [address] [place] [address] Results Social History Tobacco Use [...] encounter Miscellaneous Notes * Telephone Encounter - Chelsey Levi - 09/09/2014 0953 EST I left a detailed message on the patient's identified voicemail re: results and plan. Patient will call back if any questions or problems. * Telephone Encounter - Dilip Alonzo DO - 09/08/2014 1055 EST Please contact patient via phone. [facility] Advise patient that TSH and Free T4 were normal. documented in this encounter Plan of Treatment Scheduled Procedures Name Priority Associated Diagnoses Date/Ti ne CRANIECTOMY, SUPRATENTORIAL, FOR EXCISION OF MENINGIOMA Meningioma ([facility]) documented as of this encounter Visit Diagnoses Not on filedocumented in this encounter Care Teams Custodial Aide Relationship Specialty Start Date End Date Maxine Masterson MD [address] [place] [phone] PCP - General 01/29/13 01/23/16 Joanie Ferrell DNP [facility] [address] [place] [phone] PCP - General 01/24/16 11/26/16 documented as of this encounter
--- OUTSIDE RECORDS SUMMARY | 2024-08-18 07:57 | XMS_ITS | Encounter Summary ---
Author Organization [facility] Address [address] [place] [address] Care Team Providers Care Remnants Cutter Name Role Phone Maxine Masterson MD Primary Care Provider [phone] Reason for Referral * Radiology Services (Routine/Next Available) - Closed Specialty Diagnoses / Procedures Referred By Caleb luna Referred To Contact Diagnoses Thyroid nodule Procedures ENDOCRINE CLINIC THYROID Dilip Alonzo DO [address] [facility] [address] [place] [address] Referral ID Status Reason Start Date Expiration Date Visits Re quested Visits Authorized [id number] Closed 05/27/2013 1 1 Reason for Visit * Reason Comments Thyroid Problem Encounter Details Date Type Department Care Team (Latest Contact Info) Description 05/27/2013 13:20 EDT Office Visit [facility] [address] [place] [address] Dilip Alonzo DO [address] [facility] [address] [place] [address] Thyroid nodule (Primary Dx) Social [...] Sign Reading Time Taken Comments Blood Pressure 118/54 05/27/2013 1312 EDT Pulse 64 05/27/2013 1312 EDT Temperature - - Respiratory Rate - - Oxygen Saturation - - Inhaled Oxygen Concentration - - Weight 75.8 kg (167 lb) 05/27/2013 1312 EDT Height 165.1 cm (5' 5) 05/27/2013 1312 EDT Body Mass Index 27.79 05/27/2013 1312 EDT documented in this encounter Patient Instructions * Patient Instructions* Dilip Alonzo DO - 05/27/2013 13:36 EDT 1. Follow-up in one year for 40 minute appointment for ultrasound 2. Call with questions or concerns or change in symptoms documented in this encounter Progress Notes * Dilip Alonzo DO - 05/27/2013 1353 EDT SUBJECTIVE: Mrs Aparna Etienne is a pleasant 62-year-old female who returned to the endocrine clinic today for further evaluation and management of her right- sided thyroid nodule. She was last seen on 04/09/2012. She underwent an ultrasound-guided fine-needle aspiration on the same day on 04/09/2012.Review of the cytopathology report from that date shows a benign thyroid nodule. Upon interview today, she reports she has been feeling somewhat tired recently, has no specific complaints but feels that she has a little bit less energy than she used to. No trouble swallowing, no change in her neck appearance. She also has been reporting some more frequent palpitations, unchanged in severity or character, but definitely a little bit more frequently according to the patient. She has had some mild weight gain, feels that she has had some increased tendency towards constipation, no hyperdefecation. No resting tremor. No insomnia. PAST MEDICAL HISTORY: Reviewed as documented in electronic medical record. MEDICATIONS: Reviewed as documented in electronic medical record. ALLERGIES: Reviewed as documented in electronic medical record. OBJECTIVE: Blood pressure is 118/54, pulse is 64, weight is 167 pounds, BMI is 28. In general, the patient is a pleasant 62-year-old female in no acute distress. HEENT: Eyes: There is no lid lag or periorbital edema noted. Mouth: Mucous membranes moist and pink in color. No oral lesions seen. Neck is supple. There is a nodule that is apparent to visual inspection as well as palpation of the rightside that measures about 3 cm to 3.5 cm in size. It moves well with swallowing. It is nontender. The left lobe is without obvious nodules. The isthmus is not thickened. Respiratory: Lungs clear to auscultation bilaterally. Cardiovascular: Heart is regular without murmurs, rubs, or gallops. GI: Abdomen is soft, nontender, nondistended, with good bowel sounds in all 4 quadrants. Extremities: No clubbing, cyanosis or edema. Strength is 5/5 and equal bilaterally without proximal muscle weakness. Neuro: DTRs are +2/4 and equal bilaterally in all 4 extremities without a resting tremor. Psych: Patient is A+O x3. Speech and thoughts are appropriate. Denies depression or anxiety. STUDIES: An ultrasound conducted in the office today for surveillance of a right-sided thyroid nodule, status post previous benign biopsy on 04/09/2012 showed a 1.7 cm x 2.13 cm x 2.98 cm nodule in the left lobe, isoechoic, mostly solid but with some small areas of cystic degeneration. No increasedblood flow or calcifications present. It is unchanged in size. The remainder of the gland is without distinct nodule or abnormality. The rest of her gland is homogeneous with regards to echotexture. ASSESSMENT: Ms Aparna Etienne is a pleasant 62-year-old female with a right-sided thyroid nodule approximately 3 cm in maximal dimension that has been previously biopsied and found to be benign on 04/09/2012. The nodule appears stable upon ultrasound today and has no worrisome characteristics. We will repeat ultrasound in 1 year. If stable at that point, could consider stretching out our surveillance. Encouraged the patient to call with any questions or concerns or changes in her neck appearance or difficulty swallowing. She voiced understanding. PLAN: 1. Follow up in 1 year for a 40-minute appointment for ultrasound. 2. Call sooner with questions or concerns. 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 APPRENTICE, SCAN 2 - 06/02/2013 2904 EDT documented in this encounter Plan of Treatment Scheduled Orders Name Type Priority Associated Diagnoses Orde r Schedule ENDOCRINE CLINIC US THYROID Imaging Routine Thyroid nodule Ordered: 05/27/2013 Scheduled Procedures Name Priority Associated Diagnoses Date/Ti me CRANIECTOMY, SUPRATENTORIAL, FOR EXCISION OF MENINGIOMA Meningioma ([facility]) documented as of this encounter Results * THYROID CASCADE (05/27/2013 14:10 EDT) TSH 1.29 0.35 - 5.00 uIU/ml [facility] Comment: TSH cascade is not recommended for patients in which pituitary or hypothalamic disorders are suspected. Blood specimen (specimen) 05/27/2013 14:10 EDT 05/27/2013 19:09 EDT Dilip Alonzo DO CHEMISTRY & BL OOD GAS ORDERABLES [facility] [address] [place] [address] documented in this encounter Visit Diagnoses Diagnosis Thyroid nodule- Primary Nontoxic uninodular goiter documented in this encounter Care Teams Remnants Cutter Relationship Specialty Start Date End Date Maxine Masterson MD [address] [place] [address] PCP - General 01/29/13 01/23/16 documented as of this encounter
--- OUTSIDE RECORDS SUMMARY | 2024-08-18 07:58 | XMS_ITS | Encounter Summary ---
Author [place] [address] Care Team Providers Care Senior Clinical Data Manager Name Role Phone Joanie Ferrell APRN Primary Care Provider [phone] Reason for Referral * Consultation (Routine) - Closed Specialty Diagnoses / Procedures Referred By Caleb luna Referred To Contact General Surgery Diagnoses Thyroid nodule Jen Perez MD [facility] [place] [address] Teresa Land MD [facility] [place] [address] Referral ID Status Reason Start Date Expiration Date V isits Requested Visits Authorized [id number] Closed Consult, Test & Treat 04/16/2017 04/16/2018 1 1 Encounter Details Date Type Department Care Team (Late st Contact Info) Description 04/16/2017 1:00 PM EDT Office Visit [place] [address] Jen Perez MD [facility] [address] Thyroid nodule Social History Tobacco Use Types Packs/Day Years Used Date Smoking Tobacco: Never Sex and Gender Information Value Date Recorded Sex Assigned at Not on file Gender Identity Female 03/13/2020 8:30 PM EDT Sexual Orientation Not on file documented as of this encounter Last Filed Vital Signs Vital Sign Reading Time Taken Comments Blood Pressure 144/48 04/16/2017 12:48 PM EDT Pulse 72 04/16/2017 12:48 PM EDT Temperature - - Respiratory Rate - - Oxygen Saturation - - Inhaled Oxygen Concentration - - Weight 75.3 kg (166 lb) 04/16/2017 12:48 PM EDT Height - - Body Mass Index - - documented in this encounter Progress Notes * Jen Perez MD - 04/16/2017 1:00 PM EDT Endocrinology New Patient Consultation RFC: Referred to Endocrinology by Joanie Ferrell to establish care at [facility] for her thyroid nodules HISTORY OF PRESENT ILLNESS: Ms. Aparna Etienne is a 66 y.o. year old lady with history significant for a R- sided thyroid nodulethat has been followed since 2011 at [facility], discovered on routine physical exam. FNA was done there in 2011 and had benign cytology. The nodule was followed yearly and was noted to have enlarged 1 yearago. 2011 - 1.8 x 1.9 x 3.0cm 2012 - 1.7 x 2.1 x 2.9cm 2015 - 1.9 x 2.5 x 3.7cm She reports that the believes TFTs were checked 1 year ago and were WNL. Surgery was recommended at that time, but she was very reluctant about that and decided to wait. She is transitioning her thyroid nodule care to [facility] this year, and is here today for this purpose. She had gained about 4-5 lbs since this winter, despite working out daily. She has also noticed some increase difficulty swallowing since this past winter as well. Good energy level, good mood. Has felt some tingling and electric sensations along her R clavicleand lower neck/shoulder. She has not noticed an enlargement of her lower anterior neck however. FH - Mother needed thyroid hormone supplementation in order to conceive. No known hx of thyroidectomy or thyroid cancer. PAST MEDICAL HISTORY: MEDICATIONS: Medications 04/16/17 1317 Medication Sig Taking? PROAIR HFA 90 mcg/actuation HFA Aerosol Inhaler inhale 2 puffs by mouth every 4 to 6 hours if needed Yes ALLERGIES: No Known Allergies SOCIAL HISTORY: History Smoking Status ??? Never Smoker Smokeless Tobacco ??? Not on file FAMILY HISTORY: Mother needed thyroid hormone supplementation in order to conceive. No known hx of thyroidectomy or thyroid cancer. REVIEW OF SYSTEMS: All 12 systems reviewed and negative except as noted per HPI. PHYSICAL EXAM: Vitals Office Visit from 04/16/2017 in Endocrinology Weight - Scale 75.3 kg (166 lb) Heart Rate 72 BP 144/48 Gen: NAD, AAOx3, speaking full sentences, calm very pleasant demeanor, lean habitus Skin: warm and dry Eyes: PERRL, EOMI, anicteric sclerae without injection, no proptosis or lid lag ENT: moist oral mucosa Neck: R sided thyromegaly with visible and palpable R thyroid nodule, no lymphadenopathy Pulm: CTAB, no stridor Cardiac: reg s1s2, no m/r/g MSK: 5/5 strength in all muscle groups of the upper and lower extremities, no LE edema Neuro: 2+ biceps and patellar DTRs, no clonus, no delay of the relaxation phase, no tremor. ASSESSMENT: 66 yo F with R spongiform thyroid nodule that has been enlarging in size over the past 2 years and is now >4 cm at which size it is recommended to have it removed due to the possbilityof FNA sampling error if cytology on FNA specimens is benign. I will go ahead and perform a repeat FNA today on the nodule; if positive then this result would be helpful in guiding the surgical planning. If benign, an option may be to have a R hemithyroidectomy, although if there is PTC on the surgical pathology, she would need to have a second surgery to get the other half removed. Also to be considered is the fact that she does have two other nodules in the L hemithyroid; these are spongiformand quite small however, and do not need FNA at this time. PLAN: --repeat FNA today of the enlarging, now 4.3cm R thyroid nodule --referral for R fraa- or total thyroidectomy due to nodule size >4.0cm JEN PEREZ MD Hospice Social Workerclerical specialist Section of Endocrinology [facility] * Jen Perez MD - 04/16/2017 1:00 PM EDT THYROID ULTRASOUND Date: 04/16/17 Indication: thyroid nodule Comparison: 2011, 2012, 2015 Real time images of the thyroid gland were obtained using a BK US machine. All measurements are given as AP x Transverse x Longitudinal. Right Lobe: 2.2 x 2.8 x 4.3 cm spongiform nodule almost completely replacing the R thyroid lobe 2011 - 1.8 x 1.9 x 3.0cm 2012 - 1.7 x 2.1 x 2.9cm 2015 - 1.9 x 2.5 x 3.7cm Left Lobe: The left lobe measures 1.8 x 1.9 x , with mildly heterogeneous echotexture. 0.86 x 1.2 x 1.6 cm Spongiform nodule 0.62 x 1.1 x 1.2 cm spongiform nodule Lateral neck: No abnormal lymph nodes were seen. Impression: 4.3cm R spongiform nodule previously biopsied benign in 2011, continuing to enlarge over the past 2years. Two smaller spongiform nodules in the L hemithyroid, neither meeting FNA criteria at this time. Jen Perez MD Hospice Social Workerclerical specialist Section of Endocrinology [facility] * Jen Perez MD - 04/16/2017 1:00 PM EDT THYROID ULTRASOUND GUIDED BIOPSY PROCEDURE NOTE Indication: R thyroid nodule enlarging over the past 2 years, previously bx benign Date: 04/16/2017 Informed consent was obtained after a discussion of the nature of the procedure, its risks, benefits and possible alternatives. Immediately prior to the start of the procedure a time out was taken: - The patient's identity was confirmed using two identifiers - The intended procedure, patient positioning and availability of all required equipment was also confirmed. - The proper site(s)/side(s) of the nodule(s) was/were confirmed by visualization with ultrasound. The biopsy site(s) on the patient's neck was/were prepared using isopropyl alchohol. 4 passes of a 25g needle were performed. The needle placement was ultrasound guided. The needle was visualized in the nodule(s) in each pass. -Biopsy was performed of: -4.3cm R spongiform nodule The procedure was well tolerated by the patient without any complications. The patient was given a thyroid FNA post-procedure handout upon completion Representatives from pathology were present during the procedure. Jen Perez MD Hospice Social Workerclerical specialist Section of Endocrinology documented in this encounter Plan of Treatment Scheduled Referrals Name Type Priority Associated Diagnoses Orde r Schedule Referral to General Surgery Outpatient Referral Routine Thyroid nodule Ordered: 04/16/2017 documented as of this encounter Procedures Procedure Name Priority Date/Time Associated Diagnosis Comments NON-QUANTITATIVE ASSOCIATE FINAL REPORT Routine 04/16/2017 2:36 PM EDT T3 TOTAL Routine 04/16/2017 2:34 PM EDT Thyroid nodule TSH Routine 04/16/2017 2:34 PM EDT Thyroid nodule T4, FREE Routine 04/16/2017 2:34 PM EDT Thyroid nodule CYTOPATHOLOGY NON-GYNECOLOGICAL Routine 04/16/2017 1:37 PM EDT Thyroid nodule documented in this encounter Results * Non-Tax Revenue Officer Final Report (04/16/2017 2:36 PM EDT) Diagnosis Discussion [id number] ?Location: 5C The signing pathologist has (i) examined the relevant preparation(s) for the specimen(s) and (ii) rendered or confirmed the diagnosis(es). . ? Non-Tax Revenue Officer Final DIAGNOSIS Benign Electronically signed by: ??Ronan SLAUGHTER, Matty Hernández Verified: ??04/21/2017 ?Pathologist DISCUSSION Thyroid, right (US-guided FNA): Benign (see note). Consistent with a benign follicular nodule. Cytologic preservation: ?? Adequate. Cellularity (follicular cells): ?? Low. Colloid: ?? Small quantity. Macrophages: ?? Present. Architectural pattern: ?? Mixed microfollicular and macrofollicular pattern (see note). Note: ?? The vast majority of mixed microfollicular and macrofollicular pattern aspirates are considered to represent benign follicular lesions (adenomas and goiters). There is a low risk of malignancy. ?? Recommend clinicopathologic correlation and follow up as clinically indicated. Reference: Dior HAMILTON, Sayda ES. The [employer] System for Reporting Thyroid Cytopathology. [place]: [place]; 2010. CLINICAL INFORMATION Specimen Source : Thyroid, right (US-guided FNA, assisted) Pertinent Clinical Data and Significant Therapy: 66 yo F with an enlarging R thyroid spongiform nodule, now 4.3 cm. Previously bx benign in 2011 Clinical Impression: Enlarging thyroid nodule Pertinent Radiologic Findings: (not provided) Gross Description: Received in CytoLyt approximately 10 mL total volume of clear, pink fluid, with light flecks. . CLINICAL INFORMATION Total Preparation: Liquid Based Prep 1; Diff-Quik 4; Pap Stain 4. Fine Needle Aspiration Intraoperative Consultation: Evaluation Episode #1 (1 slide): Inadequate for final diagnosis. Few follicular cells entrapped in blood clot. Evaluation Episode #2 (1 slide): Adequate for final diagnosis. Follicular cells present. Intraoperative Consultation by: ?? Matty Ferraro MD. ??I have personally examined the cytologic slides. My interpretation is as stated. Note: Intraoperative Consultation results are preliminary assessments of adequacy and diagnosis. See final diagnostic comments for completed interpretation. 04/21/2017 8:25 AM EDT [facility] THYROID STRUCTURE / Unknown 04/16/2017 2:36 PM EDT 04/16/2017 2:36 PM EDT Jen Perez MD PATHOLOGY/CYTOLOGY O RDERABLES [facility] [place] [address] * T3 Total (04/16/2017 2:34 PM EDT) T3 Total 109 75 - 170 ng/dL [facility] Blood specimen (specimen) 04/16/2017 2:34 PM EDT 04/16/2017 2:45 PM EDT Narrative Resulting Agency Comment Spec In Lab Jen Perez MD CHEMISTRY ORDERABLES Performing Organization Address [facility] [place] [address] * T4, free (04/16/2017 2:34 PM EDT) Free T4 1.20 0.93 - 1.70 ng/dL [facility] Blood specimen (specimen) 04/16/2017 2:34 PM EDT 04/16/2017 2:45 PM EDT Narrative Resulting Agency Comment Spec In Lab Jen Perez MD CHEMISTRY ORDERABLES Performing Organization Address [facility] Co de Phone Number [facility] [place] [address] * TSH (04/16/2017 2:34 PM EDT) Thyroid Stimulating Hormone 1.10 0.27 - 4.20 mlU/ML [facility] Blood specimen (specimen) 04/16/2017 2:34 PM EDT 04/16/2017 2:45 PM EDT Narrative Resulting Agency Comment Spec In Lab Jen Perez MD CHEMISTRY ORDERABLES Performing Organization Address City/[facility] Co de Phone Number [facility] [place] [address] * Cytopathology Non-Gynecological (04/16/2017 1:37 PM EDT) AP Specimen 04/16/2017 1:37 PM EDT 04/16/2017 1:37 PM EDT Narrative [facility] - 04/16/2017 1:37 PM EDT Specimen requisition ordered. ??Separate Pathology report to follow Jen Perez MD PATHOLOGY/CYTOLOGY O RDERABLES [facility] [place] [address] documented in this encounter Visit Diagnoses Diagnosis Thyroid nodule Nontoxic uninodular goiter documented in this encounter Care Teams Senior Clinical Data Manager Relationship Specialty Start Date End Date Joanie Ferrell APRN PCP - General Family Medicine 02/03/17 03/30/18 documented as of this encounter
--- OUTSIDE RECORDS SUMMARY | 2024-08-18 07:58 | XMS_ITS ---
Author Organization Unknown Address [address] [place] [phone] Phone Care Team Providers Care Cable Tender Name Role Phone DARWIN PEREZ MD Attending Unavailable SHANELLE WATSON Primary Unavailable Social History Type Status Start Date End Date Code Code Syst em Smoking History Never smoker (Never Smoked) 644795606 SNOMED CT Sex Female Hospital Discharge Instructions Should you have any questions prior to discharge, please contact a member of your healthcare team. If you have left the hospital and have any questions, please contact your primary care physician. Reason For Referral No Data Found Procedures Procedure Name Date Status Code Code Syste m Injection(s); Single Tendon Sheath, Ligament, Aponeurosis 06/28/2021 completed CPT Allergies and Adverse Reactions Allergy Substance Reaction Severity Start Date Concern Status Co de Code System No Known Drug Allergies Active 748466661 SNOMED-CT Plan of Treatment MM SCREEN BILAT 10/14/2023 CT HEAD W/O CONTRAST 01/30/2023 MM SCREEN BILAT 09/30/2022 MM DIAG RT UNILAT 03/27/2022 US BREAST UNI RT 03/27/2022 MM DIAG RT UNILAT 03/27/2022 US BREAST UNI RT 03/27/2022 US BREAST UNI RT 09/26/2021 MM DIAG RT UNILAT 09/26/2021 MM SCREEN BILAT 09/24/2021 Encounters Encounter Diagnosis Start Date Code Code Sys tem Trigger finger, right ring finger 06/28/2021 SNOMED-CT Personal Care Team Section Performer Name Performer Role Active Date Inactive Da te
--- OUTSIDE RECORDS SUMMARY | 2024-08-18 07:58 | XMS_ITS | Encounter Summary ---
[place] [address] Care Team Providers Care Floral Specialist Name Role Phone Joanie Ferrell APRN Primary Care Provider [phone] Reason for Visit * Consultation (Routine) - Closed Specialty Diagnoses / Procedures Referred By Caelb luna Referred To Contact General Surgery Diagnoses Thyroid nodule Jen Perez MD [facility] [place] [address] Teresa Land MD [facility] [place] [place] [address] Referral ID Status Reason Start Date Expiration Date V isits Requested Visits Authorized [id number] Closed Consult, Test & Treat 04/16/2017 04/16/2018 1 1 Encounter Details Date Type Department Care Team (Late st Contact Info) Description 05/05/2017 9:15 AM EDT Office [place] [address] Teresa Land MD [facility] [address] Multinodular goiter Social History Tobacco Use Types Packs/Day Years Used Date Smoking Tobacco: Never Sex and Gender Information Value Date Recorded Sex Assigned at Not on file Gender Identity Female 03/13/2020 8:30 PM EDT Sexual Orientation Not on file documented as of this encounter Last Filed Vital Signs Vital Sign Reading Time Taken Comments Blood Pressure 141/52 05/05/2017 9:13 AM EDT Pulse 60 05/05/2017 9:13 AM EDT Temperature 36.7 ??C (98.1 ??F) 05/05/2017 9:13 AM ED T Respiratory Rate 16 05/05/2017 9:13 AM EDT Oxygen Saturation 99% 05/05/2017 9:13 AM EDT Inhaled Oxygen Concentration - - Weight 74.5 kg (164 lb 3.2 oz) 05/05/2017 9:13 A M EDT Height 165 cm (5' 4.96) 05/05/2017 9:13 AM EDT Body Mass Index 27.36 05/05/2017 9:13 AM EDT documented in this encounter Progress Notes * Teresa Land MD - 05/05/2017 9:15 AM EDT Endocrine Surgery Initial Consultation HPI: Ms. Aparna Panda is a 66 y.o. year old female referred by Dr. Perez who presents for evaluation of a multinodular thyroid. This was initially noted several years ago and she was followed at [facility]. A biopsy done there in 2011 was benign. She does not really complain of compressive symptoms, denying dyspnea, globus sensation, and significant dysphagia. She does sometimes have some sensation of pills sticking when she swallows them. She denies anterior neck pain, but does describe getting some shooting, zinging, sensations to her right arm that seem to originate in the anterior central neck. There have not been symptoms of hyperthyroidism or hypothyroidism, and recent thyroid function tests have been normal. There is not a personal history of radiation exposure, and the patienthas not had prior anterior neck surgery. There is not family history of endocrine tumors or malignancy. Imaging studies to date include thyroid ultrasound [facility] [place] a 2.2 x 2.8 x 4.3cm spongiform nodule replacing the right thyroid lobe and two small spongiform-type nodules on the left. Prior measurements of the right-sided nodule were 3.7cm (2015) and 2.9cm (2012). There is not a substernal component. Fine needle aspiration biopsy has been performed in endocrine department and demonstrates benign cytology (Emmons 2). She is now referred to me for consideration of surgical management of her thyroid disease. Past Medical History: Diagnosis Date ??? Multiple thyroid nodules Past Surgical History: Procedure Laterality Date ??? TONSILLECTOMY 1958 Current Outpatient Prescriptions on File Prior to Visit Medication Sig Dispense Refill ??? PROAIR HFA 90 mcg/actuation HFA Aerosol Inhaler Reported on 05/05/2017 0 No current facility-administered medications on file prior to visit. No Known Allergies Family History: mother of heart problems. Father had leukemia. No thyroid cancer. No pituitary, pancreas or adrenal tumors. No parathyroid disease. Social History: four children. Lives alone. 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 She does not do any professional public speaking or singing. Review of Systems - 10 of 14 systems were reviewed with the patient and were negative except as perHPI Vitals: 05/05/17 0913 BP: 141/52 Pulse: 60 Resp: 16 Temp: 36.7 ??C (98.1 ??F) Body mass index is 27.36 kg/(m^2). Physical Exam: General: well-appearing, NAD Neuro: Alert and oriented x 3. Cranial nerves II-XII grossly intact. Eyes: no lid lag or proptosis ENT: Moist mucus membranes. Trachea midline Thyroid: nodular bilaterally (R>L) with a single approximately 3-4cm nodule on the right. Mobilewith swallowing. Lymph: No palpable cervical lymphadenopathy CV: RRR Respiratory: Normal respiratory effort. Lungs clear bilaterally. Extremities well-perfused without edema Skin: warm and dry. No rashes Psych: appropriate affect Labs: Results for APARNA PANDA ( ) as of 05/05/2017 13:02 Ref. Range 04/16/2017 14:34 T3, Total Latest Ref Range: 75 - 170 ng/dL 109 Free T4 Latest Ref Range: 0.93 - 1.70 ng/dL 1.20 TSH Latest Ref Range: 0.27 - 4.20 mlU/ML 1.10 Imaging: Thyroid, Parathyroid and Cervical Ultrasound I performed a thyroid, parathyroid and cervical ultrasound at the time of the clinic visit today using the 12 mHz linear ultrasound transducer. The thyroid, parathyroid and central and bilateral lateral neck lymph node basins were evaluated. The findings include: Thyroid Isthmus: Thickness: 0.19 cm Nodules: None Right lobe: Lobe: 4.51 x 2.13 x 3.09 cm Nodules: most of the lobe is occupied by a well-circumscribed, spongiform nodule measuring 4.08 x 2.02 x 2.71cm. Immediately adjacent to this, there is a second spongiform nodule measuring 1.03 x 0.80 x 0.94cm Left lobe: Lobe: 4.42 x 1.27 x 1.98 cm Nodules: There are two small spongiform nodules measuring 2.0 x 1.01 x 1.18cm and 1.14 x 0.69 x 1.09cm Cervical lymph nodes Central neck: Normal ultrasonographic appearing lymph nodes Right lateral neck: Normal ultrasonographic appearing lymph nodes Left lateral neck: Normal ultrasonographic appearing lymph nodes A/P: Ms. Aparna Panda is a 66 y.o. year old female with multiple thyroid nodules and FNA demonstrating benign cytology. The nodule on the right has been enlarging over time and now measures >4.0cm (recorded at 3.0cm in greatest dimension in 2011 at the time of her first FNA). We discussed the fact that the size >4.0cm meets criteria for surgery. She is mildly symptomatic as well, and since the nodules have documented enlargement over time, surgery makes sense before they grow too much. Given the presence of bilateral nodules, I recommended total thyroidectomy. We did discuss the possibility of right thyroid lobectomy as well. If she chooses lobectomy, then she would require completion thyroidectomy in the unlikely event that this 4cm nodule contains cancer. In addition, the two smaller nodules on the left may enlarge over time, necessitating completion thyroidectomy for symptomatic purposes. After this discussion, she prefers total thyroidectomy, which I think is a very reasonable decision. She understands this will commit her to lifelong thyroid hormone replacement. I discussed the risks of thyroidectomy including, but not limited to, laryngeal nerve injury resulting in voice changes or hoarseness, low calcium due to damage or removal of one or more parathyroid glands, bleeding which may require return to the operating room, post-operative infection and other complications related to anesthesia. The patient's questions were answered, and consent was obtained today. We will schedule surgery for the next mutually convenient date. The patient is not on anticoagulation/antiplatelet medication. She will not have a preoperative laryngoscopy. [facility] Data Body mass index is 27.36 kg/(m^2). Race: Patient Ethnicity & Race Ethnic Group Patient Race Not nor White Prior neck irradiation: no Prior anterior neck surgery: no Pre-operative laryngoscopy: no Anti-coagulation meds (aspirin, warfarin, clopidogrel, heparin, oral thrombin or factor Xa inhibitors): no Substernal component: no Symptoms of compression: no FNA: yes FNA Classification: Emmons 2 documented in this encounter Plan of Treatment Not on file documented as of this encounter Visit Diagnoses Diagnosis Multinodular goiter Nontoxic multinodular goiter documented in this encounter Care Teams Floral Specialist Relationship Specialty Start Date End Date Joanie Ferrell APRN PCP - General Family Medicine 02/03/17 03/30/18 documented as of this encounter
== END 2024-08-18 07:39 | disposition home or self-care (01) ==
LOC: NCHCN 07:38
PROVIDERS: PCP Registered Nurse; Visit Provider Family Medicine
DX: D64.9 Anemia, unspecified (principal); R82.998 Other abnormal findings in urine
CPT/HCPCS: 80053; 85027; 87077; 84443; 87086; 87186

== ENCOUNTER 2024-09-02 21:59 | Outpatient (REF) | payer MEDICARE, BC, SELFPAY ==
[2024-09-02 21:39] LABS: Abs Immature Grans 0.02 10^3/uL (0.0-0.06); Absolute Basophil Count 0.04 10^3/uL (0.0-0.2); Absolute Eosinophil Count 0.16 10^3/uL (0.0-0.7); Absolute Lymphocyte Count 2.01 10^3/uL (1.2-3.4); Absolute Monocyte Count 0.45 10^3/uL (0.1-0.8); Absolute Neutrophil Count 4.08 10^3/uL (1.2-6.7); Basophils % 0.6 %; Eosinophils % 2.4 %; HCT 36.7 % (36.0-46.0); HGB 11.5 g/dL (11.2-15.7); Immature Grans % 0.3 %; Lymphocytes % 29.7 %; MCH 26.7 pg (27.0-33.0); MCHC 31.3 % (32.0-36.0); MCV 85 fL (80-95); MPV 9.9 fL (8.0-11.0); Monocytes % 6.7 %; Neutrophils % 60.3 %; Platelet Count 260 10^3/uL (130-400); RBC 4.31 10^6/uL (3.93-5.22); RDW 12.5 % (11.7-14.6); RDW-SD 38.9 fL; WBC 6.76 10^3/uL (4.4-10.8)
[2024-09-02 21:53] LABS: Prothrombin Time 9.8 sec (9.1-11.1)
--- OUTSIDE RECORDS SUMMARY | 2024-09-02 22:05 | XMS_ITS ---
Author Organization Unknown Address [address] [place] [phone] Phone Care Team Providers Care Carpenter Rough Name Role Phone DANWA Santacruz Attending Unavailable SHANELLE Silva Primary Unavailable Social History Type Status Start Date End Date Code Code Syst em Smoking History Never smoker (Never Smoked) 263229616 SNOMED CT Sex Female Hospital Discharge Instructions [...] Code System No Known Drug Allergies Active [id number] SNOMED-CT Plan of Treatment MM SCREEN BILAT 10/14/2023 CT HEAD W/O CONTRAST 01/30/2023 MM SCREEN BILAT 09/30/2022 MM DIAG RT UNILAT 03/27/2022 US BREAST UNI RT 03/27/2022 MM DIAG RT UNILAT 03/27/2022 US BREAST UNI RT 03/27/2022 US BREAST UNI RT 09/26/2021 MM DIAG RT UNILAT 09/26/2021 MM SCREEN BILAT 09/24/2021 Encounters Encounter Diagnosis Start Date Code Code Sys tem 01/30/2022 [id number] SNOMED-CT Personal Care Team Section Performer Name Performer Role Active Date Inactive Da shyanne
--- OUTSIDE RECORDS SUMMARY | 2024-09-02 22:05 | XMS_ITS ---
Author Organization Unknown Address [address] [place] [address] [phone] Phone Care Team Providers Care Oracle Manufacturing Consultant Name Role Phone SHANELLE Silva Attending Unavailable Results MM SCREENING BILAT MAMMO W T TAQUERIA W CAD - Completed: 09/30/2022 09:39 LOINC: [facility] [place], [place] [address] PACS PULLMAN CAR REPAIRER REPORT Patient Name: ODILIA MAIER MRN: Sex: : Age: [id number] F 1950 71 Account: Accession: Admit: StayType: [id number] 09/30/2022 O/P Ordered: Order ID: Submitted: Ordering Provider: 09/30/2022 09:22 [id number] [facility] TIMMONS Completed: Technologist: Resulted: 09/30/2022 09:39 [...] follow-up screening mammography is recommended, as per [employer] guidelines. BI-RADS Category 1: Negative [...] em Smoking History Never smoker (Never Smoked) 951355339 SNOMED CT Sex Female Hospital Discharge Instructions [...] Code System No Known Drug Allergies Active 057641708 SNOMED-CT Plan of Treatment MM SCREEN BILAT [...]
--- OUTSIDE RECORDS SUMMARY | 2024-09-02 22:05 | XMS_ITS ---
Author Organization Unknown Address [address] [place] [address] [phone] Phone Care Team Providers Care Pellet Mill Operator Name Role Phone SHANELLE Silva Attending Unavailable [...] D Sunday, September 19, 2021 8:17:42 AM [id number] Electronically Reviewed and Signed By: CARRIE BONILLA MD 09/19/21 17:42 TECHNOLOGIST: RT Walter (R) (CT) Copy for: 185 HEALTH INFORMATION MGMT Social History Type Status Start Date End Date Code Code Syst em Smoking History Never smoker (Never Smoked) 894144650 SNOMED CT Sex Female Hospital Discharge Instructions [...] Code System No Known Drug Allergies Active 380102059 SNOMED-CT Plan of Treatment MM SCREEN BILAT 10/14/2023 CT HEAD W/O CONTRAST 01/30/2023 MM SCREEN BILAT 09/30/2022 MM DIAG RT UNILAT 03/27/2022 US BREAST UNI RT 03/27/2022 MM DIAG RT UNILAT 03/27/2022 US BREAST UNI RT 03/27/2022 US BREAST UNI RT 09/26/2021 MM DIAG RT UNILAT 09/26/2021 MM SCREEN BILAT 09/24/2021 Encounters Encounter Diagnosis Start Date Code Code Sys tem Screening mammography 09/19/2021 25346426 SNOMED -CT Personal Care Team Section Performer Name Performer Role Active Date Inactive Da te
--- OUTSIDE RECORDS SUMMARY | 2024-09-02 22:05 | XMS_ITS ---
Author Organization Unknown Address [address] [place] [address] [phone] Phone Care Team Providers Care Primer Charging Tool Setter Name Role Phone TIMMONS SHIRLEY Silva Attending Unavailable Results US BREAST COMPLETE RT* - Com pleted: 09/26/2021 15:52 LOINC: Digital mammograms were inte rpreted according to the usual protocol including computer analysis with [employer] system including tomosynthesis. DIAGNOSTIC RIGHT BREAST MAMMOGRAM [...] KEI BONILLA MD Transcribed by: MICHAEL 09/26/21/16:31 [id number] Electronically Reviewed and Signed By: CARRIE BONILLA MD 09/26/21 16:50 Copy for: 185 HEALTH INFORMATION MGMT Social History Type Status Start Date End Date Code Code Syst em Smoking History Never smoker (Never Smoked) 090746738 SNOMED CT Sex Female Hospital Discharge Instructions [...] Code System No Known Drug Allergies Active 461443776 SNOMED-CT Plan of Treatment MM SCREEN BILAT [...] Code Sys tem Inconclusive mammography finding 09/26/2021 [id number] SNOMED-CT Personal Care Team Section Performer Name Performer Role Active Date Inactive Da shyanne
--- OUTSIDE RECORDS SUMMARY | 2024-09-02 22:05 | XMS_ITS ---
Author Organization Unknown Address [address] [place] [address] [phone] Phone Care Team Providers Care Route Contractor Name Role Phone SHANELLE Silva Attending Unavailable [...] D Sunday, March 27, 2022 10:23:45 AM [id number] Electronically Reviewed and Signed By: KIMBERLY LOWERY MD 04/02/22 08:14 TECHNOLOGIST: RT Denisa (R)(M)(CT) Copy for: SHANELLE Silva via fax Copy for: [employer] INFORMATION [facility] BREAST LIMITED RT* - Comp leted: [...] may obscure small masses. Dictated by: KIMBERLY LOWERY RADIOLOGIST Transcribed by: KATIE 03/28/22/11:23 D Sunday, March 27, 2022 10:23:45 AM [id number] Electronically Reviewed and Signed By: KIMBERLY LOWERY MD 04/02/22 08:15 TECHNOLOGIST: RT Denisa (Basilia)(Ricardo)(CT) Copy for: SHANELLE Silva via fax Copy for: [facility] HEALTH INFORMATION MGMT Social History Type Status Start Date End Date Code Code Syst em Smoking History Never smoker (Never Smoked) 922688699 SNOMED CT Sex Female Hospital Discharge Instructions [...] Code System No Known Drug Allergies Active 198227531 SNOMED-CT Plan of Treatment MM SCREEN BILAT [...]
--- OUTSIDE RECORDS SUMMARY | 2024-09-02 22:06 | XMS_ITS ---
Author Organization Unknown Address [address] [place] [address] [phone] Phone Care Team Providers Care Farm Technician Name Role Phone KEYUR MYA Attending Unavailable Results MM SCREENING BILAT MAMMO W T TAQUERIA W CAD - Completed: 10/14/2023 10:53 LOINC: [facility] [place], [place] [address] PACS EXECUTIVE SALES ASSISTANT REPORT Patient Name: ODILIA MAIER MRN: Sex: : Age: [id number] F 1950 72 Account: Accession: Admit: StayType: [id number] 10/14/2023 O/P Ordered: Order ID: Submitted: Ordering Provider: 10/14/2023 10:41 [id number] SHIRLEY OMNTANO Completed: Technologist: Resulted: 10/14/2023 10:53 KVK 10/14/2023 [...] em Smoking History Never smoker (Never Smoked) 672429093 [place] CT Sex Female Hospital Discharge Instructions Should [...] Code System No Known Drug Allergies Active 022785015 SNOMED-CT Plan of Treatment MM SCREEN BILAT 10/14/2023 CT HEAD W/O CONTRAST 01/30/2023 MM SCREEN BILAT 09/30/2022 MM DIAG RT UNILAT 03/27/2022 US BREAST UNI RT 03/27/2022 MM DIAG RT UNILAT 03/27/2022 US BREAST UNI RT 03/27/2022 US BREAST UNI RT 09/26/2021 MM DIAG RT UNILAT 09/26/2021 MM SCREEN BILAT 09/24/2021 Encounters Encounter Diagnosis Start Date Code Code Sys tem Screening mammography 10/14/2023 60274554 SNOMED -CT Personal Care Team Section Performer Name Performer Role Active Date Inactive Da te
--- OUTSIDE RECORDS SUMMARY | 2024-09-02 22:06 | XMS_ITS ---
Author Organization Unknown Address [address] [place] [address] [phone] Phone Care Team Providers Care Pharmacy Ancillary Name Role Phone DAWNA Santacruz Attending Unavailable SHANELLE Silva Primary Unavailable Social History Type Status Start Date End Date Code Code Syst em Smoking History Never smoker (Never Smoked) 604373727 SNOMED CT Sex Female Hospital Discharge Instructions [...] Code System No Known Drug Allergies Active 734570385 SNOMED-CT Plan of Treatment MM SCREEN BILAT 10/14/2023 CT HEAD W/O CONTRAST 01/30/2023 MM SCREEN BILAT 09/30/2022 MM DIAG RT UNILAT 03/27/2022 US BREAST UNI RT 03/27/2022 MM DIAG RT UNILAT 03/27/2022 US BREAST UNI RT 03/27/2022 US BREAST UNI RT 09/26/2021 MM DIAG RT UNILAT 09/26/2021 MM SCREEN BILAT 09/24/2021 Encounters Encounter Diagnosis Start Date Code Code Sys tem 11/22/2022 [id number] SNOMED-CT Personal Care Team Section Performer Name Performer Role Active Date Inactive Da shyanne
--- OUTSIDE RECORDS SUMMARY | 2024-09-02 22:07 | XMS_ITS | Encounter Summary ---
Author Organization [facility] Address [address] [place] [address] Care Team Providers Care Dot Compliance Manager Name Role Phone Joanie Ferrell DNP [facility] Primary Care Prov ider Encounter Details Date Type Department Care Team (Latest Contact Info) Description 11/20/2016 7:45 EST - 11/20/2016 23:59 EST Hospital Encounter [place] [address] [place] [address] Unknown, Provider, Discharge Disposition: Home or Self Care Social History Tobacco Use Types Packs/Day Years Used Date Smoking Tobacco: Never Alcohol Use Standard Drinks/Week Comments Not Asked 0 (1 standard drink = 0.6 oz pur e alcohol) Comments No Sex and Gender Information Value Date Recorded Sex Assigned at Female 09/02/2024 9:28 EST Legal Sex Female 18:36 EST Gender Identity Female 01/17/2023 13:27 EDT Sexual Orientation Not on file documented as of this encounter Functional Status * Because of a physical, mental, or emotional condition, does this person have difficulty doing errands alone such as visiting a doctor's office or shopping? Answer Date of Assessment Author No 01/25/2016 13:00 EDT documented as of this encounter Mental Status * Because of a physical, mental, or emotional condition, does this person have serious difficulty concentrating, remembering, or making decisions? Answer Entry Date Author No 01/25/2016 13:00 EDT documented in this encounter Discharge Disposition Disposition Code Departure Means Destination Home or Self Fpc documented in this encounter Plan of Treatment Upcoming Encounters Date Type Department Care Team (Late st Contact Info) Description 09/08/2024 7:25 EST Hospital Encounter [facility] OR [address] [place] [address] [phone] Amos Andujar MD [address] [place] [address] [phone] 09/08/2024 7:25 EST - 09/08/2024 12:55 EST Surgery [facility] OR [address] [place] [address] [phone] Amos Andujar MD [address] [place] [address] [phone] Bifrontal craniotomy for resction of meningioma [78548 (CPT??)] 10/05/2024 11:00 EST Post-op Visit [facility] Neurosurgery - [address] [phone] Mohini Bedoya PA-C [address] [place] [address] [phone] Scheduled Procedures Name Priority Associated Diagnoses Date/Ti me CRANIECTOMY, SUPRATENTORIAL, FOR EXCISION OF MENINGIOMA Meningioma ([facility]) 09/08/2024 7:25 EST documented as of this encounter Visit Diagnoses Not on filedocumented in this encounter Care Teams Dot Compliance Manager Relationship Specialty Start Date End Date Joanie Ferrell DNP CNM EXPERIMENTAL PREFLIGHT MECHANIC PCP - General 01/24/16 11/26/16 documented as of this encounter
--- OUTSIDE RECORDS SUMMARY | 2024-09-02 22:07 | XMS_ITS | Encounter Summary ---
Author Organization [facility] Address [address] [place] [address] Care Team Providers Care Body Press Operator Name Role Phone Kerrie Morgan APRN Primary Care Provider + Maxine Masterson MD Unavailable [phone] Encounter Details Date Type Department Care Team (Late st Contact Info) Description 02/16/2024 10:35 EDT Phlebotomy Only [facility] - Outpatient Phlebotomy Drawing [address] [place] [address] [address], [facility] Op Phlebotomy Benign neoplasm of meninges, unspecified [...] 01/25/2016 13:00 EDT documented in this encounter Plan of Treatment Upcoming Encounters Date Type Department Care Team (Late st Contact Info) Description 09/08/2024 7:25 EST Hospital Encounter [facility] [place] [address] [place] [address] [phone] Amos Andujar MD [address] [place] [address] [phone] 09/08/2024 7:25 EST - 09/08/2024 12:55 EST Surgery [facility] [place] [address] [place] [address] [phone] Amos Andujar MD [address] [place] [address] [phone] Bifrontal craniotomy for resction of meningioma [84614 (CPT??)] 10/05/2024 11:00 EST Post-op Visit [facility] Neurosurgery - [address] [phone] Mohini Bedoya PA-C [address] [place] [address] [phone] Scheduled Procedures Name Priority Associated Diagnoses Date/Ti me CRANIECTOMY, SUPRATENTORIAL, FOR EXCISION OF MENINGIOMA Meningioma (HCC-CMS) 09/08/2024 7:25 EST documented as of this encounter Procedures Procedure Name Priority Date/Time Associated Diagnosis Comments CREATININE STAT 02/16/2024 10:37 EDT Benign neoplasm of meninges, unspecified (HCC-CMS) documented in this encounter Results * CREATININE (02/16/2024 10:37 EDT) Creatinine 0.75 0.52 - 1.04 mg/dL 02/16/2024 11:00 EDT [facility] eGFR 85 >60 mL/min/1.73 m2 02/16/2024 11:00 EDT [facility] Blood VENOUS BLOOD / Unknown Venipuncture / Unknown 02/16/2024 10:37 EDT 02/16/2024 10:38 EDT Amos Andujar MD CHEMISTRY & BLOOD GAS ORDER FER Final Result [facility] [address] [place], [place] [phone] documented in this encounter Visit Diagnoses Diagnosis Benign neoplasm of meninges, unspecified (HCC-CMS) Meningioma (HCC-CMS) Benign neoplasm of cerebral meninges documented in this encounter Care Teams Body Press Operator Relationship Specialty Start Date End Date Kerrie Morgan APRN [address] [place] [phone] PCP - General 01/17/23 08/17/24 Maxine Masterson MD [address] [place] [address] 01/17/23 documented as of this encounter
--- OUTSIDE RECORDS SUMMARY | 2024-09-02 22:07 | XMS_ITS | Encounter Summary ---
Author Organization [facility] Address [address] [place] [address] Care Team Providers Care Director Of Nuclear Medicine Name Role Phone Maxine Masterson MD Primary Care Provider [phone] Joanie Ferrell DNP CN DARKLIGHT INSPECTOR Primary Care Prov ider Reason for Visit * Reason Onset Date Comments Appointment Related 01/23/2016 Cyst 01/23/2016 thyroid Encounter Details Date Type Department Care Team (Late st Contact Info) Description 01/23/2016 Telephone [facility] Endocrinology - [facility] [address] [place] [address] Dilip Alonzo, [address] [facility] [address] [place] [address] Appointment Related; Cyst (thyroid) Social [...] Description 09/08/2024 7:25 EST Hospital Encounter [facility] [place] [address] [place] [address] [phone] Amos Andujar MD [address] [place] [phone] 09/08/2024 7:25 EST - 09/08/2024 12:55 EST Surgery [facility] OR [address] [place] [address] [phone] Amos Andujar MD [address] [place] [address] [phone] Bifrontal craniotomy for resction of meningioma [68683 (CPT??)] 10/05/2024 11:00 EST Post-op Visit [facility] Neurosurgery - [address] [phone] Mohini Bedoya PA-C [address] [place] [address] [phone] Scheduled Procedures Name Priority Associated Diagnoses Date/Ti me CRANIECTOMY, SUPRATENTORIAL, FOR EXCISION OF MENINGIOMA Meningioma ([facility]) 09/08/2024 7:25 EST documented as of this encounter Visit Diagnoses Not on filedocumented in this encounter Care Teams Director Of Nuclear Medicine Relationship Specialty Start Date End Date Maxine Masterson MD [address] [place] [phone] PCP - General 01/29/13 01/23/16 Joanie Ferrell, GISSELLE CNM DARKLIGHT INSPECTOR [address] [place] [address] PCP - General 01/24/16 11/26/16 documented as of this encounter
--- OUTSIDE RECORDS SUMMARY | 2024-09-02 22:07 | XMS_ITS | Encounter Summary ---
Author Organization [facility] Address [address] [place] [address] Care Team Providers Care Propulsion Motor And Generator Repairer Name Role Phone Kerrie Morgan APRN Primary Care Provider + Maxine Masterson MD Unavailable [phone] Reason for Visit * Reason Onset Date Comments Appointment Related 01/22/2023 Encounter Details Date Type Department Care Team (Late st Contact Info) Description 01/22/2023 Telephone [facility] [address] [place], [place] [phone] Amos Andujar MD [address] [facility], [address] [place] [phone] Appointment Related Social History Tobacco [...] 01/25/2016 13:00 EDT documented in this encounter Miscellaneous Notes * Telephone Encounter - EsparzaEve - 01/22/2023 1019 EDT Images from the original note were not included. Confirmed the following appointment details with Aparna. She verbalized understanding and denied having any questions. documented in this encounter Plan of Treatment Upcoming Encounters Date Type Department Care Team (Late st Contact Info) Description 09/08/2024 7:25 EST Hospital Encounter [facility] OR [address] [place] [address] [phone] Amos Andujar MD [address] [place] [phone] 09/08/2024 7:25 EST - 09/08/2024 12:55 EST Surgery [facility] OR [address] [place] [address] [phone] Amos Andujar MD [address] [place] [address] [phone] Bifrontal craniotomy for resction of meningioma [78879 (CPT??)] 10/05/2024 11:00 EST Post-op Visit [facility] Neurosurgery - [address] [address] Mohini Bedoya PA-C [address] [place] [phone] Scheduled Procedures Name Priority Associated Diagnoses Date/Ti me CRANIECTOMY, SUPRATENTORIAL, FOR EXCISION OF MENINGIOMA Meningioma ([facility]) 09/08/2024 7:25 EST documented as of this encounter Visit Diagnoses Not on filedocumented in this encounter Care Teams Propulsion Motor And Generator Repairer Relationship Specialty Start Date End Date Kerrie Morgan APRN [address] [place] [address] PCP - General 01/17/23 08/17/24 Maxine Masterson MD [address] [place] [address] 01/17/23 documented as of this encounter
--- OUTSIDE RECORDS SUMMARY | 2024-09-02 22:07 | XMS_ITS | Encounter Summary ---
Author Organization [facility] Address [address] [place] [address] Care Team Providers Care Assistant Auto Center Manager Name Role Phone Kerrie Morgan APRN Primary Care Provider + Maxine Masterson MD Unavailable [phone] Reason for Referral * Radiology Services (STAT) - Authorization Not Required Specialty Diagnoses / Procedures Referred By Contac t Referred To Contact Diagnoses Headache, unspecified Procedures CT ANGIO HEAD Kerrie Morgan APRN [address] [place] [address] Phone: tel: fax: [facility] Referral ID Status Reason Start Date Expiration Date Visits Requested Visits Authorized [id number] Authorization Not Required 01/17/2023 1 1 Reason for Visit * Radiology Services (STAT) - Authorization Not Required Specialty Diagnoses / Procedures Referred By Contac t Referred To Contact Diagnoses Headache, unspecified Procedures CT ANGIO HEAD Kerrie Morgan APRN [address] [place] [address] Phone: tel: fax: [facility] Referral ID Status Reason Start Date Expiration Date Visits Requested Visits Authorized [id number] Authorization Not Required 01/17/2023 1 1 Encounter Details Date Type Department Care Team (Latest Contact Info) Description 01/17/2023 13:02 EDT - 01/17/2023 23:59 EDT Hospital Encounter [facility] CT Scan [address] [place] [address] Headache, unspecified Discharge Disposition: Home or Self Care Social History Tobacco Use Types Packs/Day Years Used Date Smoking Tobacco: Never Assessed Comments No Sex and Gender Information Value [...] 01/25/2016 13:00 EDT documented in this encounter Medications at Time of Discharge atorvastatin (LIPITOR) 20 mg tablet Take 1 Tablet by mouth every evening. 01/17/2023 documented as of this encounter Discharge Disposition Disposition Code Departure Means Destination Home or Self Care documented in this encounter Plan of Treatment Upcoming Encounters Date Type Department Care Team (Late st Contact Info) Description 09/08/2024 7:25 EST Hospital Encounter [facility] OR [address] [place] [address] [phone] Amos Andujar MD [address] [place] [address] [phone] 09/08/2024 7:25 EST - 09/08/2024 12:55 EST Surgery [facility] OR [address] [place] [address] [phone] Amos Andujar MD [address] [place] [address] [phone] Bifrontal craniotomy for resction of meningioma [23521 (CPT??)] 10/05/2024 11:00 EST Post-op Visit [facility] Neurosurgery - [facility] [address] [place], [place] [phone] Mohini Bedoya PA-C [address] [facility], [address] [place] [phone] Scheduled Procedures Name Priority Associated Diagnoses Date/Ti me CRANIECTOMY, SUPRATENTORIAL, FOR EXCISION OF MENINGIOMA Meningioma ([facility]) 09/08/2024 7:25 EST documented as of this [...] stability. 4. ??Additional findings detailed above. Per [facility] policy, this study has been entered into [...] visible. Bones: Unremarkable. Extracranial soft tissues: Unremarkable. us Kerrie Morgan REACTOR KETTLE OPERATOR IMG CT ORDERABLES Edited * CREATININE (01/17/2023 13:09 EDT) Creatinine 0.83 0.52 - 1.04 mg/dL 01/17/2023 13:33 EDT [facility] eGFR 76 >60 mL/min/1.73 m2 01/17/2023 13:33 EDT [facility] Blood VENOUS BLOOD / Unknown Venipuncture / Unknown 01/17/2023 13:09 EDT 01/17/2023 13:13 EDT us Kerrie Morgan REACTOR KETTLE OPERATOR CHEMISTRY & BLOOD GAS OR DERABLES Final Result [facility] [address] [place] [address] documented in this encounter Visit Diagnoses Diagnosis Headache, unspecified Meningioma (HCC-CMS) Benign neoplasm of cerebral meninges [...] 01/17/2023 documented in this encounter Care Teams Assistant Auto Center Manager Relationship Specialty Start Date End Date Kerrie Morgan, REACTOR KETTLE OPERATOR [address] [place] [phone] PCP - General 01/17/23 08/17/24 Maxine Masterson MD [address] [place] [address] 01/17/23 documented as of this encounter
--- OUTSIDE RECORDS SUMMARY | 2024-09-02 22:07 | XMS_ITS | Encounter Summary ---
Author Organization [facility] Address [address] [place] [address] Care Team Providers Care Program Attendant Name Role Phone Maxine Masterson MD Primary Care Provider [phone] Joanie Ferrell DNP [facility] MOTEL OPERATOR Primary Care Prov ider Reason for Visit * Reason Onset Date Comments Results 09/08/2014 Encounter Details Date Type Department Care Team (Late st Contact Info) Description 09/08/2014 Telephone [facility] Endocrinology - [facility] [address] [place] [address] Dilip Alonzo DO [address] [facility] [address] [place] [address] Results Social History Tobacco Use [...] encounter Miscellaneous Notes * Telephone Encounter - Chesley Levi - 09/09/2014 0953 EST I left a detailed message on the patient's identified voicemail re: results and plan. Patient will call back if any questions or problems. * Telephone Encounter - Dilip Alonzo DO - 09/08/2014 1059 EST Please contact patient via phone. [facility] Advise patient that TSH and Free T4 were normal. documented in this encounter Plan of Treatment Upcoming Encounters Date Type Department Care Team (Late st Contact Info) Description 09/08/2024 7:25 EST Hospital Encounter [facility] OR [address] [place] [phone] Amos Andujar MD [address] [place] [address] [phone] 09/08/2024 7:25 EST - 09/08/2024 12:55 EST Surgery [facility] OR [address] [place] [address] [phone] Amos Andujar MD [address] [place] [phone] Bifrontal craniotomy for resction of meningioma [84067 (CPT??)] 10/05/2024 11:00 EST Post-op Visit [facility] Neurosurgery - [address] [phone] Mohini Bedoya PA-C [address] [place] [phone] Scheduled Procedures Name Priority Associated Diagnoses Date/Ti me CRANIECTOMY, SUPRATENTORIAL, FOR EXCISION OF MENINGIOMA Meningioma ([facility]) 09/08/2024 7:25 EST documented as of this encounter Visit Diagnoses Not on filedocumented in this encounter Care Teams Program Attendant Relationship Specialty Start Date End Date Maxine Masterson MD [address] [place] [address] PCP - General 01/29/13 01/23/16 Joanie Ferrell DNP CN MOTEL OPERATOR [address] [place] [address] PCP - General 01/24/16 11/26/16 documented as of this encounter
--- OUTSIDE RECORDS SUMMARY | 2024-09-02 22:07 | XMS_ITS | Encounter Summary ---
Author Organization [facility] Address [address] [place] [address] Care Team Providers Care Cardiovascular Operating Room Nurse Name Role Phone Kerrie Morgan APRN Primary Care Provider + Maxine Masterson MD Unavailable [phone] Encounter Details Date Type Department Care Team (Late st Contact Info) Description 03/16/2024 Orders Only [facility] Radiology - Main [place] [address] [place], [place] [phone] Tru Zhang MD [address] [place] [address] Social History Tobacco Use Types Packs/Day Years [...] Info) Description 09/08/2024 7:25 EST Hospital Encounter [facility] OR [address] [place] [address] [phone] Amos Andujar MD [address] [place] [address] [phone] 09/08/2024 7:25 EST - 09/08/2024 12:55 EST Surgery [facility] OR [address] [place] [address] [phone] Amos Andujar MD [address] [place] [address] [phone] Bifrontal craniotomy for resction of meningioma [33203 (CPT??)] 10/05/2024 11:00 EST Post-op Visit [facility] Neurosurgery - [address] [phone] Mohini Bedoya PA-C [address] [place] [address] [phone] Scheduled Procedures Name Priority Associated Diagnoses Date/Ti me CRANIECTOMY, SUPRATENTORIAL, FOR EXCISION OF MENINGIOMA Meningioma ([facility]) 09/08/2024 7:25 EST documented as of this encounter Visit Diagnoses Not on filedocumented in this encounter Care Teams Cardiovascular Operating Room Nurse Relationship Specialty Start Date End Date Kerrie Morgan APRN [address] [place] [phone] PCP - General 01/17/23 08/17/24 Maxine Masterson MD [address] [place] [address] 01/17/23 documented as of this encounter
--- OUTSIDE RECORDS SUMMARY | 2024-09-02 22:07 | XMS_ITS | Encounter Summary ---
Author Organization [facility] Address [address] [place] [address] Care Team Providers Care Candy Spreader Name Role Phone Kerrie Morgan APRN Primary Care Provider + Maxine Masterson MD Unavailable [phone] Reason for Referral * Radiology Services (Routine/Next Available) - Authorization Not Required Specialty Diagnoses / Procedures Referred By Contac t Referred To Contact Radiology Diagnoses Meningioma ([facility]) Procedures MR HEAD W WO CONTRAST Mohini Bedoya PA-C [address] [place] [phone] Phone: tel: fax: [facility] Referral ID Status Reason Start Date Expiration Date Visits Requested Visits Authorized [id number] Authorization Not Required 03/16/2024 1 1 Reason for Visit * Radiology Services (Routine/Next Available) - Authorization Not Required Specialty Diagnoses / Procedures Referred By Contac t Referred To Contact Radiology Diagnoses Meningioma ([facility]) Procedures MR HEAD W WO CONTRAST Mohini Bedoya PA-C [address] [place] [phone] Phone: tel: fax: [facility] Referral ID Status Reason Start Date Expiration Date Visits Requested Visits Authorized [id number] Authorization Not Required 03/16/2024 1 1 Encounter Details Date Type Department Care Team (Latest Contact Info) Description 08/03/2024 13:09 EDT - 08/03/2024 23:59 EDT Hospital Encounter [facility] [address] [place] [address] Meningioma ([facility]) Discharge Disposition: Home or Self Care Social [...] daily. MULTIVITAMIN ORAL Take by mouth daily. ascorbic acid (VITAMIN C ORAL) Take by mouth daily. 08/26/2024 documented as of this encounter Discharge Disposition Disposition Code Departure Means Destination Home or Self Care documented in this encounter Plan of Treatment Upcoming Encounters Date Type Department Care Team (Late st Contact Info) Description 09/08/2024 7:25 EST Hospital Encounter [facility] OR [address] [place] [address] Amos Andujar MD [address] [facility], [address] [place] [address] 09/08/2024 7:25 EST - 09/08/2024 12:55 EST Surgery [facility] OR [address] [place] [address] [phone] Amos Andujar MD [address] [place] [address] 5 [place] [phone] Bifrontal craniotomy for resction of meningioma [16102 (CPT??)] 10/05/2024 11:00 EST Post-op Visit [facility] Neurosurgery - [address] [phone] Mohini Bedoya PA-C [address] [place] [phone] Scheduled Procedures Name Priority Associated Diagnoses Date/Ti me CRANIECTOMY, SUPRATENTORIAL, FOR EXCISION OF MENINGIOMA Meningioma (HCC-CMS) 09/08/2024 7:25 EST documented as of this encounter Procedures Procedure Name Priority Date/Time Associated Diagnosis Comments MR HEAD W WO CONTRAST Routine 08/03/2024 14:41 EDT Meningioma ([facility]) documented in this encounter Results * MR HEAD W WO CONTRAST (08/03/2024 14:41 EDT) Anatomical Region Laterality Modality Head Magnetic Resonan ce 08/03/2024 15:5 4 EDT Impressions 08/03/2024 15:54 EDT No significant change to minimal increased size of presumed left anterior frontal parafalcine meningioma. I have personally reviewed the images and the above interpretation and agree with the findings. [id number] Narrative 08/03/2024 15:54 EDT EXAM: MRI HEAD [...] EXTRACRANIAL SOFT TISSUES: Unremarkable. Resulting Agency Comment [id number] Procedure Note Bautista Johnson MD - 08/03/2024 [...] the above interpretation andagree with the findings. [id number] us Mohini Bedoya PA-C IMG MRI ORDERABLES Final Result documented in this encounter Visit Diagnoses Diagnosis Meningioma (HCC-CMS) Benign neoplasm of cerebral meninges Meningioma (HCC-CMS) Benign neoplasm of cerebral meninges documented in this encounter Administered Medications Inactive Administered Medications - up to 3 most recent administrations Medication Order MAR Action Action Date Dose Rate Site gadoterate meglumine solution 1-30 mL 1-30 mL, intravenous, Once in imaging, 1 dose, Starting on Fri08/03/24 at 1443, Until Fri08/03/24 at 1443, Routine, Imaging Protocol Orders Given 08/03/2024 14:43 EDT 14 mL documented in this encounter Orders Medications Ordered That Hardeep ht Not Have Been Administered Count Last Ordered Date First Ordered Date gadoterate meglumine solution 1-30 mL 1 documented in this encounter Care Teams Candy Spreader Relationship Specialty Start Date End Date Kerrie Morgan APRN [address] [place] [address] PCP - General 01/17/23 08/17/24 Maxine Masterson MD [address] [place] [phone] 01/17/23 documented as of this encounter
--- OUTSIDE RECORDS SUMMARY | 2024-09-02 22:07 | XMS_ITS | Encounter Summary ---
Author Organization [facility] Address [address] [place] [address] Care Team Providers Care Records Assistant Name Role Phone Kerrie Morgan APRN Primary Care Provider + Maxine Masterson MD Unavailable [phone] Encounter Details Date Type Department Care Team (Late st Contact Info) Description 02/14/[address] [facility] - [facility] [address] [place] [address] Kavya Garay Social History Tobacco Use Types Packs/Day Years [...] Info) Description 09/08/2024 7:25 EST Hospital Encounter [facility] OR [address] [place] [address] [phone] Amos Andujar MD [address] [place] [phone] 09/08/2024 7:25 EST - 09/08/2024 12:55 EST Surgery [facility] OR [address] [place] [address] [phone] Amos Andujar MD [address] [place] [address] [phone] Bifrontal craniotomy for resction of meningioma [80110 (CPT??)] 10/05/2024 11:00 EST Post-op Visit [facility] Neurosurgery - [address] [phone] Mohini Bedoya PA-C [address] [place] [address] [phone] Scheduled Procedures Name Priority Associated Diagnoses Date/Ti me CRANIECTOMY, SUPRATENTORIAL, FOR EXCISION OF MENINGIOMA Meningioma ([facility]) 09/08/2024 7:25 EST documented as of this encounter Visit Diagnoses Not on filedocumented in this encounter Care Teams Records Assistant Relationship Specialty Start Date End Date Kerrie Morgan APRN [address] [place] [address] PCP - General 01/17/23 08/17/24 Maxine Masterson MD [address] [place] [address] 01/17/23 documented as of this encounter
--- OUTSIDE RECORDS SUMMARY | 2024-09-02 22:07 | XMS_ITS ---
Author Organization Unknown Address [address] [place] [phone] Phone Care Team Providers Care Licensed Psychiatric Technician Name Role Phone SON Silva Primary Unavailable Social History Type Status Start Date End Date Code Code Syst em Smoking History Never smoker (Never Smoked) 849490659 SNOMED CT Sex Female Vital Signs Vital Sign Value Unit [place] [facility] [place] Unit Date/Time Recent/Initial? Code Code System Systolic Blood Pressure 131 mm[Hg] 06/17/2024 09:07 Most Recent 8480-6 LOINC Diastolic Blood Pressure 74 mm[Hg] 06/17/2024 09:07 Most Recent 8462-4 LOINC Systolic Blood Pressure 125 mm[Hg] 06/17/2024 09:06 Initial 8480-6 LOINC Diastolic Blood Pressure 69 mm[Hg] 06/17/2024 09:06 Initial 8462-4 LOINC O2 Saturation 100 % 2023 09:07 Most Recent 54327- 5 LOINC O2 Saturation 100 % 2023 09:06 Initial 45897- 5 LOINC Pulse 58.0 /min 06/17/2024 09:07 [...] w/Collj Spec When Pfrmd 06/17/2024 comp leted 34311 CPT Allergies and Adverse Reactions Allergy Substance Reaction Severity Start Date Concern Status Co de Code System No Known Drug Allergies Active 509584454 SNOMED-CT Plan of Treatment MM SCREEN BILAT [...]
--- OUTSIDE RECORDS SUMMARY | 2024-09-02 22:07 | XMS_ITS | Encounter Summary ---
Author Organization [facility] Address [address] [place] [address] Care Team Providers Care Noise Tester Name Role Phone Kerrie Morgan APRN Primary Care Provider + Maxine Masterson MD Unavailable [phone] Reason for Referral * Radiology Services (Routine/Next Available) - Specialty Report Received Specialty Diagnoses / Procedures Referred By Caleb luna Referred To Contact Radiology Diagnoses Meningioma ([facility]) Procedures MR HEAD W WO CONTRAST MR HEAD W WO CONTRAST CHG MRI BRAIN COMBO Amos Andujar MD Phone: tel: fax: [facility] MRI [address] [place] [address] Phone: tel: fax: Referral ID Status Reason Start Date Expiration Date V isits Requested Visits Authorized [id number] Specialty Report Received 02/14/2023 1 1 Reason for Visit * Reason Comments New Patient Visit Meningioma * Referral (Urgent) - Receiving Office to Obtain Authorization Specialty Diagnoses / Procedures Referred By Caleb luna Referred To Contact Neurosurgery Diagnoses Brain tumor ([facility]) Headache Kerrie Morgan APRN [address] [place] [phone] Phone: tel: fax: Amos Andujar MD Phone: tel: fax: Referral ID Status Reason Start Date Expiration Date Visits Requested Visits Authorized [id number] Receiving Office to Obtain Authorization 1 1 Encounter Details Date Type Department Care Team (Late st Contact Info) Description 02/14/2023 10:[address] [facility] Neurosurgery - [address] [phone] Amos Andujar MD [address] [facility], Level [address] [place] [address] Meningioma ([facility]) (Primary Dx) Social History Tobacco Use Types [...] EDT documented in this encounter Functional Status * Because of [...] 01/25/2016 13:00 EDT documented in this encounter Progress Notes * Amos Andujar MD - 02/14/2023 1000 EDT This office note has been dictated. I spent total of 30 minutes on the date of this encounter meeting with this patient and reviewing documentation/coordinating care as described in the dictated note. documented in this encounter Consult Notes * Amos Andujar MD - 02/14/2023 0934 EDT [facility] NEUROLOGICAL SURGERY CONSULTATION - 02/14/2023 Dear Kerrie: I had the pleasure of seeing your patient, Aparna Fairchild, in consultation in my neurosurgery officeat [facility] on 02/14/2023. She was referred for assessment of a 2 cm left frontal lobe suspected meningioma. This woman is 72 years old. She lives in [place], [place]. She reports to me that recently [...] she have a repeat MRI scan [facility] and without contrast in 3 months Sonya [...] informed. Yours sincerely, Amos Andujar MD / Dictation ID: [id number] cc: Kerrie Morgan APRN, [address] [place] [phone] documented in this encounter Plan of Treatment Upcoming Encounters Date Type Department Care Team (Late st Contact Info) Description 09/08/2024 7:25 EST Hospital Encounter [facility] OR [address] [place] [address] [phone] Amos Andujar MD [address] [place] [phone] 09/08/2024 7:25 EST - 09/08/2024 12:55 EST Surgery [facility] OR [address] [place] [address] [phone] Amos Andujar MD [address] [place] [phone] Bifrontal craniotomy for resction of meningioma [42399 (CPT??)] 10/05/2024 11:00 EST Post-op Visit [facility] Neurosurgery - [facility] [address] [place], [place] [phone] Mohini Bedoya PA-C [address] [facility], [address] [place] [address] Scheduled Procedures Name Priority Associated Diagnoses Date/Ti hi CRANIECTOMY, SUPRATENTORIAL, FOR EXCISION OF MENINGIOMA Meningioma (HCC-CMS) 09/08/2024 7:25 EST documented as of this encounter Results * MR HEAD W WO CONTRAST (05/14/2023 14:03 EDT) Anatomical Region Laterality Modality Head Magnetic Resonan ce 05/14/2023 14:5 0 EDT Impressions 05/14/2023 14:50 EDT 1. Stable exam. The left parafalcine anterior frontal region meningioma is unchanged. [id number] Narrative 05/14/2023 14:50 EDT EXAM: MRI HEAD WO/W CONTRAST HISTORY: Meningioma; tumor;D32.9:Meningioma ([facility]) TECHNIQUE: MRI head without and with intravenous [...] left parafalcine anterior frontal region meningioma isunchanged. [id number] us Amos Andujar MD IMG MRI ORDERABLES Final Re sult documented in this encounter Visit Diagnoses Diagnosis Meningioma (HCC-CMS)- Primary Benign neoplasm of cerebral meninges Meningioma (HCC-CMS) Benign neoplasm of cerebral meninges Meningioma (HCC-CMS) Benign neoplasm of cerebral meninges documented in this encounter Historical Medications * This list may reflect changes made after this encounter. MULTIVITAMIN ORAL Take by mouth daily. cholecalciferol, vitamin D3, (VITAMIN D3 ORAL) Take by mouth daily. atorvastatin (LIPITOR) 20 mg tablet Take 1 Tablet by mouth every evening. 01/17/2023 ascorbic acid (VITAMIN C ORAL) Take by mouth daily. 08/26/2024 added in this encounter Care Teams Noise Tester Relationship Specialty Start Date End Date Kerrie Morgan, STRAIGHT SLICING MACHINE OPERATOR [address] [place] [phone] PCP - General 01/17/23 08/17/24 Maxine Masterson MD [address] [place] [phone] 01/17/23 documented as of this encounter
--- OUTSIDE RECORDS SUMMARY | 2024-09-02 22:07 | XMS_ITS | Encounter Summary ---
Author Organization [facility] Address [address] [place] [address] Care Team Providers Care Video Photographer Name Role Phone Kerrie Morgan APRN Primary Care Provider + Maxine Masterson MD Unavailable [phone] Encounter Details Date Type Department Care Team [...] Upcoming Encounters Date Type Department Care Team (Konrad Contact Info) Description 09/08/2024 7:25 EST Hospital Encounter [facility] OR [address] [place] [address] [phone] Amos Andujar MD [address] [place] [phone] 09/08/2024 7:25 EST - 09/08/2024 12:55 EST Surgery [facility] OR [address] [place] [address] [phone] Amos Andujar MD [address] [place] [phone] Bifrontal craniotomy for resction of meningioma [85615 (CPT??)] 10/05/2024 11:00 EST Post-op Visit [facility] Neurosurgery - [address] [phone] Mohini Bedoya PA-C [address] [place] [phone] Scheduled Procedures Name Priority Associated Diagnoses Date/Ti az CRANIECTOMY, SUPRATENTORIAL, FOR EXCISION OF MENINGIOMA Meningioma ([facility]) 09/08/2024 7:25 EST documented as of this encounter Visit Diagnoses Not on filedocumented in this encounter Care Teams Video Photographer Relationship Specialty Start Date End Date Kerrie Morgan APRN [address] [place] [phone] PCP - General 01/17/23 08/17/24 Maxine Masterson MD [address] [place] [phone] 01/17/23 documented as of this encounter
--- OUTSIDE RECORDS SUMMARY | 2024-09-02 22:07 | XMS_ITS | Referral Summary ---
Author Organization [facility] Address [address] [place] [address] Care Team Providers Care Java Golden Gate Developer Name Role Phone Maxine Masterson MD Unavailable [phone] Cecy Cota MD Primary Care Provider Encounters Date Type Department Care Team Description 08/26/2024 11:10 EST - 08/26/2024 23:59 EST Hospital Encounter [facility] Pre-Surgical Testing [address] [place], [place] [address] Discharge Disposition: Home or Self Care 08/17/2024 Telephone [facility] [address] [place], [place] [phone] Amos Andujar MD Pre-op Exam 08/16/2024 13:45 EDT Office Visit [facility] [address] [place], [place] [phone] Amos Andujar MD Meningioma (HCC-CMS) (Primary Dx) 08/03/2024 13:09 EDT - 08/03/2024 23:59 EDT Hospital Encounter [facility] [address] [place] [address] Meningioma (HCC-CMS) Discharge Disposition: Home or Self Care 08/03/2024 13:09 EDT - 08/03/2024 23:59 EDT Hospital Encounter [facility] [place] [address] [place] [address] Meningioma (HCC-CMS) Discharge Disposition: Home or Self Care from Last 3 Months Allergies No known active allergies Medications atorvastatin (LIPITOR) 20 mg tablet Take 1 Tablet by mouth every evening. 3 Active cholecalciferol , vitamin D3, (VITAMIN D3 ORAL) Take by mouth daily. Active MULTIVITAMIN ORAL Take by mouth daily. Active ascorbic acid (VITAMIN C ORAL) Take by mouth daily. 08/26/20 24 Discontinu ed(Therapy completed) Active Problems Problem Noted Date Diagnosed Date Meningioma ([facility]) 02/14/2023 Thyroid nodule 04/09/2012 Overview (04/09/2012): Right-sided 1.4 x 1.9 x 3.0 solid nodule. Immunizations Name Administration Dates Next Due Hepatitis A Vaccine Adult (HAVRIX/VAQTA) IM 03/20 Typhoid ViCPs (TYPHIM Vi) Vaccine IM 04/02/2012 Yellow Fever Vaccine SQ 04/02/2012 Social History Tobacco Use Types Packs/Day Years Used Date Smoking Tobacco: Never Smokeless Tobacco: Never Tobacco Cessation:Counseling Given: Not Answered Alcohol Use Standard Drinks/Week Comments Not Currently 0 (1 standard drink = 0.6 oz [...] - - Weight 74.8 kg (165 lb) 08/26/2024 1113 EST Height 162.6 cm (5' 4) 08/26/2024 1113 EST Body Mass Index 28.32 08/26/2024 1113 EST Functional Status * Because of a physical, mental, or emotional condition, does this person have difficulty doing errands alone such as visiting a doctor's office or shopping? Answer Date of Assessment Author No 01/25/2016 13:00 EDT Mental Status * Because of a physical, mental, or emotional condition, does this person have serious difficulty concentrating, remembering, or making decisions? Answer Entry Date Author No 01/25/2016 13:00 EDT Plan of Treatment Upcoming Encounters Date Type Department Care Team (Late st Contact Info) Description 09/08/2024 7:25 EST Hospital Encounter [facility] OR [address] [place] [address] [phone] Amos Andujar MD [address] [place] [phone] 09/08/2024 7:25 EST - 09/08/2024 12:55 EST Surgery [facility] OR [address] [place] [address] [phone] Amos Andujar MD [address] [place] [address] [phone] Bifrontal craniotomy for resction of meningioma [80469 (CPT??)] 10/05/2024 11:00 EST Post-op Visit [facility] Neurosurgery - [address] [phone] Mohini Bedoya PA-C [address] [place] [address] [phone] Scheduled Procedures Name Priority Associated Diagnoses Date/Ti me CRANIECTOMY, SUPRATENTORIAL, FOR EXCISION OF MENINGIOMA Meningioma (HCC-CMS) 09/08/2024 7:25 EST Procedures Procedure Name Priority Date/Time Associated Diagnosis [...] above interpretation and agree with the findings. [id number] Narrative 08/03/2024 15:54 EDT EXAM: MRI HEAD [...] EXTRACRANIAL SOFT TISSUES: Unremarkable. Resulting Agency Comment [id number] Procedure Note Bautista Johnson MD - 08/03/2024 [...] the above interpretation andagree with the findings. [id number] Mohini Bedoya PA-C [facility] MRI ORDERABLES Final Result * CT HEAD WO CONTRAST (08/03/2024 13:30 EDT) Anatomical Region Laterality Modality Head Computed Tomogra phy 08/03/2024 14:4 7 EDT Impressions 08/03/2024 14:47 EDT No significant change in size of a 1.9 cm partially calcified presumed meningioma over the medial aspect of the left frontal lobe when compared to prior MRI 02/16/2024. Mild mass effect on the underlying bifrontal lobe. [id number] Narrative 08/03/2024 14:47 EDT EXAM: CT HEAD [...] EXTRACRANIAL SOFT TISSUES: Unremarkable. Resulting Agency Comment [id number] Procedure Note Brian Bautista MD - 08/03/2024 [...] Mild mass effect on the underlying bifrontallobe. [id number] us Mohini Bedoya PA-C IMG CT ORDERABLES F inal Result * HEPATITIS C AB W REFLEX TO HCV RNA BY PCR (03/06/2022 10:25 EDT) Hep C Antibody Negative Negative 03/07/2022 9:38 EDT [facility] Blood VENOUS BLOOD / Unknown 03/06/2022 10:25 EDT 03/06/2022 21:32 EDT us Provider Outr Resulting Lab CHEMISTRY & BLOOD GA S ORDERABLES Final Result [facility] [address] [place] [address] from Last 3 Months or Most Recently Relevant to Health Maintenance Insurance [facility] [place] [facility] Care Teams Java Golden Gate Developer Relationship Specialty Start Date End Date Cecy Cota MD [address] [place] [address] [phone] PCP - General Family Medicine - Primary Care 08/18/24 Maxine Masterson MD [address] [place] [phone] 01/17/23
--- OUTSIDE RECORDS SUMMARY | 2024-09-02 22:07 | XMS_ITS | Encounter Summary ---
Author Organization [facility] Address [address] [place] [address] Care Team Providers Care Injection Molding Machine Operator Name Role Phone Kerrie Morgan APRN Primary Care Provider + Maxine Masterson MD Unavailable [phone] Encounter Details Date Type Department Care Team (Late st Contact Info) Description 01/21/2023 Orders Only [facility] - [facility] [address] [place] [address] Marianela Martin Social History Tobacco Use Types [...] Description 09/08/2024 7:25 EST Hospital Encounter [facility] OR [address] [place] [address] [phone] Amos Andujar MD [address] [place] [phone] 09/08/2024 7:25 EST - 09/08/2024 12:55 EST Surgery [facility] OR [address] [place] [address] [phone] Amos Andujar MD [address] [place] [phone] Bifrontal craniotomy for resction of meningioma [79323 (CPT??)] 10/05/2024 11:00 EST Post-op Visit [facility] Neurosurgery - [address] [phone] Mohini Bedoya PA-C [address] [place] [place] [phone] Scheduled Procedures Name Priority Associated Diagnoses Date/Ti me CRANIECTOMY, SUPRATENTORIAL, FOR EXCISION OF MENINGIOMA Meningioma ([facility]) 09/08/2024 7:25 EST documented as of this encounter Visit Diagnoses Not on filedocumented in this encounter Care Teams Injection Molding Machine Operator Relationship Specialty Start Date End Date Kerrie Morgan, [employer] [address] [place] [address] PCP - General 01/17/23 08/17/24 Maxine Masterson MD [address] [place] [address] 01/17/23 documented as of this encounter
--- OUTSIDE RECORDS SUMMARY | 2024-09-02 22:07 | XMS_ITS | Encounter Summary ---
Author Organization [facility] Address [address] [place] [address] Care Team Providers Care Line Maintenance Supervisor Name Role Phone Kerrie Morgan APRN Primary Care Provider + Maxine Masterson MD Unavailable [phone] Encounter Details Date Type Department Care Team (Late st Contact Info) Description 02/13/2024 Orders Only [facility] MRI [address] [place] [address] Amos Andujar MD [address] [facility], Level [address] [place] [address] Benign neoplasm of meninges, unspecified [...] Info) Description 09/08/2024 7:25 EST Hospital Encounter [facility] [place] [address] [place] [address] [phone] Amos Andujar MD [address] [place] [phone] 09/08/2024 7:25 EST - 09/08/2024 12:55 EST Surgery [facility] OR [address] [place] [address] [phone] Amos Andujar MD [address] [place] [phone] Bifrontal craniotomy for resction of meningioma [92599 (CPT??)] 10/05/2024 11:00 EST Post-op Visit [facility] Neurosurgery - [address] [phone] Mohini Bedoya PA-C [address] [place] [phone] Scheduled Procedures Name Priority Associated Diagnoses [...] Final Result [facility] [address] [place], [place] [phone] documented in this encounter Visit Diagnoses Diagnosis Benign neoplasm of meninges, unspecified (HCC-CMS)- Primary Meningioma (HCC-CMS) Benign neoplasm of cerebral meninges documented in this encounter Care Teams Line Maintenance Supervisor Relationship Specialty Start Date End Date Kerrie Morgan APRN [address] [place] [address] PCP - General 01/17/23 08/17/24 Maxine Masterson MD [address] [place] [address] 01/17/23 documented as of this encounter
--- OUTSIDE RECORDS SUMMARY | 2024-09-02 22:07 | XMS_ITS | Clinical Summary ---
Author Organization [facility] Address [address] [place] [address] Care Team Providers Care Emr Specialist Name Role Phone Maxine Masterson MD Unavailable [phone] Cecy Cota MD Primary Care Provider [phone] Allergies No known active allergies Medications atorvastatin (LIPITOR) 20 mg tablet Take 1 Tablet by mouth every evening. 3 Active cholecalciferol , vitamin D3, (VITAMIN D3 ORAL) Take by mouth daily. Active MULTIVITAMIN ORAL Take by mouth daily. Active ascorbic acid (VITAMIN C ORAL) Take by mouth daily. 08/26/20 24 Discontinu ed(Therapy completed) Active Problems Problem Noted Date Diagnosed Date Meningioma (HCC-CMS) 02/14/2023 Thyroid nodule 04/09/2012 Overview (04/09/2012): Right-sided 1.4 x 1.9 x 3.0 solid nodule. Encounters Date Type Department Care Team Description 08/26/2024 11:10 EST - 08/26/2024 23:59 EST Hospital Encounter [facility] Pre-Surgical Testing [address] [place], [place] [address] Discharge Disposition: Home or Self Care 08/17/2024 Telephone [facility] Neurosurgery - [facility] [address] [place] [address] Amos Andujar MD Pre-op Exam 08/16/2024 13:45 EDT Office Visit [facility] Neurosurgery - [facility] [place] [address] [place], [place] [address] Amos Andujar MD Meningioma (HCC-CMS) (Primary Dx) 08/03/2024 13:09 EDT - 08/03/2024 23:59 EDT Hospital Encounter [facility] [address] [place] [address] Meningioma (HCC-CMS) Discharge Disposition: Home or Self Care 08/03/2024 13:09 EDT - 08/03/2024 23:59 EDT Hospital Encounter [facility] [address] [place] [address] Meningioma (HCC-CMS) Discharge Disposition: Home or Self Care from Last 3 Months Immunizations Name Administration Dates Next Due Hepatitis A Vaccine Adult (HAVRIX/VAQTA) IM 03/20 Typhoid ViCPs (TYPHIM Vi) Vaccine IM 04/02/2012 Yellow Fever Vaccine SQ 04/02/2012 Medical History Medical History Date Comments Hyperlipidemia 08/26/24 on stati n Exercise involving walking can go up 2 flight of stairs w/o sob Meningioma (HCC-CMS) 08/26/24 Family History Relation Status Comments Father Mother Social History Tobacco Use Types Packs/Day Years [...] Body Mass Index 28.32 08/26/2024 1113 EST Plan of Treatment Upcoming Encounters Date Type Department Care Team (Late st Contact Info) Description 09/08/2024 7:25 EST Hospital Encounter [facility] OR [address] [place] [address] [phone] Amos Andujar MD [address] [place] [phone] 09/08/2024 7:25 EST - 09/08/2024 12:55 EST Surgery [facility] OR [address] [place] [address] [phone] Amos Andujar MD [address] [place] [phone] Bifrontal craniotomy for resction of meningioma [32954 (CPT??)] 10/05/2024 11:00 EST Post-op Visit [facility] Neurosurgery - [address] [address] Mohini Bedoya PA-C [address] [place] [phone] Scheduled Procedures Name Priority Associated Diagnoses Date/Ti me CRANIECTOMY, SUPRATENTORIAL, FOR EXCISION OF MENINGIOMA Meningioma (HCC-CMS) 09/08/2024 7:25 EST Health Maintenance Due Date Last Done Comments Fall Risk Screening 2017 COVID-19 Vaccine (2023- season) 2024 RSV Immunization ( o r 60+ Years) (1 - 1-dose 75+ series) 2027 Hepatitis C Screen Completed 03/06/2022 Procedures Procedure [...] above interpretation and agree with the findings. [id number] Narrative 08/03/2024 15:54 EDT EXAM: MRI HEAD [...] EXTRACRANIAL SOFT TISSUES: Unremarkable. Resulting Agency Comment [id number] Procedure Note Bautista Johnson MD - 08/03/2024 [...] the above interpretation andagree with the findings. [id number] Mohini Bedoya PA-C [facility] ORDERABLES Final Result * CT HEAD [...] mass effect on the underlying bifrontal lobe. [id number] Narrative 08/03/2024 14:47 EDT EXAM: CT HEAD [...] EXTRACRANIAL SOFT TISSUES: Unremarkable. Resulting Agency Comment [id number] Procedure Note Brian Bautista MD - 08/03/2024 [...] Mild mass effect on the underlying bifrontallobe. [id number] Mohini Bedoya PA-C IMG CT ORDERABLES F inal Result * HEPATITIS C AB W REFLEX TO HCV RNA BY PCR (03/06/2022 10:25 EDT) Hep C Antibody Negative Negative 03/07/2022 9:38 EDT [facility] Blood VENOUS BLOOD / Unknown 03/06/2022 10:25 EDT 03/06/2022 21:32 EDT Provider Outr Resulting Lab CHEMISTRY & BLOOD GA S ORDERABLES Final Result [facility] [address] [place] [address] from Last 3 Months or Most Recently Relevant to Health Maintenance Insurance [facility] [place] [id number] P MEDIC[place] Care Teams Emr Specialist Relationship Specialty Start Date End Date Cecy Cota MD [address] [place] [address] PCP - General Family Medicine - Primary Care 08/18/24 Maxine Masterson MD [address] [place] [phone] 01/17/23
--- OUTSIDE RECORDS SUMMARY | 2024-09-02 22:07 | XMS_ITS | Encounter Summary ---
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) Headache, unspecified Procedures MR HEAD W WO CONTRAST Kerrie Morgan APRN [address] [place] [address] Phone: tel: fax: [facility] Referral ID Status Reason Start Date Expiration Date Visits Requested Visits Authorized [id number] Authorization Not Required 01/21/2023 1 1 Reason for Visit * Radiology Services (STAT) - Authorization Not Required Specialty Diagnoses / Procedures Referred By Contsalvatore luna Referred To Contact Radiology Diagnoses 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) Headache, unspecified Procedures MR HEAD W WO CONTRAST Kerrie Morgan APRN [address] [place] [address] Phone: tel: fax: [facility] Referral ID Status Reason Start Date Expiration Date Visits Requested Visits Authorized [id number] Authorization Not Required 01/21/2023 1 1 Encounter Details Date Type Department Care Team (Latest Contact Info) Description 01/21/2023 14:22 EDT - 01/21/2023 23:59 EDT Hospital Encounter [facility] [address] [place] [address] 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); [...] Info) Description 09/08/2024 7:25 EST Hospital Encounter [facility] OR [address] [place], [place] [address] Amos Andujar MD [address] [place] [address], [address] [place] [phone] 09/08/2024 7:25 EST - 09/08/2024 12:55 EST Surgery [facility] OR [address] [place] [address] [phone] Amos Andujar MD [address] [place] [phone] Bifrontal craniotomy for resction of meningioma [33501 (CPT??)] 10/05/2024 11:00 EST Post-op Visit [facility] Neurosurgery - [address] [phone] Mohini Bedoya PA-C [address] [place] [phone] Scheduled Procedures Name Priority Associated Diagnoses [...] REGARDING THIS REPORT PLEASE CALL [facility] AT [phone] Narrative 01/21/2023 16:01 EDT PROCEDURE INFORMATION: Exam: [...] parenchymal contrast enhancement. Flow voids of the sh[place] of [place] and major cerebral vascular structures [...] cyst measuring 6 mm in the left tobacco curer space anterior to the mandible. Pharynx: There [...] parenchymal contrast enhancement. Flow voids of the [place] of [place] and major cerebral vascular structures [...] cyst measuring 6 mm in the left tobacco curer space anterior to the mandible. 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
--- OUTSIDE RECORDS SUMMARY | 2024-09-02 22:07 | XMS_ITS | Encounter Summary ---
Author Organization [facility] Address [address] [place] [address] Care Team Providers Care Long Lines Operator Name Role Phone Kerrie Morgan APRN Primary Care Provider + Maxine Masterson MD Unavailable [phone] Reason for Referral * Radiology Services (Routine/Next Available) - Authorization Not Required Specialty Diagnoses / Procedures Referred By Caleb luna Referred To Contact Radiology Diagnoses Meningioma (HCC-CMS) Procedures MR HEAD WO CONTRAST Amos Andujar MD [address] [place] [phone] Phone: tel: fax: [facility] Referral ID Status Reason Start Date Expiration Date Visits Requested Visits Authorized [id number] Authorization Not Required 02/17/2024 1 1 Reason for Visit * Reason Comments Follow-up Meningioma Encounter Details Date Type Department Care Team (Late st Contact Info) Description 02/17/2024 9:15 EDT Office Visit [facility] Neurosurgery - [address] [address] Amos Andujar MD [address] [place] [phone] Meningioma (HCC-CMS) (Primary Dx) Social History [...] Andujar MD - 02/17/2024 0904 EDT THE NEUROLOGICAL SURGERY PROGRESS / FOLLOWUP NOTE - 02/17/2024 Dear Kerrie: I had the opportunity of seeing your patient, Aparna Fairchild, back in my neurosurgery office at [facility] on 02/17/2024. She is known to have [...] I have reviewed the MRI scan with Ms Fairchild. I have demonstrated that the tumor has [...] Amos Andujar MD / CD Dictation ID: [id number] cc: Kerrie Morgan APRN, [address] [place] [address] documented in this encounter Plan of Treatment Upcoming Encounters Date Type Department Care Team (Late st Contact Info) Description 09/08/2024 7:25 EST Hospital Encounter [facility] OR [address] [place] [phone] Amos Andujra MD [address] [place] [phone] 09/08/2024 7:25 EST - 09/08/2024 12:55 EST Surgery [facility] OR [address] [place] [address] [phone] Amos Andujar MD [address] [place] [phone] Bifrontal craniotomy for resction of meningioma [35251 (CPT??)] 10/05/2024 11:00 EST Post-op Visit [facility] Neurosurgery - [address] [phone] Mohini Bedoya PA-C [address] [place] [phone] Scheduled Orders Name Type Priority Associated Diagnoses [...] meninges documented in this encounter Care Teams Long Lines Operator Relationship Specialty Start Date End Date Kerrie Morgan, EXHIBIT BUILDER [address] [place] [address] PCP - General 01/17/23 08/17/24 Maxine Masterson MD [address] [place] [phone] 01/17/23 documented as of this encounter
--- OUTSIDE RECORDS SUMMARY | 2024-09-02 22:07 | XMS_ITS | Encounter Summary ---
Author Organization [facility] Address [address] [place] [address] Care Team Providers Care Cheese Cutter Name Role Phone Maxine Masterson MD Primary Care Provider Kerrie Morgan APRN Primary Care Provider + Maxine Masterson MD Unavailable [phone] Cecy Cota MD Primary Care Provider [phone] Encounter Details Date Type Department Care Team (Late st Contact Info) Description 10/06/2019 Lab Requisition [facility] Pathology & Laboratory Medicine - [address] [address] Unknown, Provider, Social History Tobacco Use Types [...] Info) Description 09/08/2024 7:25 EST Hospital Encounter [facility] OR [address] [place] [address] [phone] Amos Andujar MD [address] [place] [phone] 09/08/2024 7:25 EST - 09/08/2024 12:55 EST Surgery [facility] OR [address] [place] [address] [phone] Amos Andujar MD [address] [place] [phone] Bifrontal craniotomy for resction of meningioma [19807 (CPT??)] 10/05/2024 11:00 EST Post-op Visit [facility] Neurosurgery - [address] [phone] Mohini Bedoya PA-C [address] [place] [phone] Scheduled Procedures Name Priority Associated Diagnoses Date/Ti me CRANIECTOMY, SUPRATENTORIAL, FOR EXCISION OF MENINGIOMA Meningioma ([facility]) 09/08/2024 7:25 EST documented as of this encounter Procedures Procedure Name Priority Date/Time Associated Diagnosis Comments ANAEROBE CULTURE, REFERENCE Routine 10/06/2019 10:15 EST documented in this encounter Results * ANAEROBE CULTURE, REFERENCE (10/06/2019 10:15 EST) Organism ID No Anaerobes Isolated 10/11/2019 10:59 EST [facility] Fluid [place] / Unknown 10/06/2019 10:15 EST 10/06/2019 22:36 EST us Provider Unknown MICROBIOLOGY - GENERAL ORDER FER Final Result [facility] [address] [place] [address] documented in this encounter Visit Diagnoses Not on filedocumented in this encounter Care Teams Cheese Cutter Relationship Specialty Start Date End Date Maxine Masterson MD [address] [place] [address] PCP - General 11/27/16 01/16/23 Kerrie Morgan APRN [address] [place] [address] PCP - General 01/17/23 08/17/24 Cecy Cota MD [address] [place] [address] PCP - General Family Medicine - Primary Care 08/18/24 Maxine Masterson MD [address] [place] [phone] 01/17/23 documented as of this encounter
--- OUTSIDE RECORDS SUMMARY | 2024-09-02 22:07 | XMS_ITS | Encounter Summary ---
Author Organization [facility] Address [address] [place] [address] Care Team Providers Care Machinery Erector Name Role Phone Maxine Masterson MD Unavailable [phone] Cecy Cota MD Primary Care Provider [phone] Encounter Details Date Type Department Care Team (Latest Contact Info) Description 08/26/2024 11:10 EST - 08/26/2024 23:59 EST Hospital Encounter [facility] Pre-Surgical Testing [address] [place], [place] [address] Discharge Disposition: Home or Self Care Social History Tobacco Use Types Packs/Day Years Used Date Smoking Tobacco: Never Smokeless Tobacco: Never Alcohol Use Standard Drinks/Week Comments Not Currently [...] Body Mass Index 28.32 08/26/2024 1113 EST documented in this encounter Functional Status * [...] or Self Care documented in this encounter OR Notes * Preprocedure Instructions - Nanette Greene RN - 08/26/2024 1110 EST Aparna Fairchild has been instructed as follows regarding medication administration for the day of thescheduled procedure. Date of Surgery: 09/08/24 Instructions for Taking Medications Day of Surgery Medication Dose and frequency Last Dose Hold Day of Surgery Take Day of Surgery atorvastatin (LIPITOR) 20 mg tablet Take 1 Tablet by mouth every evening. yes cholecalciferol, vitamin D3, (VITAMIN D3 ORAL) Take by mouth daily. 09/01/24 x MULTIVITAMIN ORAL Take by mouth daily. 09/01/24 x Please call the PAT department at [phone] if you start any new medications or if you are taking any medications that were not reported at the time of your call Instructions: Call your surgeon prior to surgery date IF: You become ill. You have any new skin problems near the area where your surgery will be, such as a rash, blister, or infection. Your surgeon may have given you specific instructions to prepare for surgery. Please follow surgeonspecific instructions & call surgeon's office with any questions. Fasting: Follow the eating and drinking instructions below unless otherwise instructed by your surgeon. No solid food or liquids containing fats, including milk*, after midnight. On the day of your procedure, you should only have clear liquids (see ???Acceptable Liquids?? listed below). Stop drinking 2 hours before your arrival time to the hospital. Acceptable Liquids: DO NOT ADD THICKENERS TO ANY LIQUIDS Water Clear apple juice Clear white grape juice Clear sports drinks / Pedialyte (no protein or coconut water based sports drinks) *Children under 3 years of age: Water- up to 4 hours before surgical time Clear apple juice- up to 4 hours before surgical time Clear white grape juice- up to 4 hours before surgical time Clear sports drinks / Pedialyte- up to 4 hours before surgical time Breast milk - up to 4 hours before surgical time - *do not add cereals Non-human milk or formula - up to 6 hours before surgical time *do not add cereal or use formula with cereal already added Shower: with an ANTIBACTERIAL SOAP (or scrub sponge if provided by your surgeon's office) the nightbefore surgery and the morning of surgery. Do not shave your surgical site for 3 days prior to surgery. After your morning shower avoid using creams, lotion, powders, deodorant, makeup, hairspray, perfumes or colognes. Remove all fingernail argentine, makeup, jewelery and body piercings before surgery. Ride Home: We require you have a responsible adult to drive you home after surgery or to accompany you if getting home via Taxi or Bus. If your ride cannot wait for you at the hospital, they still need to come in to pick you up, to assist with medication scrap picker from pharmacy, review of discharge instructions and surgical consult. We ask that your ride stay within 15 minutes of the hospital for scrap picker. Medications: Take as directed above with a sip of water on day of surgery. (If a medication must betaken with something other than clear liquids or sips of water, please call the PreAdmission Testing Clinic at for guidance.) Bring a list of your medications to the hospital. Please list when you last took each of medication. Leave actual medications at home unless told otherwise. CPAP/BiPAP: Bring your cleaned CPAP/BiPAP machine into preop on the day of your surgery. Be sure toempty the water chamber prior to transport Smoking: Stop smoking tobacco and marijuana prior to surgery as much as possible, avoiding it for aminimum of 24 hours prior to surgery. Legal Guardianship: BRING Proof of Guardianship on Day of Surgery. Legal Guardian must be availableon the Day of Surgery by Telephone if not physically present on the Day of Surgery. Clothing: Wear loose fitting and comfortable clothing. For arm and hand surgery wear a zip up or button up shirt with short sleeves. For eye surgery, do not wear a shirt that pulls over the head unless it has a wide neck opening. Valuables: Do not bring any on day of surgery, except money you may need for you hospital co-pay orto purchase any prescriptions. Visitation: Typically, two visitors are allowed in the Preop and Recovery areas. Each area of the hospital may have different visitation guidelines. Contact Information: Prior to Day of Surgery, call Pre-Admission Testing Clinic: [phone]. PAT toll Free Number . For Day of Surgery: [facility]: [phone] [facility]; [phone]. Visit our website for more information: [facility], [email or web address] Advance Directives: You can get the forms in a doctor's office, a hospital, a law office, a state or local office for the aging, a senior center, a shelter, or online. For more information, including forms for your state, see the [employer] website (www.[employer].org/planning/advance-directives/). If not already done, please bring a signed copy of your Advance Directive with you to the hospital so that it may scanned into your electronic health record. NANETTE GREENE RN documented in this encounter Plan of Treatment Upcoming Encounters Date Type Department Care Team (Late st Contact Info) Description 09/08/2024 7:25 EST Hospital Encounter [facility] OR [address] [place] [address] [id number] Amos Andujar MD [address] [place] [address], [address] [place] [phone] 09/08/2024 7:25 EST - 09/08/2024 12:55 EST Surgery [facility] OR [address] [place], [place] [address] Amos Andujar MD [address] [phone] Bifrontal craniotomy for resction of meningioma [33474 (CPT??)] 10/05/2024 11:00 EST Post-op Visit [facility] [address] [place], [place] [phone] Mohini Bedoya PA-C [address] [phone] Scheduled Procedures Name Priority Associated Diagnoses Date/Ti nm CRANIECTOMY, SUPRATENTORIAL, FOR EXCISION OF MENINGIOMA Meningioma ([facility]) 09/08/2024 7:25 EST documented as of this encounter Visit Diagnoses Not on filedocumented in this encounter Discontinued Medications Medication Sig Discontinue Reason Start Date End Da te ascorbic acid (VITAMIN C ORAL) Take by mouth daily. Therapy completed 08/26/2024 documented as of this encounter Care Teams Machinery Erector Relationship Specialty Start Date End Date Cecy Cota MD [address] [place] [address] PCP - General Family Medicine - Primary Care 08/18/24 Maxine Masterson MD [address] [place] [phone] 01/17/23 documented as of this encounter
--- OUTSIDE RECORDS SUMMARY | 2024-09-02 22:07 | XMS_ITS | Encounter Summary ---
Author Organization [facility] Address [address] [place] [address] Care Team Providers Care Blanking Press Operator Name Role Phone Kerrie Morgan APRN Primary Care Provider + Maxine Masterson MD Unavailable [phone] Encounter Details Date Type Department Care Team (Late st Contact Info) Description 05/16/2023 Orders Only [facility] - [facility] [address] [place] [address] Valeria Florez Social History Tobacco Use Types [...] Info) Description 09/08/2024 7:25 EST Hospital Encounter [facility] OR [address] [place] [address] [phone] Amos Andujar MD [address] [place] [phone] 09/08/2024 7:25 EST - 09/08/2024 12:55 EST Surgery [facility] OR [address] [place] [address] [phone] Amos Andujar MD [address] [place] [phone] Bifrontal craniotomy for resction of meningioma [29947 (CPT??)] 10/05/2024 11:00 EST Post-op Visit [facility] Neurosurgery - [address] [phone] Mohini Bedoya PA-C [address] [place] [phone] Scheduled Procedures Name Priority Associated Diagnoses Date/Ti me CRANIECTOMY, SUPRATENTORIAL, FOR EXCISION OF MENINGIOMA Meningioma ([facility]) 09/08/2024 7:25 EST documented as of this encounter Visit Diagnoses Not on filedocumented in this encounter Care Teams Blanking Press Operator Relationship Specialty Start Date End Date Kerrie Morgan, LEAD HOUSEKEEPER [address] [place] [address] PCP - General 01/17/23 08/17/24 Maxine Masterson MD [address] [place] [address] 01/17/23 documented as of this encounter
--- OUTSIDE RECORDS SUMMARY | 2024-09-02 22:07 | XMS_ITS | Encounter Summary ---
Author Organization [facility] Address [address] [place] [address] Care Team Providers Care Tobacco Flavorer Name Role Phone Maxine Masterson MD Primary Care Provider [phone] Kerrie Morgan APRN Primary Care Provider + Maxine Masterson MD Unavailable [phone] Cecy Cota MD Primary Care Provider [phone] Encounter Details Date Type Department Care Team (Late st Contact Info) Description 12/20/2021 Lab Requisition [facility] Pathology & Laboratory Medicine - [address] [address] Outr Resulting Lab, Provider Social History Tobacco [...] Info) Description 09/08/2024 7:25 EST Hospital Encounter [facility] OR [address] [place] [address] [phone] Amos Andujar MD [address] [place] [phone] 09/08/2024 7:25 EST - 09/08/2024 12:55 EST Surgery [facility] OR [address] [place] [address] Amos Andujar MD [address] [place] [phone] Bifrontal craniotomy for resction of meningioma [93653 (CPT??)] 10/05/2024 11:00 EST Post-op Visit [facility] Neurosurgery - [address] [address] Mohini Bedoya PA-C [address] [place] [phone] Scheduled Procedures Name Priority Associated Diagnoses Date/Ti me CRANIECTOMY, SUPRATENTORIAL, FOR EXCISION OF MENINGIOMA Meningioma ([facility]) 09/08/2024 7:25 EST documented as of this encounter Procedures Procedure Name Priority Date/Time Associated Diagnosis Comments ZZCOVID-19 TEST [facility] PCR Today 12/19/2021 16:09 EST COVID-19 TESTING Routine 12/19/2021 16:0 9 EST documented in this encounter Results * COVID-19 TEST [facility] PCR (12/19/2021 16:09 EST) Swab 12/19/2021 16:0 9 EST 12/20/2021 19:26 EST us Provider Outr Resulting Lab MICROBIOLOGY - GENER AL ORDERABLES Final Result [facility] [address] [place] [address] * COVID-19 TESTING (12/19/2021 16:09 EST) COVID-19 rt-PCR Result Negative Negative 12/21/2021 12:19 EST [facility] Comment: This test has not [...] performed using the naz SARS-CoV-2 assay ([employer] on the Naz 6800 System Performing Lab [facility] [address] [facility] Lab 12/21/2021 12:19 EST [facility] Swab 12/19/2021 16:0 9 EST 12/20/2021 19:26 EST us Provider Outr Resulting Lab MICROBIOLOGY - GENER AL ORDERABLES Final Result [facility] [address] [place] [address] documented in this encounter Visit Diagnoses Not on filedocumented in this encounter Care Teams Tobacco Flavorer Relationship Specialty Start Date End Date Maxine Masterson MD [address] [place] [phone] PCP - General 11/27/16 01/16/23 Kerrie Morgan APRN [address] [place] [address] PCP - General 01/17/23 08/17/24 Cecy Cota MD [address] [place], [place] [phone] PCP - General Family Medicine - Primary Care 08/18/24 Maxine Masterson MD [address] [place] [phone] 01/17/23 documented as of this encounter
--- OUTSIDE RECORDS SUMMARY | 2024-09-02 22:07 | XMS_ITS | Encounter Summary ---
Author Organization [facility] Address [address] [place] [address] Care Team Providers Care Stock Order Lister Name Role Phone Kerrie Morgan APRN Primary Care Provider + Maxine Masterson MD Unavailable [phone] Reason for Referral * Radiology Services (Routine/Next Available) - Specialty Report Received Specialty Diagnoses / Procedures Referred By Caleb luna Referred To Contact Radiology Diagnoses Meningioma ([facility] Procedures MR HEAD W WO CONTRAST MR HEAD W WO CONTRAST CHG MRI BRAIN COMBO Amos Andujar MD Phone: tel: fax: [facility] Referral ID Status Reason Start Date Expiration Date V isits Requested Visits Authorized [id number] Specialty Report Received 05/16/2023 1 1 Reason for Visit * Radiology Services (Routine/Next Available) - Specialty Report Received Specialty Diagnoses / Procedures Referred By Caleb luna Referred To Contact Radiology Diagnoses Meningioma ([facility]) Procedures MR HEAD W WO CONTRAST MR HEAD W WO CONTRAST CHG MRI BRAIN COMBO Amos Andujar MD Phone: tel: fax: [facility] Referral ID Status Reason Start Date Expiration Date V isits Requested Visits Authorized [id number] Specialty Report Received 05/16/2023 1 1 Encounter Details Date Type Department Care Team (Latest Contact Info) Description 02/16/2024 10:32 EDT - 02/16/2024 23:59 EDT Hospital Encounter [facility] MRI [address] [place] [address] Meningioma ([facility]) Discharge Disposition: Home or Self Care Social [...] Info) Description 09/08/2024 7:25 EST Hospital Encounter [facility] OR [address] [place] [address] [phone] Amos Andujar MD [address] [place] [address], Level 5 [place] [phone] 09/08/2024 7:25 EST - 09/08/2024 12:55 EST Surgery [facility] OR [address] [place], [place] [address] Amos Adnujar MD [address] [place] [phone] Bifrontal craniotomy for resction of meningioma [80401 (CPT??)] 10/05/2024 11:00 EST Post-op Visit [facility] Neurosurgery - [address] [phone] Mohini Bedoya PA-C [address] [place] [phone] Scheduled Procedures Name Priority Associated Diagnoses [...] 1.9 cm meningioma compared to January 2023. [id number] Narrative 02/16/2024 14:16 EDT EXAM: MRI HEAD [...] EXTRACRANIAL SOFT TISSUES: Unremarkable. Resulting Agency Comment [id number] Procedure Note Avinash Dominguez MD - 02/16/2024 EXAM: MRI HEAD WO/W CONTRAST HISTORY: 9 month interval scan for meningioma; 9 month interval scan formeningioma;D32.9:Meningioma ([facility]) TECHNIQUE: MRI head without and with [...] x 1.9cm meningioma compared to January 2023. [id number] Amos Andujar MD IMG MRI ORDERABLES Final [...] Once in imaging, 1 dose, Starting on Fri02/16/24 at 1217, Until Fri02/16/24 at 1352, Routine, Imaging Protocol Orders Given 02/16/2024 13:52 EDT 15 mL IV documented in this encounter Orders Medications Ordered That Hardeep ht Not Have Been Administered Count Last Ordered Date First Ordered Date gadoterate meglumine solution 1-30 mL 1 documented in this encounter Care Teams Stock Order Lister Relationship Specialty Start Date End Date Kerrie Morgan APRN [address] [place] [phone] PCP - General 01/17/23 08/17/24 Maxine Masterson MD [address] [place] [phone] 01/17/23 documented as of this encounter
--- OUTSIDE RECORDS SUMMARY | 2024-09-02 22:07 | XMS_ITS | Encounter Summary ---
Author Organization [facility] Address [address] [place] [address] Care Team Providers Care Energy Sales Broker Name Role Phone Shawna Ferrell DNP [facility] Primary Care Prov ider Encounter Details Date Type Department Care Team (Late st Contact Info) Description 11/20/2016 Results Only [facility] [phone] Shawna Ferrell DNP [facility] [address] [place], [place] [address] Social History Tobacco Use Types Packs/Day Years [...] Info) Description 09/08/2024 7:25 EST Hospital Encounter [facility] OR [address] [place] [address] [phone] Amos Andujar MD [address] [place] [phone] 09/08/2024 7:25 EST - 09/08/2024 12:55 EST Surgery [facility] OR [address] [place] [address] [phone] Amos Andujar MD [address] [place] [phone] Bifrontal craniotomy for resction of meningioma [19850 (CPT??)] 10/05/2024 11:00 EST Post-op Visit [facility] Neurosurgery - [address] [phone] Mohini Bedoya PA-C [address] [place] [phone] Scheduled Procedures Name Priority Associated Diagnoses [...] when reading/interpret ing unformatted reports. Name: ? PANDA, APARNA R ? Accession #: ? [id number] ? : ? 1950 (Age: 66) ??F ? Collect Date: ? 11/20/2016 ? Location: ? [facility] ? Receive Date: ? 11/21/2016 ? Provider: SHAWNA FERRELL BAG MACHINE OPERATOR HELPER Copy to: ? Final Pathologic Diagnosis: SKIN [...] a variable amount of melanin pigment. ??(Dr. Tinoco)/[facility] Document reviewed and electronically signed by: [...] (ASCP) 11/22/2016 8:49 AM End of Report [facility] 11/20/2016 18:4 9 EST 11/21/2016 18:49 EST us Shawna GRIMM PATHOLOGY ORDERABL ES Final Result [facility] [address] [place] [address] documented in this encounter Visit Diagnoses Not on filedocumented in this encounter Care Teams Energy Sales Broker Relationship Specialty Start Date End Date Shawna Ferrell DNP CNM FNP PCP - General 01/24/16 2 documented as of this encounter
--- OUTSIDE RECORDS SUMMARY | 2024-09-02 22:07 | XMS_ITS | Encounter Summary ---
Author Organization [facility] Address [address] [place] [address] Care Team Providers Care Office Machinery Or Equipment Installer Name Role Phone Maxine Masterson MD Primary Care Provider [phone] Kerrie Morgan APRN Primary Care Provider + Maxine Masterson MD Unavailable [phone] Cecy Cota MD Primary Care Provider [phone] Encounter Details Date Type Department Care Team (Late st Contact Info) Description 03/06/[address] [facility] Pathology & Laboratory Medicine - [address] [address] Outr Resulting Lab, Provider Social History Tobacco [...] Info) Description 09/08/2024 7:25 EST Hospital Encounter [facility] OR [address] [place] [address] [phone] Amos Andujar MD [address] [place] [phone] 09/08/2024 7:25 EST - 09/08/2024 12:55 EST Surgery [facility] OR [address] [place] [address] Amos Andujar MD [address] [place] [phone] Bifrontal craniotomy for resction of meningioma [16298 (CPT??)] 10/05/2024 11:00 EST Post-op Visit [facility] Neurosurgery - [address] [phone] Mohini Bedoya PA-C [address] [place] [phone] Scheduled Procedures Name Priority Associated Diagnoses Date/Ti [...] C Antibody Negative Negative 03/07/2022 9:38 EDT [facility] Blood VENOUS BLOOD / Unknown 03/06/2022 10:25 EDT 03/06/2022 21:32 EDT us Provider Outr Resulting Lab CHEMISTRY & BLOOD GA S ORDERABLES Final Result [facility] [address] [place] [address] documented in this encounter Visit Diagnoses Not on filedocumented in this encounter Care Teams Office Machinery Or Equipment Installer Relationship Specialty Start Date End Date Maxine Masterson MD [address] [place] [phone] PCP - General 11/27/16 01/16/23 Kerrie Morgan APRN [address] [place] [phone] PCP - General 01/17/23 08/17/24 Cecy Cota MD [address] [place] [address] PCP - General Family Medicine - Primary Care 08/18/24 Maxine Masterson MD [address] [place] [phone] 01/17/23 documented as of this encounter
--- OUTSIDE RECORDS SUMMARY | 2024-09-02 22:07 | XMS_ITS | Encounter Summary ---
Author Organization [facility] Address [address] [place] [address] Care Team Providers Care Support Analyst Name Role Phone Kerrie Morgan APRN Primary Care Provider + Maxine Masterson MD Unavailable [phone] Reason for Referral * Radiology Services (Routine/Next Available) - Specialty Report Received Specialty Diagnoses / Procedures Referred By Caleb luna Referred To Contact Radiology Diagnoses Meningioma (HCC-CMS) Procedures MR HEAD W WO CONTRAST MR HEAD W WO CONTRAST CHG MRI BRAIN COMBO Amos Andujar MD Phone: tel: fax: [facility] Referral ID Status Reason Start Date Expiration Date V isits Requested Visits Authorized [id number] Specialty Report Received 05/16/2023 1 1 Reason for Visit * Reason Comments Follow-up Meningioma Encounter Details Date Type Department Care Team (Late st Contact Info) Description 05/16/2023 10:00 EDT Office Visit [facility] Neurosurgery - [facility] [address] [place] [address] Amos Andujar MD 111 [facility], Level 5 [place] [phone] Meningioma (HCC-CMS) (Primary Dx) Social History Tobacco [...] 14 05/16/2023 0948 EDT Oxygen Saturation 99% 05/16/2023 09 EDT Inhaled Oxygen Concentration - - Weight 72.6 kg (160 lb) 05/16/2023 0948 EDT Height 162.6 cm (5' 4) 05/16/2023 0948 EDT Body Mass Index 27.46 05/16/2023 0948 [...] 9 months ordered to be completed at [facility] Patient was seen and evaluated by attending Dr. Pratima STEPHENSON MD Neurosurgery resident 05/16/2023 10:42 Page 5546 with questions * Amos Andujar MD - 05/16/2023 0935 EDT [facility] NEUROLOGICAL SURGERY PROGRESS / FOLLOWUP NOTE - 05/16/2023 Dear Kerrie: We had the pleasure of seeing your patient, Aparna Fairchild, back in my neurosurgery office at [facility] on 05/16/2023. She returns for a [...] Amos Andujar MD / SA Dictation ID: [id number] cc: Kerrie Morgan APRN, [address] [place] [address] documented in this encounter Plan of Treatment Upcoming Encounters Date Type Department Care Team (Late st Contact Info) Description 09/08/2024 7:25 EST Hospital Encounter [facility] OR [address] [place] [phone] Amos Andujar MD [address] [place] [phone] 09/08/2024 7:25 EST - 09/08/2024 12:55 EST Surgery [facility] OR [address] [place] [address] Amos Andujar MD [address] [place] [phone] Bifrontal craniotomy for resction of meningioma [26737 (CPT??)] 10/05/2024 11:00 EST Post-op Visit [facility] Neurosurgery - [address] [phone] Mohini Bedoya PA-C [address] [place] [phone] Scheduled Procedures Name Priority Associated Diagnoses [...] 1.9 cm meningioma compared to January 2023. [id number] Narrative 02/16/2024 14:16 EDT EXAM: MRI HEAD [...] EXTRACRANIAL SOFT TISSUES: Unremarkable. Resulting Agency Comment [id number] Procedure Note Avinash Dominguez MD - 02/16/2024 [...] x 1.9cm meningioma compared to January 2023. [id number] Amos Andujar MD IMG MRI ORDERABLES Final Re sult documented in this encounter Visit Diagnoses Diagnosis Meningioma (HCC-CMS)- Primary Benign neoplasm of cerebral meninges Meningioma (HCC-CMS) Benign neoplasm of cerebral meninges Meningioma (HCC-CMS) Benign neoplasm of cerebral meninges documented in this encounter Care Teams Support Analyst Relationship Specialty Start Date End Date Kerrie Morgan, MALI [address] [place] [phone] PCP - General 01/17/23 08/17/24 Maxine Masterson MD [address] [place] [phone] 01/17/23 documented as of this encounter
--- OUTSIDE RECORDS SUMMARY | 2024-09-02 22:07 | XMS_ITS | Encounter Summary ---
Author Organization [facility] Address [address] [place] [address] Care Team Providers Care Clay Products Machine Operator Name Role Phone Kerrie Morgan APRN Primary Care Provider + Maxine Masterson MD Unavailable [phone] Cecy Cota MD Primary Care Provider [phone] Reason for Visit * Reason Onset Date Comments Pre-op Exam 08/17/2024 Encounter Details Date Type Department Care Team (Late st Contact Info) Description 08/17/2024 Telephone [facility] Neurosurgery - [facility] [address], [place] [phone] Amos Andujar MD [address] [facility], [address] [place] [phone] Pre-op Exam Social History Tobacco [...] Telephone Encounter - Megan Tabor - 08/17/2024 1117 EDT Patient currently at PCP for pre-op physical. Nurse calling ot se if there is pre-op paperwork to be completed Fax number [phone] documented in this encounter Plan of Treatment Upcoming Encounters Date Type Department Care Team (Late st Contact Info) Description 09/08/2024 7:25 EST Hospital Encounter [facility] OR [address] [place] [phone] Amos Andujar MD [address] [place] [phone] 09/08/2024 7:25 EST - 09/08/2024 12:55 EST Surgery [facility] OR [address] [place] [address] Amos Andujar MD [address] [place] [phone] Bifrontal craniotomy for resction of meningioma [79107 (CPT??)] 10/05/2024 11:00 EST Post-op Visit [facility] Neurosurgery - [facility] [address] [place], [place] [phone] Mohini Bedoya PA-C [address] [facility], [address] [place] [phone] Scheduled Procedures Name Priority Associated Diagnoses Date/Ti me CRANIECTOMY, SUPRATENTORIAL, FOR EXCISION OF MENINGIOMA Meningioma ([facility]) 09/08/2024 7:25 EST documented as of this encounter Visit Diagnoses Not on filedocumented in this encounter Care Teams Clay Products Machine Operator Relationship Specialty Start Date End Date Kerrie Morgan, CLINICAL BIOCHEMIST [address] [place] [phone] PCP - General 01/17/23 08/17/24 Cecy Cota MD [address] [place], [place] [phone] PCP - General Family Medicine - Primary Care 08/18/24 Maxine Masterson MD [address] [place] [phone] 01/17/23 documented as of this encounter
--- OUTSIDE RECORDS SUMMARY | 2024-09-02 22:07 | XMS_ITS | Encounter Summary ---
Author Organization [facility] Address [address] [place] [address] Care Team Providers Care Supervisor Scenic Arts Name Role Phone Maxine Masterson MD Primary Care Provider [phone] Kerrie Morgan APRN Primary Care Provider + Maxine Masterson MD Unavailable [phone] Cecy Cota MD Primary Care Provider [phone] Encounter Details Date Type Department Care Team (Late st Contact Info) Description 03/15/2020 Lab Requisition [facility] Pathology & Laboratory Medicine - [address] [address] Outr Resulting Lab, Provider Social History Tobacco [...] Description 09/08/2024 7:25 EST Hospital Encounter [facility] OR [address] [place] [phone] Amos Andujar MD [address] [place] [phone] 09/08/2024 7:25 EST - 09/08/2024 12:55 EST Surgery [facility] OR [address] [place] [address] Amos Andujar MD [address] [place] [phone] Bifrontal craniotomy for resction of meningioma [42544 (CPT??)] 10/05/2024 11:00 EST Post-op Visit [facility] Neurosurgery - [address] [phone] Mohini Bedoya PA-C [address] [place] [phone] Scheduled Procedures Name Priority Associated Diagnoses Date/Ti me CRANIECTOMY, SUPRATENTORIAL, FOR EXCISION OF MENINGIOMA Meningioma ([facility]) 09/08/2024 7:25 EST documented as of this encounter Procedures Procedure Name Priority Date/Time Associated Diagnosis Comments DO NOT ORDER STANDALONE - BROAD COVID TEST Today 03/15/2020 14:05 EDT COVID-19 TESTING Routine 03/15/2020 14:0 5 EDT documented in this encounter Results * DO NOT ORDER STANDALONE - BROAD COVID TEST (03/15/2020 14:05 EDT) COVID-19 rt-PCR Result NEGATIVE Negative 03/17/2020 1:00 EDT [facility] Comment: 2019-novel Coronavirus (2019-nCoV) not [...] in accordance with CLIA regulations, [employer] (CAP) guidelines (Jan 06, 2020), and FDA guidance (Dec 18, 2019). This test is only for use under the Food and Drug Administration's Emergency Use Authorization. Swab ENTIRE NASOPHARYNX / Unknown 03/15/2020 14:05 EDT 03/15/2020 21:15 EDT us Provider Outr Resulting Lab MICROBIOLOGY - GENER AL ORDERABLES Final Result [facility] [place], [place] * COVID-19 TESTING (03/15/2020 14:05 EDT) COVID-19 rt-PCR Result NEGATIVE Negative 03/17/2020 7:24 EDT [facility] Comment: 2019-novel Coronavirus (2019-nCoV) not [...] in accordance with CLIA regulations, [employer] [place] (CAP) guidelines (Jan 06, 2020), and FDA guidance (Dec 18, 2019). This test is only for use under the Food and Drug Administration's Emergency Use Authorization. Performing Lab [facility] 03/17/2020 7:24 EDT [facility] Swab ENTIRE NASOPHARYNX / Unknown 03/15/2020 14:05 EDT 03/15/2020 21:15 EDT us Provider Outr Resulting Lab MICROBIOLOGY - GENER AL ORDERABLES Final Result [facility] [address] [place] [address] [facility] [place], [place] documented in this encounter Visit Diagnoses Not on filedocumented in this encounter Care Teams Supervisor Scenic Arts Relationship Specialty Start Date End Date Maxine Masterson MD [address] [place] [phone] PCP - General 11/27/16 01/16/23 Kerrie Morgan APRN [address] [place] [phone] PCP - General 01/17/23 08/17/24 Cecy Cota MD [address] [place] [address] PCP - General Family Medicine - Primary Care 08/18/24 Maxine Masterson MD [address] [place] [address] 01/17/23 documented as of this encounter
--- OUTSIDE RECORDS SUMMARY | 2024-09-02 22:07 | XMS_ITS | Encounter Summary ---
Author Organization [facility] Address [address] [place] [address] Care Team Providers Care Wharf Attendant Name Role Phone Kerrie Morgan APRN Primary Care Provider + Maxine Masterson MD Unavailable [phone] Reason for Referral * Radiology Services (Routine/Next Available) - Authorization Not Required Specialty Diagnoses / Procedures Referred By Contac t Referred To Contact Diagnoses Meningioma (HCC-CMS) Procedures CT HEAD WO CONTRAST Mohini Bedoya PA-C [address] [place] [phone] Phone: tel: fax: [facility] Referral ID Status Reason Start Date Expiration Date Visits Requested Visits Authorized [id number] Authorization Not Required 03/16/2024 1 1 Reason for Visit * Radiology Services (Routine/Next Available) - Authorization Not Required Specialty Diagnoses / Procedures Referred By Contac t Referred To Contact Diagnoses Meningioma ([facility]) Procedures CT HEAD WO CONTRAST Mohini Bedoya PA-C [address] [place] [phone] Phone: tel: fax: [facility] Referral ID Status Reason Start Date Expiration Date Visits Requested Visits Authorized [id number] Authorization Not Required 03/16/2024 1 1 Encounter Details Date Type Department Care Team (Latest Contact Info) Description 08/03/2024 13:09 EDT - 08/03/2024 23:59 EDT Hospital Encounter Stephanie [address] [place] [address] [facility] ([facility]) Discharge Disposition: Home or Self Care [...] Info) Description 09/08/2024 7:25 EST Hospital Encounter [facility] OR [address] [place] [address] Amos Andujar MD 111 [facility], [address] [place] [phone] 09/08/2024 7:25 EST - 09/08/2024 12:55 EST Surgery [facility] OR [address] [place], [place] [phone] Amos Andujar MD [address] [place] [address] [address] [place] [phone] Bifrontal craniotomy for resction of meningioma [01461 (CPT??)] 10/05/2024 11:00 EST Post-op Visit [facility] Neurosurgery - [address] [phone] Mohini Bedoya PA-C [address] [place] [phone] Scheduled Procedures Name Priority Associated Diagnoses Date/Ti me CRANIECTOMY, SUPRATENTORIAL, FOR EXCISION OF MENINGIOMA Meningioma (HCC-CMS) 09/08/2024 7:25 EST documented as of this encounter Procedures Procedure Name Priority Date/Time Associated Diagnosis Comments CT HEAD WO CONTRAST Routine 08/03/2024 1 3:30 EDT Meningioma ([facility]) documented in this encounter Results * CT [...] mass effect on the underlying bifrontal lobe. [id number] Narrative 08/03/2024 14:47 EDT EXAM: CT HEAD [...] EXTRACRANIAL SOFT TISSUES: Unremarkable. Resulting Agency Comment [id number] Procedure Note Brian Bautista MD - 08/03/2024 [...] Mild mass effect on the underlying bifrontallobe. [id number] Mohini Bedoya PA-C IMG CT ORDERABLES F inal Result documented in this encounter Visit Diagnoses Diagnosis Meningioma (HCC-CMS) Benign neoplasm of cerebral meninges Meningioma (HCC-CMS) Benign neoplasm of cerebral meninges documented in this encounter Care Teams Wharf Attendant Relationship Specialty Start Date End Date Kerrie Morgan APRN [address] [place] [phone] PCP - General 01/17/23 08/17/24 Maxine Masterson MD [address] [place] [phone] 01/17/23 documented as of this encounter
--- OUTSIDE RECORDS SUMMARY | 2024-09-02 22:07 | XMS_ITS | Encounter Summary ---
Author Organization [facility] Address [address] [place] [address] Care Team Providers Care Interpretive Program Coordinator Name Role Phone Kerrie Morgan APRN Primary Care Provider + Maxine Masterson MD Unavailable [phone] Reason for Visit * Reason Onset Date Comments Appointment Related 04/28/2023 Encounter Details Date Type Department Care Team (Late st Contact Info) Description 04/28/2023 Telephone [facility] [address] [place], [place] [phone] Amos Andujar MD 111 [facility], [address] [place] [address] Appointment Related Social History Tobacco [...] encounter Miscellaneous Notes * Telephone Encounter - EsparzaVasu akbaren - 04/28/2023 1045 EDT Images from the original note were not included. Confirmed the following appointment details with Aparna. She verbalized understanding and denied having any questions. documented in this encounter Plan of Treatment Upcoming Encounters Date Type Department Care Team (Late st Contact Info) Description 09/08/2024 7:25 EST Hospital Encounter [facility] OR [address] [place] [phone] Amos Andujar MD [address] [place] [phone] 09/08/2024 7:25 EST - 09/08/2024 12:55 EST Surgery [facility] OR [address] [place] [phone] Amos Andujar MD [address] [place] [phone] Bifrontal craniotomy for resction of meningioma [87549 (CPT??)] 10/05/2024 11:00 EST Post-op Visit [facility] Neurosurgery - [address] [address] Mohini Bedoya PA-C [address] [place] [phone] Scheduled Procedures Name Priority Associated Diagnoses Date/Ti me CRANIECTOMY, SUPRATENTORIAL, FOR EXCISION OF MENINGIOMA Meningioma ([facility]) 09/08/2024 7:25 EST documented as of this encounter Visit Diagnoses Not on filedocumented in this encounter Care Teams Interpretive Program Coordinator Relationship Specialty Start Date End Date Kerrie Morgan APRN [address] [place] [address] PCP - General 01/17/23 08/17/24 Maxine Masterson MD [address] [place] [phone] 01/17/23 documented as of this encounter
--- OUTSIDE RECORDS SUMMARY | 2024-09-02 22:07 | XMS_ITS | Encounter Summary ---
Author Organization [facility] Address [address] [place] [address] Care Team Providers Care Winch Operator Name Role Phone Kerrie Morgan APRN Primary Care Provider + Maxine Masterson MD Unavailable [phone] Cecy Cota MD Primary Care Provider [phone] Reason for Visit * Reason Comments Follow-up Discuss surgery Encounter Details Date Type Department Care Team (Late st Contact Info) Description 08/16/2024 13:45 EDT Office Visit [facility] Neurosurgery - [facility] [address] [place], [place] [phone] Amos Andujar MD 111 [facility], [address] [place] [address] Meningioma ([facility]) (Primary Dx) Social History Tobacco [...] Progress Notes * Amos Andujar MD - 08/16/2024 1345 EDT This office note has been dictated. I spent total of 30 minutes on the date of this encounter meeting with this patient and reviewing documentation/coordinating care as described in the dictated note. * Maxine Duggan RN - 08/16/2024 1345 EDT Patient Education Topic: craniotomy for resection of meningioma Method: Verbal, Written Taught to: Patient Barriers: None Outcomes: independent PREPARING FOR SURGERY, A patient's guide was reviewed with the patient. Smoking cessation guidelines per patient guide unless otherwise documented by Physician. The patient was encouraged to reviewall instructions at home. Medications reviewed and reconciled Advised patient to DC all NSAIDS, vitamins and herbal supplements 7 days prior to procedure. Aspirin/Antiplatelet therapy- denied. Patient instructed to stop all OTC aspirin 7 days prior to surgery. Immunosuppressive therapy- none Insulin/oral hypoglycemic agents- none JUANA inhibitor/ARB therapy- none Post-Op instructions reviewed. Collar/braces: no Advanced directive information provided. Pain Consult: no MRSA/MSSA protocol: N/A AGREEMENT FOR POST-OPERATIVE NON-INVASIVE VENTILATION- N/A Opioid Consent: reviewed and signed Signature: Belia SANDOVAL Patient given pre-op packet- contents reviewed. Discussed with patient pre and post-op instructions. Patient verbalized understanding and denied any questions. Patient encouraged to contact the office with any questions/concerns. * Amos Andujar MD - 08/16/2024 1330 EDT [facility] NEUROLOGICAL SURGERY PROGRESS / FOLLOWUP NOTE - 08/16/2024 Dear Kerrie: I had the pleasure of seeing your patient Aparna Fairchild back in my neurosurgery office at [facility] on 08/16/2024. She returns for preoperative visit in anticipation of surgery in August. She is scheduled for a craniotomy for resection of a meningioma. Mrs Fairchild is now 73 years old. She previously underwent a CAT scan and MRI for investigation ofan unusual headache in the spring. An incidental meningioma was found. Her headaches resolved, and she now is asymptomatic of the meningioma. She has no symptoms that could be referable to the presence of the meningioma. She is very healthy. She only takes Lipitor and vitamins. She underwent a repeat MRI scan of the head on 08/03/2024. This shows that the meningioma now is just a little over 2 cm in size. The original MRI scan done in January 2023 measured approximately 1.8 cm in size. Thus, the tumor is slowly growing. Pros and cons of surgical resection have been discussed in the past. She would like to go ahead with the surgery. Pre and postoperative care was fully discussed with her today, and the risks of the surgery were clearly explained to her as well. Details of the surgical resection were also discussed.I believe she is fully informed. Our nurse is reviewing the consent form with her, and the consent lists the possible complications as well. We will proceed in mid August with craniotomy for resection of the meningioma. I will keep you informed. Thanks for asking us to help with her care. Yours sincerely, Amos Andujar MD / Dictation ID: [id number] cc: Kerrie Morgan APRN, [address] [place] [address] documented in this encounter Plan of Treatment Upcoming Encounters Date Type Department Care Team (Late st Contact Info) Description 09/08/2024 7:25 EST Hospital Encounter [facility] OR [address] [place] [phone] Amos Andujar MD [address] [place] [phone] 09/08/2024 7:25 EST - 09/08/2024 12:55 EST Surgery [facility] OR [address] [place] [phone] Amos Andujar MD [address] [place] [phone] Bifrontal craniotomy for resction of meningioma [40150 (CPT??)] 10/05/2024 11:00 EST Post-op Visit [facility] Neurosurgery - [address] [phone] Mohini Bedoya PA-C [address] [place] [phone] Scheduled Procedures Name Priority Associated Diagnoses Date/Ti me CRANIECTOMY, SUPRATENTORIAL, FOR EXCISION OF MENINGIOMA Meningioma (HCC-CMS) 09/08/2024 7:25 EST documented as of this encounter Visit Diagnoses Diagnosis Meningioma (HCC-CMS)- Primary Benign neoplasm of cerebral meninges Meningioma (HCC-CMS)- Primary Benign neoplasm of cerebral meninges Meningioma (HCC-CMS) Benign neoplasm of cerebral meninges documented in this encounter Orders Case Request Count Last Ordered Date First Orde red Date CASE REQUEST OPERATING ROOM 1 08/16/2024 documented in this encounter Care Teams Winch Operator Relationship Specialty Start Date End Date Kerrie Morgan APRN [address] [place] [phone] PCP - General 01/17/23 08/17/24 Cecy Cota MD [address] [place], [place] [phone] PCP - General Family Medicine - Primary Care 08/18/24 Maxine Masterson MD [address] [place] [phone] 01/17/23 documented as of this encounter
--- OUTSIDE RECORDS SUMMARY | 2024-09-02 22:07 | XMS_ITS | Encounter Summary ---
Author Organization [facility] Address [address] [place] [address] Care Team Providers Care Food Server Name Role Phone Maxine Masterson MD Primary Care Provider [phone] Reason for Visit * Reason Comments Labs Only Encounter Details Date Type Department Care Team (Latest Contact Info) Description 09/06/2014 13:00 EST Procedure visit [facility] Endocrinology - [address] [address] Unknown, Provider, Phlebotomy, [facility] Endo Thyroid nodule Discharge Disposition: Auto Discharge [...] Progress Notes * Batsheva Unger - 09/06/2014 3552 EST Blood sample drawn from vein for testing at the order of Dr. Alonzo ???I was supervised by Dr. Alonzo who was in the suite and readily available.?? documented in this encounter Plan of Treatment Upcoming Encounters Date Type Department Care Team (Late st Contact Info) Description 09/08/2024 7:25 EST Hospital Encounter [facility] OR [address] [place] [address] [phone] Amos Andujar MD [address] [place] [address] [phone] 09/08/2024 7:25 EST - 09/08/2024 12:55 EST Surgery [facility] OR [address] [place] [address] [phone] Amos Andujar MD [address] [place] [address] [phone] Bifrontal craniotomy for resction of meningioma [86769 (CPT??)] 10/05/2024 11:00 EST Post-op Visit [facility] Neurosurgery - [address] [phone] Mohini Bedoya PA-C [address] [place] [address] [phone] Scheduled Procedures Name Priority Associated Diagnoses Date/Ti me CRANIECTOMY, SUPRATENTORIAL, FOR EXCISION OF MENINGIOMA Meningioma ([facility]) 09/08/2024 7:25 EST documented as of this encounter Procedures Procedure Name Priority Date/Time Associated Diagnosis Comments TSH Routine 09/06/2014 12:21 EST Thyroid nodule T4 FREE Routine 09/06/2014 12:21 EST Thyroid nodule documented in this encounter Results * T4 FREE (09/06/2014 12:21 EST) Free T4 1.4 0.8 - 1.8 ng/dl 09/06/2014 16:28 EST [facility] Blood specimen (specimen) BLOOD SPECIMEN / Unknown 09/06/2014 12:21 EST 09/06/2014 15:24 EST us Dilip Zev Alonzo DO CHEMISTRY & BLOOD GAS ORDERABLES Final Result Performing Organization Address City/[facility]/ZIP Co de Phone Number [facility] [address] [place] [address] * TSH (09/06/2014 12:21 EST) TSH 1.21 0.35 - 5.00 uIU/ml 09/06/2014 16:46 EST [facility] Blood specimen (specimen) BLOOD SPECIMEN / Unknown 09/06/2014 12:21 EST 09/06/2014 15:24 EST us Dilip Alonzo DO CHEMISTRY & BLOOD GAS ORDERABLES Final Result Performing Organization Address [facility] de Phone Number [facility] [address] [place] [address] documented in this encounter Visit Diagnoses Diagnosis Thyroid nodule Nontoxic uninodular goiter Meningioma (HCC-CMS) Benign neoplasm of cerebral meninges documented in this encounter Care Teams Food Server Relationship Specialty Start Date End Date Maxine Masterson MD [address] [place] [phone] PCP - General 01/29/13 01/23/16 documented as of this encounter
--- OUTSIDE RECORDS SUMMARY | 2024-09-02 22:07 | XMS_ITS | Encounter Summary ---
Author Organization [facility] Address [address] [place] [address] Care Team Providers Care Senior Mortgage Loan Processor Name Role Phone Maxine Jha MD Primary Care Provider [phone] Encounter Details Date Type Department Care Team (Late st Contact Info) Description 01/12/2015 Results Only [facility] Laboratory Services - [facility] ([facility]) [address], [place] 238576 Anu Ford, [facility] [address] [place] [address] [place] [address] Social History Tobacco Use Types Packs/Day Years [...] as of this encounter Plan of Treatment Upcoming Encounters Date Type Department Care Team (Late st Contact Info) Description 09/08/2024 7:25 EST Hospital Encounter [facility] OR [address] [place], [place] [phone] Amos Andujar MD [address] [facility], [address] [place] [phone] 09/08/2024 7:25 EST - 09/08/2024 12:55 EST Surgery [facility] OR [address] [place], [place] [phone] Amos Andujar MD 111 [facility] [address] [place] [phone] Bifrontal craniotomy for resction of meningioma [02495 (CPT??)] 10/05/2024 11:00 EST Post-op Visit [facility] Neurosurgery - [facility] [address] [place], [place] [phone] Mohini Bedoya PA-C [address] [place] [address] [phone] Scheduled Procedures Name Priority Associated Diagnoses Date/Ti me CRANIECTOMY, SUPRATENTORIAL, FOR EXCISION OF MENINGIOMA Meningioma ([facility]) 09/08/2024 7:25 EST documented as [...] ng unformatted reports. Name: ? PANDA, APARNA R ? Accession #: ? [id number] ? : ? 1950 (Age: 64) ??F ?Collect Date: ? 01/12/2015 ? Location: ? [facility] ? Receive Date: ? 01/13/2015 ? Provider: ANU FORD SWEEPER CLEANER INDUSTRIAL Copy to: MAXINE JHA MD ? Final [...] types 16,18,31,33,35, 39,45,51,52,56,58, 59,66, and 68 by expressive therapist mediated amplification. Comments Document reviewed and electronically signed by: ? System Interface ? Report date: 01/27/2015 By the signature above, the attending physician certifies that he/she has personally conducted a gross and/or microscopic examination of the described specimens and rendered or confirmed the above diagnosis. End of Report [facility] 01/12/2015 01/13/2015 us Anu Ford SWEEPER CLEANER INDUSTRIAL PATHOLOGY ORDERABLES Final R esult [facility] [address] [place] [address] documented in this encounter Visit Diagnoses Not on filedocumented in this encounter Care Teams Senior Mortgage Loan Processor Relationship Specialty Start Date End Date Maxine Jha MD [address] [place] [phone] PCP - General 01/29/13 01/23/16 documented as of this encounter
--- OUTSIDE RECORDS SUMMARY | 2024-09-02 22:08 | XMS_ITS | Encounter Summary ---
[place] [address] Care Team Providers Care Private Chef Name Role Phone Kerrie Morgan APRN Primary Care Provider + Encounter Details Date Type Department Care Team (Late st Contact Info) Description 05/25/2021 11:00 AM EDT Office Visit [place] [address] Catina Rao MD [facility] [place] [address] Multiple thyroid nodules Social History Tobacco Use [...] thyroid nodule that has been followed from [id number] at [facility], discovered on routine physical exam. FNA was done in 2011 at [facility] and in [address] Perez at [facility] due to size enlargement, and had benign [...] Rao MD PGY 5, Endocrinology Fellow Pager: [phone] * Catina Rao - 05/25/2021 11:00 AM EDT THYROID ULTRASOUND Date: 05/25/21 Indication: thyroid nodules Real time images of the thyroid gland were obtained using a Zocere US machine. All measurements are given as [...] Rao MD PGY 5, Endocrinology Fellow Pager: [phone] * Brandon Lacey MD - 05/25/2021 11:00 [...] Stimulating Hormone 1.30 0.27 - 4.20 mcIU/mL [facility] Comment: Reference Interval (mcIU/mL): Females: ??First Trimester: 0.23-3.88 ??Second Trimester: 0.22-3.90 ??Third Trimester: 0.44-4.66 Blood 05/25/2021 12:4 5 PM EDT 05/25/2021 12:57 PM EDT Narrative Resulting Agency Comment Spec In Lab Galina Arias MD CHEMISTRY ORDERABLES [facility] [place] [phone] documented in this encounter Visit Diagnoses Diagnosis Multiple thyroid nodules Nontoxic multinodular goiter documented in this encounter Care Teams Private Chef Relationship Specialty Start Date End Date Kerrie Morgan APRN [address] [place] [address] PCP - General Family Medicine 03/31/18 documented as of this encounter
--- OUTSIDE RECORDS SUMMARY | 2024-09-02 22:08 | XMS_ITS | Encounter Summary ---
Author Organization [facility] Address [address] [place] [address] Care Team Providers Care Food Checkers And Cashiers Supervisor Name Role Phone Lemuel Mcdaniel MD Primary Care Provider [phone] Reason for Visit * Reason Comments Travel Consult Encounter Details Date Type Department Care Team (Late st Contact Info) Description 04/02/2012 13:00 EDT Office Visit [facility] Infectious Disease - [facility] [address] [place] [address] Kami Daniel FNP [facility] [address] [place] [address] [phone] Other specified counseling (Primary Dx) Social History Tobacco Use Types Packs/Day Years Used Date Smoking Tobacco: Never Assessed Comments Unknown Sex and Gender Information Value Date Recorded [...] in this encounter Ordered Prescriptions Prescription Sig Dispense Quantity Refills Last Filled Start Date End Date ciprofloxacin (CIPRO) 500 mg tabletIndications: Other specified counseling Take 1 Tab by mouth [...] Department of Medicine Progress Notes Travel: Where: [facility] How Lon days When:05/20/12 Purpose: daughter's wedding [...] vaccine today. She will only be in [place] and so is not atrisk for Malaria. [...] Info) Description 09/08/2024 7:25 EST Hospital Encounter [facility] OR [address] [place] [address] [phone] Amos Andujar MD [address] [place] [address] [phone] 09/08/2024 7:25 EST - 09/08/2024 12:55 EST Surgery [facility] OR [address] [place] [address] [phone] Amos Andujar MD [address] [place] [address] [phone] Bifrontal craniotomy for resction of meningioma [91933 (CPT??)] 10/05/2024 11:00 EST Post-op Visit [facility] Neurosurgery - [address] [phone] Mohini Bedoya PA-C [address] [place] [phone] Scheduled Procedures Name Priority Associated Diagnoses Date/Ti me CRANIECTOMY, SUPRATENTORIAL, FOR EXCISION OF MENINGIOMA Meningioma (HCC-CMS) 09/08/2024 7:25 EST documented as of this encounter Visit Diagnoses Diagnosis Other specified counseling- Primary Meningioma (HCC-CMS) Benign neoplasm of cerebral meninges documented in this encounter Orders Immunization/Injection Count Last Ordered Date First Ordered Date HEPATITIS A VACCINE ADULT IM 1 04/02/2012 TYPHOID VICPS (TYPHIM ) VACCINE IM 03/20 YELLOW FEVER VACCINE SQ 04/02/2012 documented in this encounter Care Teams Food Checkers And Cashiers Supervisor Relationship Specialty Start Date End Date Lemuel Mcdaniel MD [address] [place] [address] PCP - General 04/02/12 01/28/13 documented as of this encounter
--- OUTSIDE RECORDS SUMMARY | 2024-09-02 22:08 | XMS_ITS | Encounter Summary ---
[place] [address] Care Team Providers Care Software Product Specialist Name Role Phone Kerrie Morgan APRN Primary Care Provider + Encounter Details Date Type Department Care Team (Late st Contact Info) Description 02/19/2019 2:30 PM EDT Office Visit [place] [address] Jen Perez MD [facility] [place] [address] Multiple thyroid nodules Social History Tobacco Use [...] thyroid nodule that has been followed from [id number] at [facility], discovered on routine physical exam. FNA was done in 2011 at [facility] and in 2017 by me at [facility] due to size enlargement, and had benign cytology both times. The nodule was followed yearly thereafter. She transitioned her thyroid nodule care to [facility] 1 year ago. 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 She is still reluctant about the idea [...] Office Visit from 02/19/2019 in Endocrinology at [place] Weight 75.4 kg (166 lb 3.2 oz) [...] for thyroid nodule reassessment. JEN PEREZ MD Skilled Nursing Professionalmanager graphic Section of Endocrinology [facility] * Jen Perez MD - 02/19/2019 2:30 PM EDT THYROID ULTRASOUND Date: 02/19/19 Indication: thyroid nodule reassessment Comparison: 2011, 2012, 2015, March 2017, March 2018 Real time images of the thyroid gland were obtained using a Aspectiva US machine. All measurements are given as [...] criteria at this time. Jen Perez MD Skilled Nursing Professionalmanager graphic Section of Endocrinology [facility] documented in this encounter Plan of Treatment Not on file documented as of this encounter Visit Diagnoses Diagnosis Multiple thyroid nodules Nontoxic multinodular goiter documented in this encounter Care Teams Software Product Specialist Relationship Specialty Start Date End Date Kerrie Morgan, SECURITIES CLERK [address] [place] [address] PCP - General Family Medicine 03/31/18 documented as of this encounter
--- OUTSIDE RECORDS SUMMARY | 2024-09-02 22:08 | XMS_ITS | Encounter Summary ---
Author Organization [facility] Address [address] [place] [address] Care Team Providers Care Personal Financial Planner Name Role Phone Lemuel Mcdaniel MD Primary Care Provider [phone] Reason for Visit * Reason Comments Goiter Encounter Details Date Type Department Care Team (Latest Contact Info) Description 04/09/2012 11:00 EDT Office Visit [facility] Endocrinology - [facility] [address] [place], [place] [phone] Dilip Alonzo, [address] [facility] [address] [place] [address] Thyroid nodule (Primary Dx) Social [...] encounter Patient Instructions * Patient Instructions* Dilip Alonzo, - 04/09/2012 11:[address] Alonzo to call with biopsy results once available 2. Follow-up in 9 months for 40 minute appointment for ultrasound documented in this encounter Progress Notes * Dilip Alonzo, - 04/09/2012 1149 EDT HISTORY OF PRESENT ILLNESS: I had the pleasure of seeing your patient, Mrs Aparna Etienne in consultation at your request in the [facility] endocrinology clinic today on 04/09/2012 for further [...] drugs. 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 She is [...] to confirm the [facility] prior to an FNA biopsy this afternoon [...] 3 cm nodule today, 04/09/2012 here at [facility] endocrinology clinic, biopsy clinic. I will contact [...] Info) Description 09/08/2024 7:25 EST Hospital Encounter [facility] OR [address] [place] [address] [phone] Amos Andujar MD [address] [place] [phone] 09/08/2024 7:25 EST - 09/08/2024 12:55 EST Surgery [facility] OR [address] [place] [address] [phone] Amos Andujar MD [address] [place] [address] [phone] Bifrontal craniotomy for resction of meningioma [45202 (CPT??)] 10/05/2024 11:00 EST Post-op Visit [facility] Neurosurgery - [address] [phone] Mohini Bedoya PA-C [address] [place] [address] [phone] Scheduled Procedures Name Priority Associated Diagnoses Date/Ti [...] (specimen) 04/09/2012 11:59 EDT 04/09/2012 15:02 EDT us Dilip Alonzo DO CHEMISTRY & BLOOD GAS ORDERABLES Final Result [facility] [address] [place] [address] documented in this encounter Visit Diagnoses Diagnosis Thyroid nodule- Primary Nontoxic uninodular goiter Meningioma (HCC-CMS) Benign neoplasm of cerebral meninges documented in this encounter Care Teams Personal Financial Planner Relationship Specialty Start Date End Date Lemuel Mcdaniel MD [address] [place] [address] PCP - General 04/02/12 01/28/13 documented as of this encounter
--- OUTSIDE RECORDS SUMMARY | 2024-09-02 22:08 | XMS_ITS | Encounter Summary ---
[place] [address] Care Team Providers Care Unit Educator Name Role Phone Shirley Morgan APRN Primary Care Provider + Encounter Details Date Type Department Care Team (Late st Contact Info) Description 01/14/2023 11:30 AM EDT Tech [place] [address] Zackery Brink, RVT Intractable headache, unspecified chronicity [...] Text Report Department: Vascular Surgery Lab Patient: [id number] (APARNA MAIER) CPT: 24637 Referring Physician: SHIRLEY MORGAN ?? Phone: Indications: [...] 01/14/2023 11:1 2 AM EDT Shirley Morgan CIVIL RIGHTS INVESTIGATOR VASCULAR ORDERAB LES VASCUBASE documented in this encounter Visit Diagnoses Diagnosis Intractable headache, unspecified chronicity pattern, unspecified headache type documented in this encounter Care Teams Unit Educator Relationship Specialty Start Date End Date Shirley Morgan, CIVIL RIGHTS INVESTIGATOR [address] [place] [address] PCP - General Family Medicine 03/31/18 documented as of this encounter
--- OUTSIDE RECORDS SUMMARY | 2024-09-02 22:08 | XMS_ITS | Encounter Summary ---
Author Organization [facility] Address [address] [place] [address] Care Team Providers Care Big Machine Consultant Name Role Phone Unavailable Primary Care Provider Unavailabl e Encounter Details Date Type Department Care Team (Late st Contact Info) Description 08/16/2005 Results Only [facility] [address] [place] [address] Lianet Subramanian MD [address] [place] [address] [place] [address] Social History Tobacco Use Types Packs/Day Years [...] Description 09/08/2024 7:25 EST Hospital Encounter [facility] OR [address] [place] [address] [phone] Amos Andujar MD [address] [place] [address], [address] [place] [phone] 09/08/2024 7:25 EST - 09/08/2024 12:55 EST Surgery [facility] OR [address] [place] [address] [phone] Amos Andujar MD 111 [facility] 5 [place] [phone] Bifrontal craniotomy for resction of meningioma [12852 (CPT??)] 10/05/2024 11:00 EST Post-op Visit [facility] Neurosurgery - [facility] [address] [place], [place] [phone] Mohini Bedoya PA-C 111 [facility] 5 [place] [phone] Scheduled Procedures Name Priority Associated Diagnoses Date/Ti me CRANIECTOMY, SUPRATENTORIAL, FOR EXCISION OF MENINGIOMA Meningioma ([facility]) 09/08/2024 7:25 EST documented as of [...] ? FARZAD, APARNA ? Accession #: ? [id number] : ? 1950 (Age: 54) ??F ?Collect Date: ? 08/16/2005 Location: ? [facility] ? Receive Date: ? 08/20/2005 Provider: ?LIANET SUBRAMANIAN MD Copy to: ? Specimen/Source: ?ThinPrep Pap Test, Cervix/Endocervix, processed on [employer] ThinPrep Imaging System, with manual evaluation Last Menstrual Period: ? 12/? Other: ? HPVA - HPV testing requested [...] End of Report [facility] 08/16/2005 08/20/2005 us Lianet Subramanian MD PATHOLOGY ORDERABLES Final Resu lt [facility] [address] [place] [address] documented in this encounter Visit Diagnoses Not on filedocumented in this encounter
--- OUTSIDE RECORDS SUMMARY | 2024-09-02 22:08 | XMS_ITS | Encounter Summary ---
Author Organization [facility] Address [address] [place] [address] Care Team Providers Care Pearl Diver Name Role Phone Maxine Masterson MD Primary Care Provider [phone] Reason for Referral * Radiology Services (Routine) - Closed Specialty Diagnoses / Procedures Referred By Contsalvatore luna Referred To Contact Diagnoses Thyroid nodule Procedures ENDOCRINE CLINIC THYROID Dilip Alonzo DO Phone: tel: fax: Referral ID Status Reason Start Date Expiration Date Visits Re quested Visits Authorized [id number] Closed 09/01/2014 1 1 Reason for Visit * Reason Comments Thyroid Problem Encounter Details Date Type Department Care Team (Latest Contact Info) Description 09/01/2014 15:40 EST Office Visit [facility] Endocrinology - [facility] [address] [place] [address] Dilip Alonzo DO [address] [place] [address] [address] [place] [address] Thyroid nodule (Primary Dx) Social [...] Encounter [facility] OR [address] [place], [place] [address] Amos Andujar MD 111 [facility], [address] [place] [phone] 09/08/2024 7:25 EST - 09/08/2024 12:55 EST Surgery [facility] OR [address] [place], [place] [phone] Amos Andujar MD [address] [place] [phone] Bifrontal craniotomy for resction of meningioma [38588 (CPT??)] 10/05/2024 11:00 EST Post-op Visit [facility] Neurosurgery - [address] [phone] Mohini Bedoya PA-C [address] [place] [phone] Scheduled Procedures Name Priority Associated Diagnoses Date/Ti me CRANIECTOMY, SUPRATENTORIAL, FOR EXCISION OF MENINGIOMA Meningioma ([facility]) 09/08/2024 7:25 EST documented as of this encounter Procedures Procedure Name Priority Date/Time Associated Diagnosis Comments ENDOCRINE CLINIC US THYROID Routine 09/01/2014 16:05 EST Thyroid nodule documented in this encounter Results * T4 FREE (09/06/2014 12:21 EST) Free T4 1.4 0.8 - 1.8 ng/dl 09/06/2014 16:28 EST [facility] Blood specimen (specimen) BLOOD SPECIMEN / Unknown 09/06/2014 12:21 EST 09/06/2014 15:24 EST us Dilip Alonzo DO CHEMISTRY & BLOOD GAS ORDERABLES Final Result [facility] [address] [place] [address] * TSH (09/06/2014 12:21 EST) TSH 1.21 0.35 - 5.00 uIU/ml 09/06/2014 16:46 EST [facility] Blood specimen (specimen) BLOOD SPECIMEN / Unknown 09/06/2014 12:21 EST 09/06/2014 15:24 EST us Dilip Alonzo DO CHEMISTRY & BLOOD GAS ORDERABLES Final Result Performing Organization Address City/State/[facility] Co de Phone Number [facility] [address] [place] [address] * ENDOCRINE CLINIC US THYROID (09/01/2014 16:05 EST) Anatomical Region Laterality Modality Other 09/01/2014 16:0 5 EST Narrative 09/01/2014 16:05 EST Non Reportable Exam Procedure Note ANALYSIS MGR, IMAGING - 02/13/2015 Non Reportable Exam us Dilip Alonzo DO IMG US ORDERABLES Meaghan l Result documented in this encounter Visit Diagnoses Diagnosis Thyroid nodule- Primary Nontoxic uninodular goiter Meningioma (HCC-CMS) Benign neoplasm of cerebral meninges documented in this encounter Care Teams Pearl Diver Relationship Specialty Start Date End Date Maxine Masterson MD [address] [place] [address] PCP - General 01/29/13 01/23/16 documented as of this encounter
--- OUTSIDE RECORDS SUMMARY | 2024-09-02 22:08 | XMS_ITS | Encounter Summary ---
Author Organization [facility] Address [address] [place] [address] Care Team Providers Care Senior Technical Manager Name Role Phone Maxine Masterson MD Primary Care Provider [phone] Reason for Visit * Reason Onset Date Comments Results 08/23/2013 Encounter Details Date Type Department Care Team (Late st Contact Info) Description 08/23/2013 Telephone [facility] Endocrinology - [facility] [address] [place] [address] Dilip Alonzo, [address] [facility] [address] [place] [address] Results Social History Tobacco Use [...] Encounter - Heather Martinez RN - 08/24/2013 3669 EST Phone call to Aparna Patient informed that her [place] labs were WNL, Dr. Alonzo did send a letter, but she never received it. She will keep her follow up appt. Verbalizes understanding with no barriers. * Telephone Encounter - Lina Joanie - 08/23/2013 0923 EST Patient is calling to get her lab results she just had done here documented in this encounter Plan of Treatment Upcoming Encounters Date Type Department Care Team (Late st Contact Info) Description 09/08/2024 7:25 EST Hospital Encounter [facility] OR [address] [place] [address] [phone] Amos Andujar MD [address] [place] [phone] 09/08/2024 7:25 EST - 09/08/2024 12:55 EST Surgery [facility] OR [address] [place] [address] [phone] Amos Andujar MD [address] [place] [phone] Bifrontal craniotomy for resction of meningioma [92137 (CPT??)] 10/05/2024 11:00 EST Post-op Visit [facility] Neurosurgery - [address] [address] Mohini Bedoya PA-C [address] [place] [phone] Scheduled Procedures Name Priority Associated Diagnoses Date/Ti me CRANIECTOMY, SUPRATENTORIAL, FOR EXCISION OF MENINGIOMA Meningioma ([facility]) 09/08/2024 7:25 EST documented as of this encounter Visit Diagnoses Not on filedocumented in this encounter Care Teams Senior Technical Manager Relationship Specialty Start Date End Date Maxine Masterson MD [address] [place] [address] PCP - General 01/29/13 01/23/16 documented as of this encounter
--- OUTSIDE RECORDS SUMMARY | 2024-09-02 22:08 | XMS_ITS | Encounter Summary ---
[place] [address] Care Team Providers Care Client Services Assistant Name Role Phone Joanie Ferrell APRN Primary Care Provider [phone] Reason for Referral * Consultation (Routine) - Closed Specialty Diagnoses / Procedures Referred By Caleb luna Referred To Contact General Surgery Diagnoses Thyroid nodule Jen Perez MD [facility] [place] [address] Teresa Land MD [facility] [place] [address] Referral ID Status Reason Start Date Expiration Date V isits Requested Visits Authorized [id number] Closed Consult, Test & Treat 04/16/2017 04/16/2018 1 1 Encounter Details Date Type Department Care Team (Late st Contact Info) Description 04/16/2017 1:00 PM EDT Office [place] [address] Jen Perez MD [facility] [place] [address] Thyroid nodule Social History Tobacco Use Types [...] by Joanie Ferrell to establish care at [facility] for her thyroid nodules HISTORY OF PRESENT ILLNESS: Ms. Aparna Etienne is a 66 y.o. year old lady with history significant for a R- sided thyroid nodulethat has been followed since 2011 at [facility], discovered on routine physical exam. FNA was [...] is transitioning her thyroid nodule care to [facility] this year, and is here today for [...] 4.3cm R thyroid nodule --referral for R fara- or total thyroidectomy due to nodule size >4.0cm JEN PEREZ MD Territory Sales Representativelogistics analytics manager Section of Endocrinology [facility] * Jen Perez MD - 04/16/2017 1:00 [...] criteria at this time. Jen Perez MD [employer] Representativelogistics analytics manager Section of Endocrinology [facility] * Jen Perez MD - 04/16/2017 1:00 [...] present during the procedure. Jen Perez MD Territory [employer] Representativelogistics analytics manager Section of Endocrinology documented in this encounter Plan of Treatment Scheduled Referrals Name Type Priority Associated Diagnoses Orde r Schedule Referral to General Surgery Outpatient Referral Routine Thyroid nodule Ordered: 04/16/2017 documented as of this encounter Procedures Procedure Name Priority Date/Time Associated Diagnosis Comments NON-STORE OPERATIONS MANAGER FINAL REPORT Routine 04/16/2017 2:36 PM EDT T3 TOTAL Routine 04/16/2017 2:34 PM EDT Thyroid nodule TSH Routine 04/16/2017 2:34 PM EDT Thyroid nodule T4, FREE Routine 04/16/2017 2:34 PM EDT Thyroid nodule CYTOPATHOLOGY NON-GYNECOLOGICAL Routine 04/16/2017 1:37 PM EDT Thyroid nodule documented in this encounter Results * Non-Camp Head Counselor Final Report (04/16/2017 2:36 PM EDT) Diagnosis Discussion [id number] ?Location: 5C The signing pathologist has (i) examined the relevant preparation(s) for the specimen(s) and (ii) rendered or confirmed the diagnosis(es). . ? Non-Camp Head Counselor Final DIAGNOSIS Benign Electronically signed by: ??Ronan [...] indicated. Reference: Dior HAMILTON, Sayda ES. The [place] System for Reporting Thyroid Cytopathology. [place]: [place]; 2010. CLINICAL INFORMATION Specimen Source : [...] for completed interpretation. 04/21/2017 8:25 AM EDT [facility] THYROID STRUCTURE / Unknown 04/16/2017 2:36 PM EDT 04/16/2017 2:36 PM EDT Jen Perez MD PATHOLOGY/CYTOLOGY O RDERABLES [facility] [place] [address] * T3 Total (04/16/2017 2:34 PM EDT) T3 Total 109 75 - 170 ng/dL [facility] Blood specimen (specimen) 04/16/2017 2:34 PM EDT 04/16/2017 2:45 PM EDT Narrative Resulting Agency Comment Spec In Lab Jen Perez MD CHEMISTRY ORDERABLES Performing Organization Address [facility] [place] [address] * T4, free (04/16/2017 2:34 PM EDT) Free T4 1.20 0.93 - 1.70 ng/dL [facility] [place] [place] Blood specimen (specimen) 04/16/2017 2:34 PM EDT 04/16/2017 2:45 PM EDT Narrative Resulting Agency Comment Spec In Lab Jen Perez MD CHEMISTRY ORDERABLES Performing Organization Address [facility] Co de Phone Number [facility] [place] [address] * TSH (04/16/2017 2:34 PM EDT) Thyroid Stimulating Hormone 1.10 0.27 - 4.20 mlU/ML [facility] Blood specimen (specimen) 04/16/2017 2:34 PM EDT 04/16/2017 2:45 PM EDT Narrative Resulting Agency Comment Spec In Lab Jen Perez MD CHEMISTRY ORDERABLES Performing Organization Address City/[facility] Co de Phone Number [facility] [place] [address] * Cytopathology Non-Gynecological (04/16/2017 1:37 PM EDT) AP Specimen 04/16/2017 1:37 PM EDT 04/16/2017 1:37 PM EDT Narrative [facility] - 04/16/2017 1:37 PM EDT Specimen requisition ordered. ??Separate Pathology report to follow Jen Perez MD PATHOLOGY/CYTOLOGY O RDERABLES [facility] [address] documented in this encounter Visit Diagnoses Diagnosis Thyroid nodule Nontoxic uninodular goiter documented in this encounter Care Teams Client Services Assistant Relationship Specialty Start Date End Date Joanie Ferrell APRN PCP - General Family Medicine 02/03/17 03/30/18 documented as of this encounter
--- OUTSIDE RECORDS SUMMARY | 2024-09-02 22:08 | XMS_ITS | Clinical Summary ---
[place] [address] Care Team Providers Care Brace Maker Name Role Phone Kerrie Morgan MALI Primary [...] - PCV) 2017 Covid-19 Vaccine (1 - 2023- season) 2024 Influenza (Flu) vaccine (1 o f 1 - Influenza standard series) 06/20/2024 Care Teams Brace Maker Relationship Specialty Start Date End Date Kerrie Morgan APRN [address] [place] [phone] PCP - General Family Medicine 03/31/18
--- OUTSIDE RECORDS SUMMARY | 2024-09-02 22:08 | XMS_ITS | Encounter Summary ---
Author Organization [facility] Address [address] [place] [address] Care Team Providers Care Research Advisor Name Role Phone Unavailable Primary Care Provider Unavailabl e Encounter Details Date Type Department Care Team (Late st Contact Info) Description 10/07/2007 Results Only [facility] - [place] [facility] [address] [place] [address] Lianet Subramanian MD [address] [place] [address] [place] [address] Social History Tobacco Use Types Packs/Day Years [...] [facility] OR [address] [place] [address] [phone] Amos Andujar MD [address] [place] [address], Level [address] [place] [address] 09/08/2024 7:25 EST - 09/08/2024 12:55 EST Surgery [facility] OR [address] [place] [address] [phone] Amos Andujar MD [address] [facility] [address] [place] [address] Bifrontal craniotomy for resction of meningioma [34639 (CPT??)] 10/05/2024 11:00 EST [facility] - [facility] [address], [place] [phone] Mohini Bedoya PA-C [address] [facility] 5 [place] [address] Scheduled Procedures Name Priority Associated Diagnoses Date/Ti me CRANIECTOMY, SUPRATENTORIAL, FOR EXCISION OF MENINGIOMA Meningioma ([facility]) 09/08/2024 7:25 EST documented as of this [...] ? PANDA, APARNA ? Accession #: ? [id number] : ? 1950 (Age: 56) ??F ?Collect Date: ? 10/07/2007 Location: ? [facility] ? Receive Date: ? 10/08/2007 Provider: ?LIANET SUBRAMANIAN MD Copy to: ? Specimen/Source: ?ThinPrep Pap Test, Cervix/Endocervix, processed on [employer] ThinPrep Imaging System, with manual evaluation Last Menstrual Period: ? 04/19/07 Other: ? Additional clinical information: No hormones HPVA - HPV testing requested if ASC-US on the current ThinPrep Pap test. ? SPECIMEN ADEQUACY ? Satisfactory for Evaluation - transformation zone component present GENERAL CATEGORIZATION ? Negative for Intraepithelial Lesion or Malignancy ? Document reviewed and electronically signed by: ? KEVIN Chatman(ASCP) ? Report Date: ??10/09/2007 16:05 End of Report [facility] 10/07/2007 10/08/2007 us Lianet Subramanian MD PATHOLOGY ORDERABLES Final Resu lt [facility] [address] [place] [address] documented in this encounter Visit Diagnoses Not on filedocumented in this encounter
--- OUTSIDE RECORDS SUMMARY | 2024-09-02 22:08 | XMS_ITS | Encounter Summary ---
[place] [address] Care Team Providers Care Return To Factory Clerk Name Role Phone Kerrie Morgan APRN Primary [...] on filedocumented in this encounter Care Teams Return To Factory Clerk Relationship Specialty Start Date End Date Kerrie Morgan APRN [address] [place] [address] PCP - General Family Medicine 03/31/18 documented as of this encounter
--- OUTSIDE RECORDS SUMMARY | 2024-09-02 22:08 | XMS_ITS ---
Author Organization Unknown Address [address] [place] [phone] Phone Care Team Providers Care Angiographer Name Role Phone DARWIN PEREZ MD Attending Unavailable SHANELLE WATSON Primary Unavailable Social History Type Status Start Date End Date Code Code Syst em Smoking History Never smoker (Never Smoked) [id number] SNOMED CT Sex Female Hospital Discharge Instructions [...] Code System No Known Drug Allergies Active [id number] SNOMED-CT Plan of Treatment MM SCREEN BILAT [...]
--- OUTSIDE RECORDS SUMMARY | 2024-09-02 22:08 | XMS_ITS | Encounter Summary ---
[place] [address] Care Team Providers Care Department Store Salesperson Name Role Phone Kerrie Morgan APRN Primary [...] on filedocumented in this encounter Care Teams Department Store Salesperson Relationship Specialty Start Date End Date Kerrie Morgan APRN [address] [place] [address] PCP - General Family Medicine 03/31/18 documented as of this encounter
--- OUTSIDE RECORDS SUMMARY | 2024-09-02 22:08 | XMS_ITS | Encounter Summary ---
Author Organization [facility] Address [address] [place] [address] Care Team Providers Care Supervisor Riveting Name Role Phone Lemuel Mcdaniel MD Primary Care Provider [phone] Reason for Visit * Reason Comments Thyroid Problem Encounter Details Date Type Department Care Team (Late st Contact Info) Description 04/09/2012 15:00 EDT Nurse Only [facility] Endocrinology - [address] [address] Unknown, Provider, MD Clinic, Thyroid Biopsy Thyroid nodule (Primary Dx) [...] Description 09/08/2024 7:25 EST Hospital Encounter [facility] OR [address] [place] [address] Amos Andujar MD [address] [place] [address], Level [address] [place] [phone] 09/08/2024 7:25 EST - 09/08/2024 12:55 EST Surgery [facility] OR [address] [place] [address] [phone] Amos Andujar MD [address] [place] [address] 5 [place] [phone] Bifrontal craniotomy for resction of meningioma [05902 (CPT??)] 10/05/2024 11:00 EST Post-op Visit [facility] Neurosurgery - [address] [phone] Mohini Bedoya PA-C [address] [place] [address] 5 [place] [phone] Scheduled Procedures Name Priority Associated Diagnoses Date/Ti me CRANIECTOMY, SUPRATENTORIAL, FOR EXCISION OF MENINGIOMA Meningioma (HCC-CMS) 09/08/2024 7:25 EST documented as of this encounter Visit Diagnoses Diagnosis Thyroid nodule- Primary Nontoxic uninodular goiter Meningioma (HCC-CMS) Benign neoplasm of cerebral meninges documented in this encounter Care Teams Supervisor Riveting Relationship Specialty Start Date End Date Lemuel Mcdaniel MD [address] [place] [address] PCP - General 04/02/12 01/28/13 documented as of this encounter
--- OUTSIDE RECORDS SUMMARY | 2024-09-02 22:08 | XMS_ITS | Encounter Summary ---
[place] [address] Care Team Providers Care Elastic Attacher Chainstitch Name Role Phone Kerrie Morgan APRN Primary Care Provider + Encounter Details Date Type Department Care Team (Late st Contact Info) Description 03/20/2020 1:00 PM EDT Office [place] [address] Jen Perez MD [facility] [place] [address] Multiple thyroid nodules Social History Tobacco Use [...] thyroid nodule that has been followed from [phone] at [facility], discovered on routine physical exam. FNA was done in 2011 at [facility] and in 2017 by me at [facility] due to size enlargement, and had benign cytology both times. The nodule was followed yearly thereafter. She transitioned her thyroid nodule care to [facility] 1 year ago. 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 She is still reluctant about the idea of surgery. She had shortness of breath last week and heart palpitations, she got tested for covid, was negative. In early December 2019, she had actually lost her sense of taste in the context of some vague symptoms-- body aches, tickle in her throat. 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 Jen Perez MD [employer] Tw[employer] Operatormetal crafts teacher Section of Endocrinology [facility] documented in this encounter Plan of Treatment Not on file documented as of this encounter Procedures Procedure Name Priority Date/Time Associated Diagnosis Comments HC THYROID STIMULATING HORMONE, SERUM Routine 03/20/2020 2:15 PM EDT Multiple thyroid nodules documented in this encounter Results * TSH (03/20/2020 2:15 PM EDT) Thyroid Stimulating Hormone 1.82 0.27 - 4.20 mcIU/mL [facility] Blood specimen (specimen) 03/20/2020 2:15 PM EDT 03/20/2020 2:26 PM EDT Narrative Resulting Agency Comment Spec In Lab Jen Perez MD CHEMISTRY ORDERABLES Performing Organization Address City/State/[facility] Co de Phone Number [facility] [place] [address] documented in this encounter Visit Diagnoses Diagnosis Multiple thyroid nodules Nontoxic multinodular goiter documented in this encounter Care Teams Elastic Attacher Chainstitch Relationship Specialty Start Date End Date Kerrie Morgan, [facility] [address] [place] [address] PCP - General Family Medicine 03/31/18 documented as of this encounter
--- OUTSIDE RECORDS SUMMARY | 2024-09-02 22:08 | XMS_ITS | Encounter Summary ---
[place] [address] Care Team Providers Care Manager Intranet Name Role Phone Joanie Ferrell APRN Primary Care Provider [phone] Reason for Visit * Consultation (Routine) - Closed Specialty Diagnoses / Procedures Referred By Caleb luna Referred To Contact General Surgery Diagnoses Thyroid nodule Jen Perez MD [facility] [place] [address] Teresa Land MD [facility] [place] [address] Referral ID Status Reason Start Date Expiration Date V isits Requested Visits Authorized [id number] Closed Consult, Test & Treat 04/16/2017 04/16/2018 1 1 Encounter Details Date Type Department Care Team (Late st Contact Info) Description 05/05/2017 9:15 AM EDT Office [place] [address] Teresa Land MD [facility] [address] Multinodular goiter Social History Tobacco Use Types [...] years ago and she was followed at [facility]. A biopsy done there in 2011 was [...] ultrasound [facility] 2.2 x 2.8 x 4.3cm spongiform nodule replacing the right thyroid lobe and two small spongiform-type nodules on the left. Prior measurements of the right-sided nodule were 3.7cm (2015) and 2.9cm (2012). There is not a substernal component. Fine needle aspiration biopsy has been performed in endocrine department and demonstrates benign cytology ([place] 2). 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. She does not do any professional [...] She will not have a preoperative laryngoscopy. [facility] Data Body mass index is 27.36 kg/(m^2). Race: Patient Ethnicity & Race Ethnic Group Patient Race Not nor White Prior neck irradiation: no Prior anterior neck surgery: no Pre-operative laryngoscopy: no Anti-coagulation meds (aspirin, warfarin, clopidogrel, heparin, oral thrombin or factor Xa inhibitors): no Substernal component: no Symptoms of compression: no FNA: yes FNA Classification: [place] 2 documented in this encounter Plan of Treatment Not on file documented as of this encounter Visit Diagnoses Diagnosis Multinodular goiter Nontoxic multinodular goiter documented in this encounter Care Teams Manager Intranet Relationship Specialty Start Date End Date Joanie Ferrell APRN PCP - General Family Medicine 02/03/17 03/30/18 documented as of this encounter
--- OUTSIDE RECORDS SUMMARY | 2024-09-02 22:08 | XMS_ITS | Encounter Summary ---
Author Organization [facility] Address [address] [place] [address] Care Team Providers Care Ampoule Sealer Name Role Phone Unavailable Primary Care Provider Unavailabl e Encounter Details Date Type Department Care Team (Late st Contact Info) Description 11/02/2008 Before PRISM Converted Visit ([place]) [facility] - [place] conversion [address] [place] [address] Hanna Kaufman NP Social History Tobacco Use Types Packs/Day Years [...] Info) Description 09/08/2024 7:25 EST Hospital Encounter [facility] OR [address] [place] [address] [phone] Amos Andujar MD [address] [place] [phone] 09/08/2024 7:25 EST - 09/08/2024 12:55 EST Surgery [facility] OR [address] [place] [address] [phone] Amos Andujar MD [address] [place] [phone] Bifrontal craniotomy for resction of meningioma [28116 (CPT??)] 10/05/2024 11:00 EST Post-op Visit [facility] Neurosurgery - [place] [address] [place] [address] Mohini Bedoya PA-C 111 [facility] 5 [place] [address] Scheduled Procedures Name Priority Associated Diagnoses Date/Ti me CRANIECTOMY, SUPRATENTORIAL, FOR EXCISION OF MENINGIOMA Meningioma ([facility]) 09/08/2024 7:25 EST documented as of [...] 11/02/2008 12:0 5 EST 11/07/2008 10:14 EST us Hanna Kaufman NP MICROBIOLOGY - GENERAL ORDERA BLES Final Result [facility] [address] [place] [address] * CYTOPATHOLOGY (11/02/2008 0:00 EST) Pathology Report: CYTOPATHOLOGY REPORT ? Reports generated via electronic interface contain original data; ? however they are lacking the format of the original report. ? Caution should be taken when reading/interpreti ng unformatted reports. ? Name: ? PANDA, APARNA ? Accession #: ? [id number] ? : ? 1950 (Age: 58) ??F ?Collect Date: ? 11/02/2008 ? Location: ? [facility] ? Receive Date: ? 11/03/2008 ? Provider: ?HANNA M INES SALES OFFICE ASSISTANT ? Copy to: ? Specimen/Source: ?Pap Test, [...] Report ? [facility] 11/02/2008 11/03/2008 us Hanna Kaufman NP PATHOLOGY ORDERABLES Final Re sult [facility] [address] [place] [address] documented in this encounter Visit Diagnoses Not on filedocumented in this encounter
--- OUTSIDE RECORDS SUMMARY | 2024-09-02 22:08 | XMS_ITS | Encounter Summary ---
Author Organization [facility] Address [address] [place] [address] Care Team Providers Care Requirements Manager Name Role Phone Unavailable Primary Care Provider Unavailabl e Encounter Details Date Type Department Care Team (Late st Contact Info) Description 11/18/2011 Results Only [facility] Laboratory Services - [facility] ([facility] [address] [place] [address] [id number] Hanna Kaufman, FELISA Social History Tobacco Use [...] Description 09/08/2024 7:25 EST Hospital Encounter [facility] OR [address] [place] [address] [phone] Amos Andujar MD [address] [place] [address] [phone] 09/08/2024 7:25 EST - 09/08/2024 12:55 EST Surgery [facility] [place] [address] [place] [address] [phone] Amos Andujar MD [address] [place] [address] [phone] Bifrontal craniotomy for resction of meningioma [60946 (CPT??)] 10/05/2024 11:00 EST Post-op Visit [facility] Neurosurgery - [facility] [address] [place], [place] [phone] Mohini Bedoya PA-C 111 [facility] 5 [place] [phone] Scheduled Procedures Name Priority Associated Diagnoses Date/Ti me CRANIECTOMY, SUPRATENTORIAL, FOR EXCISION OF MENINGIOMA Meningioma ([facility]) 09/08/2024 7:25 EST documented as [...] ? PANDA, APARNA ? Accession #: ? [id number] ? : ? 1950 (Age: 61) ??F ?Collect Date: ? 11/18/2011 ? Location: ? [facility] ? Receive Date: ? 11/20/2011 ? Provider: HANNA KAUFMAN NP Copy to: TOSHIA JHA MD ? Final [...] the above diagnosis. End of Report [facility] 11/18/2011 11/20/2011 us Hanna Kaufman NP PATHOLOGY ORDERABLES Final Re sult [facility] [address] [place] [address] documented in this encounter Visit Diagnoses Not on filedocumented in this encounter
--- OUTSIDE RECORDS SUMMARY | 2024-09-02 22:08 | XMS_ITS | Encounter Summary ---
[place] [address] Care Team Providers Care Meal Cook Name Role Phone Kerrie Morgan APRN Primary [...] on filedocumented in this encounter Care Teams Meal Cook Relationship Specialty Start Date End Date Kerrie Morgan APRN [address] [place] [address] PCP - General Family Medicine 03/31/18 documented as of this encounter
--- OUTSIDE RECORDS SUMMARY | 2024-09-02 22:08 | XMS_ITS | Encounter Summary ---
[place] [address] Care Team Providers Care Fish Packer Name Role Phone Kerrie Morgan APRN Primary Care Provider + Reason for Visit * Reason Comments Thyroid Nodule Encounter Details Date Type Department Care Team (Late st Contact Info) Description 03/31/2018 11:30 AM EDT Office [place] [address] Jen Perez MD [facility] [place] [address] Multiple thyroid nodules Social History Tobacco Use [...] thyroid nodule that has been followed from [id number] at [facility], discovered on routine physical exam. FNA was done therein 2011 and had benign cytology. The nodule was followed yearly thereafter. She transitioned her thyroid nodule care to [facility] year ago. Because the nodule had [...] Office Visit from 03/31/2018 in Endocrinology at [place] Weight 73.4 kg (161 lb 12.8 oz) [...] R thyroid nodule, no lymphadenopathy, negative for [place] sign Pulm: CTAB, no stridor Cardiac: reg [...] for thyroid nodule reassessment. JEN PEREZ MD Vacuum System Testerhydrogen treater Section of Endocrinology [facility] * Jen Perez MD - 03/31/2018 11:30 AM EDT THYROID ULTRASOUND Date: 03/31/18 Indication: thyroid nodule reassessment Comparison: 2011, 2012, 2015, March 2017 Real time images of the thyroid gland were obtained using a [employer] US machine. All measurements are given as [...] criteria at this time. Jen Perez MD Vacuum System Testerhydrogen treater Section of Endocrinology [facility] documented in this encounter Plan of Treatment Not on file documented as of this encounter Visit Diagnoses Diagnosis Multiple thyroid nodules Nontoxic multinodular goiter documented in this encounter Care Teams Fish Packer Relationship Specialty Start Date End Date Kerrie Morgan, TRIM CREW SUPERVISOR [address] [place] [address] PCP - General Family Medicine 03/31/18 documented as of this encounter
--- OUTSIDE RECORDS SUMMARY | 2024-09-02 22:08 | XMS_ITS | Encounter Summary ---
Author Organization [facility] Address [address] [place] [address] Care Team Providers Care Human Resources Records Clerk Name Role Phone Lemuel Mcdaniel MD Primary Care Provider [phone] Reason for Visit * Reason Onset Date Comments Results 04/11/2012 Encounter Details Date Type Department Care Team (Late st Contact Info) Description 04/11/2012 Telephone [facility] Endocrinology - [facility] [address] [place], [place] [phone] Dilip Alonzo DO [address] [facility] [address] [place] [address] Results Social History Tobacco Use [...] Info) Description 09/08/2024 7:25 EST Hospital Encounter [facility] [place] [address] [place] [address] [phone] Amos Andujar MD [address] [place] [address] [phone] 09/08/2024 7:25 EST - 09/08/2024 12:55 EST Surgery [facility] [place] [address] [place] [address] [phone] Amos Andujar MD [address] [place] [address] [phone] Bifrontal craniotomy for resction of meningioma [23153 (CPT??)] 10/05/2024 11:00 EST Post-op Visit [facility] Neurosurgery - [address] [phone] Mohini Bedoya PA-C [address] [place] [address] [phone] Scheduled Procedures Name Priority Associated Diagnoses Date/Ti me CRANIECTOMY, SUPRATENTORIAL, FOR EXCISION OF MENINGIOMA Meningioma ([facility]) 09/08/2024 7:25 EST documented as of this encounter Visit Diagnoses Not on filedocumented in this encounter Care Teams Human Resources Records Clerk Relationship Specialty Start Date End Date Lemuel Mcdaniel MD [address] [place] [id number] PCP - General 04/02/12 01/28/13 documented as of this encounter
--- OUTSIDE RECORDS SUMMARY | 2024-09-02 22:08 | XMS_ITS | Encounter Summary ---
Author Organization [facility] Address [address] [place] [address] Care Team Providers Care Ecommerce Merchandising Manager Name Role Phone Unavailable Primary Care Provider Unavailabl e Encounter Details Date Type Department Care Team (Late st Contact Info) Description 08/12/2006 Results Only [facility] - [facility] [address] [place] [address] Lianet Subramanian MD [address] [place] [address] [place] [address] Social History Tobacco Use Types Packs/Day Years [...] EST Hospital Encounter [facility] [place] [address] [place] [address] [phone] Amos Andujar MD [address] [place] [address], [address] [place] [phone] 09/08/2024 7:25 EST - 09/08/2024 12:55 EST Surgery [facility] [place] [address] [place] [address] [phone] Amos Andujar MD 111 [facility] 5 [place] [phone] Bifrontal craniotomy for resction of meningioma [09422 (CPT??)] 10/05/2024 11:00 EST Post-op Visit [facility] Neurosurgery - [facility] [address] [place], [place] [phone] Mohini Bedoya PA-C 111 [facility] 5 [place] [phone] Scheduled Procedures Name Priority Associated Diagnoses Date/Ti me CRANIECTOMY, SUPRATENTORIAL, FOR EXCISION OF MENINGIOMA Meningioma ([facility]) 09/08/2024 7:25 EST documented as of this [...] ? FARZAD, APARNA ? Accession #: ? [id number] : ? 1950 (Age: 55) ??F ?Collect Date: ? 08/12/2006 Location: ? [facility] ? Receive Date: ? 08/13/2006 Provider: ?LIANET SUBRAMANIAN MD Copy to: ? Specimen/Source: ?ThinPrep Pap Test, Cervix/Endocervix, processed on [employer] ThinPrep Imaging System, with manual evaluation Last [...] End of Report [facility] 08/12/2006 08/13/2006 us Lianet Subramanian MD PATHOLOGY ORDERABLES Final Resu lt [facility] [address] [place] [address] documented in this encounter Visit Diagnoses Not on filedocumented in this encounter
--- OUTSIDE RECORDS SUMMARY | 2024-09-02 22:08 | XMS_ITS | Encounter Summary ---
[place] [address] Care Team Providers Care Senior Hadoop Developer Name Role Phone Kerrie Morgan APRN Primary Care Provider + Encounter Details Date Type Department Care Team (Late st Contact Info) Description 05/19/2023 11:30 AM EDT Office [place] [address] Catina Rao MD [facility] [place] [address] Multiple thyroid nodules Social History Tobacco Use [...] thyroid nodule that has been followed from 2771-[address] [facility], discovered on routine physical exam. FNA was done in [address] [facility] and in [address] Perez at [facility] due to size enlargement, and had benign [...] the thyroid gland were obtained using a [employer] US machine. All measurements are given as [...] documented in this encounter Results * TSH [place] (05/19/2023 12:04 PM EDT) Thyroid Stimulating Hormone 0.92 0.27 - 4.20 mcIU/mL [facility] Comment: Reference Interval (mcIU/mL): Females: ??First Trimester: 0.23-3.88 ??Second Trimester: 0.22-3.90 ??Third Trimester: 0.44-4.66 Blood 05/19/2023 12:0 4 PM EDT 05/19/2023 12:15 PM EDT Narrative Resulting Agency Comment Spec In Lab Catina Rao MD CHEMISTRY ORDERABL ES [facility] [place] [address] documented in this encounter Visit Diagnoses Diagnosis Multiple thyroid nodules Nontoxic multinodular goiter documented in this encounter Care Teams Senior Hadoop Developer Relationship Specialty Start Date End Date Kerrie Morgan, FUND ACCOUNTANT [address] [place] [address] PCP - General Family Medicine 03/31/18 documented as of this encounter
--- OUTSIDE RECORDS SUMMARY | 2024-09-02 22:08 | XMS_ITS | Encounter Summary ---
Author Organization [facility] Address [address] [place] [address] Care Team Providers Care Network Developer Name Role Phone Maxine Masterson MD Primary Care Provider [phone] Reason for Referral * Radiology Services (Routine/Next Available) - Closed Specialty Diagnoses / Procedures Referred By Caleb luna Referred To Contact Diagnoses Thyroid nodule Procedures ENDOCRINE CLINIC THYROID Dilip Alonzo DO Phone: tel: fax: Referral ID Status Reason Start Date Expiration Date Visits Re quested Visits Authorized [id number] Closed 05/27/2013 1 1 Reason for Visit * Reason Comments Thyroid Problem Encounter Details Date Type Department Care Team (Latest Contact Info) Description 05/27/2013 13:20 EDT Office Visit [facility] Endocrinology - [facility] [address] [place], [place] [phone] Dilip Alonzo DO [address] [place] [address] [address] [place] [address] Thyroid nodule (Primary Dx) Social [...] encounter Miscellaneous Notes * Scanned Note-Null - FORM SETTER/DRIVER, SCAN 2 - 06/02/2013 2789 EDT documented in this encounter Plan of Treatment Upcoming Encounters Date Type Department Care Team (Late st Contact Info) Description 09/08/2024 7:25 EST Hospital Encounter [facility] OR [address] [place] [address] [phone] Amos Andujar MD [address] [place] [address] [phone] 09/08/2024 7:25 EST - 09/08/2024 12:55 EST Surgery [facility] OR [address] [place] [address] [phone] Amos Andujar MD [address] [place] [phone] Bifrontal craniotomy for resction of meningioma [95612 (CPT??)] 10/05/2024 11:00 EST Post-op Visit [facility] Neurosurgery - [address] [phone] Mohini Bedoya PA-C [address] [place] [phone] Scheduled Orders Name Type Priority Associated Diagnoses Orde r Schedule ENDOCRINE CLINIC US THYROID Imaging Routine Thyroid nodule Ordered: 05/27/2013 Scheduled Procedures Name Priority Associated Diagnoses Date/Ti me CRANIECTOMY, SUPRATENTORIAL, FOR EXCISION OF MENINGIOMA Meningioma ([facility]) 09/08/2024 7:25 EST documented as of this encounter Results * THYROID CASCADE (05/27/2013 14:10 EDT) TSH 1.29 0.35 - 5.00 uIU/ml [facility] Comment: TSH cascade is not recommended for patients in which pituitary or hypothalamic disorders are suspected. Blood specimen (specimen) 05/27/2013 14:10 EDT 05/27/2013 19:09 EDT Dilip Alonzo DO CHEMISTRY & BLOOD GAS ORDERABLES Final Result [facility] [address] [place] [address] documented in this encounter Visit Diagnoses Diagnosis Thyroid nodule- Primary Nontoxic uninodular goiter Meningioma (HCC-CMS) Benign neoplasm of cerebral meninges documented in this encounter Care Teams Network Developer Relationship Specialty Start Date End Date Maxine Masterson MD [address] [facility] [phone] PCP - General 01/29/13 01/23/16 documented as of this encounter
--- OUTSIDE RECORDS SUMMARY | 2024-09-02 22:08 | XMS_ITS | Encounter Summary ---
Author Organization [facility] Address [address] [place] [address] Care Team Providers Care Floor Mechanic Name Role Phone Lemuel Mcdaniel MD Primary Care Provider Encounter Details Date Type Department Care Team (Late st Contact Info) Description 04/09/2012 Results Only [facility] Endocrinology - [address] [phone] Blanka Ballard MD PhD [address] [facility] [address] [place] [address] Social History Tobacco Use Types [...] Info) Description 09/08/2024 7:25 EST Hospital Encounter [facility] OR [address] [place], [place] [phone] Amos Andujar MD 111 [facility], [facility], [address] [place] [phone] 09/08/2024 7:25 EST - 09/08/2024 12:55 EST Surgery [facility] OR [address] [place], [place] [phone] Amos Andujar MD [address] [phone] Bifrontal craniotomy for resction of meningioma [80948 (CPT??)] 10/05/2024 11:00 EST Post-op Visit [facility] Neurosurgery - [facility] [address] [place], [place] [phone] Mohini Bedoya PA-C [address] [phone] Scheduled Procedures Name Priority Associated Diagnoses Date/Ti me CRANIECTOMY, SUPRATENTORIAL, FOR EXCISION OF MENINGIOMA Meningioma ([facility]) 09/08/2024 7:25 EST documented as of this [...] ? PANDA, APARNA ? Accession #: ? [id number] : ? 1950 (Age: 61) ??F ?Collect [...] consistent with a benign thyroid nodule. ??(Dr. Villegas)/ljn Document reviewed and electronically signed by: ? [...] enhancement technique. ? End of Report [facility] 04/09/2012 04/10/2012 8:3 3 EDT us Blanka Ballard MD PhD PATHOLOGY ORDERABLES Meaghan osborne Result Performing Organization Address City/State/[facility] Co de Phone Number [facility] [address] [place] [address] documented in this encounter Visit Diagnoses Not on filedocumented in this encounter Care Teams Floor Mechanic Relationship Specialty Start Date End Date Lemuel Mcdaniel MD [address] [place] [address] PCP - General 04/02/12 01/28/13 documented as of this encounter
== END 2024-09-02 22:00 | disposition home or self-care (01) ==
LOC: NCHCN 21:59
PROVIDERS: PCP Registered Nurse; Visit Provider Family Medicine
DX: Z01.818 Encounter for other preprocedural examination (principal)
CPT/HCPCS: 85025; 85610

== ENCOUNTER 2025-03-24 13:56 | Outpatient (REF) | payer MEDICARE, BC, SELFPAY ==
[2025-03-24 15:49] LABS: HCT 35.2 % (36.0-46.0); HGB 11.2 g/dL (11.2-15.7); MCH 26.7 pg (27.0-33.0); MCHC 31.8 % (32.0-36.0); MCV 84 fL (80-95); MPV 9.8 fL (8.0-11.0); Platelet Count 242 10^3/uL (130-400); RBC 4.19 10^6/uL (3.93-5.22); RDW 12.7 % (11.7-14.6); RDW-SD 38.4 fL; WBC 7.04 10^3/uL (4.4-10.8)
[2025-03-24 16:00] LABS: Iron 84 ug/dL (50-170); Total Iron Binding Capacity 243 ug/dL (250-450); Transferrin Sat 35 % (15-50)
[2025-03-24 16:25] LABS: ALT 20 U/L (14-59); AST 23 U/L (15-37); Albumin 3.8 g/dL (3.4-5.0); Alkaline Phosphatase 111 U/L (46-116); Anion Gap 5.5 mmol/L (3-11); BUN 20 mg/dL (7-18); Bilirubin, Total 0.7 mg/dL (0.2-1.0); CO2 29.5 mmol/L (21.0-32.0); CREATININE 0.9 mg/dL (0.55-1.02); Calcium 9.4 mg/dL (8.5-10.1); Calculated LDL 98 mg/dL (<100); Chloride 105 mmol/L (98-107); Cholesterol 190 mg/dL (<200); Estimated GFR 67.92 (mL/min/1.73m2); Ferritin 187 ng/mL (8-252); Glucose 110 mg/dL (74-106); HDL Cholesterol 59 mg/dL (>or=50); Potassium 4.4 mmol/L (3.5-5.1); Sodium 140 mmol/L (136-145); Total Protein 7.2 g/dL (6.4-8.2); Triglyceride 167 mg/dL (<150)
== END 2025-03-24 13:57 | disposition home or self-care (01) ==
LOC: NCHCN 13:56
PROVIDERS: PCP Registered Nurse; Visit Provider Family Medicine
DX: E61.1 Iron deficiency (principal)
CPT/HCPCS: 80053; 80061; 85027; 82728; 83540; 83550

== ENCOUNTER 2025-05-26 15:04 | Outpatient (REF) | payer MEDICARE, BC, SELFPAY ==
--- NOTE | 2025-05-26 10:00 | SKI_PTH ---
PATIENT: Aparna Fairchild LOC: NCN #:[id number] AGE/SX: 74/F ROOM: RE05/26/[address]: Cecy Cota : 1950 BED: DIS: 05/26/2025 SPEC #: [id number] RECD: 05/26/25 16:59 STATUS: AIMEE REQ #: [id number] TRINY: 05/26/25 10:[address]: Cecy Cota DEPT: Surgical Specimen RECD BY: Heather Dumont ENTERED: 05/26/25 16:59 SP TYPE: CHARAN KHAN DR: Kerrie Morgan Tissues: 1 - SKIN BIOPSY(SHAVE/PUNCH) Procedures: SKIN LEVEL 4 Comments: [id number]
== END 2025-05-26 15:05 | disposition home or self-care (01) ==
LOC: NCHCN 15:04
PROVIDERS: PCP Registered Nurse; Visit Provider Family Medicine
DX: L82.1 Other seborrheic keratosis (principal)
CPT/HCPCS: 88305